=== PATIENT | male | born 1955 | race Caucasian/White ===

== ENCOUNTER 2017-04-20 17:29 | Inpatient (IN) | payer OTHER ==
[~2017-04-20] VITALS: Ht 170.2 cm; Wt 45.2 kg
[2017-04-20 20:36] VITALS: BP 130/73; PULSE 94; TEMP 37.7; O2SAT 96
[2017-04-20 20:57] VITALS: Ht 170.2 cm; Wt 45.2 kg
--- NOTE | 2017-04-20 21:11 | History and Physical ---
History & Physical Date & Time of Service: Apr 20, 2017 at 21:11 Chief Complaint: Severe Anemia, Hemoptisis, Lung Mass Primary Care Physician: No Doctor, Assigned History of Present Illness Source: patient, hospital records 62 yo M, 50 pack year of smoking, has not seen a Dr in many years. presented to an outside facility and was transferred here for hemoglobin of 3.7 and large mass in RUL and RML, presumably a malignancy. He apparently had a history of TB a few years ago and reports he took about 12 tablets a day for it, and that he had a mass in the RUL then as well. He reports he has been feeling unwell generally, and has been coughing up blood which he has been swallowing. He has a 30 lb weight loss in the last 1-2 months. He smokes about 1/2 pack per day. His partner of 15 years recently from lung cancer about 2 months ago so his mood has been low overall. He denies headache, visual changes, abdominal pain, urinary changes, or leg swelling. His stools have occasionally been dark. He went to the [facility] and was found to have a Hb of 3.7, and was transfused 2 units prior to arrival here. He had a CT of the chest which showed a 5.3 x 5.9 x 7.8cm mass in the right upper lobe and right middle lobe. He also had some enlarged lymph nodes in the chest and axilla. Past Medical/Surgical History PMHx Tuberculosis in past - unclear if it was latent or active PSHx Carpal tunnel release Family History No pertinent FHx Social History Smoking Status: Current Every Day Smoker (1/2 pack per day since age 9) Smokeless Tobacco Use: No Alcohol Use: socially Drug Use: none Marital Status: single Housing status: lives alone Immunizations History of Influenza Vaccine: Unknown History of Tetanus Vaccine?: Unknown History of Pneumococcal: Unknown History of Hepatitis B Vaccine: Unknown Multi-Drug Resistant Organisms History of MDRO: No Allergies Coded Allergies: No Known Allergies (Unverified , 04/20/17) Review of Systems See HPI for pertinent positives & negatives. A total of 10 systems reviewed and were otherwise negative. Physical Exam Vital Signs Date Time Temp Pulse Resp B/P (MAP) Pulse Ox O2 Delivery O2 Flow Rate FiO2 04/20/17 20:57 Room Air 04/20/17 20:36 37.7 94 21 130/73 (92) 96 Room Air General Appearance: WD/WN, no apparent distress, + thin, + pertinent finding ( pale) Head: normocephalic, atraumatic Eyes: normal inspection, PERRL ENT: hearing grossly normal Neck: supple, no JVD Respiratory/Chest: lungs clear, normal breath sounds, no respiratory distress, no accessory muscle use, + decreased breath sounds (RUL) Cardiovascular: regular rate, rhythm, no murmur, normal peripheral pulses Abdomen/GI: normal bowel sounds, non tender, soft Back: normal inspection, no CVA tenderness, no muscle spasm Extremities/Musculoskelatal: no calf tenderness, no pedal edema Neurologic/Psych: alert, normal mood/affect, oriented x 3 Skin: no rash Lymphatic: no adenopathy Diagnostics Laboratory Results Results Past 24 Hours Test 04/20/17 21:08 Range/Units Normal EKG, No prior EKG available (at outside facility) Impression Assessment and Plan 62 year old male w/weight loss, hemoptysis, hx of TB, significant smoking hx w/ new lung mass and anemia - ddx malignancy vs TB (with his hx of TB, we will presume potentially active TB until ruled out) Lung mass - Cardiothoracics consulted. Dr Beverly discussed the case with Dr Acevedo prior to accepting it. - CT chest images received on disc, to be uploaded to our system - Airborne precautions - ID consulted in case of TB, Heme-Onc for potential malignancy Acute red blood cell loss anemia requiring transfusion of PRBCs - Received 2 units - Will recheck a CBC, type/cross 3 further units - Repeat labs in AM Smoking hx - Will provide nicotine patch Dispo: Admit to Tele Code status: Full VTE: SCDs Attending addendum: I have physically seen this patient, have supervised the medical residents activities, and agree with the H&P unless as otherwise noted. Assessment and Plan: 1. Lung mass/hemoptysis/acute blood loss anemia/reported TB history that sounds like partial treatment-- Admits to the telemetry unit Nasal cannula oxygen, titrate to keep pulse ox greater than or equal to 92% Duonebs every [address] a reverse isolation room Consult thoracic surgery Dr. Acevedo, who is already aware the patient. Consult infectious disease Place on vancomycin IV and cefepime IV empirically 2. Acute blood loss anemia secondary to hemoptysis-- Hemoglobin reportedly 3.7 prior to transfer Received 2 units PRBCs while at referring hospital Stat H&H now and every 6 hours Target hemoglobin to at least 8 3. Tobacco use disorder-- Counseling Nicotine patch Level of Care Telemetry Advanced Directives Existing Advance Directive: No Existing Living Will: No Existing Power of Structural Welder: No Resuscitation Status FULL RESUSCITATION VTE Prophylaxis VTE Risk Assessment Done? Y/N: Yes Risk Level: Moderate Given or contraindicated: SCD's, Contraindicated Resident Tracking Resident Involvement: Resident Care Provided Care Provided: Adult Hospital Medicine
[2017-04-20] MEDS ORDERED: MoRPHine SULFATE 2 MG/ML CARP IV PRN (21:15)
[2017-04-20] MEDS ORDERED: ONDANSETRON INJ 2 MG/ML 2 ML VIAL IV PRN (21:15)
[2017-04-20] MEDS ORDERED: MAGNESIUM HYDROXIDE SUSP 30 ML UDC PO PRN (21:15)
[2017-04-20] MEDS ORDERED: ALUMINUM/MAGNESIUM/SIMETH (MAALOX MAX) 30 ML UDC PO PRN (21:15)
[2017-04-20] MEDS ORDERED: NITROGLYCERIN 0.4 MG SL PER TAB CHARGE SL PRN (21:15)
[2017-04-20] MEDS ORDERED: POLYETHYLENE (MIRALAX) 17 GM PACK PO PRN (21:15)
[2017-04-20] MEDS ORDERED: INFLUENZA VIRUS QUAD VACCINE 0.5 ML SYR IM. ONE (21:30)
[2017-04-20] MEDS ORDERED: INFLUENZA ADMINISTRATION CHARGE ONE (21:30)
[2017-04-20 22:04] LABS: INR 1.2 (0.9-1.1); PROTHROMBIN TIME (PATIENT) 12.5 SECONDS (9.0-12.0)
[2017-04-20 22:10] LABS: BUN/CREATININE RATIO 15.7 (10-20); CALCIUM 8.1 mg/dl (8.5-10.1); CREATININE 0.59 mg/dl (0.60-1.40); POTASSIUM 3.4 mmol/L (3.5-5.1)
[2017-04-20 22:13] LABS: ALB/GLOB RATIO 0.3 (0.9-2)
[2017-04-20 22:19] LABS: HEMATOCRIT 21.7 % (42-52); MEAN CELL VOLUME 90.8 fL (80-100); MEAN CORPUSCULAR HEMOGLOBIN 26.8 pg (25-34); MEAN CORPUSCULAR HGB CONC 29.5 g/dl (32-36); MEAN PLATELET VOLUME 12.5 fL (7.4-10.4); PLATELET COUNT 200 K/uL (130-400); RED BLOOD COUNT 2.39 M/uL (4.7-6.1); WHITE BLOOD COUNT 4.04 K/uL (4.8-10.8)
[2017-04-20 22:36] LABS: HYPOCHROMIA PRESENT; POLYCHROMASIA 1+
[2017-04-20 22:38] LABS: COMPLETE YES; EOSINOPHIL % 1.8 %; LYMPH ABS # 1.08 K/uL (1.2-3.4); LYMPHOCYTE % 26.8 %; NEUTROPHILS % 11.6 %
[2017-04-20 23:44] VITALS: BP 121/68; PULSE 102; TEMP 37.7; O2SAT 94
[2017-04-20] MEDS: NITROGLYCERIN OINT 2% 1GM PACKET EXT SCH (23:48)
[2017-04-21] VITALS (16 sets, daily range): BP systolic 95–132; BP diastolic 62–89; PULSE 85–104; TEMP 36.7–37.9; O2SAT 90–99
[2017-04-21] MEDS: ZOLPIDEM TARTRATE 5 MG TAB PO PRN ×2 (00:03→22:01)
[2017-04-21] MEDS ORDERED: VANCOMYCIN INJ 1,250 MG in SODIUM CHLORIDE 0.9% 250ML 250 ML IV ONE (02:00)
[2017-04-21] MEDS ORDERED: CEFEPIME IV 1,000 MG in DEXTROSE 5% 100ML 100 ML IV SCH (02:00)
--- NOTE | 2017-04-21 02:10 | Pharmacy Progress Note ---
Pharmacy Abx Initial Consult Date of Service Apr 21, 2017. Pharmacy Dosing Scope Date of Consult: 04/21/17 Consultation requested by: Dr. Alba Pharmacy is consulted to initiate vancomycin IV dosing therapy, order appropriate labs and adjust drug dose/frequency. Subjective The patient is a 62 year old male admitted on Apr 20, 2017 at 20:39. Objective Height (Feet): 5 Height (Inches): 7.00 Weight (Kilograms): 48.700 Vital Signs (Past 12Hrs) Vital Signs Past 12 Hours Date Time Temp Pulse Resp B/P (MAP) Pulse Ox O2 Delivery O2 Flow Rate FiO2 04/21/17 01:59 37.8 94 18 123/66 93 04/21/17 00:53 37.6 95 16 110/64 95 04/21/17 00:34 37.9 93 16 116/65 95 04/21/17 00:05 37.9 101 16 107/67 95 04/21/17 00:00 Room Air 04/20/17 23:44 37.7 102 20 121/68 94 04/20/17 20:57 Room Air 04/20/17 20:36 37.7 94 21 130/73 (92) 96 Room Air Lab Results (24Hrs) Laboratory Tests (24 Hours) Test 04/20/17 21:30 White Blood Count 4.04 K/uL (4.8-10.8) L Red Blood Count 2.39 M/uL (4.7-6.1) L Hemoglobin 6.4 g/dL (14.0-18.0) *L Hematocrit 21.7 % (42-52) L Mean Corpuscular Volume 90.8 fL (80-100) Mean Corpuscular Hemoglobin 26.8 pg (25-34) Mean Corpuscular Hemoglobin Concent 29.5 g/dl (32-36) L Platelet Count 200 K/uL (130-400) Mean Platelet Volume 12.5 fL (7.4-10.4) H Micro Results Date/Time Source Procedure Growth Status 04/20/17 22:06 Blood Blood Culture Pending Received 04/20/17 21:57 Blood Acid Fast Stain Pending Received 04/20/17 21:57 Blood Mycobacterial Culture Pending Received 04/20/17 21:57 Blood Blood Culture Pending Received Risk Factors for Resistance Assessment & Plan Assessment 62 year old male with a large mass in his right upper and middle lobe and a past history of TB presents with a low hemoglobin. Plan vancomycin for empiric treatment Vancomycin IV * Loading dose: 1250 mg (25 mg/kg) * Maintenance dose: 1000 mg IV (21 mg/kg) every 12 hours * Goal trough level for empiric : 15 to 20 mcg/mL * Trough ordered for 04/22/17 prior to 1400 dose Pharmacy will continue to follow and will adjust dose/frequency as necessary. Thank you.
[2017-04-21] MEDS ORDERED: VANCOMYCIN CONSULT ACTIVE PRN (02:15)
[2017-04-21] MEDS: ACETAMINOPHEN 325 MG TAB PO PRN ×2 (03:05→12:18)
[2017-04-21] MEDS: CEFEPIME IV 1,000 MG in SYRINGE 0 ML IV SCH ×3 (03:05→19:15)
[2017-04-21 03:49] LABS: URINE APPEARANCE CLEAR (CLEAR); URINE BILIRUBIN NEG (NEG); URINE COLOR YELLOW; URINE NITRITE NEG (NEG); URINE PH 5.5 (4.5-7.5); URINE SPECIFIC GRAVITY 1.024 (1.000-1.030); UROBILINOGEN NEG (NEG)
[2017-04-21 03:53] LABS: MANUAL MICROSCOPIC REQUIRED? NO; REVIEW REQ? NO
[2017-04-21] MEDS: NITROGLYCERIN OINT 2% 1GM PACKET EXT SCH ×4 (05:23→23:43)
[2017-04-21 07:54] LABS: BUN/CREATININE RATIO 16.3 (10-20); CALCIUM 7.8 mg/dl (8.5-10.1); CREATININE 0.5 mg/dl (0.60-1.40); POTASSIUM 3.1 mmol/L (3.5-5.1)
[2017-04-21 07:58] LABS: MEAN CELL VOLUME 88.9 fL (80-100); MEAN CORPUSCULAR HEMOGLOBIN 27.4 pg (25-34); MEAN CORPUSCULAR HGB CONC 30.8 g/dl (32-36); PLATELET COUNT 154 K/uL (130-400); WHITE BLOOD COUNT 4.03 K/uL (4.8-10.8)
[2017-04-21] MEDS ORDERED: NURSING VERBAL MED ORDER ONE (08:00)
[2017-04-21] MEDS ORDERED: POTASSIUM CHLORIDE 20 MEQ TABCR PO ONE ×2 (08:30→12:00)
[2017-04-21] MEDS: NICOTINE 14 MG/24 HR TDSY TD SCH (08:34)
--- NOTE | 2017-04-21 08:43 | DIAGNOSTIC IMAGING REPORT ---
CHEST 2 VIEWS ROUTINE HISTORY: 62 years-old Male ?mass RUL / RML possible mass of the right upper lobe. COMPARISON: None available TECHNIQUE: PA and lateral views of the chest FINDINGS: Cardiac silhouette is within normal limits. The lungs are hyperinflated with diaphragmatic flattening suggesting emphysema. Airspace opacities are noted within the right upper lobe. There is volume loss with possible complete atelectasis of the right middle lobe. Hazy right apical and right hilar opacities are also noted with biapical pleural-parenchymal scarring. The bones are grossly intact. Atherosclerotic plaquing of the aorta. IMPRESSION: 1. Volume loss of the right middle lobe with airspace opacities of the right upper lobe. 2. Right apical and right perihilar opacities are also noted suggesting areas of scarring or underlying mass. No comparison studies are available. Further evaluation with chest CT recommended. 3. Emphysema. The above report was generated using voice recognition software. It may contain grammatical, syntax or spelling errors. Electronically signed by: Hermilo Wiley M.D. 04/21/2017 8:41 AM Dictated Date/Time: 04/21/2017 8:26 AM
[2017-04-21] MEDS ORDERED: OPTIRAY 320 IV PRN (08:45)
[2017-04-21 09:56] LABS: FERRITIN 187.7 ng/ml (8.0-388.0)
--- NOTE | 2017-04-21 10:45 | ONCOLOGY CONSULTATION ---
DATE OF CONSULTATION: 04/21/2017 REASON FOR CONSULTATION: Lung mass and profound anemia. HISTORY OF PRESENT ILLNESS: Mr. Guajardo is a pleasant, somewhat unfortunate 62-year-old gentleman from [facility], who was admitted to [facility] on 04/20/2017 with a complaint of generalized weakness, hemoptysis, anemia and lung mass. [facility], [facility] underwent a preliminary workup, which included peripheral blood counts and a CT scan of the chest. Hemoglobin was 3.[address] scan of the chest apparently revealed a large mass in the right upper and right middle lobe, presumably representing malignancy. Clinical notes and the patient himself reported history of tuberculosis exposure. From what Randal explains to me, he was incarcerated for a DUI back in 2003. He is not sure of specifics. Rather, he had a skin test or a clinical/radiographic evidence of disease, but nonetheless, was treated with triple therapy, he believes for at least 1 month. Beyond that, he is really unsure on whether he actually suffered from clinical tuberculosis. Clinically, over the past several months, he has been steadily losing weight, he reports about 30 pounds over the past 2-3 months. He has a 84-eqlz-ryzs smoking history and continues to smoke; however, he admittedly has cut down. He states his appetite has been pretty vigorous, but obviously has not maintained a well-balanced diet. He denies any pain per se. He clearly has been constipated stating he moves his bowels every 2-3 days. Apparently, he received 2 units of packed RBCs at [facility] and 2 additional units since being transferred here. He clearly admits to long-term hemoptysis, he estimates several months past and I asked him why he did not seek medical attention and he attributes the hemoptysis to a lack of humidity in his home. I have been asked to evaluate Mr. Guajardo for what is presumably a lung cancer and a profound blood loss anemia. PAST MEDICAL HISTORY: Again, the issue of tuberculosis is really unclear. This gentleman has not seen a physician, he admits in over 15 years. PAST SURGICAL HISTORY: Carpal tunnel release. MEDICATIONS AND ALLERGIES: He is on no prescription medications and has no known allergies. SOCIAL HISTORY: The patient was a [employer]. He is no longer working. Recently lost his partner to metastatic lung cancer. He has 3 children. Again, he reports 15-djjv-efer smoking history. He also admits to social alcohol. FAMILY HISTORY: Noncontributory. REVIEW OF SYSTEMS: As per HPI most notably for weight loss of 30 pounds. GENERAL: He denies fevers, chills or sweats. SKIN: No rashes or lesions. No history of dermatosis. HEENT: He reports no headaches, lightheadedness or dizziness. No acute visual or hearing deficits. No sinus symptoms, sore throat or dysphagia. LYMPH: No history of lymphadenopathy or lymphoproliferative disease. CARDIAC: No history of coronary artery disease, no angina or palpitations. PULMONARY: Positive for shortness of breath. Positive for dyspnea. Positive for hemoptysis and productive cough. GASTROINTESTINAL: Negative for abdominal pain. No current nausea or vomiting. Positive for constipation. Question of ongoing melena. No kimberly rectal bleeding or hematochezia reported. GENITOURINARY: has no history of prostate disease. No hematuria or dysuria. MUSCULOSKELETAL: No muscle weakness or skeletal pain. No arthralgias or myalgias. ENDOCRINE: Negative for diabetes or thyroid disease. HEMATOLOGIC: Positive for profound anemia. PHYSICAL EXAMINATION: GENERAL: In general, he is a cachectic-appearing 62-year-old gentleman, looks much older than his stated age in no acute distress. VITAL SIGNS: Temperature 36.9, pulse 85, respiratory rate 24, blood pressure 121/68. SKIN: Warm, dry, noncyanotic without petechia, rash or ecchymosis. Turgor is poor. HEAD: Atraumatic, normocephalic. EYES: PERRLA, EOMI. Sclerae nonicteric. No conjunctival injection. Nares are patent without rhinorrhea or discharge. Throat is clear. Tongue is midline. Mucous membranes are moist. NECK: Supple without JVD or thyromegaly. LYMPH: No cervical, supraclavicular, or axillary palpable nodes. HEART: Regular rate and rhythm. No clicks, rubs, murmurs, or gallops. LUNGS: Distant breath sounds. I could not appreciate any overt rales or rhonchi. ABDOMEN: Firm, slightly distended. Bowel sounds are hypoactive. No rigidity or guarding noted. EXTREMITIES: Musculoskeletal strength and pulses are equal. No clubbing, cyanosis or edema. NEUROLOGIC: He is awake, alert and oriented x3. Cranial nerves II through XII are intact. LABORATORY DATA: Sodium 133, potassium 3.1, chloride 101, carbon dioxide 26, BUN 8, creatinine 0.5. WBC count 4030, hemoglobin 7.4, MCV 88.9, platelet count 154,000. His PT 12.5 with an INR of 1.2. IMPRESSION: 1. Suspected lung cancer. 2. Generalized weakness. 3. Anorexia/weight loss. 4. Hemoptysis. 5. Mild coagulopathy, most likely attributable to vitamin K deficiency. 6. Remote history of tuberculosis ? PLAN: I had the pleasure of visiting with Randal and family members in the room with him during consultation. Clearly, this gentleman has not been seen by medical records receptionist in several years. He was admitted for generalized weakness, weight loss and anorexia and incidentally was found to be anemic. He obviously has had hemoptysis for quite some time and did not seek medical attention. There is also a question of whether his stools are melena. He has been constipated. I agree with thoracic surgery consultation. In addition, I would probably request gastroenterology get involved at some point. I have taken the liberty of ordering preliminary elemental studies, particularly iron, B12 and folate. I have also taken the liberty of proceeding with CT scan of the chest, abdomen and pelvis with contrast to formally staged Mr. Guajardo. Treatment and recommendations have not been made and we will plan to do so once diagnosis is confirmed. I did inform Mr. Guajardo and his family that his presentation is certainly suspicious for a cancer diagnosis. I will continue to follow him periodically during his hospital stay. At present, his hemoglobin is adequate. I think to discontinue further transfusional support. I suspect his iron studies will reflect deficiency state and may want to consider intravenous replacement, again upon confirmation. Thank you very much for allowing me to participate in his care. If you have any questions or concerns, feel free to contact me at any time. SARANYA
--- NOTE | 2017-04-21 11:09 | INFECT. DISEASE CONSULTATION ---
DATE OF CONSULTATION: 04/21/2017 HISTORY OF PRESENT ILLNESS: This is a 62-year-old gentleman who was transferred from [facility] after he was found to be profoundly anemic with a hemoglobin of 3.7. He was transfused while in the hospital at [facility] and his hemoglobin was improved to 6.4 upon arrival. He also had a CAT scan of the chest done while at [facility] due to hemoptysis, which has been ongoing for a number of weeks. This did show a right upper lobe cavitary mass measuring 5.3 x 5.9 x 7.8 cm. He additionally has had significant weight loss of around 30 pounds over the past 2-3 months, which has been unintentional. He denies any fevers or chills at home. He denies any night sweats. He denies any cough other than hemoptysis. He did attribute this to having the heat on and try air in the house; however, it sounds as though his hemoptysis was significant. He did have a mild elevation in temperature overnight at 37.9. AFB sputum cultures have been collected and are pending. He was placed empirically on vancomycin and cefepime. He does have a history of what he describes as TB exposure in 2003. At that time, he was [facility] [place]. It is unclear how long he was incarcerated, but he states he did have a test for tuberculosis. He is unable to recall if he had a PPD placed and if so, what his measurement was. In any event, he states he was given a few months' worth of antibiotics to treat for exposure to TB, but states he was never told he had active tuberculosis. It does not appear as though he was ever placed in respiratory isolation while incarcerated. He has had no followup with a physician since that time. Additionally, he also has a 50+ year smoking history and continues to use tobacco. He was placed in airborne precautions and AFB and sputum were obtained. The results of these are pending. He currently denies any chest pain, cough or shortness of breath. He states he has not had any additional episodes of hemoptysis since admission to the hospital. His family is at the bedside. He denies ever living anywhere else in the country. He denies having any known exposure to tuberculosis. 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 He states he has not spent significant time outside of the country. PAST MEDICAL HISTORY: Significant for what he describes as latent tuberculosis and carpal tunnel release surgery. FAMILY HISTORY: Noncontributory. SOCIAL HISTORY: Significant for daily tobacco use. He does drink occasionally. He denies any drug use. He does live alone. His remaining social history is as above. ALLERGIES: He has no known drug allergies. MEDICATIONS: Include nicotine patch, vancomycin, potassium, cefepime, Ambien, Tylenol, Maalox, milk of magnesia, Zofran, morphine and MiraLax. PHYSICAL EXAMINATION: VITAL SIGNS: He is afebrile, pulse 85, respiratory rate 24, blood pressure 121/68, and oxygen saturation is 93%-97% on room air. GENERAL: He is awake, alert and oriented x3. He is in no acute distress. HEENT: Mucous membranes are dry. Extraocular muscles are intact. He is cachectic appearing. LUNGS: Decreased bilaterally. HEART: Regular. ABDOMEN: Soft, nontender, and nondistended. EXTREMITIES: There is no lower extremity edema bilaterally. SKIN: Without rash. LABORATORY STUDIES: CBC today reveals a white blood cell count of 4.2, hemoglobin 7.4, and platelets 154. Chemistry panel reveals a sodium of 133, potassium 3.1, chloride 101, bicarbonate 26, BUN 8, creatinine 0.5, and glucose is 91. LFTs are normal. Urinalysis is unremarkable. A hep C screen is negative. Blood cultures are pending from the Emergency Room. AFB cultures are pending. A routine sputum is pending as well. Chest x-ray done in the Emergency Room shows volume loss of the right middle lobe with opacities in the right upper lobe, suggesting scarring or underlying mass. Emphysematous changes were noted. CT findings from [facility] are as above. ASSESSMENT AND PLAN: A right upper lobe mass malignancy versus pneumonia versus tuberculosis. It is unclear if he did complete a course for latent tuberculosis while incarcerated in 2003 and has been lost to medical followup since that time. QuantiFERON will be ordered. He will remain in airborne isolation pending sputum cultures. If there is a concern for underlying malignancy, bronchoscopy would be recommended once stable for biopsy and pathology as well as AFB cultures. We will follow along with you. Thank you for this consultation.
--- NOTE | 2017-04-21 11:26 | Progress Note ---
Progress Note Date of Service Apr 21, 2017. Progress Note ID Consult Dictated #[id number] A/P: 1. RUL mass with hemoptysis and h/o reported LTBI -Difficult to discern if pt was ever fully worked up for active TB in past, reports + screen test (?ppd) in 2003 while incarcerated, received abx for a 'few months", unable to recall name. Was not placed in airborne isolation, does not remember having cxr at that time. Unclear if he completed course for LTBI at that time. -Also significant tob use and wt loss, malignancy concern as well -Will maintain airborne isolation, sputum for AFB x 1 sent, will need 2 more, however, with concern for malignancy bronch with biopsy may be required -Will check IGRA but with h/o + screen this will likely be + and impact further decision making very little -If smear + will start rx, hold for now pending additional data -Will follow. thank you
--- NOTE | 2017-04-21 11:53 | DIAGNOSTIC IMAGING REPORT ---
CT OF THE ABDOMEN AND PELVIS WITH CONTRAST CLINICAL HISTORY: Constipation. Anemia. Lung mass. COMPARISON STUDY: None. TECHNIQUE: Following IV administration of 92 mL of Optiray-320, axial images of the abdomen and pelvis were obtained from the lung bases to the proximal femurs. Images were reviewed in the axial, sagittal, and coronal planes. IV contrast was administered without complication. A dose lowering technique was utilized adhering to the principles of ALARA. Oral contrast was administered. FINDINGS: The chest CT will be reported separately. Evaluation of the abdomen and pelvis is difficult given a paucity of intra-abdominal fat. The liver, spleen, adrenal glands, kidneys and pancreas are unremarkable with the exception of a few suspected left renal cyst. There is no biliary or pancreatic ductal dilatation. There is no hydronephrosis. There is no evidence for a bowel obstruction. Sensitivity for detection of mucosal lesions is diminished given CT technique but none are identified. There is a moderate amount of stool within the colon. There is no evidence for a bowel obstruction. No abdominal or pelvic lymphadenopathy is present. Note is made of extensive atherosclerotic plaque within the major vessels of the abdomen and pelvis. There is occlusion of the proximal left superficial femoral artery. There is extensive plaque within the right common femoral artery with suspected severe stenosis. There is no aneurysmal dilatation of the abdominal aorta. No suspicious osseous lesions are present. There is no ascites. Note is made of a rim-enhancing hypodensity within the medial left buttock that measures 2.5 x 2.2 cm. There is grade I anterolisthesis of L5 on S1 due to bilateral L5 pars defects. IMPRESSION: 1. Moderate amount of stool within the colon. No evidence for bowel obstruction. Decreased sensitivity for detection of mucosal lesions given CT technique. 2. 2.5 x 2.2 cm rim-enhancing fluid collection of the medial left buttock. This favors an abscess. A necrotic mass could appear similar although is considered less likely. 3. Occlusion of the proximal left superficial femoral artery with suspected severe stenosis of the right common femoral artery. Extensive atherosclerotic plaque. 4. Difficult study to interpret given paucity of intra-abdominal fat. Electronically signed by: Karlos Herrera M.D. 04/21/2017 11:51 AM Dictated Date/Time: 04/21/2017 11:36 AM
--- NOTE | 2017-04-21 11:53 | DIAGNOSTIC IMAGING REPORT ---
CHEST CT WITH CONTRAST CT DOSE: 472.07 mGy.cm HISTORY: Questioned lung mass on comparison chest radiograph of same day Lung mass TECHNIQUE: Multiaxial CT images of the chest were performed following the intravenous administration of contrast. 92 mL Optiray 320 IV contrast was administered. A dose lowering technique was utilized adhering to the principles of ALARA. COMPARISON: CT abdomen and pelvis of same day, chest radiograph of same day. FINDINGS: No dominant thyroid nodule identified. There is moderate diffuse body wall edema. Mildly enlarged subcarinal lymph node measures 2.3 x 1.2 cm. Additionally, there are scattered nonenlarged AP window and paratracheal lymph nodes with a 1.4 x 1.0 cm right paratracheal lymph node seen on image 62 series 4. Mildly enlarged right subpectoral lymph node is seen, 1.6 x 1.1 cm. The heart is normal in size without pericardial effusion. Coronary arterial calcifications are seen. There is no aortic dissection or aneurysm identified. There is mild degree of atherosclerotic plaquing involving the aorta. The opacified pulmonary arterial tree is unremarkable. Severe upper lobe predominant bullous centrilobular emphysematous disease is noted. There is no pneumothorax. Trace amount of pleural fluid is noted within the right hemithorax at the level the right lung base. Pleural-based consolidative opacity of the posterior basal segment left lower lobe measures 1.6 x 0.6 cm. Pleural-based nodular opacity of the left lower lobe is seen measuring 8 x 6 mm on image 243 series 4. Additional pleural-based consolidative opacity is seen within the super segment left lower lobe, 11 x 8 mm on image 178 series 4. 4 mm nodular opacity of the basal left lower lobe seen on image 276 series 4. 6 mm pulmonary nodule of the left lower lobe noted on image 280 series 4. Multifocal irregular consolidative type opacities are noted within the right upper and middle lobes without endobronchial obstructing mass or definite discrete neoplasm identified. Consolidation with thick mays and central air-fluid levels noted within the apical right upper lobe measuring up to 6.8 cm transversely as seen on image 66 series 4 with air-fluid level seen on image 41 series 4. No displacement of the adjacent bony vasculature. No associated destruction of the adjacent ribs. Mild subpleural reticular opacities of the basal right lower lobe suggest pneumonitis. Mild bibasilar bronchial wall thickening suggests emphysema. There is a calcified granuloma of the basal left lower lobe. No acute amount of the imaged upper abdomen. No definite lytic or blastic bony lesions to suggest metastasis. Multilevel endplate degenerative changes of the spine. Mild to moderate. IMPRESSION: 1. Severe upper lobe predominant bullous centrilobular emphysematous disease is present with multifocal consolidation of the right upper and middle lobes without displacement of the adjacent vasculature or invasion into the adjacent structures. Additionally, there is a central air-fluid level within the right apical consolidation. Differential considerations would include multifocal pneumonia with bronchogenic neoplasm also in the differential. Correlation with bronchoscopy and tissue sampling recommended. 2. Pleural-based consolidative opacities of the left lower lobe as above suggests multifocal pneumonitis. Mild associated bronchial wall thickening compatible with bronchitis. 3. Mild subcarinal and right subpectoral adenopathy may be reactive or metastatic. Electronically signed by: Hermilo Wiley M.D. 04/21/2017 11:52 AM Dictated Date/Time: 04/21/2017 11:35 AM
[2017-04-21 12:04] LABS: ANISOCYTOSIS PRESENT; POLYCHROMASIA 1+
[2017-04-21 12:05] LABS: COMPLETE YES; LYMPH ABS # 1.23 K/uL (1.2-3.4); LYMPHOCYTE % 30.4 %; NEUTROPHILS % 15.7 %
[2017-04-21] MEDS: VANCOMYCIN INJ 1,000 MG in SODIUM CHLORIDE 0.9% 250ML 250 ML IV SCH (14:49)
--- NOTE | 2017-04-21 15:21 | Family Medicine Progress Note ---
Progress Note Date of Service Apr 21, 2017. Subjective Pt evaluation today including: conversation w/ patient, physical exam, chart review, lab review The patient was seen and examined at bedside. No acute overnight events. 3 Family Members in the room. Tele showed sinus rhyth, Patient is resting comfortably in bed. Denies having any pain. Eating and urinating well. Plan of care was described to the patient and all questions were answered. Constitutional: + weight loss (chronic over several months/years), No fever , No chills, No sweats ENT: No nasal symptoms Respiratory: + cough (with hemoptysis), + sputum, + shortness of breath, + dyspnea on exertion, No wheezing Abdomen: + constipation, No pain, No nausea, No vomiting, No diarrhea Male : No dysuria Skin: No rash Objective Physical Exam General Appearance: + cachetic, + thin, + pertinent finding (Pale, thin appearing male in no acute distress. ) Eyes: PERRL, EOMI ENT: TMs normal Neck: supple, no adenopathy, no JVD, no carotid bruits Notes: Respiratory/Chest: lungs clear, normal breath sounds, no respiratory distress, no accessory muscle use, + decreased breath sounds (RUL + RML) Cardiovascular: regular rate, rhythm, no murmur, normal peripheral pulses Abdomen/GI: normal bowel sounds, non tender, soft Back: normal inspection, no CVA tenderness, no muscle spasm Extremities/Musculoskelatal: no calf tenderness, no pedal edema Neurologic/Psych: alert, normal mood/affect, oriented x 3 Skin: no rash Lymphatic: no adenopathy Laboratory Results CT Scan of the Chest. 1. Severe upper lobe predominant bullous centrilobular emphysematous disease is present with multifocal consolidation of the right upper and middle lobes without displacement of the adjacent vasculature or invasion into the adjacent structures. Additionally, there is a central air-fluid level within the right apical consolidation. Differential considerations would include multifocal pneumonia with bronchogenic neoplasm also in the differential. Correlation with bronchoscopy and tissue sampling recommended. 2. Pleural-based consolidative opacities of the left lower lobe as above suggests multifocal pneumonitis. Mild associated bronchial wall thickening compatible with bronchitis. 3. Mild subcarinal and right subpectoral adenopathy may be reactive or metastatic. CT Abdo and Pelvis IMPRESSION: 1. Moderate amount of stool within the colon. No evidence for bowel obstruction. Decreased sensitivity for detection of mucosal lesions given CT technique. 2. 2.5 x 2.2 cm rim-enhancing fluid collection of the medial left buttock. This favors an abscess. A necrotic mass could appear similar although is considered less likely. 3. Occlusion of the proximal left superficial femoral artery with suspected severe stenosis of the right common femoral artery. Extensive atherosclerotic plaque. 4. Difficult study to interpret given paucity of intra-abdominal fat. Assessment and Plan 62M with a PMHx of fatigue and 50pack year smoking history was sent from [place] for a suspicious lung lesions. He presented to the [place] ER with fatigue, weight loss and hemoptysis and his hemoglobin was found to be 3.7. Patient has not seen a doctor in the past [address] of the Chest done at [place] was suspicious for malignancy. Patient was placed on droplet precautions for TB. We have THoracic surgery, ID and HemeOnc on board. RUL and RML Lesions and Lymphadenopathy, Malignancy vs TB vs Pneumonia - Patient will likely need bronchoscopy, Dr. Acevedo's team is on board, I will make the patient NPO after midnight. - Our CT Abdo confirms the read from [place], lesions in the RUL and RML, no bony mets, enlarged lymph nodes. - c/w Airborne precautions. - Per ID - pt will need three Acid Fast Sputum Cultures, will also get an IGRA - For possible pneumonia will Vanc and Cefepime, Day #1. Acute red blood cell loss anemia requiring transfusion of PRBCs - Received 2 units here and apparently 2 units in [place]. - TIBC is decreased , ferritin and iron are normal. This is suggestive of anemia of chronic disease. - FOBT in [place] was positive, patient also reports that his stools are dark nowadays, patient has been more constipated than recently, will order Miralax to help with BM. - We will start on Protonix IV BID and daily Miralax. - Per Heme/Onc they suggest a GI consult - in the least he will need a colonoscopy as outpatient. - Check Hemoglobin in the AM. Smoking hx - Nicotine patch Hypokalemia - 3.1 today - will give 40meq now and 20meq in the afternoon. - Continue to monitor. Dispo: Tele, NPO at midnight. DVT Proph: SCDs FULL CODE Resident Physician Supervision Note: I was present with Dr. Molckovsky during the history and exam. I discussed the case with the resident and agree with the findings and plan as documented in the note. I also discussed the case with pulmonology as well. 1) NPO after MN for potential bronchoscopy tomorrow. 2) SCDs only for DVT prophylaxis given his anemia. 3) Replace potassium and monitor. 4) Monitor HgB 5) Heme check stools. Documented By: Patrick Chiu Resident Involvement: Resident Care Provided Care Provided: Adult Hospital Medicine
[2017-04-21] MEDS ORDERED: PANTOprazole INJ 40 MG in SYRINGE 0 ML IV ONE (15:30)
[2017-04-21] MEDS ORDERED: FAMOTIDINE 20 MG TAB PO ONE (15:30)
[2017-04-21] MEDS ORDERED: POLYETHYLENE (MIRALAX) 17 GM PACK PO ONE (15:30)
--- NOTE | 2017-04-21 16:09 | Pulmonary Consultation ---
History General Date of Service: Apr 21, 2017. Stated Complaint: Acute Blood Loss Anemia, Hemoptysis, Lung Mass HPI The patient is a 62 year old male who presents to [facility] with complaints of Acute Blood Loss Anemia, Hemoptysis, Lung Mass. The patient' s primary care provider is No Doctor, Assigned. Mr. Guajardo is a 62-year-old male with no significant past medical history who was transferred from [facility] with complaints of right upper lobe cavitary mass associated with anemia, hemoptysis and weight loss. Hemoglobin and [facility] was 3.7. He was transfused 2 units of PRBCs. Patient states that for the last several months increased lethargy and fatigue, unintentional weight loss of about 30 pounds and cough associated with streaks of blood in sputum. He also notes that he's had drenching night sweats for which she's had to change his shirt at times. He also reports shortness of breath with minimal exertion which has become progressive. He denies any fever , chills, palpitations, chest pain, chest tightness or wheezing. He denies any change in appetite. Denies any nausea vomiting, diarrhea. He states over the last few days he has been constipated. Last bowel movement was 4 days ago which is not normal for him. He does admit to feeling lightheaded and dizzy at times. He did have a fall in the middle of the night several weeks ago but did not seek any medical care at that time. He denies any episodes of syncope. He denies any orthopnea, paroxysmal nocturnal dyspnea or lower extremity edema. He denies any sick contacts or recent travel. He does have a history of a known TB exposure [facility] [place], [place]. He states that he received several months of prophylactic treatment. He also has [id number] year history of smoking. He has cut back somewhat, is still an active smoker of half a pack per day. 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 He states that his symptoms have been progressive over the last few days which prompted him to seek further evaluation. Laboratory data upon arrival to our hospital was significant for a white blood cell count of 4, hemoglobin 6.4, hematocrit 21, platelet 200. Sodium 135, potassium 3.4, BUN 9, creatinine 0.59, calcium 8.1. Total bili 0.4, AST 11, ALT 8, total protein 8.7, albumin 2.0. UA significant for trace protein. Blood cultures, sputum and urine culture are pending. AFB 1 are pending. Chest x-ray shows emphysematous changes, volume loss of the right middle lobe with air space opacities of the right upper lobe. There is a right apical and right perihilar opacities. CT chest shows severe upper lobe predominant bullous centrilobular emphysema. There is also a 6.8 cm cavitary opacity in the right upper lobe with air fluid level. There are several pleural-based nodules seen in the left lower lobe. Mild subcarinal and right subpectoral adenopathy seen. He has subsequently been transfused another 2 units of PRBCs. Repeat hemoglobin at the time of my evaluation was 7.4. I was asked to see patient for right upper lobe cavitary lesion and evaluate for possible bronchoscopy with biopsy. Historian: patient Onset: other Review of Systems Constitutional: reports: as stated in HPI Eyes: reports: as stated in HPI ENT: reports: as stated in HPI Cardiovascular: reports: as stated in HPI Respiratory: reports: as stated in HPI Gastrointestinal: reports: as stated in HPI Genitourinary - Male: reports: as stated in HPI Musculoskeletal: reports: as stated in HPI Integumentary: reports: as stated in HPI Neurologic: reports: as stated in HPI Psychiatric: reports: as stated in HPI Endocrine: as stated in HPI Hematologic / Lymphatic: as stated in HPI Allergic / Immunologic: as stated in HPI All Other Symptoms All Other Systems: Reviewed and Negative Past Medical History Past Medical History: No significant past medical history. He was treated several years ago for possible TB exposure. Past Surgical History: Carpal tunnel release surgery. Family History Denies any family history. 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 Currently unemployed. Recently lost his partner to metastatic lung cancer. He has 3 children. He drinks alcohol socially. Hx Tobacco Use In Past Year?: Yes Smoking Status: Current Every Day Smoker (1/2 pack per day since age 9) Marital status: single Housing status: lives alone Immunizations History of Influenza Vaccine: Unknown History of Tetanus Vaccine?: Unknown History of Pneumococcal: Unknown History of Hepatitis B Vaccine: Unknown History of MDRO History of MDRO: No Allergies Coded Allergies: No Known Allergies (Unverified , 04/20/17) Physical Physical Exam Vital Signs: Date Time Temp Pulse Resp B/P (MAP) Pulse Ox O2 Delivery O2 Flow Rate FiO2 04/21/17 12:00 Room Air 04/21/17 11:41 37.2 94 22 132/76 (94) 97 Room Air 04/21/17 08:02 36.9 85 24 121/68 (85) 94 Room Air 04/21/17 08:00 Room Air 04/21/17 04:00 Room Air 04/21/17 03:11 37.5 104 16 110/65 93 04/21/17 02:25 100 16 116/75 97 04/21/17 02:09 95 16 110/69 94 04/21/17 01:59 37.8 94 18 123/66 93 04/21/17 00:53 37.6 95 16 110/64 95 04/21/17 00:34 37.9 93 16 116/65 95 04/21/17 00:05 37.9 101 16 107/67 95 04/21/17 00:00 Room Air 04/20/17 23:44 37.7 102 20 121/68 94 04/20/17 20:57 Room Air 04/20/17 20:36 37.7 94 21 130/73 (92) 96 Room Air General Appearance: NO APPARENT DISTRESS, thin, cachetic Head: NORMOCEPHALIC, ATRAUMATIC Eyes: PERRLA, NO DISCHARGE, EOMI, SCLERAE NORMAL ENT: NORMAL THROAT EXAM Neck: NO TENDERNESS, TRACHEA MIDLINE Respiratory: other Cardiovasular: REGULAR RATE/RHYTHM, NORMAL S1S2 Abdomen: NON TENDER, NORMAL BOWEL SOUNDS Genitourinary - Male: EXTERNAL GENITALIA NORMAL Back: NORMAL INSPECTION, NO MIDLINE TENDERNESS, NO CVA TENDERNESS Upper Extremities: NO EDEMA, NO DEFORMITY, NORMAL ROM Lower Extremities: NO EDEMA, NO DEFORMITY, NORMAL ROM Pulses: dorsalis pedis (R), dorsalis pedis (L) (2+) Neuro: ALERT, ORIENTED x 3, NORMAL MOTOR EXAM, NORMAL SENSATION, NORMAL CEREBELLAR EXAM, NORMAL SPEECH, NORMAL GAIT, NORMAL MEMORY Psychiatric: NORMAL AFFECT, NO SUICIDAL IDEATION, CONTRACTS FOR SAFETY Diagnostics Labs Results Past 24 Hours Test 04/20/17 21:30 04/21/17 03:15 04/21/17 06:13 04/21/17 09:04 Range/Units White Blood Count 4.04 4.03 4.8-10.8 K/uL Red Blood Count 2.39 2.70 4.7-6.1 M/uL Hemoglobin 6.4 7.4 14.0-18.0 g/dL Hematocrit 21.7 24.0 42-52 % Mean Corpuscular Volume 90.8 88.9 80-100 fL Mean Corpuscular Hemoglobin 26.8 27.4 25-34 pg Mean Corpuscular Hemoglobin Concent 29.5 30.8 32-36 g/dl Platelet Count 200 154 130-400 K/uL Mean Platelet Volume 12.5 13.0 7.4-10.4 fL RDW Standard Deviation 61.1 55.5 36.4-46.3 fL RDW Coefficient of Variation 19.4 18.2 11.5-14.5 % Nucleated RBC Absolute Count (auto) 0.02 0-0 K/uL Neutrophils % (Manual) 11.6 15.7 % Lymphocytes % (Manual) 26.8 30.4 % Monocytes % (Manual) 59.8 53.9 % Eosinophils % (Manual) 1.8 % Nucleated Red Blood Cells % 0.6 % Neutrophils # (Manual) 0.47 0.63 1.4-6.5 K/uL Total Absolute Neutrophils 0.47 0.63 1.4-6.5 K/uL Lymphocytes # (Manual) 1.08 1.23 1.2-3.4 K/uL Total Absolute Lymphocytes 1.08 1.23 1.2-3.4 K/uL Monocytes # (Manual) 2.42 2.17 0.11-0.59 K/uL Eosinophils # (Manual) 0.07 0-0.5 K/uL Polychromasia 1+ 1+ Hypochromasia PRESENT Prothrombin Time 12.5 9.0-12.0 SECONDS Prothromb Time International Ratio 1.2 0.9-1.1 Sodium Level 135 133 136-145 mmol/L Potassium Level 3.4 3.1 3.5-5.1 mmol/L Chloride Level 99 101 98-107 mmol/L Carbon Dioxide Level 28 26 21-32 mmol/L Anion Gap 7.0 6.0 3-11 mmol/L Blood Urea Nitrogen 9 8 7-18 mg/dl Creatinine 0.59 0.50 0.60-1.40 mg/dl Est Creatinine Clear Calc Drug Dose 88.3 109.1 ml/min Estimated GFR () 124.9 133.7 Estimated GFR (Non- 107.7 115.3 BUN/Creatinine Ratio 15.7 16.3 10-20 Random Glucose 95 91 70-99 mg/dl Calcium Level 8.1 7.8 8.5-10.1 mg/dl Total Bilirubin 0.4 0.2-1 mg/dl Aspartate Amino Transf (AST/SGOT) 11 15-37 U/L Alanine Aminotransferase (ALT/SGPT) 8 12-78 U/L Alkaline Phosphatase 61 45-117 U/L Total Protein 8.7 6.4-8.2 gm/dl Albumin 2.0 3.4-5.0 gm/dl Globulin 6.7 2.5-4.0 gm/dl Albumin/Globulin Ratio 0.3 0.9-2 Hepatitis C Antibody Screen NEG NEG Urine Color YELLOW Urine Appearance CLEAR CLEAR Urine pH 5.5 4.5-7.5 Urine Specific [place] 1.024 1.000-1.030 Urine Protein TRACE NEG Urine Glucose (UA) NEG NEG Urine Ketones NEG NEG Urine Occult Blood NEG NEG Urine Nitrite NEG NEG Urine Bilirubin NEG NEG Urine Urobilinogen NEG NEG Urine Leukocyte Esterase NEG NEG Urine WBC (Auto) 1-5 0-5 /hpf Urine RBC (Auto) 0-4 0-4 /hpf Urine Hyaline Casts (Auto) 0 0-5 /lpf Urine Epithelial Cells (Auto) 5-10 0-5 /lpf Urine Bacteria (Auto) NEG NEG Blood Smear Review Anisocytosis PRESENT Absolute Reticulocyte Count 0.09 0.02-0.10 10^6/uL Percent Reticulocyte Count 3.3 0.5-2.0 % Iron Level 66 35-175 mcg/dl Total Iron Binding Capacity 229 250-450 mcg/dl Ferritin 187.7 8.0-388.0 ng/ml Vitamin B12 Level 516 211-911 pg/mL Folate 7.68 >5.38 ng/mL Test 04/21/17 09:57 Range/Units Microbiology Results 04/21/17 Acid Fast Stain, Received Pending 04/21/17 Mycobacterial Culture, Received Pending 04/20/17 Blood Culture, Received Pending 04/20/17 Blood Culture, Received Pending 04/21/17 MRSA DNA Surveillance Screen - Final, Complete Specimen Negative for MRSA by DNA Probe 12/4/17 Gram Stain - Final, Resulted 04/21/17 Sputum Culture, Resulted Pending 04/21/17 Urine Culture, Received Pending Diagnostic Radiology CHEST CT WITH CONTRAST CT DOSE: 472.07 mGy.cm HISTORY: Questioned lung mass on comparison chest radiograph of same day Lung mass TECHNIQUE: Multiaxial CT images of the chest were performed following the intravenous administration of contrast. 92 mL Optiray 320 IV contrast was administered. A dose lowering technique was utilized adhering to the principles of ALARA. COMPARISON: CT abdomen and pelvis of same day, chest radiograph of same day. FINDINGS: No dominant thyroid nodule identified. There is moderate diffuse body wall edema. Mildly enlarged subcarinal lymph node measures 2.3 x 1.2 cm. Additionally, there are scattered nonenlarged AP window and paratracheal lymph nodes with a 1.4 x 1.0 cm right paratracheal lymph node seen on image 62 series 4. Mildly enlarged right subpectoral lymph node is seen, 1.6 x 1.1 cm. The heart is normal in size without pericardial effusion. Coronary arterial calcifications are seen. There is no aortic dissection or aneurysm identified. There is mild degree of atherosclerotic plaquing involving the aorta. The opacified pulmonary arterial tree is unremarkable. Severe upper lobe predominant bullous centrilobular emphysematous disease is noted. There is no pneumothorax. Trace amount of pleural fluid is noted within the right hemithorax at the level the right lung base. Pleural-based consolidative opacity of the posterior basal segment left lower lobe measures 1.6 x 0.6 cm. Pleural-based nodular opacity of the left lower lobe is seen measuring 8 x 6 mm on image 243 series 4. Additional pleural-based consolidative opacity is seen within the super segment left lower lobe, 11 x 8 mm on image 178 series 4. 4 mm nodular opacity of the basal left lower lobe seen on image 276 series 4. 6 mm pulmonary nodule of the left lower lobe noted on image 280 series 4.Multifocal irregular consolidative type opacities are noted within the right upper and middle lobes without endobronchial obstructing mass or definite discrete neoplasm identified. Consolidation with thick mays and central air-fluid levels noted within the apical right upper lobe measuring up to 6.8 cm transversely as seen on image 66 series 4 with air-fluid level seen on image 41 series 4. No displacement of the adjacent bony vasculature. No associated destruction of the adjacent ribs. Mild subpleural reticular opacities of the basal right lower lobe suggest pneumonitis. Mild bibasilar bronchial wall thickening suggests emphysema. There is a calcified granuloma of the basal left lower lobe. No acute amount of the imaged upper abdomen. No definite lytic or blastic bony lesions to suggest metastasis. Multilevel endplate degenerative changes of the spine. Mild to moderate. IMPRESSION: 1. Severe upper lobe predominant bullous centrilobular emphysematous disease is present with multifocal consolidation of the right upper and middle lobes without displacement of the adjacent vasculature or invasion into the adjacent structures. Additionally, there is a central air-fluid level within the right apical consolidation. Differential considerations would include multifocal pneumonia with bronchogenic neoplasm also in the differential. Correlation with bronchoscopy and tissue sampling recommended. 2. Pleural-based consolidative opacities of the left lower lobe as above suggests multifocal pneumonitis. Mild associated bronchial wall thickening compatible with bronchitis. 3. Mild subcarinal and right subpectoral adenopathy may be reactive or metastatic. CT OF THE ABDOMEN AND PELVIS WITH CONTRAST CLINICAL HISTORY: Constipation. Anemia. Lung mass. COMPARISON STUDY: None. TECHNIQUE: Following IV administration of 92 mL of Optiray-320, axial images of the abdomen and pelvis were obtained from the lung bases to the proximal femurs. Images were reviewed in the axial, sagittal, and coronal planes. IV contrast was administered without complication. A dose lowering technique was utilized adhering to the principles of ALARA. Oral contrast was administered. FINDINGS: The chest CT will be reported separately. Evaluation of the abdomen and pelvis is difficult given a paucity of intra-abdominal fat. The liver, spleen, adrenal glands, kidneys and pancreas are unremarkable with the exception of a few suspected left renal cyst. There is no biliary or pancreatic ductal dilatation. There is no hydronephrosis. There is no evidence for a bowel obstruction. Sensitivity for detection of mucosal lesions is diminished given CT technique but none are identified. There is a moderate amount of stool within the colon. There is no evidence for a bowel obstruction. No abdominal or pelvic lymphadenopathy is present. Note is made of extensive atherosclerotic plaque within the major vessels of the abdomen and pelvis. There is occlusion of the proximal left superficial femoral artery. There is extensive plaque within the right common femoral artery with suspected severe stenosis. There is no aneurysmal dilatation of the abdominal aorta. No suspicious osseous lesions are present. There is no ascites. Note is made of a rim-enhancing hypodensity within the medial left buttock that measures 2.5 x 2.2 cm. There is grade I anterolisthesis of L5 on S1 due to bilateral L5 pars defects. IMPRESSION: 1. Moderate amount of stool within the colon. No evidence for bowel obstruction. Decreased sensitivity for detection of mucosal lesions given CT technique. 2. 2.5 x 2.2 cm rim-enhancing fluid collection of the medial left buttock. This favors an abscess. A necrotic mass could appear similar although is considered less likely. 3. Occlusion of the proximal left superficial femoral artery with suspected severe stenosis of the right common femoral artery. Extensive atherosclerotic plaque. 4. Difficult study to interpret given paucity of intra-abdominal fat. CHEST 2 VIEWS ROUTINE HISTORY: 62 years-old Male ?mass RUL / RML possible mass of the right upper lobe. COMPARISON: None available TECHNIQUE: PA and lateral views of the chest FINDINGS: Cardiac silhouette is within normal limits. The lungs are hyperinflated with diaphragmatic flattening suggesting emphysema. Airspace opacities are noted within the right upper lobe. There is volume loss with possible complete atelectasis of the right middle lobe. Hazy right apical and right hilar opacities are also noted with biapical pleural-parenchymal scarring. The bones are grossly intact. Atherosclerotic plaquing of the aorta. IMPRESSION: 1. Volume loss of the right middle lobe with airspace opacities of the right upper lobe. 2. Right apical and right perihilar opacities are also noted suggesting areas of scarring or underlying mass. No comparison studies are available. Further evaluation with chest CT recommended. 3. Emphysema. EKG EKG from 04/21/2017 Normal sinus rhythm at 83 bpm. Impression Assessment and Plan Right upper lobe cavitary mass Hemoptysis Questionable history of tuberculosis vs LTBI Subpleural opacities in left lower lobe COPD (FEV1 unknown) Anemia Mr. Guajardo is a 62-year-old male with questionable history of pulmonary TB/ latent TB infection who presents as a direct transfer from [facility] for large right upper lobe cavitary lesion associated with hemoptysis for several months and weight loss. Patient has long-standing history of tobacco use disorder and is a current smoker which also puts him at increased risk for malignancy. I explained to him and his family that the differential includes bacterial, mycobacteria and fungal pneumonia versus bronchogenic carcinoma. He also has severe emphysema and bullous changes seen predominantly in the upper lobes not currently on any treatment. There are also subpleural opacities in left lower lobe which may represent an infectious versus inflammatory process. Recommendations I would obtain 3 AFB sputum to rule out active mycobacterial infection. Obtain sputum culture. Continue empiric treatment for pneumonia with vancomycin and cefepime. Patient ultimately will need a tissue biopsy for further diagnosis. We'll plan for bronchoscopy tomorrow or Friday if AFB sputums are negative for TB. Continue supplemental oxygen when necessary if needed. Continue with nebulizers ipratropium/albuterol when necessary for emphysema. Will give Tessalon Perles for cough. He should have full PFTs done upon hospital discharge. He Currently not on any chemical DVT prophylaxis secondary to anemia. Continue with SCDs. Keep nothing by mouth past midnight for possible bronch in AM. Smoking cessation counseling provided. Continue with nicotine patch. I appreciate the consult please contact me if you've any further questions.
[2017-04-21 16:23] LABS: HEMATOCRIT 22.6 % (42-52)
--- NOTE | 2017-04-21 17:02 | SURGICAL CONSULTATION ---
DATE OF CONSULTATION: 04/21/2017 REASON FOR CONSULTATION: Right upper lobe mass. HISTORY OF PRESENT ILLNESS: Mr. Guajardo is a 62-year-old male who has a [id number] history of cigarette smoking who presented to [facility] as a transfer from [facility] where he went with generalized weakness and hemoptysis which he has had for several months. The patient states his has normal weight is between 137 and 139 and he currently weighs 107 pounds. He states this has taken place over the last 6 months in which he has been noting hemoptysis. His hemoglobin was 3.7. He has an infiltrative process in his right upper and middle lobe. His right upper lobe and mediastinal lymph nodes actually do not appear to be involved. The patient does have a history of apparently positive TB test when he was incarcerated, back many years ago. He states he is unsure of how long he was treated with triple therapy. The patient was smoking 2 packs of cigarettes since the age of 12. He states he has been eating "okay." He states that a year ago, he could walk a mile without difficulty and climbed stairs. 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 He states that he has been coughing up blood for at least 6 months. PAST MEDICAL HISTORY: 1. Long history of cigarette smoking. 2. Median nerve compression. 3. Cervical disk disease. 4. Questionable positive PPD in the past. PAST SURGICAL HISTORY: 1. Cervical neck surgery. 2. Carpal tunnel release. MEDICATIONS: (at home): None. ALLERGIES: No known drug allergies. SOCIAL HISTORY: The patient lives alone with his dog. 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 His significant other recently from lung cancer. He has 3 children, 2 of whom are present and are supportive. He has been smoking 2 packs of cigarettes a day since age 12. He does drink alcohol on occasion. He describes himself as a "light drinker." FAMILY MEDICAL HISTORY: The patient's mother in her 70s and had "lung problems." She was on oxygen in the last several years of her life. He does not really know his father. He has 2 sisters who are living and is unsure of their health. He has 3 children are healthy and multiple grandchildren are healthy except for 1 who is a young granddaughter who is autistic. REVIEW OF SYSTEMS: The patient has had hemoptysis which he attributes to "dry air" in his house. His family is also extremely concerned because he "live in the basement" With mold. Currently, lives alone with his dog of many years. He has lost at least 30 pounds in the last 6 months. He has had no fevers or sweats. He states that he has not had a productive cough and has been coughing up blood for several months. He denies any skin breakdown. He has had no peripheral edema. He has been quite weak and unable to "walk across the floor" according to his family. He has no night sweats. He has no change in his visual or auditory symptoms. He denies any problems; however, he has no abdominal pain. He has been quite constipated and has melanoma which apparently is due to swallowing the blood that he has been hemoptysizing. He denies any muscle pains. He really has not had much in the way of pain. PHYSICAL EXAMINATION: GENERAL: This is an ill-appearing man who appears much older than his stated age of 62. He is awake and alert. HEENT: He has temporal wasting. His sclerae are quite pale. His pupils are equal, round and reactive. He is edentulous with upper and lower denture plates. His oral mucosa is dry. Tongue is midline. NECK: Supple. I detect no supraclavicular or cervical lymphadenopathy or axillary adenopathy. He has no neck vein distention or carotid bruits. LUNGS: He has marked wheezing upon auscultation of his lungs. He has decreased breath sounds throughout. He has a few rhonchis, more in the right upper airways than the left. ABDOMEN: Flat, soft, nontender. He has no evidence of abdominal aortic aneurysm or ascites. EXTREMITIES: Upon evaluation of his lower extremities, I cannot palpate pulses, and his feet are warm and well perfused, but he has some muscle wasting in his upper and lower extremities. He has no joint effusions. NEUROLOGIC: He is awake, alert and oriented. DATA: I reviewed his CT scan and it is interesting that he has this infiltrative process involving his right lung. He has minimal lymphadenopathy. I see no evidence of any bone involvement or adrenal or hepatic metastases. I reviewed his CT scan abdomen and pelvis and we are going to need a tissue diagnosis. PLAN AND RECOMMENDATIONS: I am going to consult Dr. Rosemary Boudreaux about a diagnostic bronchoscopy.
[2017-04-21] MEDS: PANTOprazole INJ 40 MG in SYRINGE 0 ML IV SCH (21:19)
[2017-04-21] MEDS: BENZONATATE 100MG CAP PO SCH (21:20)
[2017-04-21 23:58] LABS: HEMATOCRIT 27.9 % (42-52)
[2017-04-22 00:42] VITALS: BP 135/77; PULSE 54; TEMP 37.4; O2SAT 94
[2017-04-22] MEDS: CEFEPIME IV 1,000 MG in SYRINGE 0 ML IV SCH (03:08)
[2017-04-22] MEDS: VANCOMYCIN INJ 1,000 MG in SODIUM CHLORIDE 0.9% 250ML 250 ML IV SCH ×2 (03:08→15:42)
[2017-04-22 04:01] VITALS: BP 112/74; PULSE 94; TEMP 36.8; O2SAT 94
[2017-04-22] MEDS: NITROGLYCERIN OINT 2% 1GM PACKET EXT SCH (05:51)
--- NOTE | 2017-04-22 06:56 | Family Medicine Progress Note ---
Progress Note Date of Service Apr 22, 2017. Subjective Pt evaluation today including: conversation w/ patient, physical exam, chart review, lab review The patient was seen and examined at bedside. Tele showed sinus rhythm in the 80s. Sputum cultures grew Pseudomonas. Acid Fast sputum cultures are pending. Patient was informed that he will be bronched tomorrow. Patient is resting comfortably in bed. Denies having any pain. Still coughing. Told us that he doesn't know how long the bump on his bum has been there but that it is not bothering him. Plan of care was described to the patient and all questions were answered. Constitutional: No fever, No chills ENT: No hearing loss Respiratory: + cough, + sputum, + dyspnea on exertion, No wheezing, No shortness of breath Cardiovascular: No chest pain Musculoskeletal: No joint pain, No muscle pain, No swelling Male : No dysuria Objective Physical Exam General Appearance: no apparent distress, + cachetic, + thin Eyes: PERRL, EOMI Neck: supple Respiratory/Chest: chest non-tender, lungs clear, no respiratory distress, no accessory muscle use, + pertinent finding (decreased breath sounds on right upper lobe and right middle lobe) Cardiovascular: regular rate, rhythm, no edema, no gallop, no JVD, no murmur Abdomen: normal bowel sounds, non tender, soft, no organomegaly, no pulsatile mass Extremities: normal range of motion, no pedal edema, no calf tenderness Neurologic/Psychiatric: alert, normal mood/affect, oriented x 3 Skin: no rash, + pertinent finding (3cm diameter spherical round mobile soft non tender lesion on left medial buttock, does not feel like a lymph node, softer than a traditional lipoma, could be an abscess or necrotic mass) Assessment and Plan 62M with a PMHx of latent TB and 50pack year smoking history was sent from [place] for a suspicious lung lesions and anemia. He presented to the [place] ER with fatigue, weight loss and hemoptysis and his hemoglobin was found to be 3.7. Patient has not seen a doctor in the past 15 years and has recently lost significant amount of weight. CT Chest showed a mass in the RUL and RML suspicious for abscess of malignency. Sputum cultures have grown Pseudomonas. There is also an elevated IGG and IGA bands. Patient is on TB precautions. Thoracic surgery, ID and HemeOnc on board. Our plan is for a thoracocentesis for definitive diagnosis. Differentials include TB, Pneumonia and Carcinoma. RUL and RML Lesions and Lymphadenopathy, Malignancy vs TB vs Pneumonia - Our CT Abdo confirms the read from [place], lesions in the RUL and RML, no bony mets, enlarged lymph nodes. - Bronchoscopy tomorrow, Dr. Acevedo & Dr. Boudreaux on board, NPO after midnight. - c/w Airborne precautions. - Per ID - pt will need three Acid Fast Sputum Cultures, will also get an IGRA - For possible pneumonia will Vanc and Cefepime, Day #2. We are stopping Vanco per ID and Pulm. Acute red blood cell loss anemia requiring transfusion of PRBCs - Received 3 units here and apparently 2 units in [place]. - TIBC is decreased , ferritin and iron are normal. This is suggestive of anemia of chronic disease. - FOBT in [place] was positive, patient also reports that his stools are dark nowadays, patient has been more constipated than recently, will order Miralax to help with BM. Patient has never had a colonoscopy. GI has been brought on board. Per GI FOBT could be positive from swallowed hemoptysis. - Will continue Protonix IV BID and daily Miralax. - Check Hemoglobin in the AM. Elevated IGG and IGA bands. - Defer to Dr. Messer for management. Smoking hx - Nicotine patch Dispo: Tele, NPO at midnight. DVT Proph: SCDs FULL CODE Resident Physician Supervision Note: I was present with the resident physician during the history and exam. I discussed the case with the resident and agree with the findings and plan as documented in the note. Bronchoscopy anticipated tomorrow Gastroenterology note reviewed; they did not recommend any further GI workup at this point. The patient has a palpable soft tissue mass on the left buttock; upon palpation , does not have the tenderness nor warmth to suggest abscess; it is more soft, nontender, and slightly mobile. We'll have to review CT scan; may need to consider general surgery consultation to decide if this needs biopsy. Documented By: Patrick Chiu Resident Involvement: Resident Care Provided Care Provided: [facility]
[2017-04-22 06:59] VITALS: BP 103/55; PULSE 97; TEMP 37.4; O2SAT 92
[2017-04-22 07:18] LABS: BUN/CREATININE RATIO 14.7 (10-20); CREATININE 0.54 mg/dl (0.60-1.40); POTASSIUM 3.9 mmol/L (3.5-5.1)
[2017-04-22 07:30] LABS: MEAN CORPUSCULAR HGB CONC 30.9 g/dl (32-36)
[2017-04-22 07:37] LABS: HEMATOCRIT 26.9 % (42-52); MEAN CELL VOLUME 90.6 fL (80-100); MEAN CORPUSCULAR HEMOGLOBIN 27.9 pg (25-34); MEAN PLATELET VOLUME 13.4 fL (7.4-10.4); PLATELET COUNT 149 K/uL (130-400); RED BLOOD COUNT 2.97 M/uL (4.7-6.1); WHITE BLOOD COUNT 4.52 K/uL (4.8-10.8)
--- NOTE | 2017-04-22 07:47 | GASTROINTESTINAL CONSULTATION ---
DATE OF CONSULTATION: 04/22/2017 REASON FOR EVALUATION: Anemia. HISTORY OF PRESENT ILLNESS: The patient is a 62-year-old admitted on 04/20/2017 after presenting to [facility] with severe anemia and hemoptysis. The patient is a smoker, smoking a half pack a day for many years. For several months, the patient has been coughing up blood and swallowing it but failed to seek medical attention. He did get treated for tuberculosis in the past several years ago and was felt to be cured. Over the last 2 months, he has lost 30 pounds. He became extremely weak and when he presented to [facility], his hemoglobin was 3.7. There was also found to have a large 7.8 cm mass in the right upper and right middle lobe area and was transferred to [facility] where he received an additional 2 units of blood. He is scheduled for a bronchoscopy on 04/22/2017. He reports no GI symptoms. He reports no abdominal pain, nausea, vomiting, change in bowels or visible blood in his stool. PAST MEDICAL HISTORY: Remarkable for tuberculosis and carpal tunnel surgery. MEDICATIONS: None. ALLERGIES: None. FAMILY HISTORY: Negative for any GI diseases. SOCIAL HISTORY: The patient is single, smokes half a pack a day since he was 9 years old. Drinks alcohol socially. REVIEW OF SYSTEMS: Positive for weakness and weight loss, remainder is negative. PHYSICAL EXAMINATION: GENERAL: The patient appears somewhat disheveled and thin but in no acute distress. ABDOMEN: His abdomen is soft. There are no masses, tenderness, or hepatosplenomegaly. EXTREMITIES: Showed no clubbing, cyanosis or edema. NEUROLOGIC: Grossly normal. IMPRESSION: The patient has severe anemia most likely related to his longstanding hemoptysis. Because he has been swallowing blood it would be no surprise if his stool was Hemoccult positive. He has no GI symptoms at this time and the overwhelming health risk at this time is his lung mass. Would recommend that this be evaluated and treated first and if there is any residual problem with his anemia unrelated to his lung mass then we would pursue evaluating for GI source of blood loss depending on his diagnosis and prognosis at that point. At this time, we will follow the patient peripherally.
[2017-04-22 07:50] LABS: ANISOCYTOSIS PRESENT; COMPLETE YES; EOSINOPHIL % 1.8 %; LYMPH ABS # 1.07 K/uL (1.2-3.4); LYMPHOCYTE % 23.7 %; MYELOCYTE % 0.9 %; NEUTROPHILS % 27.2 %
--- NOTE | 2017-04-22 08:30 | HEME/ONC PROGRESS NOTE ---
DATE: 04/22/2017 DIAGNOSES: 1. Generalized weakness. 2. Anorexia/weight loss. 3. Unspecified anemia. 4. Hemoptysis. 5. Mild coagulopathy. SUBJECTIVE: Randal was seen and examined at bedside today. Nursing reports he had a massive BM last night. Clinically, he still feels washed out and weak. CT scan of the chest, abdomen and pelvis was performed with multiple interesting findings including severe bullous emphysematous disease within the right upper and middle lobes. Pleural base consolidative opacities, left lower lobe suggesting a multifocal pneumonitis. CT scan of the abdomen and pelvis again revealed a moderate amount of stool and also a 2.5 x 2.2 cm rim enhancing fluid collection within the medial left block favoring an abscess. I questioned Randal about this particular finding and he admits that his girlfriend actually attempted to drain what appears to be a cystic lesion. Nursing also reports stools were positive for occult blood and therefore suggest GI get involved. Pulmonary is on consultation and diagnostic bronchoscopy is planned. PHYSICAL EXAMINATION: VITAL SIGNS: Temperature 37.4, pulse 97, respirations 18, blood pressure 103/55. SKIN: Without rash or lesion. HEENT: Oral mucosa without erythema or ulceration. NECK: Supple. HEART: Regular rate and rhythm. LUNGS: Distant breath sounds. No rales or rhonchi appreciated. ABDOMEN: Less distended. Bowel sounds again hypoactive. No rigidity or guarding. EXTREMITIES: No clubbing, cyanosis or edema. NEUROLOGIC: Grossly intact. LABORATORY DATA: Sodium 133, potassium 3.9, chloride 100, carbon dioxide 30, BUN 8, creatinine 0.54. Serum iron 66, TIBC 229, ferritin 187.7. B12 and folate are within normal limits. His globulin fraction is elevated and will proceed with both serum and urine protein electrophoresis with immunofixation. IMPRESSION: 1. Elevated globulin. 2. Anemia of chronic disease versus blood loss. 3. Generalized weakness. 4. Anorexia and weight loss. 5. Bullous emphysema. 6. Mild coagulopathy. PLAN: Again, I saw Randal alone at bedside today. Discussed these findings with him. Again, I plan to proceed with both serum and urine protein electrophoresis with immunofixation to rule out monoclonality. Obviously with the discovery of a fecal occult blood, he should be evaluated by gastroenterology. I agree with diagnostic bronchoscopy as radiographically findings appear to be possibly infectious and less likely neoplastic. I will continue to follow Mr. Guajardo periodically during his hospital stay. Thank you for involving me in his care.
[2017-04-22] MEDS: PANTOprazole INJ 40 MG in SYRINGE 0 ML IV SCH (08:36)
[2017-04-22] MEDS: NICOTINE 14 MG/24 HR TDSY TD SCH (08:39)
[2017-04-22] MEDS: CEFEPIME IV 2,000 MG in SYRINGE 7.5 ML IV SCH ×2 (09:52→19:46)
[2017-04-22] MEDS: POLYETHYLENE (MIRALAX) 17 GM PACK PO SCH (09:53)
[2017-04-22] MEDS: BENZONATATE 100MG CAP PO SCH ×3 (09:53→19:47)
[2017-04-22 11:52] VITALS: BP 110/60; PULSE 92; TEMP 37; O2SAT 97
--- NOTE | 2017-04-22 12:35 | Pulmonology Progress Note ---
Pulmonary Progress Note Date of Service Apr 22, 2017. Attending Dr. Boudreaux Subjective Patient seen and examined this morning at bedside. He states that he is feeling tired. Still has intermittent cough is with productive sputum. He denies any more episodes of hemoptysis. Status post transfusion 1 unit PRBCs. Received total of 3 units since admission. Objective Vital signs reviewed. MAXIMUM TEMPERATURE 37.4, BP 103/55-135/77, pulse 54-97 , pulse oximetry 92-97% on room air. Gen.: Awake alert oriented 3, no acute respiratory distress speaking in full sentences without use of accessory muscles of respiration CVS: S1-S2, regular rate and rhythm Lungs: Clear entry bilaterally, crackles at bases Abdomen: Soft, nontender, bowel sounds positive Extremities: Thin, no cyanosis, no clubbing, no edema Labs reviewed Blood culture from 04/20/2017 shows no growth to date Sputum culture from 04/21/2017 shows probable pseudomonas species AFB smear from 04/21/2017 shows no acid-fast bacilli seen Other AFB pending Imaging reviewed Medications reviewed Assessment & Plan Right upper lobe cavitary mass Possible necrotizing pneumonia Hemoptysis Questionable history of tuberculosis vs LTBI Subpleural opacities in left lower lobe COPD (FEV1 unknown) Anemia Mr. Guajardo is a 62-year-old male with questionable history of pulmonary TB/ latent TB infection who presents as a direct transfer from [facility] for large right upper lobe cavitary lesion associated with hemoptysis for several months and weight loss. Patient has long-standing history of tobacco use disorder and is a current smoker which also puts him at increased risk for malignancy. I explained to him and his family that the differential includes bacterial, mycobacteria and fungal pneumonia versus bronchogenic carcinoma. Sputum cultures sent and currently probable pseudomonas species. I started him cefepime 2 g every 8 hours today. One AFB reported negative to date. We are still waiting 2 more AFBs. Recommendations I would obtain 3 AFB sputum to rule out active mycobacterial infection. I would discontinue vancomycin at this time as MRSA screen is negative. I will plan for bronchoscopy tomorrow morning. He is keep nothing by mouth past midnight. Continue with nebulizers ipratropium/albuterol when necessary for emphysema. Will give Tessalon Perles for cough. He should have full PFTs done upon hospital discharge. Currently not on any chemical DVT prophylaxis secondary to anemia. Continue with SCDs. Smoking cessation counseling provided. Continue with nicotine patch. I appreciate the consult please contact me if you've any further questions. Data Medications: Current Inpatient Medications Medications (Trade) Dose Ordered Sig/Breanne Route Start Time Stop Time Status Last Admin Dose Admin Acetaminophen (Tylenol Tab) 650 mg Q4H PRN PO 04/20/17 21:15 05/20/17 21:14 04/21/17 12:18 650 MG Al Hydrox/Mg Hydrox/Simethicone (Maalox Max Susp) 15 ml Q4H PRN PO 04/20/17 21:15 05/20/17 21:14 Magnesium Hydroxide (Milk Of Magnesia Susp) 30 ml Q12H PRN PO 04/20/17 21:15 05/20/17 21:14 04/21/17 15:55 30 ML Ondansetron HCl (Zofran Inj) 4 mg Q6H PRN IV 04/20/17 21:15 05/20/17 21:14 Nitroglycerin (Nitrostat Tab) 0.4 mg UD PRN SL 04/20/17 21:15 05/20/17 21:14 Nitroglycerin (Nitroglycerin 2% Oint) 1 inch Q6 EXT 04/21/17 00:00 05/21/17 00:00 04/21/17 19:15 1 INCH Morphine Sulfate (MoRPHine SULFATE INJ) 2 mg Q30M PRN IV 04/20/17 21:15 05/04/17 21:14 Polyethylene (Miralax Powder Packet) 17 gm DAILY PRN PO 04/20/17 21:15 05/20/17 21:14 Nicotine (Nicoderm Cq 14MG Patch) 1 patch QAM TD 04/21/17 09:00 05/21/17 08:59 04/22/17 08:39 1 PATCH Miscellaneous (Remove Nicoderm Patch) 1 ea HS N/A 04/21/17 21:00 05/21/17 20:59 04/21/17 21:21 1 EA Zolpidem Tartrate (Ambien Tab) 2.5 mg HS PRN PO 04/21/17 00:00 05/21/17 00:00 04/21/17 22:01 2.5 MG Vancomycin HCl 1000 mg/Sodium Chloride 270 ml @ 125 mls/hr Q12H IV 04/21/17 14:00 12/6/17 13:59 04/22/17 03:08 125 MLS/HR Vancomycin HCl (Consult) 1 ea UD PRN N/A 04/21/17 02:15 05/21/17 02:14 Ioversol (Optiray 320) 100 ml UD PRN IV 04/21/17 08:45 04/25/17 08:44 Pantoprazole Sodium 40 mg/ Syringe 10 ml @ 5 mls/min DAILY@09,21 IV 04/21/17 22:00 05/21/17 21:59 04/22/17 08:36 5 MLS/MIN Polyethylene (Miralax Powder Packet) 17 gm DAILY PO 04/22/17 09:00 05/22/17 08:59 04/22/17 09:53 17 GM Albuterol/ Ipratropium (Duoneb) 3 ml Q6R PRN INH 04/21/17 16:00 05/21/17 15:59 Benzonatate (Tessalon Perles Cap) 100 mg TID PO 04/21/17 21:00 05/21/17 20:59 04/22/17 09:53 100 MG Cefepime HCl 2000 mg/Syringe 20 ml @ 5 mls/min Q8H IV 04/22/17 11:00 04/28/17 02:59 04/22/17 09:52 5 MLS/MIN I & O: 24-Hour Column 04/23/17 07:59 Output Total 550 ml Balance -550 ml Vital Signs: Date Time Temp Pulse Resp B/P (MAP) Pulse Ox O2 Delivery O2 Flow Rate FiO2 04/22/17 11:52 37.0 92 18 110/60 (77) 97 04/22/17 08:00 Room Air 04/22/17 06:59 37.4 97 18 103/55 (71) 92 Room Air 04/22/17 04:01 36.8 94 17 112/74 (87) 94 Room Air 04/22/17 04:00 Room Air 04/22/17 00:42 37.4 54 21 135/77 (96) 94 Room Air 04/22/17 00:00 Room Air 04/21/17 20:45 89 24 104/63 90 04/21/17 20:00 Room Air 04/21/17 20:00 93 28 115/89 94 04/21/17 19:30 102 14 112/71 94 04/21/17 19:13 36.9 94 29 116/65 93 04/21/17 18:59 98 22 119/78 04/21/17 18:35 37.5 90 20 111/65 99 04/21/17 16:00 Room Air 04/21/17 15:34 36.7 91 16 95/62 (73) 96 Room Air Laboratory Results: Last 24 Hours Test 04/21/17 15:55 04/21/17 22:10 04/21/17 23:49 04/22/17 06:06 Hemoglobin 6.9 g/dL 8.8 g/dL 8.3 g/dL Hematocrit 22.6 % 27.9 % 26.9 % Stool Occult Blood POSITIVE White Blood Count 4.52 K/uL Red Blood Count 2.97 M/uL Mean Corpuscular Volume 90.6 fL Mean Corpuscular Hemoglobin 27.9 pg Mean Corpuscular Hemoglobin Concent 30.9 g/dl Platelet Count 149 K/uL Mean Platelet Volume 13.4 fL RDW Standard Deviation 56.5 fL RDW Coefficient of Variation 17.8 % Neutrophils % (Manual) 27.2 % Lymphocytes % (Manual) 23.7 % Monocytes % (Manual) 46.4 % Eosinophils % (Manual) 1.8 % Myelocytes % 0.9 % Neutrophils # (Manual) 1.23 K/uL Total Absolute Neutrophils 1.23 K/uL Lymphocytes # (Manual) 1.07 K/uL Total Absolute Lymphocytes 1.07 K/uL Monocytes # (Manual) 2.10 K/uL Eosinophils # (Manual) 0.08 K/uL Myelocytes # 0.04 K/uL Hypogranular Neutrophils 1+ Anisocytosis PRESENT Sodium Level 133 mmol/L Potassium Level 3.9 mmol/L Chloride Level 100 mmol/L Carbon Dioxide Level 30 mmol/L Anion Gap 3.0 mmol/L Blood Urea Nitrogen 8 mg/dl Creatinine 0.54 mg/dl Est Creatinine Clear Calc Drug Dose 100.2 ml/min Estimated GFR () 129.5 Estimated GFR (Non- 111.7 BUN/Creatinine Ratio 14.7 Random Glucose 88 mg/dl Calcium Level 8.0 mg/dl Test 04/22/17 08:23 Immunoglobulin G 2590.0 mg/dL Immunoglobulin A 1170.0 mg/dL Immunoglobulin M 114.0 mg/dL
--- NOTE | 2017-04-22 13:20 | Surgery Progress Note ---
Subjective Date of Service: Apr 22, 2017. Pt. resting in bed. No complaints at the present time. Objective Vitals Date Time Temp Pulse Resp B/P (MAP) Pulse Ox O2 Delivery O2 Flow Rate FiO2 04/22/17 11:52 37.0 92 18 110/60 (77) 97 04/22/17 08:00 Room Air 04/22/17 06:59 37.4 97 18 103/55 (71) 92 Room Air 04/22/17 04:01 36.8 94 17 112/74 (87) 94 Room Air 04/22/17 04:00 Room Air 04/22/17 00:42 37.4 54 21 135/77 (96) 94 Room Air 04/22/17 00:00 Room Air 04/21/17 20:45 89 24 104/63 90 04/21/17 20:00 Room Air 04/21/17 20:00 93 28 115/89 94 04/21/17 19:30 102 14 112/71 94 04/21/17 19:13 36.9 94 29 116/65 93 04/21/17 18:59 98 22 119/78 04/21/17 18:35 37.5 90 20 111/65 99 04/21/17 16:00 Room Air 04/21/17 15:34 36.7 91 16 95/62 (73) 96 Room Air Physical Exam General: No distress CV: + RRR Pulmonary: No accessory muscle use, No respiratory distress Assessment & Plan 62 year old male with hemoptysis/right lung mass -sputum cultures have grown pseudomonas thus far; studies for AFB are pending -pt. scheduled for diagnostic bronchoscopy tomorrow by pulmonary
[2017-04-22] MEDS ORDERED: VANCOMYCIN TROUGH ONE (13:30)
[2017-04-22] MEDS ORDERED: CEFEPIME IV 2,000 MG in DEXTROSE 5% 100ML 100 ML IV SCH (14:00)
--- NOTE | 2017-04-22 14:39 | Progress Note ---
Subjective Date of Service: Apr 22, 2017. Subjective pt sputum culture with probably pseudomonas, no sensitivity yet. AFB pending. for bronch in am. remains in precautions. afebrile overnight, tolerating abx. h/ h stable post transfusion. Objective Vital Signs Date Time Temp Pulse Resp B/P (MAP) Pulse Ox O2 Delivery O2 Flow Rate FiO2 04/22/17 12:00 Room Air 04/22/17 11:52 37.0 92 18 110/60 (77) 97 04/22/17 08:00 Room Air 04/22/17 06:59 37.4 97 18 103/55 (71) 92 Room Air 04/22/17 04:01 36.8 94 17 112/74 (87) 94 Room Air 04/22/17 04:00 Room Air 04/22/17 00:42 37.4 54 21 135/77 (96) 94 Room Air 04/22/17 00:00 Room Air 04/21/17 20:45 89 24 104/63 90 04/21/17 20:00 Room Air 04/21/17 20:00 93 28 115/89 94 04/21/17 19:30 102 14 112/71 94 04/21/17 19:13 36.9 94 29 116/65 93 04/21/17 18:59 98 22 119/78 04/21/17 18:35 37.5 90 20 111/65 99 04/21/17 16:00 Room Air 04/21/17 15:34 36.7 91 16 95/62 (73) 96 Room Air Laboratory Results Item Value Date Time Gram Stain - Final Resulted 04/21/17 1425 Sputum Expectorated Sputum Gram Stain - Final Resulted 04/21/17 0616 Sputum Expectorated Sputum Blood Culture - Preliminary Resulted 04/20/17 2206 Blood NO GROWTH TO DATE. Blood Culture - Preliminary Resulted 04/20/17 2157 Blood NO GROWTH TO DATE. Last 24 Hours Test 04/21/17 15:55 04/21/17 22:10 04/21/17 23:49 04/22/17 06:06 Hemoglobin 6.9 g/dL 8.8 g/dL 8.3 g/dL Hematocrit 22.6 % 27.9 % 26.9 % Stool Occult Blood POSITIVE White Blood Count 4.52 K/uL Red Blood Count 2.97 M/uL Mean Corpuscular Volume 90.6 fL Mean Corpuscular Hemoglobin 27.9 pg Mean Corpuscular Hemoglobin Concent 30.9 g/dl Platelet Count 149 K/uL Mean Platelet Volume 13.4 fL RDW Standard Deviation 56.5 fL RDW Coefficient of Variation 17.8 % Neutrophils % (Manual) 27.2 % Lymphocytes % (Manual) 23.7 % Monocytes % (Manual) 46.4 % Eosinophils % (Manual) 1.8 % Myelocytes % 0.9 % Neutrophils # (Manual) 1.23 K/uL Total Absolute Neutrophils 1.23 K/uL Lymphocytes # (Manual) 1.07 K/uL Total Absolute Lymphocytes 1.07 K/uL Monocytes # (Manual) 2.10 K/uL Eosinophils # (Manual) 0.08 K/uL Myelocytes # 0.04 K/uL Hypogranular Neutrophils 1+ Anisocytosis PRESENT Sodium Level 133 mmol/L Potassium Level 3.9 mmol/L Chloride Level 100 mmol/L Carbon Dioxide Level 30 mmol/L Anion Gap 3.0 mmol/L Blood Urea Nitrogen 8 mg/dl Creatinine 0.54 mg/dl Est Creatinine Clear Calc Drug Dose 100.2 ml/min Estimated GFR () 129.5 Estimated GFR (Non- 111.7 BUN/Creatinine Ratio 14.7 Random Glucose 88 mg/dl Calcium Level 8.0 mg/dl Test 04/22/17 08:23 04/22/17 13:43 Immunoglobulin G 2590.0 mg/dL Immunoglobulin A 1170.0 mg/dL Immunoglobulin M 114.0 mg/dL Assessment and Plan (1) Hemoptysis Assessment & Plan: await bronch results. afb cultures pending. continue cefepime for + sputum culture. (2) Lung mass
[2017-04-22 15:26] VITALS: BP 123/73; PULSE 95; TEMP 37.3; O2SAT 91
[2017-04-22] MEDS: ACETAMINOPHEN 325 MG TAB PO PRN (17:15)
[2017-04-22] MEDS ORDERED: ZOLPIDEM TARTRATE 5 MG TAB PO PRN (19:00)
[2017-04-22 19:28] VITALS: BP 111/68; PULSE 88; TEMP 37.4; O2SAT 92
[2017-04-22] MEDS: PANTOprazole SOD 40 MG TAB PO SCH (19:46)
[2017-04-23] VITALS (18 sets, daily range): BP systolic 98–139; BP diastolic 65–86; PULSE 74–120; TEMP 36.7–39.3; O2SAT 90–100
[2017-04-23] MEDS: CEFEPIME IV 2,000 MG in SYRINGE 7.5 ML IV SCH ×3 (03:42→19:49)
[2017-04-23 06:23] LABS: CREATININE 0.6 mg/dl (0.60-1.40)
[2017-04-23 06:24] LABS: BUN/CREATININE RATIO 16.5 (10-20); CALCIUM 8.4 mg/dl (8.5-10.1)
[2017-04-23] MEDS ORDERED: SODIUM CHLORIDE 0.9% 1000ML 1,000 ML IV SCH (06:45)
--- NOTE | 2017-04-23 07:41 | Procedure Note ---
Pre-Mod Sedation Assessment General Date of Moderate Sedation: Apr 23, 2017. Vital Signs: Vital Signs Past 12 Hours Date Time Temp Pulse Resp B/P (MAP) Pulse Ox O2 Delivery O2 Flow Rate FiO2 04/23/17 04:00 Room Air 04/23/17 03:25 37.1 99 17 112/69 (83) 90 Room Air 04/23/17 00:00 37.1 99 19 109/71 (84) 90 Room Air 04/23/17 00:00 Room Air 04/22/17 20:00 Room Air Review Cardiovascular: regular rate, rhythm, no edema Abdomen: normal bowel sounds, non tender, soft, no organomegaly, no pulsatile mass Lungs: chest non-tender, lungs clear, normal breath sounds, no respiratory distress, no accessory muscle use, + decreased breath sounds Airway Class: II Pre-Sedation Airway Assessment Oral Cavity: Dentures Able to Visualize Vocal Cords: Yes Short Thick Neck: No Hx of Sleep Apnea: No Smoking Status: Current Every Day Smoker (1/2 pack per day since age 9) Mallampati Classification: Class II ASA Classification: Class III Procedure Planning Contraindications-for Mod Sed: None Yes Notes The planned sedation has been discussed with the patient and consent obtained. I have identified the patient, determined the appropriateness of sedation and have assessed the patient immediately prior to the procedure. All medicine(s) and interventions are by my order.
[2017-04-23] MEDS: NICOTINE 14 MG/24 HR TDSY TD SCH (07:53)
[2017-04-23] MEDS: PANTOprazole SOD 40 MG TAB PO SCH ×2 (08:00→21:38)
[2017-04-23 08:07] LABS: HEMATOCRIT 30.4 % (42-52); MEAN CELL VOLUME 93.3 fL (80-100); MEAN CORPUSCULAR HEMOGLOBIN 27.9 pg (25-34); MEAN CORPUSCULAR HGB CONC 29.9 g/dl (32-36); MEAN PLATELET VOLUME 13.5 fL (7.4-10.4); PLATELET COUNT 159 K/uL (130-400); RED BLOOD COUNT 3.26 M/uL (4.7-6.1); WHITE BLOOD COUNT 3.06 K/uL (4.8-10.8)
[2017-04-23 08:11] LABS: BASO ABS # 0.08 K/uL (0-0.2); BASOPHIL % 2.6 % (0-2); COMPLETE YES; LYMPH ABS # 0.86 K/uL (1.2-3.4); LYMPHOCYTE % 28.1 %; NEUTROPHILS % 23.7 %
[2017-04-23] MEDS: BENZONATATE 100MG CAP PO SCH ×3 (09:00→21:38)
[2017-04-23] MEDS: POLYETHYLENE (MIRALAX) 17 GM PACK PO SCH (09:00)
--- NOTE | 2017-04-23 13:28 | Progress Note ---
Subjective Date of Service: Apr 23, 2017. Subjective on cefepime, sputum culture growing zhang sensitive pseudomonas. tolerating well. remains afebrile. sputum afb, bronch findings pending. Objective Vital Signs Date Time Temp Pulse Resp B/P (MAP) Pulse Ox O2 Delivery O2 Flow Rate FiO2 04/23/17 12:15 Room Air 04/23/17 11:39 36.8 91 18 105/69 (81) 94 04/23/17 08:09 36.8 74 18 118/65 (82) 98 04/23/17 08:00 Room Air 04/23/17 04:00 Room Air 04/23/17 03:25 37.1 99 17 112/69 (83) 90 Room Air 04/23/17 00:00 37.1 99 19 109/71 (84) 90 Room Air 04/23/17 00:00 Room Air 04/22/17 20:00 Room Air 04/22/17 19:28 37.4 88 18 111/68 (82) 92 Room Air 04/22/17 16:38 Room Air 04/22/17 15:26 37.3 95 20 123/73 (90) 91 Room Air Laboratory Results Item Value Date Time Gram Stain - Final Complete 04/21/17 1425 Sputum Expectorated Sputum Gram Stain - Final Complete 04/21/17 0616 Sputum Expectorated Sputum Blood Culture - Preliminary Resulted 04/20/17 2157 Blood NO GROWTH TO DATE. Blood Culture - Preliminary Resulted 04/20/17 2206 Blood NO GROWTH TO DATE. Last 24 Hours Test 04/22/17 13:43 04/23/17 05:40 04/23/17 08:40 Vancomycin Level Trough 9.6 mcg/ml White Blood Count 3.06 K/uL Red Blood Count 3.26 M/uL Hemoglobin 9.1 g/dL Hematocrit 30.4 % Mean Corpuscular Volume 93.3 fL Mean Corpuscular Hemoglobin 27.9 pg Mean Corpuscular Hemoglobin Concent 29.9 g/dl Platelet Count 159 K/uL Mean Platelet Volume 13.5 fL RDW Standard Deviation 58.5 fL RDW Coefficient of Variation 17.7 % Nucleated RBC Absolute Count (auto) 0.02 K/uL Neutrophils % (Manual) 23.7 % Lymphocytes % (Manual) 28.1 % Monocytes % (Manual) 45.6 % Basophils % (Manual) 2.6 % Nucleated Red Blood Cells % 0.6 % Neutrophils # (Manual) 0.73 K/uL Total Absolute Neutrophils 0.73 K/uL Lymphocytes # (Manual) 0.86 K/uL Total Absolute Lymphocytes 0.86 K/uL Monocytes # (Manual) 1.40 K/uL Basophils # (Manual) 0.08 K/uL Hypogranular Neutrophils 1+ Sodium Level 135 mmol/L Potassium Level 4.0 mmol/L Chloride Level 99 mmol/L Carbon Dioxide Level 31 mmol/L Anion Gap 5.0 mmol/L Blood Urea Nitrogen 10 mg/dl Creatinine 0.60 mg/dl Est Creatinine Clear Calc Drug Dose 90.2 ml/min Estimated GFR () 124.0 Estimated GFR (Non- 107.0 BUN/Creatinine Ratio 16.5 Random Glucose 96 mg/dl Calcium Level 8.4 mg/dl Assessment and Plan (1) Hemoptysis Assessment & Plan: await bronch results. afb cultures pending. continue cefepime for + sputum culture. (2) Lung mass
[2017-04-23] MEDS ORDERED: NURSING VERBAL MED ORDER ONE (15:30)
[2017-04-23] MEDS ORDERED: MIDAZOLAM HCL 5 MG/ML 1 ML VIAL IV ONE (15:30)
[2017-04-23] MEDS ORDERED: FENTANYL CITRATE INJ 50 MCG/1 ML 2 ML VIAL IV ONE (15:30)
--- NOTE | 2017-04-23 15:42 | Procedure Note ---
Procedure Note Date of Service Apr 23, 2017. Procedure Note Procedure: Bronchoscopy, conscious sedation, Consent: Obtained through the patient placed into the chart Pre-procedural diagnosis: RUL cavitary lesion Post-procedural diagnosis: RUL cavitary lesion, hemoptysis, epistaxis. Start time:1445 End time:1520 Total time: 35 minutes Analgesia: 2% liquid lidocaine: Via nebulizer 4% gel lidocaine: Via right naris 2% liquid lidocaine: Via bronchoscopy Sedation: Versed IV: 4 mg Fentanyl IV: 100 g Procedure: The [employer] video bronchoscope was used for this procedure and attempted passed down through the right naris. However, was aborted due to epistasis of right nostril. Entered via oral pharynx. Oropharynx appeared to be within normal limits Glottis: Anatomically within normal limits Vocal cords: Proper abduction and abduction, anatomically within normal limits Subglottis/trachea/Sandhya: Anatomically within normal limits Right bronchial tree: Right mainstem bronchus: Anatomically within normal limits Right upper lobe: Appeared friable. Bronchus intermedius: Anatomically within normal limits Right middle lobe: Anatomically within normal limits Right lower lobe: Anatomically within normal limits Findings: No endobronchial lesions seen. Left bronchial tree: Left mainstem bronchus: Anatomically within normal limits Left upper lobe: Anatomically within normal limits Lingula: Anatomically within normal limits Left lower lobe: Anatomically within normal limits Findings: No significant findings noted Endobronchial brushings were done of RUL. Transbronchial biopsy was performed in RUL. Bronchial alveolar lavage: RUL There was mild hemoptysis post brushing and biopsy which cleared with cold saline and 2 cc aliquout of epinephrine. EBL: 10 cc Complications: Right nares epistaxis, RUL hemoptysis Post procedure CXR ordered to evaluate for pneumothorax.
--- NOTE | 2017-04-23 15:50 | DIAGNOSTIC IMAGING REPORT ---
CHEST 1 VW FRONT-NOT PORTABLE CLINICAL HISTORY: post bronch postprocedural evaluation COMPARISON STUDY: 04/21/2017 FINDINGS: No evidence pneumothorax post bronchoscopy. Bleb formation right apex unchanged. All remaining pleural and parenchymal changes described previously are stable IMPRESSION: No evidence of pneumothorax post bronchoscopy The above report was generated using voice recognition software. It may contain grammatical, syntax or spelling errors. Electronically signed by: Naif Russell M.D. 04/23/2017 3:49 PM Dictated Date/Time: 04/23/2017 3:48 PM
--- NOTE | 2017-04-23 18:05 | Family Medicine Progress Note ---
Progress Note Date of Service Apr 23, 2017. Subjective Pt evaluation today including: conversation w/ patient, physical exam, chart review, lab review The patient was seen and examined at bedside. No acute overnight events. Tele showed sinus rhythm in the 90s. Patient is resting comfortably in bed. Denies having any pain. NPO for bronchoscopy today. Plan of care was described to the patient and all questions were answered. The patient was seen and examined at bedside. Tele showed sinus rhythm in the 80s. Sputum cultures grew Pseudomonas. Acid Fast sputum cultures are pending. Patient was informed that he will be bronched tomorrow. Patient is resting comfortably in bed. Denies having any pain. Still coughing. Told us that he doesn't know how long the bump on his bum has been there but that it is not bothering him. Plan of care was described to the patient and all questions were answered. Constitutional: No fever, No chills ENT: No hearing loss Respiratory: + cough, + sputum, + dyspnea on exertion, No wheezing, No shortness of breath Cardiovascular: No chest pain Musculoskeletal: No joint pain, No muscle pain, No swelling Male : No dysuria Objective Physical Exam General Appearance: WD/WN, no apparent distress, + thin Eyes: PERRL ENT: normal ENT inspection Neck: supple Respiratory/Chest: chest non-tender, normal breath sounds, no respiratory distress, no accessory muscle use, + pertinent finding (decreased breath sounds on right upper lobe and right middle lobe) Cardiovascular: regular rate, rhythm, no edema, no gallop, no JVD, no murmur Abdomen: normal bowel sounds, non tender, soft, no organomegaly Extremities: normal range of motion, non-tender, normal inspection, no pedal edema, no calf tenderness 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 He presented to the [place] ER with fatigue, weight loss and hemoptysis and his hemoglobin was found to be 3.7. Patient has not seen a doctor in the past 15 years and has recently lost significant amount of weight. CT Chest showed a mass in the RUL and RML suspicious for abscess of malignancy. Sputum cultures have grown Pseudomonas. There is also an elevated IGG and IGA bands. Patient is on TB precautions. Thoracic surgery, ID and HemeOnc on board. Our plan is for a thoracocentesis for definitive diagnosis. Differentials include TB, Pneumonia and Carcinoma. RUL and RML Lesions and Lymphadenopathy, Malignancy vs TB vs Pneumonia - Our CT Abdo confirms the read from [place], lesions in the RUL and RML, no bony mets, enlarged lymph nodes. - Bronchoscopy today and biopsies are pending. - c/w Airborne precautions. - So far Sputum Acid Fast Stains are negative, sputum cultures grew zhang sensitive Pseudomonas. - For Pseudomonas c/w Cefepime, Day #3. Acute red blood cell loss anemia requiring transfusion of PRBCs - Hemoglobin stable, FOBT positive. - Received 3 units here and 2 units packed RBC in [place]. - TIBC is decreased , ferritin and iron are normal. This is suggestive of anemia of chronic disease. - Patient also reports that his stools have been dark recently. - Patient has never had a colonoscopy. GI has been brought on board. Per GI FOBT likely from swallowed hemoptysis. - Check Hemoglobin in the AM. Constipation - c/w Miralax. daily. Elevated IGG and IGA bands. - Defer to Dr. Messer for management. Smoking hx - Nicotine patch Dispo: Tele, Regular Diet. DVT Proph: SCDs FULL CODE Resident Physician Supervision Note: I was present with the resident during the history and exam. I discussed the case with the resident and agree with the findings and plan as documented in the note. AI also discussed the case with thoracic surgery and pulmonology consultants. Documented By: Patrick Chiu Resident Involvement: Resident Care Provided Care Provided: Adult Hospital Medicine
[2017-04-24] VITALS (8 sets, daily range): BP systolic 90–111; BP diastolic 46–67; PULSE 96–108; TEMP 36.8–38.7; O2SAT 88–95
[2017-04-24] MEDS: ACETAMINOPHEN 325 MG TAB PO PRN ×2 (00:08→20:54)
[2017-04-24] MEDS: CEFEPIME IV 2,000 MG in SYRINGE 7.5 ML IV SCH ×3 (04:19→21:00)
--- NOTE | 2017-04-24 06:44 | Family Medicine Progress Note ---
Progress Note Date of Service Apr 24, 2017. Subjective Pt evaluation today including: conversation w/ patient, physical exam, chart review, lab review Hemoptysis overnight. I was able to examine the sputum in the bedside trash can - minimal amount of bright red blood on Kleenex. Tele showed sinus with PACs with a rate 100s-120s. Patient is overall feeling better than on his admission. He hasn't been walking much or using in incentive spirometer. I instructed the patient that we will get him moving and to use an incentive spirometer. All questions answered, most labs are still pending from the bronchial washings. Dr. Acevedo present for part of rounds - patient understood that management depends on findings. Update: Patient reported telling the nurse that he fell when going to the commode. He was in bed and comfortable when the nurse talked to him. He said he fell on his bum and not his head. He was given Red socks as a result. We will still try to get him to ambulate. Constitutional: No fever, No chills ENT: No hearing loss Respiratory: + cough, + sputum, + dyspnea on exertion, No wheezing, No shortness of breath Cardiovascular: No chest pain Musculoskeletal: No joint pain, No muscle pain, No swelling Male : No dysuria Objective Physical Exam Notes: General Appearance: no apparent distress, + cachetic, + thin Eyes: PERRL, EOMI Neck: supple Respiratory/Chest: chest non-tender, lungs clear, no respiratory distress, no accessory muscle use, + pertinent finding (Crackles in the right lung, poor air entry on the left posteriorly). Cardiovascular: regular rate, rhythm, no edema, no gallop, no JVD, no murmur Abdomen: normal bowel sounds, non tender, soft, no organomegaly, no pulsatile mass Extremities: normal range of motion, no pedal edema, no calf tenderness Neurologic/Psychiatric: alert, normal mood/affect, oriented x 3 Skin: no rash, + pertinent finding (3cm diameter spherical round mobile soft non tender lesion on left medial buttock, does not feel like a lymph node, softer than a traditional lipoma, could be an abscess or necrotic mass - no change in this lesion) Assessment and Plan 62M with a PMHx of latent TB and 50pack year smoking history was sent from [place] for a suspicious lung lesions and anemia. He presented to the [place] ER with fatigue, weight loss and hemoptysis and his hemoglobin was found to be 3.7. Patient has not seen a doctor in the past 15 years and has recently lost significant amount of weight. CT Chest showed a mass in the RUL and RML suspicious for abscess or malignancy. Sputum cultures have grown Pseudomonas. There is also an elevated IGG and IGA bands. Patient is on TB precautions. Thoracic surgery, ID and HemeOnc on board. Differentials include TB, Pneumonia and Carcinoma. Thoracocentesis pathology pending. Family requests that no bad news be given to the patient without them present. RUL and RML Lesions and Lymphadenopathy, Malignancy vs TB vs Pneumonia - Our CT Abdo confirms the read from [place], lesions in the RUL and RML, no bony mets, enlarged lymph nodes. - c/w Airborne precautions. - So far Sputum Acid Fast Stains are negative, sputum cultures grew zhang sensitive Pseudomonas. - For Pseudomonas c/w Cefepime, Day #4. - Bronchoscopy biopsies are pending. - Per Pulm, PFTs as outpatient. Acute red blood cell loss anemia requiring transfusion of PRBCs - Hemoglobin stable, FOBT positive. - Received 3 units here and 2 units packed RBC in [place]. - TIBC is decreased , ferritin and iron are normal. This is suggestive of anemia of chronic disease. - Patient also reports that his stools have been dark recently. - Patient has never had a colonoscopy. GI has been brought on board. Per GI FOBT likely from swallowed hemoptysis. - Check Hemoglobin in the AM. Constipation - c/w Miralax. daily. Elevated IGG and IGA bands. - Defer to Dr. Messer for management. Smoking hx - Nicotine patch Electrolytes - Potassium was 3.3, we are starting 20meqKCL orally. Dispo: Tele, Regular Diet. DVT Proph: SCDs, Anticoagulation contraindicated due to hemoptysis and anemia. FULL CODE Resident Physician Supervision Note: I was present with the resident during the history and exam. I discussed the case with the resident and agree with the findings and plan as documented in the note. Await pathology from bronchoscopy. The question is if the patient requires upper and lower endoscopy as part of the continue workup for his significant anemia. We'll discuss with gastroenterology. I do not think the patient would tolerate the preparation today for colonoscopy, but this may be possibility later in his hospitalization. Documented By: Patrick Chiu Resident Involvement: Resident Care Provided Care Provided: Adult Hospital Medicine
[2017-04-24 06:48] LABS: CREATININE 0.61 mg/dl (0.60-1.40)
[2017-04-24] MEDS: PANTOprazole SOD 40 MG TAB PO SCH ×2 (08:00→20:54)
[2017-04-24] MEDS: POLYETHYLENE (MIRALAX) 17 GM PACK PO SCH (09:00)
[2017-04-24] MEDS: NICOTINE 14 MG/24 HR TDSY TD SCH (09:00)
[2017-04-24] MEDS: BENZONATATE 100MG CAP PO SCH ×3 (09:00→20:54)
[2017-04-24 09:37] LABS: HEMATOCRIT 29.6 % (42-52); MEAN CELL VOLUME 94.3 fL (80-100); MEAN CORPUSCULAR HGB CONC 29.7 g/dl (32-36); MEAN PLATELET VOLUME 13.9 fL (7.4-10.4); PLATELET COUNT 148 K/uL (130-400); RED BLOOD COUNT 3.14 M/uL (4.7-6.1); WHITE BLOOD COUNT 9.52 K/uL (4.8-10.8)
[2017-04-24 09:38] LABS: BASO ABS # 0.09 K/uL (0-0.2); BASOPHIL % 0.9 % (0-2); COMPLETE YES; LYMPH ABS # 0.83 K/uL (1.2-3.4); LYMPHOCYTE % 8.7 %; NEUTROPHILS % 47.8 %; PLT ESTIMATE DECREASED; POLYCHROMASIA 1+
[2017-04-24 09:46] LABS: BUN/CREATININE RATIO 16.1 (10-20); CREATININE 0.57 mg/dl (0.60-1.40); POTASSIUM 3.4 mmol/L (3.5-5.1)
--- NOTE | 2017-04-24 10:00 | Pulmonology Progress Note ---
Pulmonary Progress Note Date of Service Apr 24, 2017. Attending Dr. Boudreaux Subjective Patient seen and examined at bedside. He states that he is feeling really weak today. He had hemoptysis post bronchoscopy which has resolved. Febrile overnight. Objective Vital signs reviewed. MAXIMUM TEMPERATURE 38.7, BP 131/46-96/56, pulse 96-108 , pulse oximetry 94-95% on 2L Gen.: Awake alert oriented 3, no acute respiratory distress speaking in full sentences without use of accessory muscles of respiration CVS: S1-S2, regular rate and rhythm Lungs: Clear entry bilaterally, crackles at bases Abdomen: Soft, nontender, bowel sounds positive Extremities: Thin, no cyanosis, no clubbing, no edema Labs reviewed Blood culture from 04/20/2017 shows no growth to date Sputum culture from 04/21/2017 shows probable pseudomonas species AFB smear shows no acid-fast bacilli seen x3 Bronchial wash cultures 04/23/2017--pending Pathology 04/23/17--pending Imaging reviewed CHEST 1 VW FRONT-NOT PORTABLE CLINICAL HISTORY: post bronch postprocedural evaluation COMPARISON STUDY: 04/21/2017 FINDINGS: No evidence pneumothorax post bronchoscopy. Bleb formation right apex unchanged. All remaining pleural and parenchymal changes described previously are stable IMPRESSION: No evidence of pneumothorax post bronchoscopy Medications reviewed Assessment & Plan Right upper lobe cavitary mass Possible necrotizing pneumonia Hemoptysis Questionable history of tuberculosis vs LTBI Subpleural opacities in left lower lobe COPD (FEV1 unknown) Anemia Mr. Guajardo is a 62-year-old male with questionable history of pulmonary TB/ latent TB infection who presents as a direct transfer from [facility] for large right upper lobe cavitary lesion associated with hemoptysis for several months and weight loss. s/p bronchoscopy yesterday. BAL, brushings, washings and transbronchial biopsy taken. He was febrile overnight likely secondary to bronchoscopy. Recommendations Continue to treat for pseudomonal pneumonia Await pathology and culture results from bronchoscopy Continue with nebulizers ipratropium/albuterol when necessary for emphysema. Continue with Tessalon Perles for cough. He should have full PFTs done upon hospital discharge. Currently not on any chemical DVT prophylaxis secondary to anemia. Continue with SCDs. Continue with nicotine patch. Data Medications: Current Inpatient Medications Medications (Trade) Dose Ordered Sig/Breanne Route Start Time Stop Time Status Last Admin Dose Admin Acetaminophen (Tylenol Tab) 650 mg Q4H PRN PO 04/20/17 21:15 05/20/17 21:14 04/24/17 00:08 650 MG Al Hydrox/Mg Hydrox/Simethicone (Maalox Max Susp) 15 ml Q4H PRN PO 04/20/17 21:15 05/20/17 21:14 Magnesium Hydroxide (Milk Of Magnesia Susp) 30 ml Q12H PRN PO 04/20/17 21:15 05/20/17 21:14 04/21/17 15:55 30 ML Ondansetron HCl (Zofran Inj) 4 mg Q6H PRN IV 04/20/17 21:15 05/20/17 21:14 Nitroglycerin (Nitrostat Tab) 0.4 mg UD PRN SL 04/20/17 21:15 05/20/17 21:14 Morphine Sulfate (MoRPHine SULFATE INJ) 2 mg Q30M PRN IV 04/20/17 21:15 05/04/17 21:14 Polyethylene (Miralax Powder Packet) 17 gm DAILY PRN PO 04/20/17 21:15 05/20/17 21:14 Nicotine (Nicoderm Cq 14MG Patch) 1 patch QAM TD 04/21/17 09:00 05/21/17 08:59 04/23/17 07:53 1 PATCH Miscellaneous (Remove Nicoderm Patch) 1 ea HS N/A 04/21/17 21:00 05/21/17 20:59 04/23/17 21:00 1 EA Ioversol (Optiray 320) 100 ml UD PRN IV 04/21/17 08:45 04/25/17 08:44 Polyethylene (Miralax Powder Packet) 17 gm DAILY PO 04/22/17 09:00 05/22/17 08:59 04/22/17 09:53 17 GM Albuterol/ Ipratropium (Duoneb) 3 ml Q6R PRN INH 04/21/17 16:00 05/21/17 15:59 Benzonatate (Tessalon Perles Cap) 100 mg TID PO 04/21/17 21:00 05/21/17 20:59 04/23/17 21:38 100 MG Cefepime HCl 2000 mg/Syringe 20 ml @ 5 mls/min Q8H IV 04/22/17 11:00 04/28/17 02:59 04/24/17 04:19 5 MLS/MIN Pantoprazole Sodium (Protonix Tab) 40 mg BID@0800,2100 PO 04/22/17 21:00 05/22/17 20:59 04/23/17 21:38 40 MG Diphenhydramine HCl (Benadryl Cap) 50 mg DAILY PRN PO 04/23/17 18:15 05/23/17 18:14 04/23/17 21:38 50 MG Vital Signs: Date Time Temp Pulse Resp B/P (MAP) Pulse Ox O2 Delivery O2 Flow Rate FiO2 04/24/17 07:43 38.7 108 20 96/56 (69) 95 Nasal Cannula 2.0 04/24/17 04:00 Nasal Cannula 2.0 04/24/17 03:30 37.5 96 22 91/46 (61) 94 Room Air 04/23/17 23:59 Nasal Cannula 2.0 04/23/17 23:55 39.3 120 22 98/66 (77) 91 Nasal Cannula 2.0 04/23/17 20:07 Nasal Cannula 2.0 04/23/17 19:50 37.2 106 20 112/72 (85) 90 Room Air 04/23/17 16:21 Nasal Cannula 3.0 04/23/17 16:05 Room Air 04/23/17 15:56 96 18 110/68 (82) 99 Nasal Cannula 3.0 04/23/17 15:52 Mask 04/23/17 15:30 106 15 124/79 100 Mask 8.0 04/23/17 15:25 104 16 106/81 100 Mask 8.0 04/23/17 15:20 109 14 128/69 99 Mask 8.0 04/23/17 15:15 110 16 108/80 99 Mask 8.0 04/23/17 15:10 113 20 113/82 100 Mask 8.0 04/23/17 15:05 102 20 121/82 99 Mask 8.0 04/23/17 15:00 99 18 124/72 100 Mask 8.0 04/23/17 14:55 116 18 130/81 100 Mask 8.0 04/23/17 14:50 96 20 126/76 100 Mask 8.0 04/23/17 14:24 93 21 139/86 100 Mask 8.0 04/23/17 14:16 36.7 79 18 105/69 96 04/23/17 12:15 Room Air 04/23/17 11:39 36.8 91 18 105/69 (81) 94 Laboratory Results: Last 24 Hours Test 04/24/17 06:02 04/24/17 08:37 White Blood Count 9.52 K/uL Red Blood Count 3.14 M/uL Hemoglobin 8.8 g/dL Hematocrit 29.6 % Mean Corpuscular Volume 94.3 fL Mean Corpuscular Hemoglobin 28.0 pg Mean Corpuscular Hemoglobin Concent 29.7 g/dl Platelet Count 148 K/uL Mean Platelet Volume 13.9 fL RDW Standard Deviation 58.8 fL RDW Coefficient of Variation 17.5 % Neutrophils % (Manual) 47.8 % Lymphocytes % (Manual) 8.7 % Monocytes % (Manual) 42.6 % Basophils % (Manual) 0.9 % Neutrophils # (Manual) 4.55 K/uL Total Absolute Neutrophils 4.55 K/uL Lymphocytes # (Manual) 0.83 K/uL Total Absolute Lymphocytes 0.83 K/uL Monocytes # (Manual) 4.06 K/uL Basophils # (Manual) 0.09 K/uL Platelet Estimate DECREASED Polychromasia 1+ Creatinine 0.61 mg/dl 0.57 mg/dl Est Creatinine Clear Calc Drug Dose 84.5 ml/min 90.4 ml/min Estimated GFR () 123.2 126.7 Estimated GFR (Non- 106.3 109.3 Sodium Level 131 mmol/L Potassium Level 3.4 mmol/L Chloride Level 97 mmol/L Carbon Dioxide Level 30 mmol/L Anion Gap 4.0 mmol/L Blood Urea Nitrogen 9 mg/dl BUN/Creatinine Ratio 16.1 Random Glucose 93 mg/dl Calcium Level 8.0 mg/dl
[2017-04-24 12:51] LABS: ALBUMIN 2.1 G/DL (3.8-4.8); GAMMA GLOBULIN 2.8 G/DL (0.8-1.7); TOTAL PROTEIN 7.5 G/DL (6.2-8.3)
--- NOTE | 2017-04-24 13:51 | Progress Note ---
Subjective Date of Service: Apr 24, 2017. Subjective s/p bronch, all cultures pending, 2 sputum for AFB have negative smear, awaiting third, bronch AFB pending as well. bronch culture growing probable pseudomonas, remains on cefepime, tolerating well. had post bronch fever yesteray. blood cultures remain negative. pathology pending as well. Objective Vital Signs Date Time Temp Pulse Resp B/P (MAP) Pulse Ox O2 Delivery O2 Flow Rate FiO2 04/24/17 12:00 Nasal Cannula 2.0 04/24/17 11:47 37.1 103 18 99/66 (77) 95 Nasal Cannula 2.0 04/24/17 08:00 Nasal Cannula 2.0 04/24/17 07:43 38.7 108 20 96/56 (69) 95 Nasal Cannula 2.0 04/24/17 04:00 Nasal Cannula 2.0 04/24/17 03:30 37.5 96 22 91/46 (61) 94 Room Air 04/23/17 23:59 Nasal Cannula 2.0 04/23/17 23:55 39.3 120 22 98/66 (77) 91 Nasal Cannula 2.0 04/23/17 20:07 Nasal Cannula 2.0 04/23/17 19:50 37.2 106 20 112/72 (85) 90 Room Air 04/23/17 16:21 Nasal Cannula 3.0 04/23/17 16:05 Room Air 04/23/17 15:56 96 18 110/68 (82) 99 Nasal Cannula 3.0 04/23/17 15:52 Mask 04/23/17 15:30 106 15 124/79 100 Mask 8.0 04/23/17 15:25 104 16 106/81 100 Mask 8.0 04/23/17 15:20 109 14 128/69 99 Mask 8.0 04/23/17 15:15 110 16 108/80 99 Mask 8.0 04/23/17 15:10 113 20 113/82 100 Mask 8.0 04/23/17 15:05 102 20 121/82 99 Mask 8.0 04/23/17 15:00 99 18 124/72 100 Mask 8.0 04/23/17 14:55 116 18 130/81 100 Mask 8.0 04/23/17 14:50 96 20 126/76 100 Mask 8.0 04/23/17 14:24 93 21 139/86 100 Mask 8.0 04/23/17 14:16 36.7 79 18 105/69 96 Laboratory Results Item Value Date Time Blood Culture - Preliminary Resulted 04/20/17 2157 Blood NO GROWTH TO DATE. Blood Culture - Preliminary Resulted 04/20/17 2206 Blood NO GROWTH TO DATE. Gram Stain - Final Complete 04/21/17 0616 Sputum Expectorated Sputum Acid Fast Stain - Final Resulted 04/21/17 0739 Blood Acid Fast Stain - Final Resulted 04/21/17 2000 Sputum Expectorated Sputum Acid Fast Stain - Final Resulted 04/22/17 2220 Sputum Expectorated Sputum Gram Stain - Final Resulted 04/23/17 0000 Bronchial Washings Right Upper Lobe Last 24 Hours Test 04/24/17 06:02 04/24/17 08:37 White Blood Count 9.52 K/uL Red Blood Count 3.14 M/uL Hemoglobin 8.8 g/dL Hematocrit 29.6 % Mean Corpuscular Volume 94.3 fL Mean Corpuscular Hemoglobin 28.0 pg Mean Corpuscular Hemoglobin Concent 29.7 g/dl Platelet Count 148 K/uL Mean Platelet Volume 13.9 fL RDW Standard Deviation 58.8 fL RDW Coefficient of Variation 17.5 % Neutrophils % (Manual) 47.8 % Lymphocytes % (Manual) 8.7 % Monocytes % (Manual) 42.6 % Basophils % (Manual) 0.9 % Neutrophils # (Manual) 4.55 K/uL Total Absolute Neutrophils 4.55 K/uL Lymphocytes # (Manual) 0.83 K/uL Total Absolute Lymphocytes 0.83 K/uL Monocytes # (Manual) 4.06 K/uL Basophils # (Manual) 0.09 K/uL Platelet Estimate DECREASED Polychromasia 1+ Creatinine 0.61 mg/dl 0.57 mg/dl Est Creatinine Clear Calc Drug Dose 84.5 ml/min 90.4 ml/min Estimated GFR () 123.2 126.7 Estimated GFR (Non- 106.3 109.3 Sodium Level 131 mmol/L Potassium Level 3.4 mmol/L Chloride Level 97 mmol/L Carbon Dioxide Level 30 mmol/L Anion Gap 4.0 mmol/L Blood Urea Nitrogen 9 mg/dl BUN/Creatinine Ratio 16.1 Random Glucose 93 mg/dl Calcium Level 8.0 mg/dl Assessment and Plan (1) Hemoptysis Assessment & Plan: await bronch results. afb cultures pending. continue cefepime for + sputum culture. (2) Lung mass
[2017-04-24] MEDS ORDERED: NURSING VERBAL MED ORDER ONE (15:15)
[2017-04-24] MEDS ORDERED: COUGH DROP (SUGAR FREE) LOZ 24 LOZ/1 BOX PO PRN (16:15)
[2017-04-24] MEDS ORDERED: POTASSIUM CHLORIDE 20 MEQ TABCR PO STA (16:51)
[2017-04-24] MEDS ORDERED: POTASSIUM CHLORIDE 20 MEQ/15 ML UDC PO STA (18:13)
--- NOTE | 2017-04-24 18:31 | SURGERY PROGRESS NOTE ---
DATE: 04/24/2017 Mr. Guajardo was seen today on 04/24/2017. He states that he feels better. He coughed up a fairly significant amount of blood last night; however, this was after his bronchoscopy with brushings. He states that this morning he is "better." He is growing pseudomonas out. I would probably opt to watch this man on antibiotics for an extended period of time in the hope that he would improve clinically. At this point, I would let him settle down. If he continues to bleed and we do not have a GI source for his anemia, this could be an indication for surgery. We will follow along with and continue to address this.
[2017-04-24] MEDS ORDERED: RIVAROXABAN TAB 15 MG TAB PO SCH (21:00)
[2017-04-25] VITALS (8 sets, daily range): BP systolic 92–106; BP diastolic 64–73; PULSE 91–109; TEMP 36.8–37.5; O2SAT 92–97
[2017-04-25] MEDS: CEFEPIME IV 2,000 MG in SYRINGE 7.5 ML IV SCH ×3 (04:08→18:47)
[2017-04-25 05:36] LABS: ALBUMIN % 27.79 %; ALPHA-2-GLOBULIN % 14.48 %; CREATININE UR 33 MG/DL (20-370); GAMMA GLOBULIN % 32.89 %
[2017-04-25 06:08] LABS: MEAN CORPUSCULAR HGB CONC 29.7 g/dl (32-36)
[2017-04-25 06:16] LABS: HEMATOCRIT 29.3 % (42-52); MEAN CELL VOLUME 95.1 fL (80-100); MEAN CORPUSCULAR HEMOGLOBIN 28.2 pg (25-34); RED BLOOD COUNT 3.08 M/uL (4.7-6.1); WHITE BLOOD COUNT 6.35 K/uL (4.8-10.8)
[2017-04-25 06:45] LABS: BUN/CREATININE RATIO 23.1 (10-20); CALCIUM 8.7 mg/dl (8.5-10.1); CREATININE 0.52 mg/dl (0.60-1.40); POTASSIUM 3.9 mmol/L (3.5-5.1)
--- NOTE | 2017-04-25 06:54 | GASTROENTEROLOGY PROGRESS NOTE ---
DATE: 04/24/2017 SUBJECTIVE: Mr. Guajardo was seen and examined today. His chart has been reviewed. The patient has a pulmonary lesion which underwent bronchoscopy. The patient experienced moderate hemoptysis following bronchoscopy yesterday. The cultures from sputum have shown pseudomonas and 2 of 3 AFBs have been negative. The third is pending. The patient remains on pulmonary isolation. The patient denied any history of melena or bright red blood per rectum despite his markedly low hemoglobin on admission. The patient has never had an upper endoscopy or colonoscopy, but does not report GI symptoms. There has been weight loss. MEDICATIONS: Currently include cefepime, potassium, Benadryl, pantoprazole 40 mg twice daily orally, Tessalon Perles, DuoNeb, nicotine, nitroglycerin p.r.n. LABORATORY STUDIES: Today, white count 9.5, hemoglobin 8.8 and stable over the past several days, platelets 148,000. BUN and creatinine are 9 and 0.57. Potassium is slightly low at 3.4, calcium 8.0. The patient's serology HCV negative, HSV and CMV are pending. The patient received a total of 3 units of packed red blood cells all on April 20 and with correction from 3.6 to the current value in the 9 range. PHYSICAL EXAMINATION: VITAL SIGNS: Today temperature 36.8, heart rate 101, blood pressure 99/63, 95% on 2 liters and respirations 22. GENERAL: The patient is awake, alert and oriented x3, resting in bed comfortably. He is not overly short of breath. HEENT: Sclerae anicteric. Conjunctiva moist. Oral mucosa moist. HEART: Normal S1, S2, slightly tachycardic. LUNGS: Show diminished breath sounds bibasally. I do not appreciate rhonchi. ABDOMEN: Soft, flat, nontender, nondistended with good bowel sounds. EXTREMITIES: Without clubbing, cyanosis or edema. RECTAL: Deferred. IMPRESSION AND PLAN: The patient with a profound anemia on admission, although the history appears to suggest that there was considerably hemostasis rather than gastrointestinal bleeding. Except for the weight loss which could be from multiple sources, the patient does not recall any gastrointestinal symptoms. He has not had melena or bright red blood per rectum historically. Nevertheless, given his age, the profound anemia, I believe upper endoscopy and colonoscopy are warranted. These will be arranged tentatively for Friday with the bowel prep on Friday once final AST is back and his respiratory status shows continued improvement. Dr. Michaels will be covering this weekend. All questions answered.
[2017-04-25 07:10] LABS: MEAN PLATELET VOLUME 12.9 fL (7.4-10.4); PLATELET COUNT 148 K/uL (130-400)
[2017-04-25 07:12] LABS: ANISOCYTOSIS PRESENT; COMPLETE YES; IG% 0.8 %; LYMPH ABS # 0.76 K/uL (1.2-3.4); MONO % 36.4 %; NEUT % 50.8 %
[2017-04-25] MEDS ORDERED: POTASSIUM CHLORIDE 20 MEQ TABCR PO SCH (09:00)
[2017-04-25] MEDS: ALBUT/IPRATROP 3MG/0.5MG NEB 3 ML VIAL INH PRN (09:42)
[2017-04-25] MEDS: POTASSIUM CHLORIDE 20 MEQ/15 ML UDC PO SCH (10:09)
[2017-04-25] MEDS: PANTOprazole SOD 40 MG TAB PO SCH ×2 (10:09→21:22)
[2017-04-25] MEDS: POLYETHYLENE (MIRALAX) 17 GM PACK PO SCH (10:10)
[2017-04-25] MEDS: NICOTINE 14 MG/24 HR TDSY TD SCH (10:10)
[2017-04-25] MEDS: BENZONATATE 100MG CAP PO SCH ×3 (10:10→21:21)
--- NOTE | 2017-04-25 10:23 | Progress Note ---
Subjective Date of Service: Apr 25, 2017. Subjective Pt evaluation today including: conversation w/ patient, physical exam, chart review, lab review pt resting comfortably, still with intermittent cough but denies any hemoptysis. slight fever overnight, pt asymptomatic. no cp, no sob. Undergoing gi workup as well as cause for potential blood loss, potential scope on Friday. tolerating cefepime, bronch culture with pseudomonas as well. 2 sputum afb smears are negative, bronch specimen is pending. path pending as well. no n/v/d/ abd pain. All remaining ros reviewed and are negative. h/h stable. Objective Vital Signs Date Time Temp Pulse Resp B/P (MAP) Pulse Ox O2 Delivery O2 Flow Rate FiO2 04/25/17 09:42 109 18 92 Nasal Cannula 2.0 04/25/17 08:00 Nasal Cannula 2.0 04/25/17 04:07 36.9 98 18 99/69 (79) 92 Nasal Cannula 2.0 04/25/17 04:07 Nasal Cannula 2.0 04/24/17 23:38 Nasal Cannula 2.0 04/24/17 22:43 99 18 109/63 (78) 95 Nasal Cannula 2.0 04/24/17 22:37 37.3 04/24/17 21:00 Nasal Cannula 2.0 04/24/17 19:48 93 Nasal Cannula 2.0 04/24/17 19:47 37.8 106 20 111/67 (82) 88 Room Air 04/24/17 16:00 Nasal Cannula 2.0 04/24/17 15:22 36.8 101 22 99/63 (75) 95 Nasal Cannula 2.0 04/24/17 12:00 Nasal Cannula 2.0 04/24/17 11:47 37.1 103 18 99/66 (77) 95 Nasal Cannula 2.0 Physical Exam General Appearance: WD/WN, no apparent distress, + cachetic, + pertinent finding Eyes: normal inspection, EOMI Neck: supple Respiratory/Chest: normal breath sounds, no respiratory distress, + decreased breath sounds Cardiovascular: regular rate, rhythm, no edema Abdomen: soft Extremities: non-tender, no pedal edema Neurologic/Psychiatric: alert, oriented x 3 Skin: normal color, no rash Laboratory Results Item Value Date Time Acid Fast Stain - Final Resulted 04/22/17 2220 Sputum Expectorated Sputum Acid Fast Stain - Final Resulted 04/21/171999 Sputum Expectorated Sputum Gram Stain - Final Complete 04/21/17 1425 Sputum Expectorated Sputum Acid Fast Stain - Final Resulted 04/21/17 0739 Blood Gram Stain - Final Resulted 04/23/17 0000 Bronchial Washings Right Upper Lobe Last 24 Hours Test 04/25/17 05:50 White Blood Count 6.35 K/uL Red Blood Count 3.08 M/uL Hemoglobin 8.7 g/dL Hematocrit 29.3 % Mean Corpuscular Volume 95.1 fL Mean Corpuscular Hemoglobin 28.2 pg Mean Corpuscular Hemoglobin Concent 29.7 g/dl Platelet Count 148 K/uL Mean Platelet Volume 12.9 fL Neutrophils (%) (Auto) 50.8 % Lymphocytes (%) (Auto) 12.0 % Monocytes (%) (Auto) 36.4 % Eosinophils (%) (Auto) 0.0 % Basophils (%) (Auto) 0.0 % Neutrophils # (Auto) 3.23 K/uL Lymphocytes # (Auto) 0.76 K/uL Monocytes # (Auto) 2.31 K/uL Eosinophils # (Auto) 0.00 K/uL Basophils # (Auto) 0.00 K/uL RDW Standard Deviation 59.0 fL RDW Coefficient of Variation 17.3 % Immature Granulocyte % (Auto) 0.8 % Immature Granulocyte # (Auto) 0.05 K/uL Anisocytosis PRESENT Sodium Level 132 mmol/L Potassium Level 3.9 mmol/L Chloride Level 98 mmol/L Carbon Dioxide Level 30 mmol/L Anion Gap 4.0 mmol/L Blood Urea Nitrogen 12 mg/dl Creatinine 0.52 mg/dl Est Creatinine Clear Calc Drug Dose 104.1 ml/min Estimated GFR () 131.5 Estimated GFR (Non- 113.5 BUN/Creatinine Ratio 23.1 Random Glucose 85 mg/dl Calcium Level 8.7 mg/dl Assessment and Plan (1) Hemoptysis Assessment & Plan: spoke with primary, doubt pseudomonas is solely responsible for current clinical state but will require treatment, continue cefepime - would give 14 days total. would avoid changing to quinolone as he is currently undergoing workup for pulm TB (has h/o + screen and reports treatment for ltbi in past). If AFB cultures grow TB, there is always chance for resistant strain, therefore would avoid quinolone use for pseudomonas as this class is used for TB as well and could encourage resistance if used as monotherapy. If bronch AFB smear is negative, could remove airborne isolation, I explained to patient that cultures will incubate for up to 6 weeks. Pathology pending as well. (2) Lung mass
--- NOTE | 2017-04-25 12:15 | SURGERY PROGRESS NOTE ---
DATE: 04/25/2017 SUBJECTIVE: Mr. Guajardo was seen today on 04/25/2017. I discussed this case with the house staff as well as Dr. Blackwell. We are going to order a serum electrophoresis if it has not been ordered yet. Gastroenterology is going to offer him an upper and lower endoscopy early next week. I think that would be necessary. In the meantime, he appears clinically better to me, although he is markedly deconditioned. We will continue to keep a close eye on him over the weekend.
--- NOTE | 2017-04-25 12:55 | Family Medicine Progress Note ---
Progress Note Date of Service Apr 25, 2017. Subjective Pt evaluation today including: conversation w/ patient, physical exam, chart review, lab review The patient was seen and examined at bedside. No acute overnight events. Patient states he is tired of being in the hospital. Understand the severity of the situation. Confirmed that his dyspnea is better since being in the hospital. Patient is resting comfortably in bed. Denies having any pain. Eating and urinating well. Plan of care was described to the patient and all questions were answered. Constitutional: No fever, No chills, No sweats, No weight loss ENT: No hearing loss Respiratory: + cough, + sputum, + shortness of breath, + dyspnea on exertion , No wheezing Cardiovascular: No chest pain Abdomen: No pain, No nausea, No vomiting, No diarrhea, No constipation Musculoskeletal: No joint pain Male : No dysuria Neurologic: No memory loss Skin: No rash Objective Physical Exam Notes: General Appearance: no apparent distress, + cachetic, + thin Eyes: PERRL, EOMI Neck: supple Respiratory/Chest: chest non-tender, lungs clear, no respiratory distress, no accessory muscle use, + pertinent finding (continued Crackles in the right lung , poor air entry on the left posteriorly). Cardiovascular: regular rate, rhythm, no edema, no gallop, no JVD, no murmur Abdomen: normal bowel sounds, non tender, soft, no organomegaly, no pulsatile mass Extremities: normal range of motion, no pedal edema, no calf tenderness Neurologic/Psychiatric: alert, normal mood/affect, oriented x 3 Skin: no rash, + pertinent finding (3cm diameter spherical round mobile soft non tender lesion on left medial buttock, does not feel like a lymph node, softer than a traditional lipoma, could be an abscess or necrotic mass - no change in this lesion) Assessment and Plan 62M with a PMHx of latent TB and 50pack year smoking history was sent from [facility] for a suspicious lung lesions and anemia. He presented to the [facility] with fatigue, weight loss and hemoptysis and his hemoglobin was found to be 3.7. Patient has not seen a doctor in the past 15 years and has recently lost significant amount of weight. CT Chest showed a mass in the RUL and RML suspicious for abscess or malignancy. Sputum cultures have grown Pseudomonas. There is also an elevated IGG and IGA bands. Patient is on TB precautions. Thoracic surgery, ID and HemeOnc on board. Differentials include TB, Pneumonia and Carcinoma. Thoracocentesis pathology pending. Family requests that no bad news be given to the patient without them present. RUL and RML Lesions and Lymphadenopathy, Malignancy vs TB vs Pneumonia - Our CT Abdo confirms the read from [facility], lesions in the RUL and RML, no bony mets, enlarged lymph nodes. - c/w Airborne precautions for TB, can discontinue once gram stains are pending but cultures will incubate for 6 weeks. - So far Sputum Acid Fast Stains are negative, sputum cultures grew zhang sensitive Pseudomonas. - For Pseudomonas c/w Cefepime, Day # 4 / - course confirmed by ID. - Bronchoscopy biopsies are pending. - Per Pulm, PFTs as outpatient. Acute red blood cell loss anemia requiring transfusion of PRBCs - Hemoglobin stable, FOBT positive. - Received 3 units here and 2 units packed RBC in [facility]. - TIBC is decreased , ferritin and iron are normal. This is suggestive of anemia of chronic disease. - Patient also reports that his stools have been dark prior to Admission. - Patient has never had a colonoscopy. GI has been brought on board. Endoscopy scheduled for Friday. - Daily Hemoglobins. Constipation - c/w Miralax. daily. Elevated IGG and IGA bands. - Defer to Dr. Messer for management. - Will obtain serum protein electrophoresis. Smoking hx - Nicotine patch Electrolytes - Potassium WNL, we are starting 20meqKCL Daily orally. Dispo: Tele, Regular Diet. DVT Proph: SCDs, Anticoagulation contraindicated due to hemoptysis and anemia. Ordered we put in for walking the patient at least three times per day. FULL CODE Resident Physician Supervision Note: I was present with the resident physician during the history and exam. I discussed the case with the resident and agree with the findings and plan as documented in the note. Awaiting results of bronchoscopy pathology. Input from oncology, pulmonology, infectious disease, and gastroenterology appreciated. I discussed with the patient the idea of an upper and lower endoscopy; tentatively, this is been discussed for prep on Friday and procedure on Friday, although the pathology is back before then, it could change the indication. Documented By: Patrick Chiu Resident Involvement: Resident Care Provided Care Provided: [facility]
[2017-04-25] MEDS ORDERED: MIDAZOLAM HCL 5 MG/ML 1 ML VIAL IV ONE (13:47)
[2017-04-25] MEDS ORDERED: LIDOCAINE 4% W/AFRIN NASAL SOLN 4ML ONE (13:47)
[2017-04-25] MEDS ORDERED: LIDOCAINE HCL 2% LOCAL 50ML VIAL INFIL ONE (13:47)
[2017-04-25] MEDS ORDERED: FENTANYL CITRATE INJ 50 MCG/1 ML 2 ML VIAL IV ONE (13:47)
[2017-04-25] MEDS ORDERED: EpINEphrine INJ 1MG/ML AMP 1 MG/ML AMP IV ONE (13:47)
[2017-04-25] MEDS ORDERED: LEVALBUTEROL 1.25MG/3ML NEB INH ONE (13:47)
--- NOTE | 2017-04-25 15:48 | Pulmonology Progress Note ---
Pulmonary Progress Note Date of Service Apr 25, 2017. Attending Subjective Patient seen and examined at bedside. He complains of lethargy and fatigue. He still has intermittent cough with some blood. Denies any chest pain or shortness of breath. Objective Vital signs reviewed. MAXIMUM TEMPERATURE 37.5, BP 94/65/106/68, pulse 91-109 , RR 14-20, pulse oximetry 92-96% on 2L Gen.: Appears tired, cachetic. Sleeping. When name called he is awake alert oriented 3, no acute respiratory distress speaking in full sentences without use of accessory muscles of respiration CVS: S1-S2, regular rate and rhythm Lungs: Clear entry bilaterally, crackles at bases Abdomen: Soft, nontender, bowel sounds positive Extremities: Thin, no cyanosis, no clubbing, no edema Labs reviewed Hgb stable. Na 132, Cr 0.52 IgG 2590, [id number] IgM 114 Blood culture from 04/20/2017 shows no growth to date Sputum culture from 04/21/2017 shows probable pseudomonas species AFB smear shows no acid-fast bacilli seen x3 Bronchial wash cultures 04/23/2017--shows probable pseudomonas species, no acid- fast bacilli seen, NO YEAST OR HYPHAE SEEN Pathology 04/23/17--pending LUNG, RIGHT UPPER LOBE, BIOPSY: 1. ATYPICAL LYMPHOPLASMACYTIC INFILTRATE. ACUTE INFLAMMATION PRESENT. 2. PCR AND FISH TESTING PENDING. 3. SEE COMMENT. The overall findings are that of an acute and chronic inflammatory process with a relatively high proportion of plasma cells. The differential diagnosis includes a reactive inflammatory process and a lymphoplasmacytic disorder such as a MALT-type lymphoma Imaging reviewed CHEST 1 VW FRONT-NOT PORTABLE CLINICAL HISTORY: post bronch postprocedural evaluation COMPARISON STUDY: 04/21/2017 FINDINGS: No evidence pneumothorax post bronchoscopy. Bleb formation right apex unchanged. All remaining pleural and parenchymal changes described previously are stable IMPRESSION: No evidence of pneumothorax post bronchoscopy Medications reviewed Assessment & Plan Right upper lobe cavitary mass Possible necrotizing pneumonia Hemoptysis Questionable history of tuberculosis vs LTBI Subpleural opacities in left lower lobe COPD (FEV1 unknown) Anemia Mr. Guajardo is a 62-year-old male with questionable history of pulmonary TB/ latent TB infection who presents as a direct transfer from [facility] for large right upper lobe cavitary lesion associated with hemoptysis for several months and weight loss. s/p bronchoscopy 04/23/2017. BAL, brushings, washings and transbronchial biopsy taken. Transbronchial biopsy consistent with lymphoplastic disorder, like MALT- lymphoma. Washing and brushings still pending. Recommendations Continue to treat for pseudomonal pneumonia. Will obtain serum protein electrophoresis, Await FISH and B cell gene rearrangement. Heme/Onc is on board and following. Thoracic surgery is on board and following. Plan for EGD on Friday. Continue with nebulizers ipratropium/albuterol when necessary for emphysema. Continue with Tessalon Perles for cough. He should have full PFTs done upon hospital discharge. Currently not on any chemical DVT prophylaxis secondary to anemia. Continue with SCDs. Continue with nicotine patch. Patient is not aware of biopsy results. I will attempt reach family as they have informed hospital staff not to inform him of any diagnosis without their presence. Data Medications: Current Inpatient Medications Medications (Trade) Dose Ordered Sig/Breanne Route Start Time Stop Time Status Last Admin Dose Admin Acetaminophen (Tylenol Tab) 650 mg Q4H PRN PO 04/20/17 21:15 05/20/17 21:14 04/24/17 20:54 650 MG Al Hydrox/Mg Hydrox/Simethicone (Maalox Max Susp) 15 ml Q4H PRN PO 04/20/17 21:15 05/20/17 21:14 Magnesium Hydroxide (Milk Of Magnesia Susp) 30 ml Q12H PRN PO 04/20/17 21:15 05/20/17 21:14 04/21/17 15:55 30 ML Ondansetron HCl (Zofran Inj) 4 mg Q6H PRN IV 04/20/17 21:15 05/20/17 21:14 Nitroglycerin (Nitrostat Tab) 0.4 mg UD PRN SL 04/20/17 21:15 05/20/17 21:14 Morphine Sulfate (MoRPHine SULFATE INJ) 2 mg Q30M PRN IV 04/20/17 21:15 05/04/17 21:14 Polyethylene (Miralax Powder Packet) 17 gm DAILY PRN PO 04/20/17 21:15 05/20/17 21:14 Nicotine (Nicoderm Cq 14MG Patch) 1 patch QAM TD 04/21/17 09:00 05/21/17 08:59 04/25/17 10:10 1 PATCH Miscellaneous (Remove Nicoderm Patch) 1 ea HS N/A 04/21/17 21:00 05/21/17 20:59 04/24/17 20:53 1 EA Polyethylene (Miralax Powder Packet) 17 gm DAILY PO 04/22/17 09:00 05/22/17 08:59 04/25/17 10:10 17 GM Albuterol/ Ipratropium (Duoneb) 3 ml Q6R PRN INH 04/21/17 16:00 05/21/17 15:59 04/25/17 09:42 3 ML Benzonatate (Tessalon Perles Cap) 100 mg TID PO 04/21/17 21:00 05/21/17 20:59 04/25/17 10:10 100 MG Cefepime HCl 2000 mg/Syringe 20 ml @ 5 mls/min Q8H IV 04/22/17 11:00 04/28/17 02:59 04/25/17 10:10 5 MLS/MIN Pantoprazole Sodium (Protonix Tab) 40 mg BID@0800,2100 PO 04/22/17 21:00 05/22/17 20:59 04/25/17 10:09 40 MG Diphenhydramine HCl (Benadryl Cap) 50 mg DAILY PRN PO 04/23/17 18:15 05/23/17 18:14 04/24/17 22:41 50 MG Menthol (Nice Claudia) 1 claudia PRN PRN PO 04/24/17 16:15 05/24/17 16:14 Potassium Chloride (Griselda Ciel Elix) 20 meq QAM PO 04/25/17 09:00 05/25/17 08:59 04/25/17 10:09 20 MEQ Vital Signs: Date Time Temp Pulse Resp B/P (MAP) Pulse Ox O2 Delivery O2 Flow Rate FiO2 04/25/17 12:00 Nasal Cannula 2.0 04/25/17 11:39 36.8 98 20 106/68 (81) 96 Nasal Cannula 2.0 04/25/17 11:07 109 94 04/25/17 09:42 109 18 92 Nasal Cannula 2.0 04/25/17 08:00 37.5 91 14 94/65 (75) 93 Nasal Cannula 2.0 04/25/17 08:00 Nasal Cannula 2.0 04/25/17 04:07 36.9 98 18 99/69 (79) 92 Nasal Cannula 2.0 04/25/17 04:07 Nasal Cannula 2.0 04/24/17 23:38 Nasal Cannula 2.0 04/24/17 22:43 99 18 109/63 (78) 95 Nasal Cannula 2.0 04/24/17 22:37 37.3 04/24/17 21:00 Nasal Cannula 2.0 04/24/17 19:48 93 Nasal Cannula 2.0 04/24/17 19:47 37.8 106 20 111/67 (82) 88 Room Air 04/24/17 16:00 Nasal Cannula 2.0 Laboratory Results: Last 24 Hours Test 04/25/17 05:50 04/25/17 13:00 White Blood Count 6.35 K/uL Red Blood Count 3.08 M/uL Hemoglobin 8.7 g/dL Hematocrit 29.3 % Mean Corpuscular Volume 95.1 fL Mean Corpuscular Hemoglobin 28.2 pg Mean Corpuscular Hemoglobin Concent 29.7 g/dl Platelet Count 148 K/uL Mean Platelet Volume 12.9 fL Neutrophils (%) (Auto) 50.8 % Lymphocytes (%) (Auto) 12.0 % Monocytes (%) (Auto) 36.4 % Eosinophils (%) (Auto) 0.0 % Basophils (%) (Auto) 0.0 % Neutrophils # (Auto) 3.23 K/uL Lymphocytes # (Auto) 0.76 K/uL Monocytes # (Auto) 2.31 K/uL Eosinophils # (Auto) 0.00 K/uL Basophils # (Auto) 0.00 K/uL RDW Standard Deviation 59.0 fL RDW Coefficient of Variation 17.3 % Immature Granulocyte % (Auto) 0.8 % Immature Granulocyte # (Auto) 0.05 K/uL Anisocytosis PRESENT Sodium Level 132 mmol/L Potassium Level 3.9 mmol/L Chloride Level 98 mmol/L Carbon Dioxide Level 30 mmol/L Anion Gap 4.0 mmol/L Blood Urea Nitrogen 12 mg/dl Creatinine 0.52 mg/dl Est Creatinine Clear Calc Drug Dose 104.1 ml/min Estimated GFR () 131.5 Estimated GFR (Non- 113.5 BUN/Creatinine Ratio 23.1 Random Glucose 85 mg/dl Calcium Level 8.7 mg/dl
[2017-04-25] MEDS: ACETAMINOPHEN 325 MG TAB PO PRN (17:54)
[2017-04-26] VITALS (9 sets, daily range): BP systolic 100–112; BP diastolic 59–77; PULSE 84–95; TEMP 36.7–37.3; O2SAT 90–98
[2017-04-26] MEDS: CEFEPIME IV 2,000 MG in SYRINGE 7.5 ML IV SCH ×3 (04:20→18:43)
[2017-04-26 06:52] LABS: BUN/CREATININE RATIO 24.4 (10-20); CALCIUM 8.9 mg/dl (8.5-10.1); CREATININE 0.47 mg/dl (0.60-1.40)
[2017-04-26 07:07] LABS: HEMATOCRIT 28.7 % (42-52); MEAN CELL VOLUME 95.7 fL (80-100); MEAN CORPUSCULAR HGB CONC 29.3 g/dl (32-36); MEAN PLATELET VOLUME 13.4 fL (7.4-10.4); PLATELET COUNT 136 K/uL (130-400); WHITE BLOOD COUNT 2.43 K/uL (4.8-10.8)
[2017-04-26 07:15] LABS: COMPLETE YES; DOHLE BODIES 1+; GIANT PLATELETS 2+; IG% 0.8 %; LYMPH ABS # 0.51 K/uL (1.2-3.4); MONO % 40.7 %; NEUT % 37.5 %; PLT ESTIMATE DECREASED
[2017-04-26] MEDS: PANTOprazole SOD 40 MG TAB PO SCH ×2 (08:00→20:27)
[2017-04-26] MEDS: BENZONATATE 100MG CAP PO SCH ×3 (08:01→20:26)
[2017-04-26] MEDS: NICOTINE 14 MG/24 HR TDSY TD SCH (08:01)
[2017-04-26] MEDS: POLYETHYLENE (MIRALAX) 17 GM PACK PO SCH (08:02)
[2017-04-26] MEDS: POTASSIUM CHLORIDE 20 MEQ/15 ML UDC PO SCH (08:02)
--- NOTE | 2017-04-26 11:24 | Family Medicine Progress Note ---
Progress Note Date of Service Apr 26, 2017. Subjective Pt evaluation today including: conversation w/ patient, physical exam, chart review, lab review, conversation w/ crm consultant, review of inpatient medication list Pain: none PO Intake: good Voiding: no voiding problems Patient is feeling well this morning and is without any new complaints He is still coughing but denies any coughing up of blood He continues to have sweats at night He has mild chest pain which is associated with coughing He denies any chest pain He is wondering when the results of the biopsy will be available Constitutional: + sweats, + weight loss, + weakness, No fever, No chills Respiratory: + cough, + sputum, No shortness of breath, No dyspnea at rest, No hemoptysis Cardiovascular: + chest pain (when coughing), No edema, No palpitations Abdomen: No pain, No nausea, No vomiting, No diarrhea, No constipation Male : No dysuria Heme: No abnormal bleeding/bruising, No clotting problems Medications Current Inpatient Medications Medications (Trade) Dose Ordered Sig/Breanne Route Start Time Stop Time Status Last Admin Dose Admin Acetaminophen (Tylenol Tab) 650 mg Q4H PRN PO 04/20/17 21:15 05/20/17 21:14 04/25/17 17:54 650 MG Al Hydrox/Mg Hydrox/Simethicone (Maalox Max Susp) 15 ml Q4H PRN PO 04/20/17 21:15 05/20/17 21:14 Magnesium Hydroxide (Milk Of Magnesia Susp) 30 ml Q12H PRN PO 04/20/17 21:15 05/20/17 21:14 04/21/17 15:55 30 ML Ondansetron HCl (Zofran Inj) 4 mg Q6H PRN IV 04/20/17 21:15 05/20/17 21:14 Nitroglycerin (Nitrostat Tab) 0.4 mg UD PRN SL 04/20/17 21:15 05/20/17 21:14 Morphine Sulfate (MoRPHine SULFATE INJ) 2 mg Q30M PRN IV 04/20/17 21:15 05/04/17 21:14 Polyethylene (Miralax Powder Packet) 17 gm DAILY PRN PO 04/20/17 21:15 05/20/17 21:14 Nicotine (Nicoderm Cq 14MG Patch) 1 patch QAM TD 04/21/17 09:00 05/21/17 08:59 04/26/17 08:01 1 PATCH Miscellaneous (Remove Nicoderm Patch) 1 ea HS N/A 04/21/17 21:00 05/21/17 20:59 04/25/17 21:21 1 EA Polyethylene (Miralax Powder Packet) 17 gm DAILY PO 04/22/17 09:00 05/22/17 08:59 04/25/17 10:10 17 GM Albuterol/ Ipratropium (Duoneb) 3 ml Q6R PRN INH 04/21/17 16:00 05/21/17 15:59 04/25/17 09:42 3 ML Benzonatate (Tessalon Perles Cap) 100 mg TID PO 04/21/17 21:00 05/21/17 20:59 04/26/17 08:01 100 MG Cefepime HCl 2000 mg/Syringe 20 ml @ 5 mls/min Q8H IV 04/22/17 11:00 04/28/17 02:59 04/26/17 04:20 5 MLS/MIN Pantoprazole Sodium (Protonix Tab) 40 mg BID@0800,2100 PO 04/22/17 21:00 05/22/17 20:59 04/26/17 08:00 40 MG Diphenhydramine HCl (Benadryl Cap) 50 mg DAILY PRN PO 04/23/17 18:15 05/23/17 18:14 04/25/17 21:32 50 MG Menthol (Nice Claudia) 1 claudia PRN PRN PO 04/24/17 16:15 05/24/17 16:14 Potassium Chloride (Griselda Ciel Elix) 20 meq QAM PO 04/25/17 09:00 05/25/17 08:59 04/26/17 08:02 20 MEQ Objective Vital Signs Date Time Temp Pulse Resp B/P (MAP) Pulse Ox O2 Delivery O2 Flow Rate FiO2 04/26/17 11:04 36.7 93 24 112/77 (89) 93 Room Air 04/26/17 10:53 36.7 93 24 112/77 (89) 93 Room Air 04/26/17 09:59 36.9 86 16 92 2.0 04/26/17 08:00 92 Room Air 2.0 04/26/17 07:54 36.9 86 16 107/59 (75) 90 Room Air 04/26/17 04:00 Nasal Cannula 2.0 04/26/17 03:06 37.3 87 19 109/66 (80) 98 Nasal Cannula 2.0 04/26/17 00:05 Nasal Cannula 2.0 04/25/17 22:45 37.0 92 19 92/64 (73) 97 Nasal Cannula 2.0 04/25/17 21:19 36.8 95 18 100/65 (77) 96 Nasal Cannula 2.0 04/25/17 19:26 Nasal Cannula 2.0 04/25/17 16:00 Nasal Cannula 2.0 04/25/17 15:22 37.4 96 16 105/67 (80) 95 Nasal Cannula 2.0 04/25/17 12:00 Nasal Cannula 2.0 04/25/17 11:39 36.8 98 20 106/68 (81) 96 Nasal Cannula 2.0 Physical Exam General Appearance: no apparent distress, + cachetic, + thin Eyes: normal inspection, PERRL, sclerae normal ENT: hearing grossly normal, pharynx normal Neck: supple, no JVD, no carotid bruits, + adenopathy present (3 cm lymph node underneath left mandible) Respiratory/Chest: lungs clear, no respiratory distress, no accessory muscle use Cardiovascular: regular rate, rhythm, no edema, no murmur Abdomen: normal bowel sounds, non tender, soft Extremities: no pedal edema, no calf tenderness, + pertinent finding (very thin legs) Neurologic/Psychiatric: alert, normal mood/affect, oriented x 3 Laboratory Results Results Past 24 Hours Test 04/25/17 13:00 04/26/17 05:56 Range/Units White Blood Count 2.43 4.8-10.8 K/uL Red Blood Count 3.00 4.7-6.1 M/uL Hemoglobin 8.4 14.0-18.0 g/dL Hematocrit 28.7 42-52 % Mean Corpuscular Volume 95.7 80-100 fL Mean Corpuscular Hemoglobin 28.0 25-34 pg Mean Corpuscular Hemoglobin Concent 29.3 32-36 g/dl Platelet Count 136 130-400 K/uL Mean Platelet Volume 13.4 7.4-10.4 fL Neutrophils (%) (Auto) 37.5 % Lymphocytes (%) (Auto) 21.0 % Monocytes (%) (Auto) 40.7 % Eosinophils (%) (Auto) 0.0 % Basophils (%) (Auto) 0.0 % Neutrophils # (Auto) 0.91 1.4-6.5 K/uL Lymphocytes # (Auto) 0.51 1.2-3.4 K/uL Monocytes # (Auto) 0.99 0.11-0.59 K/uL Eosinophils # (Auto) 0.00 0-0.5 K/uL Basophils # (Auto) 0.00 0-0.2 K/uL RDW Standard Deviation 58.4 36.4-46.3 fL RDW Coefficient of Variation 16.9 11.5-14.5 % Immature Granulocyte % (Auto) 0.8 % Immature Granulocyte # (Auto) 0.02 0.00-0.02 K/uL Hypogranular Neutrophils 1+ Dohle Bodies 1+ Platelet Estimate DECREASED Giant Platelets 2+ Sodium Level 132 136-145 mmol/L Potassium Level 4.0 3.5-5.1 mmol/L Chloride Level 97 98-107 mmol/L Carbon Dioxide Level 31 21-32 mmol/L Anion Gap 4.0 3-11 mmol/L Blood Urea Nitrogen 12 7-18 mg/dl Creatinine 0.47 0.60-1.40 mg/dl Est Creatinine Clear Calc Drug Dose 112.2 ml/min Estimated GFR () 137.1 Estimated GFR (Non- 118.3 BUN/Creatinine Ratio 24.4 10-20 Random Glucose 95 70-99 mg/dl Calcium Level 8.9 8.5-10.1 mg/dl Assessment and Plan 62M with a PMHx of latent TB and 50 pack year smoking history was sent from [place] for a suspicious lung lesions and anemia. He presented to the [place] ER with fatigue, weight loss and hemoptysis and his hemoglobin was found to be 3.7. Patient has not seen a doctor in the past 15 years and has recently lost significant amount of weight. CT Chest showed a mass in the RUL and RML suspicious for abscess or malignancy. Sputum cultures have grown Pseudomonas. There is also an elevated IGG and IGA bands. Patient has been cleared from TB precautions after 3 negative sputums for acid fast bacilli. 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 PCR and FISH testing are still pending for final diagnosis Family requests that no bad news be given to the patient without them present. Lymphoplasmacytic lymphoma (MALT lymphoma) - biopsy results recorded on 04/25/17 - Haem Onc on board - PCR and FISH diagnostic results pending - CT scan showed subcarinal and subpectoral lymphadenopathy Community Acquired Pneumonia - Pseudomonas grown in bronchial washings - Likely secondary to malignant process - Continue cefepime day 09/29 - acid fast stains negative but cultures still pending for TB Anemia secondary to anemia of chronic disease vs GI bleed - Hemoglobin stable, FOBT positive. - Received 3 units here and 2 units packed RBC in [place]. - TIBC is decreased , ferritin and iron are normal. This is suggestive of anemia of chronic disease. - Patient also reports that his stools have been dark prior to Admission. - Patient has never had a colonoscopy. GI has been brought on board. Endoscopy scheduled for Friday. - Question whether or not there is primary source in GI versus anemia secondary to lymphoma Constipation - c/w Miralax. daily. Elevated IGG and IGA bands. - Defer to Dr. Messer for management. - SPEP with normal findings Smoking hx - Nicotine patch Hypokalemia - stable - 20meq potassium daily Dispo: Transferred to regular med floors DVT Proph: SCDs, Anticoagulation contraindicated due to hemoptysis and anemia. FULL CODE Resident Physician Supervision Note: I interviewed and examined the patient. Discussed with Dr. Guadalupe and agree with findings and plan as documented in the note. Any exceptions or clarifications are listed here: Preliminary discussion regarding pathology report and the remaining uncertainties. Will move to medical floor today. Consult PT/OT. Will discuss with GI possibility of EGD/colonoscopy on Friday. Documented By: Patrick Chiu Continued [facility] stay due to: multiple IV medications needed Discharge planning: uncertain
--- NOTE | 2017-04-26 11:33 | SURGERY PROGRESS NOTE ---
DATE: 04/26/2017 DATE: 04/26/2017 Mr. Guajardo was seen today on 04/26/2017. His daughter was at the bedside. He feels better. He has had no hemoptysis in a couple of days. He is eating better. He is actually ambulating a bit better. He feels "much better". I reviewed the pathology and discussed this with Dr. Blackwell yesterday. It still is not quite clear what we are dealing with however it is quite possible this is simply a chronic infection. We will see what his upper and lower endoscopy shows on 04/28/2017.
--- NOTE | 2017-04-26 11:42 | Pulmonology Progress Note ---
Pulmonary Progress Note Date of Service Apr 26, 2017. Attending Dr. Boudreaux Subjective Patient seen and examined this morning. He is feeling better today. He is still coughing but denies any further hemoptysis. Patient feeling a little more energized today. I explained to patient and daughter that this may be possible MALT lymphoma, however further studies need to be done. Dr. Nguyen at bedside as well. All questions were answered. Objective Vital signs reviewed. Gen.: Appears tired, cachetic. Sleeping. When name called he is awake alert oriented 3, no acute respiratory distress speaking in full sentences without use of accessory muscles of respiration CVS: S1-S2, regular rate and rhythm Lungs: Clear entry bilaterally, crackles at bases Abdomen: Soft, nontender, bowel sounds positive Extremities: Thin, no cyanosis, no clubbing, no edema Labs reviewed Hgb stable. Na 132, Cr 0.47 IgG 2590, [id number] IgM 114 Blood culture from 04/20/2017 shows no growth to date Sputum culture from 04/21/2017 shows probable pseudomonas species AFB smear shows no acid-fast bacilli seen x3 Bronchial wash cultures 04/23/2017--shows probable pseudomonas species, no acid- fast bacilli seen, NO YEAST OR HYPHAE SEEN Pathology 04/23/17-- brushing and washing pending LUNG, RIGHT UPPER LOBE, BIOPSY: 1. ATYPICAL LYMPHOPLASMACYTIC INFILTRATE. ACUTE INFLAMMATION PRESENT. 2. PCR AND FISH TESTING PENDING. 3. SEE COMMENT. The overall findings are that of an acute and chronic inflammatory process with a relatively high proportion of plasma cells. The differential diagnosis includes a reactive inflammatory process and a lymphoplasmacytic disorder such as a MALT-type lymphoma Imaging reviewed CHEST 1 VW FRONT-NOT PORTABLE CLINICAL HISTORY: post bronch postprocedural evaluation COMPARISON STUDY: 04/21/2017 FINDINGS: No evidence pneumothorax post bronchoscopy. Bleb formation right apex unchanged. All remaining pleural and parenchymal changes described previously are stable IMPRESSION: No evidence of pneumothorax post bronchoscopy Medications reviewed Assessment & Plan Right upper lobe cavitary mass Possible necrotizing pneumonia Hemoptysis Questionable history of tuberculosis vs LTBI Subpleural opacities in left lower lobe COPD (FEV1 unknown) Anemia Mr. Guajardo is a 62-year-old male with questionable history of pulmonary TB/ latent TB infection who presents as a direct transfer from [facility] for large right upper lobe cavitary lesion associated with hemoptysis for several months and weight loss. s/p bronchoscopy 04/23/2017. BAL, brushings, washings and transbronchial biopsy taken. Transbronchial biopsy consistent with lymphoplastic disorder, like MALT- lymphoma. Washing and brushings still pending. Recommendations Continue to treat for pseudomonal pneumonia. ID on board and following. Now off of isolation as AFB show no growth. Serum protein electrophoresis, Await FISH and B cell gene rearrangement. Heme/Onc is on board and following. Thoracic surgery is on board and following. Plan for EGD on Friday. Continue with nebulizers ipratropium/albuterol when necessary for emphysema. Continue with Tessalon Perles for cough. He should have full PFTs done upon hospital discharge. Currently not on any chemical DVT prophylaxis secondary to anemia. Continue with SCDs. Continue with nicotine patch. Discussed results with patient and daughter. I will sign off case as he appears stable from a respiratory standpoint. Please contact pulmonary if you have any further questions or concerns. Data Medications: Current Inpatient Medications Medications (Trade) Dose Ordered Sig/Breanne Route Start Time Stop Time Status Last Admin Dose Admin Acetaminophen (Tylenol Tab) 650 mg Q4H PRN PO 04/20/17 21:15 05/20/17 21:14 04/25/17 17:54 650 MG Al Hydrox/Mg Hydrox/Simethicone (Maalox Max Susp) 15 ml Q4H PRN PO 04/20/17 21:15 05/20/17 21:14 Magnesium Hydroxide (Milk Of Magnesia Susp) 30 ml Q12H PRN PO 04/20/17 21:15 05/20/17 21:14 04/21/17 15:55 30 ML Ondansetron HCl (Zofran Inj) 4 mg Q6H PRN IV 04/20/17 21:15 05/20/17 21:14 Nitroglycerin (Nitrostat Tab) 0.4 mg UD PRN SL 04/20/17 21:15 05/20/17 21:14 Morphine Sulfate (MoRPHine SULFATE INJ) 2 mg Q30M PRN IV 04/20/17 21:15 05/04/17 21:14 Polyethylene (Miralax Powder Packet) 17 gm DAILY PRN PO 04/20/17 21:15 05/20/17 21:14 Nicotine (Nicoderm Cq 14MG Patch) 1 patch QAM TD 04/21/17 09:00 1/3/18 08:59 04/26/17 08:01 1 PATCH Miscellaneous (Remove Nicoderm Patch) 1 ea HS N/A 04/21/17 21:00 05/21/17 20:59 04/25/17 21:21 1 EA Polyethylene (Miralax Powder Packet) 17 gm DAILY PO 04/22/17 09:00 05/22/17 08:59 04/25/17 10:10 17 GM Albuterol/ Ipratropium (Duoneb) 3 ml Q6R PRN INH 04/21/17 16:00 05/21/17 15:59 04/25/17 09:42 3 ML Benzonatate (Tessalon Perles Cap) 100 mg TID PO 04/21/17 21:00 05/21/17 20:59 04/26/17 08:01 100 MG Cefepime HCl 2000 mg/Syringe 20 ml @ 5 mls/min Q8H IV 04/22/17 11:00 04/28/17 02:59 04/26/17 04:20 5 MLS/MIN Pantoprazole Sodium (Protonix Tab) 40 mg BID@0800,2100 PO 04/22/17 21:00 05/22/17 20:59 04/26/17 08:00 40 MG Diphenhydramine HCl (Benadryl Cap) 50 mg DAILY PRN PO 04/23/17 18:15 05/23/17 18:14 04/25/17 21:32 50 MG Menthol (Nice Claudia) 1 claudia PRN PRN PO 04/24/17 16:15 05/24/17 16:14 Potassium Chloride (Griselda Ciel Elix) 20 meq QAM PO 04/25/17 09:00 05/25/17 08:59 04/26/17 08:02 20 MEQ Vital Signs: Date Time Temp Pulse Resp B/P (MAP) Pulse Ox O2 Delivery O2 Flow Rate FiO2 04/26/17 11:04 36.7 93 24 112/77 (89) 93 Room Air 04/26/17 10:53 36.7 93 24 112/77 (89) 93 Room Air 04/26/17 09:59 36.9 86 16 92 2.0 04/26/17 08:00 92 Room Air 2.0 04/26/17 07:54 36.9 86 16 107/59 (75) 90 Room Air 04/26/17 04:00 Nasal Cannula 2.0 04/26/17 03:06 37.3 87 19 109/66 (80) 98 Nasal Cannula 2.0 04/26/17 00:05 Nasal Cannula 2.0 04/25/17 22:45 37.0 92 19 92/64 (73) 97 Nasal Cannula 2.0 04/25/17 21:19 36.8 95 18 100/65 (77) 96 Nasal Cannula 2.0 04/25/17 19:26 Nasal Cannula 2.0 04/25/17 16:00 Nasal Cannula 2.0 04/25/17 15:22 37.4 96 16 105/67 (80) 95 Nasal Cannula 2.0 04/25/17 12:00 Nasal Cannula 2.0 04/25/17 11:39 36.8 98 20 106/68 (81) 96 Nasal Cannula 2.0 Laboratory Results: Last 24 Hours Test 04/25/17 13:00 04/26/17 05:56 White Blood Count 2.43 K/uL Red Blood Count 3.00 M/uL Hemoglobin 8.4 g/dL Hematocrit 28.7 % Mean Corpuscular Volume 95.7 fL Mean Corpuscular Hemoglobin 28.0 pg Mean Corpuscular Hemoglobin Concent 29.3 g/dl Platelet Count 136 K/uL Mean Platelet Volume 13.4 fL Neutrophils (%) (Auto) 37.5 % Lymphocytes (%) (Auto) 21.0 % Monocytes (%) (Auto) 40.7 % Eosinophils (%) (Auto) 0.0 % Basophils (%) (Auto) 0.0 % Neutrophils # (Auto) 0.91 K/uL Lymphocytes # (Auto) 0.51 K/uL Monocytes # (Auto) 0.99 K/uL Eosinophils # (Auto) 0.00 K/uL Basophils # (Auto) 0.00 K/uL RDW Standard Deviation 58.4 fL RDW Coefficient of Variation 16.9 % Immature Granulocyte % (Auto) 0.8 % Immature Granulocyte # (Auto) 0.02 K/uL Hypogranular Neutrophils 1+ Dohle Bodies 1+ Platelet Estimate DECREASED Giant Platelets 2+ Sodium Level 132 mmol/L Potassium Level 4.0 mmol/L Chloride Level 97 mmol/L Carbon Dioxide Level 31 mmol/L Anion Gap 4.0 mmol/L Blood Urea Nitrogen 12 mg/dl Creatinine 0.47 mg/dl Est Creatinine Clear Calc Drug Dose 112.2 ml/min Estimated GFR () 137.1 Estimated GFR (Non- 118.3 BUN/Creatinine Ratio 24.4 Random Glucose 95 mg/dl Calcium Level 8.9 mg/dl
--- NOTE | 2017-04-26 15:55 | Gastroenterology Progress Note ---
Progress Note Date of Service: Apr 26, 2017 Subjective Pt evaluation today including: conversation w/ patient, physical exam, chart review, lab review, review of studies, review of inpatient medication list cc f/u anemia HPI Pt denies bowel complaints. States he had 2 normal colored stools here. No abd pain. Review of Systems Respiratory: + shortness of breath Cardiac: No chest pain Medications Current Inpatient Medications Medications (Trade) Dose Ordered Sig/Breanne Route Start Time Stop Time Status Last Admin Dose Admin Acetaminophen (Tylenol Tab) 650 mg Q4H PRN PO 04/20/17 21:15 05/20/17 21:14 04/25/17 17:54 650 MG Al Hydrox/Mg Hydrox/Simethicone (Maalox Max Susp) 15 ml Q4H PRN PO 04/20/17 21:15 05/20/17 21:14 Magnesium Hydroxide (Milk Of Magnesia Susp) 30 ml Q12H PRN PO 04/20/17 21:15 05/20/17 21:14 04/21/17 15:55 30 ML Ondansetron HCl (Zofran Inj) 4 mg Q6H PRN IV 04/20/17 21:15 05/20/17 21:14 Nitroglycerin (Nitrostat Tab) 0.4 mg UD PRN SL 04/20/17 21:15 05/20/17 21:14 Morphine Sulfate (MoRPHine SULFATE INJ) 2 mg Q30M PRN IV 04/20/17 21:15 05/04/17 21:14 Polyethylene (Miralax Powder Packet) 17 gm DAILY PRN PO 04/20/17 21:15 05/20/17 21:14 Nicotine (Nicoderm Cq 14MG Patch) 1 patch QAM TD 04/21/17 09:00 05/21/17 08:59 04/26/17 08:01 1 PATCH Miscellaneous (Remove Nicoderm Patch) 1 ea HS N/A 04/21/17 21:00 05/21/17 20:59 04/25/17 21:21 1 EA Polyethylene (Miralax Powder Packet) 17 gm DAILY PO 04/22/17 09:00 05/22/17 08:59 04/25/17 10:10 17 GM Albuterol/ Ipratropium (Duoneb) 3 ml Q6R PRN INH 04/21/17 16:00 05/21/17 15:59 04/25/17 09:42 3 ML Benzonatate (Tessalon Perles Cap) 100 mg TID PO 04/21/17 21:00 05/21/17 20:59 04/26/17 14:06 100 MG Cefepime HCl 2000 mg/Syringe 20 ml @ 5 mls/min Q8H IV 04/22/17 11:00 04/28/17 02:59 04/26/17 11:39 5 MLS/MIN Pantoprazole Sodium (Protonix Tab) 40 mg BID@0800,2100 PO 04/22/17 21:00 05/22/17 20:59 04/26/17 08:00 40 MG Diphenhydramine HCl (Benadryl Cap) 50 mg DAILY PRN PO 04/23/17 18:15 05/23/17 18:14 04/25/17 21:32 50 MG Menthol (Nice Claudia) 1 claudia PRN PRN PO 04/24/17 16:15 05/24/17 16:14 Potassium Chloride (Griselda Ciel Elix) 20 meq QAM PO 04/25/17 09:00 05/25/17 08:59 04/26/17 08:02 20 MEQ Objective Vital Signs Date Time Temp Pulse Resp B/P (MAP) Pulse Ox O2 Delivery O2 Flow Rate FiO2 04/26/17 14:38 37.1 84 18 100/66 (77) 92 04/26/17 11:58 Room Air 04/26/17 11:04 36.7 93 24 112/77 (89) 93 Room Air 04/26/17 10:53 36.7 93 24 112/77 (89) 93 Room Air 04/26/17 09:59 36.9 86 16 92 2.0 04/26/17 08:00 92 Room Air 2.0 04/26/17 07:54 36.9 86 16 107/59 (75) 90 Room Air 04/26/17 04:00 Nasal Cannula 2.0 04/26/17 03:06 37.3 87 19 109/66 (80) 98 Nasal Cannula 2.0 04/26/17 00:05 Nasal Cannula 2.0 04/25/17 22:45 37.0 92 19 92/64 (73) 97 Nasal Cannula 2.0 04/25/17 21:19 36.8 95 18 100/65 (77) 96 Nasal Cannula 2.0 04/25/17 19:26 Nasal Cannula 2.0 04/25/17 16:00 Nasal Cannula 2.0 Physical Exam General Appearance: WD/WN, no apparent distress Respiratory/Chest: lungs clear, normal breath sounds Abdomen: normal bowel sounds, non tender, soft, no organomegaly Laboratory Results Last 24 Hours Test 04/26/17 05:56 White Blood Count 2.43 K/uL Red Blood Count 3.00 M/uL Hemoglobin 8.4 g/dL Hematocrit 28.7 % Mean Corpuscular Volume 95.7 fL Mean Corpuscular Hemoglobin 28.0 pg Mean Corpuscular Hemoglobin Concent 29.3 g/dl Platelet Count 136 K/uL Mean Platelet Volume 13.4 fL Neutrophils (%) (Auto) 37.5 % Lymphocytes (%) (Auto) 21.0 % Monocytes (%) (Auto) 40.7 % Eosinophils (%) (Auto) 0.0 % Basophils (%) (Auto) 0.0 % Neutrophils # (Auto) 0.91 K/uL Lymphocytes # (Auto) 0.51 K/uL Monocytes # (Auto) 0.99 K/uL Eosinophils # (Auto) 0.00 K/uL Basophils # (Auto) 0.00 K/uL RDW Standard Deviation 58.4 fL RDW Coefficient of Variation 16.9 % Immature Granulocyte % (Auto) 0.8 % Immature Granulocyte # (Auto) 0.02 K/uL Hypogranular Neutrophils 1+ Dohle Bodies 1+ Platelet Estimate DECREASED Giant Platelets 2+ Sodium Level 132 mmol/L Potassium Level 4.0 mmol/L Chloride Level 97 mmol/L Carbon Dioxide Level 31 mmol/L Anion Gap 4.0 mmol/L Blood Urea Nitrogen 12 mg/dl Creatinine 0.47 mg/dl Est Creatinine Clear Calc Drug Dose 112.2 ml/min Estimated GFR () 137.1 Estimated GFR (Non- 118.3 BUN/Creatinine Ratio 24.4 Random Glucose 95 mg/dl Calcium Level 8.9 mg/dl Assessment and Plan anemia--seems explained by long history of hemoptysis. heme pos stool lung process--workup per others Discussed with DR Chiu that colonoscopy seems elective to me and hemoptysis probably explains the anemia. Heme pos stool can be from swallowing blood. If the lung process is a cancer and the GI tract needs screened to aid in decding on treatment then that would make endoscopy more important. If the process is an infection then that should be treated first. Await final workup results of lung process first. No endoscopy planned at present.
[2017-04-27] MEDS: CEFEPIME IV 2,000 MG in SYRINGE 7.5 ML IV SCH ×3 (02:58→18:35)
[2017-04-27 07:23] LABS: HEMATOCRIT 29.2 % (42-52); MEAN CELL VOLUME 94.2 fL (80-100); MEAN CORPUSCULAR HEMOGLOBIN 27.7 pg (25-34); MEAN CORPUSCULAR HGB CONC 29.5 g/dl (32-36); MEAN PLATELET VOLUME 13.8 fL (7.4-10.4); PLATELET COUNT 157 K/uL (130-400); WHITE BLOOD COUNT 2.07 K/uL (4.8-10.8)
[2017-04-27 07:24] LABS: BUN/CREATININE RATIO 19.3 (10-20); CALCIUM 8.9 mg/dl (8.5-10.1); CREATININE 0.6 mg/dl (0.60-1.40); POTASSIUM 3.9 mmol/L (3.5-5.1)
[2017-04-27 07:31] LABS: BASO % 0.5 %; BASO ABS # 0.01 K/uL (0-0.2); COMPLETE YES; EOS % 0.5 %; GIANT PLATELETS 2+; HYPOCHROMIA PRESENT; IG% 0.5 %; LYMPH % 39.1 %; LYMPH ABS # 0.81 K/uL (1.2-3.4); MONO % 37.2 %; NEUT % 22.2 %; STOMATOCYTE 2+
[2017-04-27 07:51] VITALS: BP 112/73; PULSE 59; TEMP 37.1; O2SAT 94
[2017-04-27] MEDS: POLYETHYLENE (MIRALAX) 17 GM PACK PO SCH (08:00)
[2017-04-27] MEDS: POTASSIUM CHLORIDE 20 MEQ/15 ML UDC PO SCH ×2 (08:22→14:04)
[2017-04-27] MEDS: NICOTINE 14 MG/24 HR TDSY TD SCH (08:22)
[2017-04-27] MEDS: PANTOprazole SOD 40 MG TAB PO SCH ×2 (08:22→21:10)
[2017-04-27] MEDS: BENZONATATE 100MG CAP PO SCH ×3 (08:22→21:10)
--- NOTE | 2017-04-27 10:12 | Family Medicine Progress Note ---
Progress Note Date of Service Apr 27, 2017. Subjective Pt evaluation today including: conversation w/ patient, physical exam, chart review, lab review, conversation w/ telecom sales consultant, review of inpatient medication list Pain: none PO Intake: good Voiding: no voiding problems Patient is feeling well Still has a wet cough but denies any blood in sputum Denies any chest pain Has not been ambulating very much Is tired and wants to know that the diagnosis is Constitutional: + fatigue, No fever, No chills, No sweats Respiratory: + cough, + sputum, + dyspnea on exertion, No wheezing, No shortness of breath, No hemoptysis Cardiovascular: No chest pain, No edema, No palpitations Abdomen: No pain, No nausea, No vomiting, No diarrhea Male : No dysuria, No incontinence Heme: No abnormal bleeding/bruising, No clotting problems Medications Current Inpatient Medications Medications (Trade) Dose Ordered Sig/Breanne Route Start Time Stop Time Status Last Admin Dose Admin Acetaminophen (Tylenol Tab) 650 mg Q4H PRN PO 04/20/17 21:15 05/20/17 21:14 04/25/17 17:54 650 MG Al Hydrox/Mg Hydrox/Simethicone (Maalox Max Susp) 15 ml Q4H PRN PO 04/20/17 21:15 05/20/17 21:14 Magnesium Hydroxide (Milk Of Magnesia Susp) 30 ml Q12H PRN PO 04/20/17 21:15 05/20/17 21:14 04/21/17 15:55 30 ML Ondansetron HCl (Zofran Inj) 4 mg Q6H PRN IV 04/20/17 21:15 05/20/17 21:14 Nitroglycerin (Nitrostat Tab) 0.4 mg UD PRN SL 04/20/17 21:15 05/20/17 21:14 Morphine Sulfate (MoRPHine SULFATE INJ) 2 mg Q30M PRN IV 04/20/17 21:15 05/04/17 21:14 Polyethylene (Miralax Powder Packet) 17 gm DAILY PRN PO 04/20/17 21:15 05/20/17 21:14 Nicotine (Nicoderm Cq 14MG Patch) 1 patch QAM TD 04/21/17 09:00 05/21/17 08:59 04/27/17 08:22 1 PATCH Miscellaneous (Remove Nicoderm Patch) 1 ea HS N/A 04/21/17 21:00 05/21/17 20:59 04/26/17 20:27 1 EA Polyethylene (Miralax Powder Packet) 17 gm DAILY PO 04/22/17 09:00 05/22/17 08:59 04/25/17 10:10 17 GM Albuterol/ Ipratropium (Duoneb) 3 ml Q6R PRN INH 04/21/17 16:00 05/21/17 15:59 04/25/17 09:42 3 ML Benzonatate (Tessalon Perles Cap) 100 mg TID PO 04/21/17 21:00 05/21/17 20:59 04/27/17 08:22 100 MG Cefepime HCl 2000 mg/Syringe 20 ml @ 5 mls/min Q8H IV 04/22/17 11:00 04/28/17 02:59 04/27/17 02:58 5 MLS/MIN Pantoprazole Sodium (Protonix Tab) 40 mg BID@0800,2100 PO 04/22/17 21:00 05/22/17 20:59 04/27/17 08:22 40 MG Diphenhydramine HCl (Benadryl Cap) 50 mg DAILY PRN PO 04/23/17 18:15 05/23/17 18:14 04/26/17 20:30 50 MG Menthol (Nice Claudia) 1 claudia PRN PRN PO 04/24/17 16:15 05/24/17 16:14 Potassium Chloride (Griselda Ciel Elix) 20 meq QAM PO 04/25/17 09:00 05/25/17 08:59 04/27/17 08:22 20 MEQ Objective Vital Signs Date Time Temp Pulse Resp B/P (MAP) Pulse Ox O2 Delivery O2 Flow Rate FiO2 04/27/17 07:51 37.1 59 18 112/73 (86) 94 04/27/17 03:00 Room Air 04/26/17 23:29 37.0 95 18 104/68 (80) 92 Room Air 04/26/17 16:00 92 Room Air 04/26/17 14:38 37.1 84 18 100/66 (77) 92 04/26/17 11:58 Room Air 04/26/17 11:04 36.7 93 24 112/77 (89) 93 Room Air 04/26/17 10:53 36.7 93 24 112/77 (89) 93 Room Air Physical Exam General Appearance: WD/WN, no apparent distress, + cachetic, + thin Eyes: normal inspection, PERRL, sclerae normal ENT: hearing grossly normal, pharynx normal Neck: supple, no carotid bruits, + adenopathy present (submandibular lymphadenopathy) Respiratory/Chest: lungs clear, no respiratory distress, no accessory muscle use, + decreased breath sounds (bilaterally) Cardiovascular: regular rate, rhythm, no edema, no murmur Abdomen: normal bowel sounds, non tender, soft Extremities: non-tender, no pedal edema, no calf tenderness, normal capillary refill Neurologic/Psychiatric: alert, oriented x 3, + depressed affect Skin: normal color, warm/dry, no rash Laboratory Results Results Past 24 Hours Test 04/27/17 05:56 Range/Units White Blood Count 2.07 4.8-10.8 K/uL Red Blood Count 3.10 4.7-6.1 M/uL Hemoglobin 8.6 14.0-18.0 g/dL Hematocrit 29.2 42-52 % Mean Corpuscular Volume 94.2 80-100 fL Mean Corpuscular Hemoglobin 27.7 25-34 pg Mean Corpuscular Hemoglobin Concent 29.5 32-36 g/dl Platelet Count 157 130-400 K/uL Mean Platelet Volume 13.8 7.4-10.4 fL Neutrophils (%) (Auto) 22.2 % Lymphocytes (%) (Auto) 39.1 % Monocytes (%) (Auto) 37.2 % Eosinophils (%) (Auto) 0.5 % Basophils (%) (Auto) 0.5 % Neutrophils # (Auto) 0.46 1.4-6.5 K/uL Lymphocytes # (Auto) 0.81 1.2-3.4 K/uL Monocytes # (Auto) 0.77 0.11-0.59 K/uL Eosinophils # (Auto) 0.01 0-0.5 K/uL Basophils # (Auto) 0.01 0-0.2 K/uL RDW Standard Deviation 56.5 36.4-46.3 fL RDW Coefficient of Variation 16.5 11.5-14.5 % Immature Granulocyte % (Auto) 0.5 % Immature Granulocyte # (Auto) 0.01 0.00-0.02 K/uL Hypogranular Neutrophils 1+ Giant Platelets 2+ Hypochromasia PRESENT Stomatocytes 2+ Sodium Level 133 136-145 mmol/L Potassium Level 3.9 3.5-5.1 mmol/L Chloride Level 96 98-107 mmol/L Carbon Dioxide Level 31 21-32 mmol/L Anion Gap 6.0 3-11 mmol/L Blood Urea Nitrogen 12 7-18 mg/dl Creatinine 0.60 0.60-1.40 mg/dl Est Creatinine Clear Calc Drug Dose 80.7 ml/min Estimated GFR () 124.0 Estimated GFR (Non- 107.0 BUN/Creatinine Ratio 19.3 10-20 Random Glucose 88 70-99 mg/dl Calcium Level 8.9 8.5-10.1 mg/dl Assessment and Plan 62M with a PMHx of latent TB and 50 pack year smoking history was sent from [place] for a suspicious lung lesions and anemia. He presented to the [place] ER with fatigue, weight loss and hemoptysis and his hemoglobin was found to be 3.7. Patient has not seen a doctor in the past 15 years and has recently lost significant amount of weight. CT Chest showed a mass in the RUL and RML suspicious for abscess or malignancy. Sputum cultures have grown Pseudomonas. There is also an elevated IGG and IGA bands. Patient has been cleared from TB precautions after 3 negative sputums for acid fast bacilli. 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 PCR and FISH testing are still pending for final diagnosis. Patient will need IV antibiotics for 10 days total and will need physical therapy as outpatient. Family requests that no bad news be given to the patient without them present. Lymphoplasmacytic lymphoma (MALT lymphoma) - biopsy results recorded on 04/25/17 - Haem Onc on board - PCR and FISH diagnostic results pending - CT scan showed subcarinal and subpectoral lymphadenopathy Community Acquired Pneumonia - Pseudomonas grown in bronchial washings - Likely secondary to malignant process - Continue cefepime day 6/10 - if discharged before 10 days then will need PICC line placement Latent TB - acid fast stains negative but cultures still pending for TB - patient moved from isolation room Anemia secondary to anemia of chronic disease vs GI bleed - Hemoglobin stable, FOBT positive. - Received 3 units here and 2 units packed RBC in [place]. - TIBC is decreased , ferritin and iron are normal. This is suggestive of anemia of chronic disease. - Patient also reports that his stools have been dark prior to Admission. - Patient has never had a colonoscopy. GI has been brought on board. - They suggest waiting until final diagnosis has returned before going for colonoscopy vs endoscopy. They suggest bleeding may becoming from swallowing blood from haemoptysis vs gastric source of bleeding therefore upper endoscopy would be more beneficial then colonoscopy Constipation - c/w Miralax. daily. Elevated IGG and IGA bands. - Defer to Dr. Messer for management. - SPEP with normal findings Smoking hx - Nicotine patch Hypokalemia - stable - 20meq potassium daily Dispo: Transferred to regular med floors, PT/OT ordered and recommend outpatient rehab DVT Proph: SCDs, Anticoagulation contraindicated due to hemoptysis and anemia. FULL CODE Resident Physician Supervision Note: I interviewed and examined the patient. Discussed with Dr. Guadalupe and agree with findings and plan as documented in the note. Any exceptions or clarifications are listed here: 62-year-old male admitted with generalized weakness, hemoptysis, anemia, and new lung mass. Initial question was for tuberculosis, although three sputums were negative for acid fast bacilli. He underwent a bronchoscopy and pathology of the lung mass tissue confirms atypical lymphoplasmacytic infiltrate consistent with either a lymphoplasmacytic disorder or a reactive inflammatory process. Further stains - FISH testing -is currently pending. The patient describes nearly 30 pound weight loss over what sounds to be the last 6-12 months. He lives by himself and he admits that he would be too weak to return home at this time. Gastroenterology does not feel EGD or colonoscopy is needed this point. The patient may need placement for inpatient rehabilitation, with oncology follow-up as an outpatient. Documented By: Patrick Chiu Continued [facility] stay due to: multiple IV medications needed Discharge planning: rehab hospital
--- NOTE | 2017-04-27 12:22 | HEME/ONC PROGRESS NOTE ---
DATE: 04/27/2017 DIAGNOSES: 1. 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 2. Community-acquired pneumonia. 3. Anemia secondary to chronic disease versus gastrointestinal bleed. 4. Elevated IgG and IgA bands. 5. General decline. SUBJECTIVE: Mr. Guajardo is a pleasant, somewhat unfortunate 62-year-old gentleman from [facility] who was admitted to [facility] back on April 20 with generalized weakness, hemoptysis, anemia and lung mass. Since admission, Randal has undergone bronchoscopy with biopsy revealing interesting findings. Pathology confirms an atypical lymphoplasmacytic infiltrate with a differential diagnosis that includes reactive inflammatory process and/or a lymphoplasmacytic disorder such as MALT lymphoma. FISH testing pending at this time. Serum and urine protein electrophoresis was negative for monoclonality. On admission, fecal occult stool was positive, then gastroenterology on consult. They believe the presence of blood secondary to hemoptysis and prefer to hold off on screening colonoscopy. Overall, he's making slow clinical improvement. Primary team is considering placement in a rehab hospital to allow Mr. Guajardo to strengthen. At this juncture, there is no definitive diagnosis of lymphoproliferative disorder and we will await further diagnostics. PHYSICAL EXAMINATION: GENERAL: He is in no acute distress, cachectic in appearance. VITAL SIGNS: Temperature 37.1, pulse 59, respiratory rate 18, blood pressure 112/73. SKIN: Without rash or lesion. Turgor is poor. HEENT: Oral mucosa is without buccal lesion or ulceration. NECK: Supple. HEART: Regular rate and rhythm. No clicks, rubs or murmurs. LUNGS: Clear to auscultation. ABDOMEN: Soft, nontender, nondistended, without palpable hepatosplenomegaly. EXTREMITIES: No clubbing, cyanosis or edema. NEUROLOGIC: Grossly intact. LABORATORY DATA: WBC count 2070, hemoglobin 8.6, platelet count 157,000. Sodium 133, potassium 3.9, chloride 96, carbon dioxide 31, BUN 12, creatinine 0.6. IMPRESSION: 1. 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 2. Community-acquired pneumonia. 3. Anemia secondary to chronic disease versus bleeding. 4. Hypergammaglobulinemia. 5. Hypokalemia. PLAN: I had the pleasure of seeing Mr. Guajardo at bedside again today. He is making slow and steady progress with a diagnosis yet to be confirmed. Path was sent, FISH for possible MALT lymphoma. We will continue to observe and would be happy to see him back as outpatient once medically stable. Early on, there was question of latent tuberculosis; however, three sputums were gathered, all negative for acid-fast bacilli. Again, biopsy of the right lower lobe lesion revealed a lymphoplasmacytic infiltrate and further evaluation, particularly PCR and FISH are underway. The patient continues to receive IV antibiotics and physical therapy. From a hematology/oncology standpoint, nothing further to add at this juncture. We will continue to follow him periodically during hospitalization. SARANYA
[2017-04-27 15:05] VITALS: BP 106/69; PULSE 94; TEMP 37.2; O2SAT 93
[2017-04-27] MEDS ORDERED: PNEUMOCOCCAL ADMINISTRATION CHARGE ONE (15:30)
[2017-04-27] MEDS ORDERED: PNEUMOCOCCAL POLYSACCHARIDES 25 MCG/0.5 ML VIAL/SYR IM. ONE (15:30)
[2017-04-27 16:00] VITALS: O2SAT 93
[2017-04-27] MEDS: ALBUT/IPRATROP 3MG/0.5MG NEB 3 ML VIAL INH PRN (16:06)
[2017-04-27 16:07] VITALS: PULSE 96; O2SAT 93
[2017-04-27] MEDS: ACETAMINOPHEN 325 MG TAB PO PRN (18:35)
[2017-04-27 23:55] VITALS: BP 107/69; PULSE 85; TEMP 36.9; O2SAT 92
[2017-04-28 07:15] LABS: BUN/CREATININE RATIO 25.5 (10-20); CALCIUM 8.8 mg/dl (8.5-10.1); CREATININE 0.64 mg/dl (0.60-1.40); POTASSIUM 4.2 mmol/L (3.5-5.1)
[2017-04-28 07:38] VITALS: BP 105/68; PULSE 88; TEMP 37; O2SAT 93
[2017-04-28 07:42] LABS: HEMATOCRIT 28.9 % (42-52); MEAN CELL VOLUME 93.5 fL (80-100); MEAN CORPUSCULAR HEMOGLOBIN 28.2 pg (25-34); MEAN CORPUSCULAR HGB CONC 30.1 g/dl (32-36); MEAN PLATELET VOLUME 13.6 fL (7.4-10.4); PLATELET COUNT 171 K/uL (130-400); RED BLOOD COUNT 3.09 M/uL (4.7-6.1); WHITE BLOOD COUNT 2.19 K/uL (4.8-10.8)
[2017-04-28 07:46] LABS: COMPLETE YES; GIANT PLATELETS 2+; HYPOSEGMENTED POLYS 1+; IG% 0.5 %; LYMPH % 26.9 %; LYMPH ABS # 0.59 K/uL (1.2-3.4); MONO % 38.4 %; NEUT % 34.2 %; ROULEAUX 1+
[2017-04-28] MEDS: POTASSIUM CHLORIDE 20 MEQ/15 ML UDC PO SCH (08:00)
[2017-04-28] MEDS: POLYETHYLENE (MIRALAX) 17 GM PACK PO SCH (08:00)
[2017-04-28] MEDS: BENZONATATE 100MG CAP PO SCH ×2 (08:10→13:38)
[2017-04-28] MEDS: PANTOprazole SOD 40 MG TAB PO SCH (08:10)
[2017-04-28] MEDS: NICOTINE 14 MG/24 HR TDSY TD SCH (08:10)
[2017-04-28] MEDS: ACETAMINOPHEN 325 MG TAB PO PRN (08:11)
--- NOTE | 2017-04-28 09:25 | Hematology/Oncology Prog Note ---
Hematology/Onc Progress Note Date of Service Apr 28, 2017. Diagnoses Right upper lobe infiltrate Hemoptysis Cachexia Medications Medications Administered Medications (Trade) Dose Ordered Sig/Breanne Route Start Time Stop Time Status Last Admin Dose Admin Acetaminophen (Tylenol Tab) 650 mg Q4H PRN PO 04/20/17 21:15 05/20/17 21:14 04/28/17 08:11 650 MG Magnesium Hydroxide (Milk Of Magnesia Susp) 30 ml Q12H PRN PO 04/20/17 21:15 05/20/17 21:14 04/21/17 15:55 30 ML Nitroglycerin (Nitroglycerin 2% Oint) 1 inch Q6 EXT 04/21/17 00:00 04/22/17 13:11 DC 04/21/17 19:15 1 INCH Nicotine (Nicoderm Cq 14MG Patch) 1 patch QAM TD 04/21/17 09:00 05/21/17 08:59 04/28/17 08:10 1 PATCH Miscellaneous (Remove Nicoderm Patch) 1 ea HS N/A 04/21/17 21:00 05/21/17 20:59 04/27/17 21:10 1 EA Zolpidem Tartrate (Ambien Tab) 2.5 mg HS PRN PO 04/21/17 00:00 04/22/17 18:50 DC 04/21/17 22:01 2.5 MG Vancomycin HCl 1000 mg/Sodium Chloride 270 ml @ 125 mls/hr Q12H IV 04/21/17 14:00 04/22/17 16:20 DC 04/22/17 15:42 125 MLS/HR Vancomycin HCl 1250 mg/Sodium Chloride 275 ml @ 125 mls/hr NOW ONCE IV 04/21/17 02:00 04/21/17 04:11 DC 04/21/17 03:05 125 MLS/HR Cefepime HCl 1000 mg/Syringe 11 ml @ 5.5 mls/min Q8H IV 04/21/17 03:00 04/22/17 09:01 DC 04/22/17 03:08 5.5 MLS/MIN Potassium Chloride (Klor-Con Tab) 40 meq TODAY@0830 ONCE PO 04/21/17 08:30 04/21/17 08:31 DC 04/21/17 08:34 40 MEQ Potassium Chloride (Klor-Con Tab) 20 meq TODAY@1200 ONCE PO 04/21/17 12:00 04/21/17 12:01 DC 04/21/17 12:19 20 MEQ Pantoprazole Sodium 40 mg/ Syringe 10 ml @ 5 mls/min DAILY@09,21 IV 04/21/17 22:00 04/22/17 15:22 DC 04/22/17 08:36 5 MLS/MIN Pantoprazole Sodium 40 mg/ Syringe 10 ml @ 5 mls/min NOW ONCE IV 04/21/17 15:30 04/21/17 15:31 DC 04/21/17 15:55 5 MLS/MIN Famotidine (Pepcid Tab) 20 mg NOW ONCE PO 04/21/17 15:30 04/21/17 15:31 DC 04/21/17 15:55 20 MG Polyethylene (Miralax Powder Packet) 17 gm DAILY PO 04/22/17 09:00 05/22/17 08:59 04/25/17 10:10 17 GM Polyethylene (Miralax Powder Packet) 17 gm 1530 ONCE PO 04/21/17 15:30 04/21/17 15:31 DC 04/21/17 15:54 17 GM Albuterol/ Ipratropium (Duoneb) 3 ml Q6R PRN INH 04/21/17 16:00 05/21/17 15:59 04/27/17 16:06 3 ML Benzonatate (Tessalon Perles Cap) 100 mg TID PO 04/21/17 21:00 05/21/17 20:59 04/28/17 08:10 100 MG Cefepime HCl 2000 mg/Syringe 20 ml @ 5 mls/min Q8H IV 04/22/17 11:00 04/28/17 02:59 DC 04/27/17 18:35 5 MLS/MIN Pantoprazole Sodium (Protonix Tab) 40 mg BID@0800,2100 PO 04/22/17 21:00 05/22/17 20:59 04/28/17 08:10 40 MG Zolpidem Tartrate (Ambien Tab) 5 mg HS PRN PO 04/22/17 19:00 04/23/17 14:06 DC 04/22/17 22:20 5 MG Sodium Chloride 1,000 ml @ 100 mls/hr Q10H IV 04/23/17 06:45 04/23/17 16:44 DC 04/23/17 07:40 100 MLS/HR Diphenhydramine HCl (Benadryl Cap) 50 mg DAILY PRN PO 04/23/17 18:15 05/23/17 18:14 04/27/17 23:27 50 MG Potassium Chloride (Griselda Ciel Elix) 20 meq QAM PO 04/25/17 09:00 05/25/17 08:59 04/26/17 08:02 20 MEQ Potassium Chloride (Griselda Ciel Elix) 20 meq NOW STAT PO 04/24/17 18:13 04/24/17 18:15 DC 04/24/17 20:53 20 MEQ Pneumococcal Polysaccharide Vaccine (Pneumovax-23 Inj) 25 mcg ONCE ONCE IM. 04/27/17 15:30 04/27/17 15:31 DC 04/27/17 21:12 25 MCG Subjective Continues to have a hemoptysis. He reviews with me that he is lost about 40 pounds in the past 6 months. He denies any pain. There have been no fevers while in this hospital. Review of Systems: Constitutional: Negative for night sweats, or fever. Markedly cachectic gentleman Eyes: Negative for event change of vision ENT: Negative for epistaxis, nasal discharge, sore throat, or deafness Cardiovascular: Negative for chest pain, palpitations, dizziness, diaphoresis Respiratory: Negative for worsening shortness of breath. Gastrointestinal: Negative for diarrhea, hematemesis, melena, nausea, vomiting , or dyspepsia Integumentary (skin): Negative for rash or jaundice discoloration Genitourinary: Negative for urinary frequency, hematuria, or dysuria Neurological: Negative for weakness, seizure activity, headache, or dizziness Lymphatic/Hematologic: Negative for petechiae, bleeding or new adenopathy Musculoskeletal: Negative for new joint or back pain Allergic/Immunologic: Negative for unusual rash or pruritis. Vital Signs Vital Signs Past 12 Hours Date Time Temp Pulse Resp B/P (MAP) Pulse Ox O2 Delivery O2 Flow Rate FiO2 04/28/17 07:38 37.0 88 20 105/68 (80) 93 Room Air 04/28/17 00:00 Room Air 04/27/17 23:55 36.9 85 20 107/69 (82) 92 Room Air Physical Exam Constitutional: vitals are stable. Markedly cachectic gentleman Eyes: Eyes are DEVIN EOMI without conjuctival erythema or icterus. ENT: External examination was negative for masses. Neck: Negative for masses or palpable thyromegaly Respiratory: Lung sounds were generally clear but decreased sounds bilaterally Cardiovascular: Heart was RRR without significant murmur, gallops aoe rubs Gastrointestinal: No palpable hepatic or splenomegaly. The abdomen was soft with normal bowel sounds. Lymphatic system: there was no palpable peripheral lymphadenopathy Musculoskeletal System: The musculoskeletal system seemed concordant with age. Skin: The skin was negative for jaundice. Neurologic exam: The exam was negative for any focal findings. Deep tendon reflexes were equal and symmetrical. Psychiatric exam: Was essentially negative with normal mood and effect. Extremities: Negative for edema erythema Laboratory Last 24 Hours Test 04/28/17 06:20 White Blood Count 2.19 K/uL Red Blood Count 3.09 M/uL Hemoglobin 8.7 g/dL Hematocrit 28.9 % Mean Corpuscular Volume 93.5 fL Mean Corpuscular Hemoglobin 28.2 pg Mean Corpuscular Hemoglobin Concent 30.1 g/dl Platelet Count 171 K/uL Mean Platelet Volume 13.6 fL Neutrophils (%) (Auto) 34.2 % Lymphocytes (%) (Auto) 26.9 % Monocytes (%) (Auto) 38.4 % Eosinophils (%) (Auto) 0.0 % Basophils (%) (Auto) 0.0 % Neutrophils # (Auto) 0.75 K/uL Lymphocytes # (Auto) 0.59 K/uL Monocytes # (Auto) 0.84 K/uL Eosinophils # (Auto) 0.00 K/uL Basophils # (Auto) 0.00 K/uL RDW Standard Deviation 54.8 fL RDW Coefficient of Variation 16.2 % Immature Granulocyte % (Auto) 0.5 % Immature Granulocyte # (Auto) 0.01 K/uL Hyposegmented Neutrophils 1+ Hypogranular Neutrophils 1+ Blood Smear Review Giant Platelets 2+ Rouleau 1+ Sodium Level 132 mmol/L Potassium Level 4.2 mmol/L Chloride Level 95 mmol/L Carbon Dioxide Level 30 mmol/L Anion Gap 7.0 mmol/L Blood Urea Nitrogen 16 mg/dl Creatinine 0.64 mg/dl Est Creatinine Clear Calc Drug Dose 75.5 ml/min Estimated GFR () 120.8 Estimated GFR (Non- 104.2 BUN/Creatinine Ratio 25.5 Random Glucose 83 mg/dl Calcium Level 8.8 mg/dl Assessment & Plan CTs are reviewed. Pathology in regards to FISH and flow studies are still pending. In reviewing the chest CT there are some areas of calcification. He is never had any sort of surgery on his chest subsequently there could be underlying calcified granulomas. I do suspect that this represents more of a chronic inflammatory condition rather than underlying neoplasm. We will visit while in the hospital but also arrange for follow-up in our clinic. Again FISH and flow studies are still pending. Serum protein electrophoresis is more indicative of inflammatory state.
--- NOTE | 2017-04-28 10:14 | Progress Note ---
Subjective Date of Service: Apr 28, 2017. Subjective Pt evaluation today including: conversation w/ patient, physical exam, chart review, lab review pt seen in followup, cefepime stopped. bronch culture growing pseudomonas as well. AFB smears all negative, removed from airborne isolation. path with ? lymphoma. Was to have colon/egd, on hold. Still with cough but improved, admits to blood tinged sputum but h/h stable post transfusion. afebrile. no cp. All remaining ros reviewed and are negative. spoke with ct surgery and pulm. Objective Vital Signs Date Time Temp Pulse Resp B/P (MAP) Pulse Ox O2 Delivery O2 Flow Rate FiO2 04/28/17 07:38 37.0 88 20 105/68 (80) 93 Room Air 04/28/17 00:00 Room Air 04/27/17 23:55 36.9 85 20 107/69 (82) 92 Room Air 04/27/17 16:07 96 18 93 Room Air 04/27/17 16:00 93 Room Air 04/27/17 15:05 37.2 94 18 106/69 (81) 93 04/27/17 10:59 Room Air Physical Exam General Appearance: WD/WN, no apparent distress, + cachetic Eyes: normal inspection, EOMI Neck: supple Respiratory/Chest: lungs clear, normal breath sounds, no respiratory distress, + decreased breath sounds Cardiovascular: regular rate, rhythm, no edema Abdomen: non tender, soft Extremities: non-tender, normal inspection, no pedal edema Neurologic/Psychiatric: alert, oriented x 3 Skin: normal color, no rash Laboratory Results Item Value Date Time Acid Fast Stain - Final Resulted 04/23/17 0000 Bronchial Washings Right Upper Lobe Gram Stain - Final Complete 04/23/17 0000 Bronchial Washings Right Upper Lobe Acid Fast Stain - Final Resulted 04/22/17 2220 Sputum Expectorated Sputum Acid Fast Stain - Final Resulted 04/21/171999 Sputum Expectorated Sputum Acid Fast Stain - Final Resulted 04/21/17 0739 Blood Gram Stain - Final Complete 04/21/17 0616 Sputum Expectorated Sputum Last 24 Hours Test 04/28/17 06:20 04/28/17 09:45 White Blood Count 2.19 K/uL Red Blood Count 3.09 M/uL Hemoglobin 8.7 g/dL Hematocrit 28.9 % Mean Corpuscular Volume 93.5 fL Mean Corpuscular Hemoglobin 28.2 pg Mean Corpuscular Hemoglobin Concent 30.1 g/dl Platelet Count 171 K/uL Mean Platelet Volume 13.6 fL Neutrophils (%) (Auto) 34.2 % Lymphocytes (%) (Auto) 26.9 % Monocytes (%) (Auto) 38.4 % Eosinophils (%) (Auto) 0.0 % Basophils (%) (Auto) 0.0 % Neutrophils # (Auto) 0.75 K/uL Lymphocytes # (Auto) 0.59 K/uL Monocytes # (Auto) 0.84 K/uL Eosinophils # (Auto) 0.00 K/uL Basophils # (Auto) 0.00 K/uL RDW Standard Deviation 54.8 fL RDW Coefficient of Variation 16.2 % Immature Granulocyte % (Auto) 0.5 % Immature Granulocyte # (Auto) 0.01 K/uL Hyposegmented Neutrophils 1+ Hypogranular Neutrophils 1+ Blood Smear Review Giant Platelets 2+ Rouleau 1+ Sodium Level 132 mmol/L Potassium Level 4.2 mmol/L Chloride Level 95 mmol/L Carbon Dioxide Level 30 mmol/L Anion Gap 7.0 mmol/L Blood Urea Nitrogen 16 mg/dl Creatinine 0.64 mg/dl Est Creatinine Clear Calc Drug Dose 75.5 ml/min Estimated GFR () 120.8 Estimated GFR (Non- 104.2 BUN/Creatinine Ratio 25.5 Random Glucose 83 mg/dl Calcium Level 8.8 mg/dl Assessment and Plan (1) Lung mass Assessment & Plan: will restart cefepime, needs 7 more days. Plan to follow up for repeat scan, no surgery planned at this time, additional testing for lymphoma underway. Bronch and sputum smears negative for AFB, cultures pending. (2) Hemoptysis Continued [facility] stay due to: multiple IV medications needed Discharge planning: rehab hospital
[2017-04-28] MEDS ORDERED: CEFEPIME IV 1,000 MG in SYRINGE 0 ML IV SCH (11:00)
--- NOTE | 2017-04-28 13:44 | GASTROENTEROLOGY PROGRESS NOTE ---
DATE: 04/28/2017 INPATIENT GASTROENTEROLOGY PROGRESS NOTE SUBJECTIVE: Mr. Guajardo is feeling well overall, although continues to have hemoptysis. There was no report of hematemesis, coffee-ground emesis, melena or bright red blood per rectum. His hemoglobin is 8.7 today and is overall stable over the last 4 days. The samples from the lung right upper lobe biopsy suggests a typical lymphoplasmacytic infiltrate with FISH testing pending. Bronchial washings are depending. MEDICATIONS: Include cefepime, menthol, diphenhydramine, pantoprazole, Tessalon Perles, DuoNeb. OTHER LABORATORY STUDIES: BUN and creatinine are 16 and 0.6. PHYSICAL EXAMINATION: VITAL SIGNS: Today, the patient currently afebrile at 36.7, blood pressure 105/68, respirations 20, heart rate 88, 92% on room air. GENERAL: The patient is awake, alert and oriented x3. HEENT: Sclerae anicteric, conjunctivae moist. Oral mucosa moist. HEART: Normal S1, S2. LUNGS: Decreased breath sounds on the right side. There are no wheezes. HEART: Normal S1, S2. ABDOMEN: Soft, flat, nontender, nondistended. Good bowel sounds. EXTREMITIES: Without clubbing, cyanosis or edema. RECTAL: Deferred. IMPRESSION AND PLAN: The patient with hemoptysis occurring, although hemoglobin has been stable. From transfusion standpoint, he has received a total of 3 units of packed red blood cells April 20 and in total. Hemoglobin has remained stable overall. I agree that at some point upper endoscopy and colonoscopy may be helpful, particularly that he has not had an upper endoscopy or even a screening colonoscopy in the past. However, based on our GI consultation service and discussions with the primary team, it is recommended that we optimize and complete the diagnostics on his lung process and at some point, particularly if this would help with his management, upper endoscopy could be considered. Ultimately, the patient should have a colonoscopy and upper endoscopy at a timing once the diagnostics for his lung process are completed. This can be performed as an outpatient as well. At this point, will sign off. Please contact us if you have any concerns, questions or if there is a change in his status to suggest an acute GI bleeding process.
[2017-04-28] MEDS ORDERED: CEFE1INJ3 IV (14:43)
[2017-04-28] MEDS ORDERED: NICO14DI5 TD (14:45)
--- NOTE | 2017-04-28 14:59 | Discharge Instructions ---
Discharge Instructions Date of Service Apr 28, 2017. Admission Reason for Admission: Acute Blood Loss Anemia, Hemoptysis, Lung Mass Discharge Discharge Diagnosis / Problem: Hemoptysis secondary to Lung Mass Discharge Goals Goal(s): Decrease discomfort, Improve function, Increase independence, Improve disease control, Improve nutritional status, Learn about illness Activity Recommendations Activity Limitations: per Instructions/Follow-up section . Instructions / Follow-Up Instructions / Follow-Up You arrived to [facility] with a Low Red Blood Cell Count and extreme shortness of breath. You received 3 units of blood (in addition to the 2 units that were given to you in [place].) There are a number of reasons that your red blood cell count is low, they are all likely related to the mass in your lung. At this time we do not have a definitive diagnosis regarding the mass in your lung. A follow up appointment with Dr. Messer, our oncologist will be made to discuss final test results regarding the mass in your lung. The treatment options and further workup options will be discussed at this appointment. Our fiber optics supervisor Dr. Sifuentes would also like you to follow up with him within one week. This appointment will be arranged for you. Please keep this appointment. You are being discharged to [facility] to increase your strength. Your phlegm that you were coughing grew Pseudomonas that was sensitive to all antibiotics. Our infectious disease doctor recommends 7 more days of antibiotics. [facility] will be able to continue your antibiotic regimen. We also have given you a nicotine patch. Please stop smoking. Information to help you stop smoking will be printed with this discharge packet. At some point in the future we recommend an upper and lower endoscopy from a core inspector. An upper and lower endoscopy will be able to further look for signs of bleeding in your gastrointestinal tract and screen for other types of colon cancers. The endoscopies are non urgent. Current Hospital Diet Patient's current hospital diet: Regular Diet Discharge Diet Recommended Diet: AHA Diet (Heart Healthy) Procedures Procedures Performed: Bronchoscopy Pending Studies Studies pending at discharge: yes List of pending studies: PCR and FISH immunochemical staining. Medical Emergencies . Who to Call and When: Medical Emergencies: If at any time you feel your situation is an emergency, please call 911 immediately. . Non-Emergent Contact Non-Emergency issues call your: Primary Care Provider, Oncologist (Dr. Messer) . . "Provider Documentation" section prepared by Naif Mann. . VTE Core Measure Inpt VTE Proph given/why not?: SCD's, Contraindicated (hemoptysis and anemia) Resident Involvement: Resident Care Provided Care Provided: Adult Hospital Medicine
--- NOTE | 2017-04-28 15:07 | Discharge Summary ---
Discharge Summary Date of Service Apr 28, 2017. Discharge Summary Admission Date: Apr 20, 2017 at 21:08 Discharge Disposition: Rehab Principal Diagnosis: Hemoptysis 2/2 Lung Mass Immunizations: Have You Had Influenza Vaccine: Unknown History of Tetanus Vaccine?: Unknown History of Pneumococcal: Unknown History of Hepatitis B Vaccine: Unknown Procedures: CHEST CT WITH CONTRAST CT DOSE: 472.07 mGy.cm HISTORY: Questioned lung mass on comparison chest radiograph of same day Lung mass TECHNIQUE: Multiaxial CT images of the chest were performed following the intravenous administration of contrast. 92 mL Optiray 320 IV contrast was administered. A dose lowering technique was utilized adhering to the principles of ALARA. COMPARISON: CT abdomen and pelvis of same day, chest radiograph of same day. FINDINGS: No dominant thyroid nodule identified. There is moderate diffuse body wall edema. Mildly enlarged subcarinal lymph node measures 2.3 x 1.2 cm. Additionally, there are scattered nonenlarged AP window and paratracheal lymph nodes with a 1.4 x 1.0 cm right paratracheal lymph node seen on image 62 series 4. Mildly enlarged right subpectoral lymph node is seen, 1.6 x 1.1 cm. The heart is normal in size without pericardial effusion. Coronary arterial calcifications are seen. There is no aortic dissection or aneurysm identified. There is mild degree of atherosclerotic plaquing involving the aorta. The opacified pulmonary arterial tree is unremarkable. Severe upper lobe predominant bullous centrilobular emphysematous disease is noted. There is no pneumothorax. Trace amount of pleural fluid is noted within the right hemithorax at the level the right lung base. Pleural-based consolidative opacity of the posterior basal segment left lower lobe measures 1.6 x 0.6 cm. Pleural-based nodular opacity of the left lower lobe is seen measuring 8 x 6 mm on image 243 series 4. Additional pleural-based consolidative opacity is seen within the super segment left lower lobe, 11 x 8 mm on image 178 series 4. 4 mm nodular opacity of the basal left lower lobe seen on image 276 series 4. 6 mm pulmonary nodule of the left lower lobe noted on image 280 series 4. Multifocal irregular consolidative type opacities are noted within the right upper and middle lobes without endobronchial obstructing mass or definite discrete neoplasm identified. Consolidation with thick mays and central air-fluid levels noted within the apical right upper lobe measuring up to 6.8 cm transversely as seen on image 66 series 4 with air-fluid level seen on image 41 series 4. No displacement of the adjacent bony vasculature. No associated destruction of the adjacent ribs. Mild subpleural reticular opacities of the basal right lower lobe suggest pneumonitis. Mild bibasilar bronchial wall thickening suggests emphysema. There is a calcified granuloma of the basal left lower lobe. No acute amount of the imaged upper abdomen. No definite lytic or blastic bony lesions to suggest metastasis. Multilevel endplate degenerative changes of the spine. Mild to moderate. IMPRESSION: 1. Severe upper lobe predominant bullous centrilobular emphysematous disease is present with multifocal consolidation of the right upper and middle lobes without displacement of the adjacent vasculature or invasion into the adjacent structures. Additionally, there is a central air-fluid level within the right apical consolidation. Differential considerations would include multifocal pneumonia with bronchogenic neoplasm also in the differential. Correlation with bronchoscopy and tissue sampling recommended. 2. Pleural-based consolidative opacities of the left lower lobe as above suggests multifocal pneumonitis. Mild associated bronchial wall thickening compatible with bronchitis. 3. Mild subcarinal and right subpectoral adenopathy may be reactive or metastatic. CT OF THE ABDOMEN AND PELVIS WITH CONTRAST CLINICAL HISTORY: Constipation. Anemia. Lung mass. COMPARISON STUDY: None. TECHNIQUE: Following IV administration of 92 mL of Optiray-320, axial images of the abdomen and pelvis were obtained from the lung bases to the proximal femurs. Images were reviewed in the axial, sagittal, and coronal planes. IV contrast was administered without complication. A dose lowering technique was utilized adhering to the principles of ALARA. Oral contrast was administered. FINDINGS: The chest CT will be reported separately. Evaluation of the abdomen and pelvis is difficult given a paucity of intra-abdominal fat. The liver, spleen, adrenal glands, kidneys and pancreas are unremarkable with the exception of a few suspected left renal cyst. There is no biliary or pancreatic ductal dilatation. There is no hydronephrosis. There is no evidence for a bowel obstruction. Sensitivity for detection of mucosal lesions is diminished given CT technique but none are identified. There is a moderate amount of stool within the colon. There is no evidence for a bowel obstruction. No abdominal or pelvic lymphadenopathy is present. Note is made of extensive atherosclerotic plaque within the major vessels of the abdomen and pelvis. There is occlusion of the proximal left superficial femoral artery. There is extensive plaque within the right common femoral artery with suspected severe stenosis. There is no aneurysmal dilatation of the abdominal aorta. No suspicious osseous lesions are present. There is no ascites. Note is made of a rim-enhancing hypodensity within the medial left buttock that measures 2.5 x 2.2 cm. There is grade I anterolisthesis of L5 on S1 due to bilateral L5 pars defects. IMPRESSION: 1. Moderate amount of stool within the colon. No evidence for bowel obstruction. Decreased sensitivity for detection of mucosal lesions given CT technique. 2. 2.5 x 2.2 cm rim-enhancing fluid collection of the medial left buttock. This favors an abscess. A necrotic mass could appear similar although is considered less likely. 3. Occlusion of the proximal left superficial femoral artery with suspected severe stenosis of the right common femoral artery. Extensive atherosclerotic plaque. 4. Difficult study to interpret given paucity of intra-abdominal fat. Bronchoscopy on 04/23/2017 Medication Reconciliation New Medications: Cefepime Hcl (Cefepime) 1 Gm Inj 1 GM IV BID for 6 Days, VIAL Nystatin (Nystatin Suspension) 1 Ml Susp 5 ML PO QID for 7 Days, #1 BTL Swish in mouth and swallow Diphenhydramine Hcl (Benadryl) 25 Mg Cap 50 MG PO DAILY PRN for Insomnia for 30 Days, #30 CAP Ipratropium-Albuterol (Duoneb) 3 Ml Nebu 3 ML INH Q6R PRN for SOB/WHEEZING for 30 Days, #30 INHALER Nicotine (Nicoderm Cq 14MG Patch) 14 Mg/24 Hr Dis 1 PATCH TD QAM for 30 Days, #30 PATCH Discharge Exam Patient was seen and examined at bedside. No acute distress. No overnight events. Eating and urinating well. Still feeling weak. Understand the plan of care and discharge to [facility]. Review of Systems: Constitutional: No fever, No chills ENT: No sore throat Respiratory: + cough, + sputum, + shortness of breath, + dyspnea on exertion , No wheezing Abdomen: No pain, No nausea, No vomiting, No diarrhea Musculoskeletal: No joint pain Genitourinary - Female: No dysuria Neurologic: No memory loss Physical Exam General Appearance: WD/WN, no apparent distress, + cachetic, + thin Eyes: normal inspection, PERRL, sclerae normal ENT: hearing grossly normal, pharynx normal Neck: supple, no carotid bruits, + adenopathy present (submandibular lymphadenopathy) Respiratory/Chest: lungs clear, no respiratory distress, no accessory muscle use, + decreased breath sounds (bilaterally) Cardiovascular: regular rate, rhythm, no edema, no murmur Abdomen: normal bowel sounds, non tender, soft Extremities: non-tender, no pedal edema, no calf tenderness, normal capillary refill Neurologic/Psychiatric: alert, oriented x 3, + depressed affect Skin: normal color, warm/dry, no rash, there is a freely mobile cyst over the left buttocks and what appears to be a known abscess on the right buttocks approx 1cm in diameter. Hospital Course 62M with a PMHx of latent TB and 50 pack year smoking history was sent from [place] for a suspicious lung lesions and anemia. He presented to the [place] [facility] with fatigue, weight loss and hemoptysis and his hemoglobin was found to be 3.7. Patient has not seen a doctor in the past 15 years and has recently and unintentionally lost 30lbs. CT Chest showed a mass in the RUL and RML suspicious for abscess or malignancy. Patient underwent bronchoscopy with biopsy of RUL lesion and pathology is pending at the time of discharge. PCR and FISH testing are also still pending for final diagnosis. Patient was put on TB precaution due to h/o being treated for latent TB in the past. He was cleared from TB precautions after 3 negative sputums for acid fast bacilli. Sputum and BAL cultures have grown Pseudomonas. He was put on cefepime and was continued on discharge to complete 14 day course. Sputum culture also stained positive for a fungus (culture pending), patient was discharged on a Nystatin Swish and Swallow QID x 7 days. Had Immunoglobulin levels done showing elevated IGG and IGA bands. To further be addressed by heme/onco, pulmonary Received total of 5 units of PRBC (2 at [facility] and 3 at [facility]) and h/h stable on discharge . While in the hospital the patient had an unwitnessed fall while ambulating to the toilet. He was found resting comfortably in his bed after the event. Pt denied hitting his head. He was given instructions to no longer ambulate on his own. Follow up with Dr. Messer will be arranged for suspected lymphoplasmacytic lymphoma (MALT lymphoma). Follow up with Dr. Sifuentes will also be arranged to track the growth of the pulmonary lesion. Per Dr. Sifuentes there may be an extrapulmonary lymph node accessible for biopsy. Cultures for TB will incubate for up to 6 weeks. At present TB precautions have been removed due to 3 negative Acid Fast Stains. Our diesel technician mechanic does not believe that an urgent upper or lower endoscopy is warranted. One can be scheduled as outpatient. We encouraged the patient to follow up with GI. Patient had a decreasing WBC count on discharge and was placed on Neutropenic precautions. Should have daily WBC and keeping neutropenic precautions until the ANC is >1000. Total Time Spent: Greater than 30 minutes (45 minutes) This includes examination of the patient, discharge planning, medication reconciliation, and communication with other providers. Discharge Instructions Please refer to the electronic Patient Visit Report (Discharge Instructions) for additional information. Additional Copies To [facility]; Randal Messer D.O.; Bryson Sifuentes MD Resident Involvement: Resident Care Provided Care Provided: Adult [facility] Medicine Reviewed: Pt Seen/Exam by Me History denied any concern Constitutional: denies: fever Respiratory: negative: short of breath Cardiovascular: denies chest pain General Appearance: cachetic Respiratory: no respiratory distress, decreased breath sounds Cardiovascular: regular rate, rhythm Neurologic/Psychiatric: alert, oriented x 3 Skin Characteristics: warm/dry Assessment/Plan Resident Physician Supervision Note: I independently interviewed and examined the patient and verified the pringle history and physical, reviewed labs and image studies, discussed the case with the resident Dr. Mann and agree with the findings and care plan.
[2017-04-28] MEDS ORDERED: IPRASOL4 INH (15:08)
[2017-04-28] MEDS ORDERED: DIPH25CA5 PO (15:08)
--- NOTE | 2017-04-28 15:08 | SURGERY PROGRESS NOTE ---
DATE: 04/28/2017 SUBJECTIVE: Mr. Guajardo was seen today on 04/28/2017. He looks a bit better to me. The hemoglobin was stable but he continued to have hemoptysis. He is ambulating more. He is on room air. I reviewed this case with oncology as well as pulmonology. Gastroenterology has elected not to proceed with a workup as his hemoglobin has remained stable. At this point, he remains stable. I would continue the cefepime as he has clinical improvement. I would try to get him better before we discuss anything about surgery. The patient currently is on cefepime for persistent pseudomonas in his sputum. In addition, flow studies and FISH are pending. Still a question about exactly what the etiology of this mass is. It is possible that it is chronic inflammation and infection. I still think it would be highly unusual for this patient to have an anemia that was his profound as his was at under 4, to be from hemoptysis. It is going to be a few days before we get the results of the flow and FISH back. I would continue the cefepime until that time. The patient states that his cough has improved, although he still has some hemoptysis. I would not consider surgery at this point until he has improved. He has essentially no reserve. [facility]
[2017-04-28] MEDS ORDERED: NYSS/ PO (15:17)
[2017-04-28 15:36] VITALS: BP 99/66; PULSE 100; TEMP 37.5; O2SAT 95
[2017-04-28 15:43] VITALS: BP 126/66; PULSE 86; TEMP 36.8; O2SAT 97
--- NOTE | 2017-04-28 16:03 | Pulmonology Progress Note ---
Pulmonary Progress Note Date of Service Apr 28, 2017. Attending Dr. Sifuentes Subjective Patient is comfortable today showing no signs of respiratory insufficiency. He did note a mild episode of hemoptysis this morning but overall this has been trending down. Objective Vital signs reviewed and stable on room air Gen.: Cachectic male but no signs of respiratory insufficiency CVS: S1-S2, regular rate and rhythm Lungs: Notable rhonchi at the right apices anteriorly Abdomen: Soft, nontender, bowel sounds positive Extremities: Thin, no cyanosis, no clubbing, no edema CT chest from 04/21/2017 reviewed and notable right anterior chest wall lymph node approximately 1.2 cm in greatest dimension noted Bronchoscopy: Atypical lymphocytic tissue along with Pseudomonas Assessment & Plan 61-year-old gentleman with a right upper lobe cavitary lesion status post bronchoscopy with notable growth of Pseudomonas and pathology showing atypical lymphoid tissue #1 Cavitation: At this time the etiology of the cavitation could be infection secondary to pseudomonas or even possible underlying atypical lymphoid carcinoma. There is an anterior chest wall lymph node noted that I did review with radiology they do believe they could perform ultrasound evaluation with FNA. On physical exam did not palpate this nodule could be reactive secondary to infection and currently dissipated. I do suggest we follow up with ultrasound evaluation and FNA. If not the patient will require follow-up in the pulmonary division and possibly even repeat bronchoscopy in the future for more definitive evaluation. #2 Hemoptysis: Hemoptysis is better controlled at this time most likely secondary to proper antibiotics. #3 TB: The patient is undergone bronchoscopy with negative AFB at this time and transbronchial biopsies with no signs of AFB positivity/TV. Per recent [place] report including bronchial washing as well as transbronchial biopsies active tuberculosis was ruled out 81% of this patient's at this time this is the highest sensitivity noted in the literature. Follow-up will be required on the AFB analysis which can be done in the pulmonary division at the [facility]. Sign-off: At this time the pulmonary team will sign off as the patient is to be transferred to [facility]. Data Medications: Current Inpatient Medications Medications (Trade) Dose Ordered Sig/Breanne Route Start Time Stop Time Status Last Admin Dose Admin Acetaminophen (Tylenol Tab) 650 mg Q4H PRN PO 04/20/17 21:15 05/20/17 21:14 04/28/17 08:11 650 MG Al Hydrox/Mg Hydrox/Simethicone (Maalox Max Susp) 15 ml Q4H PRN PO 04/20/17 21:15 05/20/17 21:14 Magnesium Hydroxide (Milk Of Magnesia Susp) 30 ml Q12H PRN PO 04/20/17 21:15 05/20/17 21:14 04/21/17 15:55 30 ML Ondansetron HCl (Zofran Inj) 4 mg Q6H PRN IV 04/20/17 21:15 05/20/17 21:14 Nitroglycerin (Nitrostat Tab) 0.4 mg UD PRN SL 04/20/17 21:15 05/20/17 21:14 Morphine Sulfate (MoRPHine SULFATE INJ) 2 mg Q30M PRN IV 04/20/17 21:15 05/04/17 21:14 Polyethylene (Miralax Powder Packet) 17 gm DAILY PRN PO 04/20/17 21:15 05/20/17 21:14 Nicotine (Nicoderm Cq 14MG Patch) 1 patch QAM TD 04/21/17 09:00 05/21/17 08:59 04/28/17 08:10 1 PATCH Miscellaneous (Remove Nicoderm Patch) 1 ea HS N/A 04/21/17 21:00 05/21/17 20:59 04/27/17 21:10 1 EA Polyethylene (Miralax Powder Packet) 17 gm DAILY PO 04/22/17 09:00 05/22/17 08:59 04/25/17 10:10 17 GM Albuterol/ Ipratropium (Duoneb) 3 ml Q6R PRN INH 04/21/17 16:00 05/21/17 15:59 04/27/17 16:06 3 ML Benzonatate (Tessalon Perles Cap) 100 mg TID PO 04/21/17 21:00 05/21/17 20:59 04/28/17 13:38 100 MG Pantoprazole Sodium (Protonix Tab) 40 mg BID@0800,2100 PO 04/22/17 21:00 05/22/17 20:59 04/28/17 08:10 40 MG Diphenhydramine HCl (Benadryl Cap) 50 mg DAILY PRN PO 04/23/17 18:15 05/23/17 18:14 04/27/17 23:27 50 MG Menthol (Nice Claudia) 1 claudia PRN PRN PO 04/24/17 16:15 05/24/17 16:14 Potassium Chloride (Griselda Ciel Elix) 20 meq QAM PO 04/25/17 09:00 05/25/17 08:59 04/26/17 08:02 20 MEQ Cefepime HCl 1000 mg/Syringe 11 ml @ 5.5 mls/min Q12H IV 04/28/17 11:00 05/05/17 10:59 04/28/17 10:54 5.5 MLS/MIN I & O: 24-Hour Column 04/29/17 08:00 Intake Total 420 ml Balance 420 ml Vital Signs: Date Time Temp Pulse Resp B/P (MAP) Pulse Ox O2 Delivery O2 Flow Rate FiO2 04/28/17 15:43 36.8 86 20 126/66 (86) 97 Room Air 04/28/17 15:36 37.5 100 20 99/66 (77) 95 Room Air 04/28/17 10:10 Room Air 04/28/17 07:38 37.0 88 20 105/68 (80) 93 Room Air 04/28/17 00:00 Room Air 04/27/17 23:55 36.9 85 20 107/69 (82) 92 Room Air 04/27/17 16:07 96 18 93 Room Air 04/27/17 16:00 93 Room Air Laboratory Results: Last 24 Hours Test 04/28/17 06:20 04/28/17 09:45 White Blood Count 2.19 K/uL Red Blood Count 3.09 M/uL Hemoglobin 8.7 g/dL Hematocrit 28.9 % Mean Corpuscular Volume 93.5 fL Mean Corpuscular Hemoglobin 28.2 pg Mean Corpuscular Hemoglobin Concent 30.1 g/dl Platelet Count 171 K/uL Mean Platelet Volume 13.6 fL Neutrophils (%) (Auto) 34.2 % Lymphocytes (%) (Auto) 26.9 % Monocytes (%) (Auto) 38.4 % Eosinophils (%) (Auto) 0.0 % Basophils (%) (Auto) 0.0 % Neutrophils # (Auto) 0.75 K/uL Lymphocytes # (Auto) 0.59 K/uL Monocytes # (Auto) 0.84 K/uL Eosinophils # (Auto) 0.00 K/uL Basophils # (Auto) 0.00 K/uL RDW Standard Deviation 54.8 fL RDW Coefficient of Variation 16.2 % Immature Granulocyte % (Auto) 0.5 % Immature Granulocyte # (Auto) 0.01 K/uL Hyposegmented Neutrophils 1+ Hypogranular Neutrophils 1+ Blood Smear Review Giant Platelets 2+ Rouleau 1+ Sodium Level 132 mmol/L Potassium Level 4.2 mmol/L Chloride Level 95 mmol/L Carbon Dioxide Level 30 mmol/L Anion Gap 7.0 mmol/L Blood Urea Nitrogen 16 mg/dl Creatinine 0.64 mg/dl Est Creatinine Clear Calc Drug Dose 75.5 ml/min Estimated GFR () 120.8 Estimated GFR (Non- 104.2 BUN/Creatinine Ratio 25.5 Random Glucose 83 mg/dl Calcium Level 8.8 mg/dl Lactate Dehydrogenase 194 U/L
[2017-04-28 16:38] LABS: ALBUMIN 2.1 G/DL (3.8-4.8); GAMMA GLOBULIN 2.8 G/DL (0.8-1.7); TOTAL PROTEIN 7.8 G/DL (6.2-8.3)
[2017-04-28 17:32] VITALS: BP 126/66; PULSE 86; TEMP 36.8; O2SAT 97
== END 2017-04-28 19:43 | DRG 823 ==
LOC: C.2T 20:39 → UNDOADMIN 20:39 → C.2T 21:08 → C.2E 22:11 → C.2T 22:11 → ENRESERV 04-26 09:37 → C.4E 04-26 10:47
PROVIDERS: ADMIT Hospitalist; ATTEND Family Medicine
PROC: 0BBC8ZX Excision of Right Upper Lung Lobe, Via Natural or Artificial Opening Endoscopic, Diagnostic (ICD-10-PCS; principal; 2017-04-23)
PROC: 0BB Respiratory System, Excision (ICD-10-PCS; principal; 2017-04-23)
PROC: 0B9C8ZZ Drainage of Right Upper Lung Lobe, Via Natural or Artificial Opening Endoscopic (ICD-10-PCS; principal; 2017-04-23)
DX: C88.4 Extranodal marginal zone B-cell lymphoma of mucosa-associated lymphoid tissue [MALT-lymphoma] (principal); J15.1 Pneumonia due to Pseudomonas; R04.2 Hemoptysis; D62 Acute posthemorrhagic anemia; R64 Cachexia; Z68.1 Body mass index [BMI] 19.9 or less, adult; D68.4 Acquired coagulation factor deficiency; R04.0 Epistaxis; R63.4 Abnormal weight loss; R76.11 Nonspecific reaction to tuberculin skin test without active tuberculosis; K59.00 Constipation, unspecified; E87.6 Hypokalemia; F17.210 Nicotine dependence, cigarettes, uncomplicated

== ENCOUNTER → 2017-05-06 | Outpatient (CLI) | payer OTHER ==
[~2017-05-06] MED LIST: CEFE1INJ3 IV; DIPH25CA5 PO; IPRASOL4 INH; NICO14DI5 TD; NYSS/ PO
[2017-05-06 20:15] LABS: HEMATOCRIT 18.1 % (42-52); MEAN CORPUSCULAR HEMOGLOBIN 27.1 pg (25-34); MEAN CORPUSCULAR HGB CONC 29.8 g/dl (32-36); MEAN PLATELET VOLUME 12.5 fL (7.4-10.4); PLATELET COUNT 211 K/uL (130-400); RED BLOOD COUNT 1.99 M/uL (4.7-6.1); WHITE BLOOD COUNT 4.04 K/uL (4.8-10.8)
[2017-05-06 20:21] LABS: ANISOCYTOSIS PRESENT; BASO ABS # 0.07 K/uL (0-0.2); BASOPHIL % 1.8 % (0-2); COMPLETE YES; EOSINOPHIL % 0.9 %; LYMPH ABS # 1.14 K/uL (1.2-3.4); LYMPHOCYTE % 28.1 %; MYELOCYTE % 0.9 %; NEUTROPHILS % 38.5 %
== END | disposition home or self-care (01) ==
LOC: C.LAB1850 16:29
PROVIDERS: ATTEND Physician Assistant
DX: R19.7 Diarrhea, unspecified (principal)

== ENCOUNTER 2017-05-07 10:45 | Inpatient (IN) | payer OTHER ==
[2017-05-07] VITALS (18 sets, daily range): BP systolic 92–115; BP diastolic 53–68; PULSE 82–115; TEMP 36.4–38.3; O2SAT 94–98; Ht 167.6 cm; Wt 50.0 kg
[~2017-05-07] VITALS: Ht 167.6 cm; Wt 50.0 kg
[2017-05-07] MEDS ORDERED: SODIUM CHLORIDE 0.9% 1000ML 1,000 ML IV STA (11:08)
[2017-05-07 11:57] LABS: INR 1.2 (0.9-1.1)
[2017-05-07 12:12] LABS: ALBUMIN 2.1 gm/dl (3.4-5.0); ALT/SGPT 9 U/L (12-78); BLOOD UREA NITROGEN 19 mg/dl (7-18); CALCIUM 8.4 mg/dl (8.5-10.1); CARBON DIOXIDE 27 mmol/L (21-32); CREATININE 0.66 mg/dl (0.60-1.40); GLUCOSE 99 mg/dl (70-99); LIPASE 66 U/L (73-393); SODIUM 129 mmol/L (136-145)
[2017-05-07 12:17] LABS: ALKALINE PHOSPHATASE 78 U/L (45-117); AST/SGOT 13 U/L (15-37); TOTAL PROTEIN 9.6 gm/dl (6.4-8.2)
[2017-05-07 12:32] LABS: HEMATOCRIT 16.3 % (42-52); HEMOGLOBIN 4.9 g/dL (14.0-18.0); MEAN CELL VOLUME 90.1 fL (80-100); MEAN CORPUSCULAR HEMOGLOBIN 27.1 pg (25-34); MEAN CORPUSCULAR HGB CONC 30.1 g/dl (32-36); PLATELET COUNT 224 K/uL (130-400); WHITE BLOOD COUNT 5.98 K/uL (4.8-10.8)
[2017-05-07] MEDS ORDERED: PANTOprazole INJ 80 MG in DEXTROSE 5% 100ML IV SCH (13:00)
[2017-05-07] MEDS ORDERED: PANTOprazole INJ 40 MG in DEXTROSE 5% 100ML IV SCH (13:00)
[2017-05-07] MEDS ORDERED: PIPERACILLIN/TAZOBACTAM 4.5 GM/100ML D5W IV STA (13:09)
[2017-05-07] MEDS ORDERED: OPTIRAY 320 IV PRN (13:45)
[2017-05-07] MEDS ORDERED: LEVAQUIN 750MG / 150ML D5W IV STA (14:01)
[2017-05-07] MEDS ORDERED: ALBUT/IPRATROP 3MG/0.5MG NEB 3 ML VIAL INH PRN (14:15)
[2017-05-07] MEDS ORDERED: ONDANSETRON INJ 2 MG/ML 2 ML VIAL IV PRN (14:15)
--- NOTE | 2017-05-07 14:28 | DIAGNOSTIC IMAGING REPORT ---
CHEST ONE VIEW PORTABLE CLINICAL HISTORY: fever COMPARISON STUDY: 04/23/2017 FINDINGS: There is radiographic evidence of emphysema. There is a right upper lobe bulla. There is right apical pleural thickening. There is superior right hilar retraction. There are right perihilar airspace opacities. Overall there is been slight improvement in the diffuse right lung interstitial opacities[ IMPRESSION: 1. Slight improvement in the right lung interstitial opacities 2. Emphysema. Persistent right upper lobe bulla. Right apical pleural thickening. Superior right hilar retraction. Electronically signed by: Jermain Hammond M.D. 05/07/2017 2:27 PM Dictated Date/Time: 05/07/2017 2:25 PM
--- NOTE | 2017-05-07 14:43 | History and Physical ---
History & Physical Date & Time of Service: May 07, 2017 at 13:31 Chief Complaint: Sent By Pulmonary Office, Because Of Blood Work Primary Care Physician: No Doctor, Assigned History of Present Illness Source: patient, family Mr. Guajardo was discharged 04/28 after hemoptysis and discovery of a lung mass. He completed 14 days of cefepime which he completed on Friday. He had a follow up with pulmonology yesterday who sent him for blood work which revealed a hgb of 4.9 and so he was referred to the ED. The diagnosis of the right upper lobe mass is still in question malignancy vs severe infection according to his outpatient note from yesterday. He has been having two days of diarrhea with large amount of black stools, and abdominal pain and very weak. He could eat and drink, no nausea or vomiting. No sob, cp or palpitations. No fever, no aches and chills. Some cough, but improved over last admission, no sputum. ROS Constitutional: no chills, aches, sweats or fever Respiratory: no sob, sputum, or wheezing Cardiac: no chest pain, palpitations, edema, orthopnea or lightheadedness GI: no abdominal pain, nausea, vomiting, diarrhea or constipation : no dysuria or hesitancy Extremities: no joint pain or weakness Skin: no rash All other systems reviewed and negative Pmhx: history of cavitary lung lesion, current smoker, TB exposure in 2003 with abx tx. Social History Smoking Status: Current Every Day Smoker Smokeless Tobacco Use: No Alcohol Use: none Drug Use: none Marital Status: single Housing status: lives alone Immunizations History of Influenza Vaccine: No History of Tetanus Vaccine?: Unknown History of Pneumococcal: Yes History of Hepatitis B Vaccine: Unknown Multi-Drug Resistant Organisms History of MDRO: No Allergies Coded Allergies: No Known Allergies (Unverified , 04/20/17) Home Medications No Active Prescriptions or Reported Meds Physical Exam Vital Signs Date Time Temp Pulse Resp B/P (MAP) Pulse Ox O2 Delivery O2 Flow Rate FiO2 05/07/17 13:15 37.7 106 22 106/60 95 05/07/17 13:00 38.3 104 30 96/64 95 0.0 05/07/17 13:00 38.3 106 25 99/61 95 Room Air 05/07/17 12:30 106 25 103/60 94 Room Air 05/07/17 11:40 98 Room Air 05/07/17 11:40 101 23 99/59 96 Room Air 05/07/17 11:38 101 05/07/17 10:52 36.8 110 22 96/59 98 Room Air General: no distress Eyes: normal inspection, PERLL Respiratory: chest non tender, clear to auscultation, normal breath sounds, no respiratory distress, no accessory muscle use Cardiac: regular rate and rhythm, no rub or gallop, no murmur, no edema, no jvd GI/: active bowel sounds, no abd pain or tenderness, soft, non distended Extremities: normal range of motion, normal strength, non tender Neuro/Psych: alert and oriented x 3, normal mood and affect Skin: normal color, dry Diagnostics Laboratory Results Results Past 24 Hours Test 05/07/17 11:25 05/07/17 13:19 Range/Units White Blood Count 5.98 4.8-10.8 K/uL Red Blood Count 1.81 4.7-6.1 M/uL Hemoglobin 4.9 14.0-18.0 g/dL Hematocrit 16.3 42-52 % Mean Corpuscular Volume 90.1 80-100 fL Mean Corpuscular Hemoglobin 27.1 25-34 pg Mean Corpuscular Hemoglobin Concent 30.1 32-36 g/dl Platelet Count 224 130-400 K/uL Neutrophils % (Manual) 42.8 % Lymphocytes % (Manual) 17.9 % Monocytes % (Manual) 35.7 % Eosinophils % (Manual) 1.8 % Basophils % (Manual) 1.8 0-2 % Neutrophils # (Manual) 2.56 1.4-6.5 K/uL Total Absolute Neutrophils 2.56 1.4-6.5 K/uL Lymphocytes # (Manual) 1.07 1.2-3.4 K/uL Total Absolute Lymphocytes 1.07 1.2-3.4 K/uL Monocytes # (Manual) 2.13 0.11-0.59 K/uL Eosinophils # (Manual) 0.11 0-0.5 K/uL Basophils # (Manual) 0.11 0-0.2 K/uL Hyposegmented Neutrophils 1+ Hypogranular Neutrophils 1+ Toxic Granulation 1+ Prothrombin Time 12.9 9.0-12.0 SECONDS Prothromb Time International Ratio 1.2 0.9-1.1 Activated Partial Thromboplast Time 24.0 21.0-31.0 SECONDS Partial Thromboplastin Ratio 0.9 Sodium Level 129 136-145 mmol/L Potassium Level 4.0 3.5-5.1 mmol/L Chloride Level 95 98-107 mmol/L Carbon Dioxide Level 27 21-32 mmol/L Anion Gap 7.0 3-11 mmol/L Blood Urea Nitrogen 19 7-18 mg/dl Creatinine 0.66 0.60-1.40 mg/dl Est Creatinine Clear Calc Drug Dose 75.3 ml/min Estimated GFR () 119.3 Estimated GFR (Non- 102.9 BUN/Creatinine Ratio 28.8 10-20 Random Glucose 99 70-99 mg/dl Calcium Level 8.4 8.5-10.1 mg/dl Total Bilirubin 0.3 0.2-1 mg/dl Direct Bilirubin < 0.1 0-0.2 mg/dl Aspartate Amino Transf (AST/SGOT) 13 15-37 U/L Alanine Aminotransferase (ALT/SGPT) 9 12-78 U/L Alkaline Phosphatase 78 45-117 U/L Troponin I < 0.015 0-0.045 ng/ml Total Protein 9.6 6.4-8.2 gm/dl Albumin 2.1 3.4-5.0 gm/dl Lipase 66 73-393 U/L EKG Sinus tachycardia Otherwise normal ECG When compared with ECG of 22-APR-2017 08:45, No significant change was found Confirmed by JEANIE TYOSN ([id number]) on 05/07/2017 12:24:39 PM Impression Assessment and Plan Mr. Blanchard is a 62 year old man here for low hgb on outpatient labs Severe anemia/?GI bleed/diarrhea - admit tele - 3 units prbcs and check hgb after - Heme pos stool last admission - felt to be from swallowing hemoptysis however he has not had as much coughing and no sputum production this time - GI consulted and discussed with Dr. Sanchez - likely scope tomorrow after blood count increased with transfusion - ppi gtt - check C. diff Hx cavitary lesion RUL, RML - continues to be worked up with pulm, unclear yet if neoplastic vs inflammatory - Zosyn and vanco due to brief fever spike - will await pulm recs as to whether to continue - BC, sputum culture, urine culture - prn duonebs - CXR Current smoker - smoking cessation education Hyponatremia - may improve with transfusion, recheck prp am Advanced Directives Existing Advance Directive: No Existing Living Will: No Existing Power of Senior Environmental Practice Leader: No Existing Health Care Proxy: No Resuscitation Status DO NOT RESUSCITATE VTE Prophylaxis VTE Risk Assessment Done? 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 Discussed with MORIS Sellers and agree with findings and plan as documented in the note. Any exceptions or clarifications are listed here: Patient is a 62-year-old male with a history of recent admission for large cavitary necrotizing pneumonia versus malignancy in the right upper and middle lobes with hemoptysis and severe anemia, latent TB, PAD, [id number] smoking history and likely COPD, recent weight loss and cachexia, who presents to the ER after he had outpatient labs yesterday which showed a hemoglobin of 5.4. He does admit to having crampy abdominal pain with diarrhea and black tarry stools the last 2 days. He denies heartburn or upper abdominal pain. He currently has no pain and is feeling hungry. He denies chest pain or shortness of breath , he is not hypoxic, and he has not had any hemoptysis in 2-3 days. Hemoglobin upon discharge 9 days ago was 8.7. His hemoglobin in the ER was 4.9, he was mildly tachycardic, and he did have a fever to a max of 38.3 which has since come down to a temp of 37.7. He had Hemoccult positive stool the last admission he was here, however it was thought that he was swallowing his hemoptysis at that time, and no urgent scope was indicated. Vital signs reviewed Appears cachectic temporal wasting and severe muscle diffusely Mild tachycardia with regular rhythm, no murmurs gallops or rubs Lungs with decreased breath sounds at the bases, some crackles in the right middle to upper lung field, clear on the left Abdomen positive bowel sounds, soft, nontender, nondistended, no organomegaly, no hernias Extremities no edema, 2+ dorsalis pedis pulses ECG reviewed and shows sinus tachycardia, no ischemic changes Chest x-ray reviewed and shows stable to slight improvement in the right upper lobe opacity, stable left lower lobe opacity, right apical bleb CT abdomen/pelvis shows: 1. Moderate stool burden redemonstrated suggesting constipation. No bowel obstruction. 2. Decreased size of the rim-enhancing fluid collection of the medial left gluteal fold, now measuring up to 2.2 cm suggesting resolving abscess. 3. Emphysema with 7 mm nodular opacity of the posterior basal segment left lower lobe suggesting focal area of pleural-parenchymal scarring. 4. Extensive atherosclerotic vascular disease redemonstrated with occlusion of the proximal left superficial femoral artery and extensive atherosclerosis of the right common femoral artery likely resulting in high-grade narrowing. Laboratories reviewed and hemoglobin as above, mild hyponatremia at 129, BUN only mildly elevated at 19, otherwise labs okay. Pathology final addendum his back and shows no evidence of malignancy from the lung Patient is a 62-year-old male with a history of recent admission for large cavitary necrotizing pneumonia versus malignancy in the right upper and middle lobes with hemoptysis and severe anemia, latent TB, PAD, [id number] smoking history and likely COPD, recent weight loss and cachexia, here with severe anemia and melena. -Transfusing 3 total units PRBCs and will follow CBC daily or more often if has active bleeding while here -Appreciate GI consultation, will make nothing by mouth after midnight for EGD tomorrow -PPI drip -May need colonoscopy if EGD is unremarkable -Nothing by mouth except for Have clear liquids and juices and sips and chips of ice only today -Consult pulmonology given that he has recurrence of fever and ongoing significant previous infection in the right and left lungs-review of the pathology shows absence of malignancy. Plan as an outpatient was for a PET/CT. He completed 14 days of cefepime for his pseudomonas reviewed no sign of infection. AFB smears are negative 3 on previous admission--> will continue empiric antibiotics for now with Zosyn and vancomycin and consult pulmonology appreciated to determine if needs continued antibiotics and any further evaluation of the lung at this time as an inpatient -Prophylaxis-SCDs only given ongoing bleeding, PPI drip for GI prophylaxis -Disposition-May need rehabilitation again -DO NOT RESUSCITATE/DO NOT INTUBATE Documented By: Ambika Beverly
--- NOTE | 2017-05-07 16:21 | DIAGNOSTIC IMAGING REPORT ---
ABDOMEN AND PELVIS CT WITH IV CONTRAST CT DOSE: 227.33 mGycm HISTORY: Acute fever with left-sided abdominal pain fever w/ l sided abd pain TECHNIQUE: Multiaxial CT images of the abdomen and pelvis were performed following the use of intravenous contrast. A dose lowering technique was utilized adhering to the principles of ALARA. COMPARISON STUDY: CT 04/21/2017. FINDINGS: Study is again limited secondary to relative lack of significant intra-abdominal and intrapelvic fat. Indeterminate 4 mm nodule of the left lower lobe on image 26 series 3. Severe emphysematous Changes noted at the level the lung bases. 7 mm nodular opacity of the posterior basal segment left lower lobe as seen on image 43 series 3 which has decreased in size from prior study suggesting focal atelectasis and/or scarring. There is no pneumatosis or pneumoperitoneum identified. Imaged inferior cardiac chambers are unremarkable. The liver, gallbladder, spleen, pancreas and adrenal glands are within normal limits. Low attenuating lesions of the left kidney measuring up to 8 mm suggests cysts. No renal calculi or hydronephrosis identified. Mild urinary bladder distention. Coarse central calcifications of the central prostate. Extensive atherosclerosis of the aorta and branch vessels. Occlusion involving the proximal left superficial femoral artery in noted, image 353 series 3. Abnormal severe stenosis involving the right common femoral artery secondary to extensive atherosclerotic plaquing is seen on image 330 series 3. No bulky adenopathy identified. There is no bowel obstruction or definite bowel wall thickening identified. Nondilated fluid-filled loops of small bowel are seen within the lower abdomen and pelvis. Moderate stool volume throughout the colon. Air-filled tubular structure of the right lower quadrant on image 271 series 3 suggests normal appendix. Mild diffuse body wall edema. The previously described enhancing lesion of the medial left gluteal fold has decreased in size and is less conspicuous on today's study, 2.2 x 1.2 cm, previously 2.2 x 2.5 cm. Doppler calcifications are noted bridging the right transverse processes of the L3 and L4 vertebral bodies suggesting sequela of remote trauma. Chronic appearing bilateral pars defects at L5 without significant spondylolisthesis. IMPRESSION: 1. Moderate stool burden redemonstrated suggesting constipation. No bowel obstruction. 2. Decreased size of the rim-enhancing fluid collection of the medial left gluteal fold, now measuring up to 2.2 cm suggesting resolving abscess. 3. Emphysema with 7 mm nodular opacity of the posterior basal segment left lower lobe suggesting focal area of pleural-parenchymal scarring. 4. Extensive atherosclerotic vascular disease redemonstrated with occlusion of the proximal left superficial femoral artery and extensive atherosclerosis of the right common femoral artery likely resulting in high-grade narrowing. 5. Additional findings as above. Electronically signed by: Hermilo Wiley M.D. 05/07/2017 4:19 PM Dictated Date/Time: 05/07/2017 4:10 PM
--- NOTE | 2017-05-07 16:51 | EMERGENCY ROOM VISIT NOTE ---
History Report prepared by Rosaura: Bryson Johnson Under the Supervision of: Dr. Mehrdad Manning D.O. First contact with patient: 10:56 Chief Complaint: REFERRED BY DOCTOR Stated Complaint: SENT BY PULMONARY OFFICE, BECAUSE OF BLOOD WORK History of Present Illness The patient is a 62 year old male who presents to the Emergency Room with complaints of constant low blood hemoglobin. 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 His painter apprentice previously thought his anemia was secondary to hemoptysis. Patient states that his hemoglobin level was found to be 5.4 yesterday. Patient has had 5 transfusions in the month of April. He states that he has associated symptoms of melena, abdominal pain, shortness of breath, and nausea. He estimates 4-5 episodes of diarrhea two, and three days ago. Patient adds that he was transferred here from [facility]. Patient adds that he does not take blood thinners. He denies dizziness, chest pain, or vomiting. Source of History: patient Onset: Yesterday Position: other (Low blood hemoglobin) Timing: constant Associated Symptoms: + SOB, + nausea, + abdominal pain, + hematochezia (dark ), No chest pain, No vomiting Note: The patient denies dizziness. Review of Systems See HPI for pertinent positives & negatives. A total of 10 systems reviewed and were otherwise negative. Past Medical & Surgical Medical Problems: (1) Acute blood loss anemia (2) Hemoptysis (3) Lung mass (4) Severe anemia Family History No pertinent family history stated. Social History Smoking Status: Current Every Day Smoker Drug Use: none Marital Status: single Current/Historical Medications No Active Prescriptions or Reported Meds Allergies Coded Allergies: No Known Allergies (Unverified , 04/20/17) Physical Exam Vital Signs Date Time Temp Pulse Resp B/P (MAP) Pulse Ox O2 Delivery O2 Flow Rate FiO2 05/07/17 14:01 102 33 103/68 96 05/07/17 14:00 37.7 103 26 103/68 96 05/07/17 13:46 106/65 05/07/17 13:36 105 28 92/60 95 05/07/17 13:30 37.4 115 20 92/60 95 05/07/17 13:16 104 35 106/60 95 05/07/17 13:15 37.7 106 22 106/60 95 05/07/17 13:01 96/64 1220/17 13:00 38.3 104 30 96/64 95 0.0 05/07/17 13:00 38.3 106 25 99/61 95 Room Air 05/07/17 12:30 106 25 103/60 94 Room Air 05/07/17 11:40 98 Room Air 05/07/17 11:40 101 23 99/59 96 Room Air 05/07/17 11:38 101 05/07/17 10:52 36.8 110 22 96/59 98 Room Air Physical Exam GENERAL: Sitting up in bed, alert, chronically-appearing, malnourished, no distress, non-toxic EYE EXAM: normal conjunctiva. OROPHARYNX: no exudate, no erythema, lips, buccal mucosa, and tongue normal and mucous membranes are moist NECK: supple, no nuchal rigidity, no adenopathy, non-tender LUNGS: Clear to auscultation. Normal chest wall mechanics HEART: no murmurs, S1 normal and S2 normal ABDOMEN: abdomen soft, non-tender, normo-active bowel sounds, no masses, no rebound or guarding. BACK: Back is symmetrical on inspection and there is no deformity, no midline tenderness, no CVA tenderness. SKIN: no rashes and no bruising RECTAL: Dark, heme positive stools. UPPER EXTREMITIES: upper extremities are grossly normal. LOWER EXTREMITIES: No pitting edema. NEURO EXAM: Normal sensorium, cranial nerves II-XII grossly intact, normal speech, no gross weakness of arms, no gross weakness of legs. Medical Decision & Procedures ER Provider Diagnostic Interpretation: Radiology results as stated below per my review and the radiologist's interpretation: CHEST ONE VIEW PORTABLE CLINICAL HISTORY: fever COMPARISON STUDY: 04/23/2017 FINDINGS: There is radiographic evidence of emphysema. There is a right upper lobe bulla. There is right apical pleural thickening. There is superior right hilar retraction. There are right perihilar airspace opacities. Overall there is been slight improvement in the diffuse right lung interstitial opacities[ IMPRESSION: 1. Slight improvement in the right lung interstitial opacities 2. Emphysema. Persistent right upper lobe bulla. Right apical pleural thickening. Superior right hilar retraction. Electronically signed by: Jermain Hammond M.D. 05/07/2017 2:27 PM Laboratory Results 05/07/17 11:25 Red Blood Count 1.81, Mean Corpuscular Volume 90.1, Mean Corpuscular Hemoglobin 27.1, Mean Corpuscular Hemoglobin Concent 30.1 05/07/17 11:25 Test 05/07/17 11:25 05/07/17 13:50 05/07/17 14:10 White Blood Count 5.98 K/uL (4.8-10.8) Red Blood Count 1.81 M/uL (4.7-6.1) Hemoglobin 4.9 g/dL (14.0-18.0) Hematocrit 16.3 % (42-52) Mean Corpuscular Volume 90.1 fL (80-100) Mean Corpuscular Hemoglobin 27.1 pg (25-34) Mean Corpuscular Hemoglobin Concent 30.1 g/dl (32-36) Platelet Count 224 K/uL (130-400) Neutrophils % (Manual) 42.8 % Lymphocytes % (Manual) 17.9 % Monocytes % (Manual) 35.7 % Eosinophils % (Manual) 1.8 % Basophils % (Manual) 1.8 % (0-2) Neutrophils # (Manual) 2.56 K/uL (1.4-6.5) Total Absolute Neutrophils 2.56 K/uL (1.4-6.5) Lymphocytes # (Manual) 1.07 K/uL (1.2-3.4) Total Absolute Lymphocytes 1.07 K/uL (1.2-3.4) Monocytes # (Manual) 2.13 K/uL (0.11-0.59) Eosinophils # (Manual) 0.11 K/uL (0-0.5) Basophils # (Manual) 0.11 K/uL (0-0.2) Hyposegmented Neutrophils 1+ Hypogranular Neutrophils 1+ Toxic Granulation 1+ Prothrombin Time 12.9 SECONDS (9.0-12.0) Prothromb Time International Ratio 1.2 (0.9-1.1) Activated Partial Thromboplast Time 24.0 SECONDS (21.0-31.0) Partial Thromboplastin Ratio 0.9 Anion Gap 7.0 mmol/L (3-11) Est Creatinine Clear Calc Drug Dose 75.3 ml/min Estimated GFR () 119.3 Estimated GFR (Non- 102.9 BUN/Creatinine Ratio 28.8 (10-20) Calcium Level 8.4 mg/dl (8.5-10.1) Total Bilirubin 0.3 mg/dl (0.2-1) Direct Bilirubin < 0.1 mg/dl (0-0.2) Aspartate Amino Transf (AST/SGOT) 13 U/L (15-37) Alanine Aminotransferase (ALT/SGPT) 9 U/L (12-78) Alkaline Phosphatase 78 U/L (45-117) Troponin I < 0.015 ng/ml (0-0.045) Total Protein 9.6 gm/dl (6.4-8.2) Albumin 2.1 gm/dl (3.4-5.0) Lipase 66 U/L (73-393) Lactic Acid Level 1.3 mmol/L (0.4-2.0) Urine Color YELLOW Urine Appearance CLEAR (CLEAR) Urine pH 5.0 (4.5-7.5) Urine Specific Royston 1.019 (1.000-1.030) Urine Protein NEG (NEG) Urine Glucose (UA) NEG (NEG) Urine Ketones NEG (NEG) Urine Occult Blood NEG (NEG) Urine Nitrite NEG (NEG) Urine Bilirubin NEG (NEG) Urine Urobilinogen NEG (NEG) Urine Leukocyte Esterase NEG (NEG) Laboratory results per my review. Medications Administered Medications (Trade) Dose Ordered Sig/Breanne Route Start Time Stop Time Status Last Admin Dose Admin Sodium Chloride 1,000 ml @ 999 mls/hr Q1H1M STAT IV 05/07/17 11:08 05/07/17 12:08 DC 05/07/17 11:40 999 MLS/HR Pantoprazole Sodium 80 mg/ Dextrose 120 ml @ 480 mls/hr UD IV 05/07/17 13:00 05/07/17 13:14 DC 05/07/17 13:50 480 MLS/HR Pantoprazole Sodium 40 mg/ Dextrose 100 ml @ 20 mls/hr Q5H IV 05/07/17 13:00 05/07/17 17:59 05/07/17 13:50 20 MLS/HR Piperacillin Sod/ Tazobactam Sod (Zosyn Iv) 4.5 gm NOW STAT IV 05/07/17 13:09 05/07/17 13:10 DC 05/07/17 13:27 4.5 GM ECG Indication: other (anemia) Rate (beats per minute): 103 Rhythm: sinus tachycardia Findings: no ectopy, other (Normal axis) ED Course ED COURSE: Vital signs were reviewed and showed tachycardia and hypertension The patients medical record was reviewed The above diagnostic studies were performed and reviewed. ED treatments and interventions as stated above. 1100: The patient was evaluated in room C7. A complete history and physical examination was performed. 1108: Sodium Chloride 1000 ml @ 999 mls/hr IV 1230: I reassessed the patient. He consented to receiving blood transfusions. 1238: Pantoprazole Sodium 1ea IV 1300: Pantoprazole Sodium 80mg 120ml @ 480mls/hr IV, Pantroprazole Sodium 40mg 100ml @ 20mls/hr IV 1309: Zosyn 4.5gm IV 1345: Ioversol 100ml IV 1401: Levofloxacin 750mg IV 1430: Upon reevaluation, the patient will be evaluated further.I discussed my findings with the patient and he understands and agrees with the treatment plan. Based on the patients age, coexisting illnesses, exam and lab findings the decision to treat as an inpatient was made. The patient remained stable while under my care. The patient will be evaluated for further management. Medical Decision Differential diagnosis: Etiologies such as diverticulosis, AVM, coagulopathy, colitis, inflammatory bowel disease, malignancy, Brigid-Chamberlain tear, esophagitis, peptic ulcer disease , variceal bleed, gastritis, epistaxis, fissure, hemorrhoids, as well as others were entertained. Patient is a 62-year-old male who presents to ER for 2 days worth of dark stools. He admits to persistent diarrhea. He was recently admitted for anemia and hemoptysis. He has been having no more hemoptysis. He was never scoped. He does not take any blood thinners. Labs show a hemoglobin of 4.9. Sodium was low at 129. BUN elevated at 19. Lactic acid was 1.3. Troponin was negative. INR was 1.2. Rectal was grossly heme positive. He is placed on a Protonix drip and bolus. He was transfused 2 units of PRBCs while in the ER. He was eventually found to be febrile prior to the transfusion of PRBCs. At this time he was given broad-spectrum antibiotics as he is neutropenic admitted to internal medicine with a neutropenic fever and symptomatically anemia. Medication Reconcilliation Current Medication List: was personally reviewed by ar Blood Pressure Screening Patient's blood pressure: Normal blood pressure Blood pressure disposition: Did not require urgent referral Consults Time Called: 1256 Consulting Physician: Dr. Portillo Sanchez - Supply Officer Returned Call: 1300 I reviewed the patient's case with Dr. Portillo KIRK. He will consult on the patient. Additional Consults: Time Called: 1302 Consulted Physician: Dr. Rush COTO Returned Call: 1305 Additional Comments: I reviewed the patient's case with Dr. Beverly. YELENA will evaluate the patient for further management. Impression Primary Impression: GI bleed Additional Impressions: Neutropenic fever Acute blood loss anemia Severe anemia Symptomatic anemia Critical Care I have personally spent 75 minutes of critical care time in the direct management of this patient. This includes bedside care, interpretation of diagnostic studies, and testing, discussion with consultants, patient, and family members, and other required patient management activities. This 75 minutes is in excess of all separately billable procedures. Scribe Attestation The scribe's documentation has been prepared under my direction and personally reviewed by me in its entirety. I confirm that the note above accurately reflects all work, treatment, procedures, and medical decision making performed by me. Departure Information Dispostion Being Evaluated By Hospitalist Prescriptions No Active Prescriptions or Reported Meds Referrals No Doctor, Assigned (PCP) Forms HOME CARE DOCUMENTATION FORM, IMPORTANT VISIT INFORMATION, WORK / SCHOOL INSTRUCTIONS Patient Instructions My [facility] Problem Qualifiers Primary Impression: GI bleed GI bleed type/associated pathology: unspecified gastrointestinal hemorrhage type Qualified Codes: K92.2 - Gastrointestinal hemorrhage, unspecified
[2017-05-07] MEDS ORDERED: PIPERACILL/TAZOBAC CONSULT ACTIVE PRN (17:00)
[2017-05-07] MEDS ORDERED: VANCOMYCIN INJ 1,000 MG in SODIUM CHLORIDE 0.9% 250ML 250 ML IV ONE (17:00)
[2017-05-07] MEDS ORDERED: VANCOMYCIN CONSULT ACTIVE PRN (17:15)
--- NOTE | 2017-05-07 17:19 | Pharmacy Progress Note ---
Pharmacy Abx Initial Consult Date of Service May 07, 2017. Pharmacy Dosing Scope Date of Consult: 05/07/17 Pharmacy is consulted to initiate Vancomycin/Zosyn IV dosing therapy, order appropriate labs and adjust drug dose/frequency. Subjective The patient is a 62 year old male admitted on May 07, 2017 at 14:13. Objective Height (Feet): 5 Height (Inches): 6.00 Weight (Kilograms): 46.500 Vital Signs (Past 12Hrs) Vital Signs Past 12 Hours Date Time Temp Pulse Resp B/P (MAP) Pulse Ox O2 Delivery O2 Flow Rate FiO2 05/07/17 15:50 94 99/63 96 05/07/17 15:04 99 103/66 96 Room Air 05/07/17 15:00 36.7 99 20 103/66 96 05/07/17 14:30 101 34 109/65 97 05/07/17 14:01 102 33 103/68 96 05/07/17 14:00 37.7 103 26 103/68 96 05/07/17 13:46 106/65 05/07/17 13:36 105 28 92/60 95 05/07/17 13:30 37.4 115 20 92/60 95 05/07/17 13:16 104 35 106/60 95 05/07/17 13:15 37.7 106 22 106/60 95 05/07/17 13:01 96/64 05/07/17 13:00 38.3 104 30 96/64 95 0.0 05/07/17 13:00 38.3 106 25 99/61 95 Room Air 05/07/17 12:30 106 25 103/60 94 Room Air 05/07/17 11:40 98 Room Air 05/07/17 11:40 101 23 99/59 96 Room Air 05/07/17 11:38 101 05/07/17 10:52 36.8 110 22 96/59 98 Room Air Lab Results (24Hrs) Laboratory Tests (24 Hours) Test 05/07/17 11:25 05/07/17 13:50 White Blood Count 5.98 K/uL (4.8-10.8) Red Blood Count 1.81 M/uL (4.7-6.1) L Hemoglobin 4.9 g/dL (14.0-18.0) *L Hematocrit 16.3 % (42-52) *L Mean Corpuscular Volume 90.1 fL (80-100) Mean Corpuscular Hemoglobin 27.1 pg (25-34) Mean Corpuscular Hemoglobin Concent 30.1 g/dl (32-36) L Platelet Count 224 K/uL (130-400) Lactic Acid Level 1.3 mmol/L (0.4-2.0) Micro Results Date/Time Source Procedure Growth Status 05/07/17 16:56 Blood Blood Culture Pending Received 05/07/17 16:50 Blood Blood Culture Pending Received 05/07/17 14:03 Stool C.difficile Toxin B Gene (PCR) Pending Saranya Batch Risk Factors for Resistance * Hospitalization for 48 hours or more within the past 90 days * History of TB * Antimicrobial use within the last 90 days Assessment & Plan Assessment 62 year old male initiated on vancomycin/zosyn IV for cavitary lesion ( malignancy vs severe infection) in the setting of a fever. Blood cultures pending. Cdiff pending. Recent admission - high dose vancomycin q 12 gave subtherapeutic levels Recently finished 14 day course of cefepime IV Plan Vancomycin IV * Loading dose: 1000 mg (21 mg/kg) * Maintenance dose: 750 mg IV (16 mg/kg) every 8 hours * Goal trough level for lung source: 15 to 20 mcg/mL * Trough level ordered for 05/09/17 @0130 prior to 0200 dose. Piperacillin/tazobactam * 4.5 g bolus administered over 30 minutes, then 3.375 g IV extended infusion every 8 hours for CrCl greater than 20 mL/min Pharmacy will continue to follow and will adjust dose/frequency as necessary. Thank you.
[2017-05-07] MEDS: PIPERACILL/TAZOBAC IV 3.375 GM in DEXTROSE 5% 100ML 100 ML IV SCH (19:25)
[2017-05-07] MEDS: PANTOprazole INJ 40 MG in DEXTROSE 5% 100ML IV SCH ×2 (19:26→22:17)
--- NOTE | 2017-05-07 19:36 | GASTROINTESTINAL CONSULTATION ---
DATE OF CONSULTATION: 05/07/2017 REQUESTING PROVIDER: Ambika Beverly MD. CHIEF COMPLAINT: Melena, dark stools, profound anemia and abdominal discomfort. HISTORY OF PRESENT ILLNESS: Mr. Guajardo is known to our [facility] GI service from a recent hospitalization for which he was experiencing hemoptysis with anemia. Workup has not shown any evidence of apparent malignancy for this. The patient was in [facility] up until 2 days ago. At that time he was feeling well overall, although the last couple days, he began to experience some mild abdominal discomfort. At that point he noticed that his stools were beginning to get dark by his history. He was treated for a pseudomonas pneumonia with cefepime. He was found to have a hemoglobin of 4.9 yesterday and was referred to the ER today. Although the patient believes that the findings of the lung to date are negative, at the present time it is not confirmed that a malignancy is not present. The abdominal discomfort limited his appetite. He denies any fever, chills and does not report bright red blood per rectum, hematemesis or coffee ground emesis. ALLERGIES: He has no known drug allergies. MEDICATIONS: He has no medications that he takes at home. SOCIAL HISTORY: The patient smokes tobacco, does not use alcoholic beverages, is single and lives alone. In the past, he had been treated for tuberculosis in 2003. FAMILY HISTORY: Noncontributory. The patient reports no chronic medical illnesses other than the TB. He has never had a colonoscopy or an upper endoscopy by his recollection. REVIEW OF SYSTEMS: Otherwise noncontributory except for those described above based on 13-point exam. He has no fever or shaking chills. PHYSICAL EXAMINATION: VITAL SIGNS: On admission, afebrile at 36.8, heart rate 110, respirations 22, blood pressure 96/59. GENERAL: Today shows a thin, cachectic male in no acute distress. He is awake, alert and oriented x3. HEENT: The sclerae are anicteric. Oral mucosa moist. HEART: Normal S1, S2. LUNGS: Clear to auscultation. NECK: There is no cervical or supraclavicular adenopathy. I do not appreciate thyromegaly. There is evidence of significant muscle wasting with the patient and he has reported a chronic weight loss over the past several months. LUNGS: The lungs show diminished breath sounds and there are no wheezes noted. The heart is normal S1, S2. ABDOMEN: Soft, flat, minimally tender in the epigastrium without rebound or guarding. I do not appreciate ascites or shifting dullness and I do not appreciate hepatosplenomegaly. There is no evidence of abdominal bruits. EXTREMITIES: Without clubbing, cyanosis or edema. RECTAL: Deferred. LABORATORY STUDIES: On admission today, white count 5.9, hemoglobin 4.9, MCV 90.1. Platelets are 224,000. INR is 1.2, potassium 4.0, bicarbonate 27, BUN and creatinine 19 and 0.66. Liver tests; bilirubin 0.3, AST 13, ALT 9, alkaline phosphatase 78, lipase 66, total protein 9.6. EKG was sinus tachycardia, but otherwise normal. The patient underwent a CT of the abdomen and pelvis today which was an IV only contrast. There was emphysematous changes with a decrease in the size of the left lung lower lobe finding suggesting atelectasis or scarring. A acute pneumonia is not appreciated. The liver, gallbladder, spleen, pancreas, and adrenals are normal. No evidence for bowel obstruction with moderate retained stool in the colon. The patient did have a rim enhancing fluid collection in the medial left gluteal fold suggesting resolving abscess. No other abdominal pathology suggested. IMAGING DATA: Chest x-ray shows slight improvement in the right lung interstitial opacities and persistent right upper lobe bullae. Blood cultures were obtained and are pending. IMPRESSION AND PLAN: Mr. Guajardo had recurrent anemia with dark appearing stools over the past several days. He has also had some epigastric discomfort that has limited some of his food intake. He has not reported any meaningful amount of hemoptysis but has no hematemesis or coffee-ground emesis as well. I believe the best initial step for diagnostic would be upper endoscopy and we will arrange for this tomorrow. Would continue to transfuse the patient to a hemoglobin of at least 7-8 and observe blood count and stool output for evidence of ongoing bleeding. If upper endoscopy is unrevealing tomorrow, then colonoscopy after a formal bowel prep would be recommended and will plan for this on Friday. In the meantime, would keep patient n.p.o. except for some sips of clears through the night and with medications. Further recommendations to follow. In addition, continue PPI therapy. The patient's current medications include vancomycin IV, Zosyn, pantoprazole drip, DuoNeb, Zofran. Would obtain a stool for H. pylori antigen given that the patient is on antibiotics to see if this is a culprit for potential peptic ulcer disease should this be identified. All questions answered. MTDD
[2017-05-07] MEDS ORDERED: INFLUENZA ADMINISTRATION CHARGE ONE (20:15)
[2017-05-07] MEDS ORDERED: INFLUENZA VIRUS QUAD VACCINE 0.5 ML SYR IM. ONE (20:15)
[2017-05-07] MEDS ORDERED: NURSING VERBAL MED ORDER ONE (21:45)
[2017-05-07] MEDS ORDERED: SENNA 8.6 MG TAB PO PRN (22:00)
[2017-05-07] MEDS: ACETAMINOPHEN 325 MG TAB PO PRN (22:16)
[2017-05-07] MEDS: SENNA 8.6 MG TAB PO PRN (22:49)
[2017-05-08] VITALS (14 sets, daily range): BP systolic 87–108; BP diastolic 51–69; PULSE 73–91; TEMP 36.4–36.8; O2SAT 94–99
[2017-05-08] MEDS: VANCOMYCIN INJ 750 MG in SODIUM CHLORIDE 0.9% 250ML 250 ML IV SCH ×3 (01:13→17:59)
[2017-05-08 02:13] LABS: HEMATOCRIT 22.4 % (42-52); HEMOGLOBIN 7.3 g/dL (14.0-18.0); MEAN CELL VOLUME 85.8 fL (80-100); MEAN CORPUSCULAR HGB CONC 32.6 g/dl (32-36); MEAN PLATELET VOLUME 12.2 fL (7.4-10.4); NUCLEATED RED BLOOD CELL ABS 0.02 K/uL (0-0); PLATELET COUNT 157 K/uL (130-400); RED CELL DISTRIBUTION WIDTH CV 16.9 % (11.5-14.5); RED CELL DISTRIBUTION WIDTH SD 52.8 fL (36.4-46.3); WHITE BLOOD COUNT 4.08 K/uL (4.8-10.8)
[2017-05-08 02:53] LABS: CALCIUM 8.2 mg/dl (8.5-10.1); CREATININE 0.54 mg/dl (0.60-1.40); POTASSIUM 3.5 mmol/L (3.5-5.1)
[2017-05-08] MEDS: PIPERACILL/TAZOBAC IV 3.375 GM in DEXTROSE 5% 100ML 100 ML IV SCH ×3 (05:10→19:28)
[2017-05-08] MEDS: PANTOprazole INJ 40 MG in DEXTROSE 5% 100ML IV SCH ×2 (05:10→08:11)
--- NOTE | 2017-05-08 09:34 | Pulmonary Consultation ---
History General Date of Service: May 08, 2017. Stated Complaint: Severe Anemia HPI Patient is a 62-year-old male who presented to the ED at my recommendation regarding severe anemia. The patient had repeat CBC w/diff completed as an outpatient and was noted to have a Hgb of 5.4. I spoke to Dr. Messer in Hematology regarding this patient after receiving the lab result, and he recommended admission for further workup and blood transfusion. The patient previously was admitted with concerns of a hemoglobin of 3.7 and a large mass in the right upper lobe and right middle lobe. The patient has approximately a 50 pack year smoking history. The patient also has history of TB exposure in 2003 at which time [facility] [place]. After that time, the patient was treated with a few months of antibiotics for TB exposure, but feels he was never told he had active tuberculosis. Prior to last admission, he was feeling poorly and coughing up blood. He had approximately a 30 pound weight loss in the past 1-2 months. Patient had multiple sputum samples collected during his previous admission. AFB smears were notably negative. Cultures are currently still preliminary. Multiple sputum cultures did however grow Pseudomonas. He did also undergo bronchoscopy which also grew pansensitive Pseudomonas. The patient was placed on IV cefepime. CT scan of the chest on 04/21/2017 showed severe upper lobe predominant bullous centrilobular emphysematous disease with multifocal consolidation of the right upper and right middle lobes. A central air fluid level within the right apical consolidation was also noted. Pleural base consolidative opacities of the left lower lobe were also noted and suggestive of multifocal pneumonitis. A mild subcarinal and right subpectoral adenopathy or also noted to be possibly reactive or metastatic. Patient was notably pancytopenic during previous admission. He did also have neutropenia. Upon discharge to [facility], the patient's absolute neutrophil count was 0.75. His hemoglobin was 8.7. Patient did also have pathology completed from bronchial brushings during last admission. Bronchial brushing noted mildly atypical epithelial cells- cannot exclude low-grade adenocarcinoma. Biopsy of the right upper lobe showed acute and chronic inflammatory process. Differential diagnosis included reactive inflammatory process, or lymphoplasmacytic disorder such as MALT-type lymphoma. Prior to current admission, the patient continued to feel very weak, but felt that his breathing was slightly improved. He has had no further hemoptysis. He had severe diarrhea for approximately 2 days [employer] which was very malodorous. Upon current admission, the patient's Hgb was 4.9. He was noted to have a fever of 38.3 C as well. He has received 4 units of blood. This morning's Hgb was 7.3. The patient is feeling improved. GI consultation was completed, and GI plans for upper endoscopy this morning. If upper endoscopy is unrevealing, plan for colonoscopy tomorrow. Patient is currently NPO. Blood cultures are pending. Sputum culture pending. Patient is currently on Zosyn and Vancomycin. He has been afebrile this morning. Abdomen/Pelvis CT scan 05/07: Moderate stool burden suggesting constipation. No bowel obstruction. Decreased size of rim-enhancing fluid collection of left gluteal fold, emphysema, extensive atherosclerotic vascular disease. CXR 05/07: Slight improvement of right lung interstitial opacities. Emphysema. Persistent right upper lobe bulla. Right apical pleural thickening. Superior right hilar retraction. Images viewed by me today. Historian: patient Review of Systems Constitutional: reports: fever, weakness, weight loss Eyes: denies: eye pain ENT: denies: loss of hearing Cardiovascular: denies: chest pain, chest pressure, chest tightness Respiratory: reports: cough, sputum production (white in the AM) Gastrointestinal: reports: abdominal pain, diarrhea ([employer]), stool changes (dark stools [employer], malodorous), denies: vomiting Genitourinary - Male: denies: dysuria Integumentary: denies: rash All Other Symptoms All Other Systems: Reviewed and Negative Past Medical History Past Medical History: Medical Problems: (1) Acute blood loss anemia (2) Hemoptysis (3) Lung mass (4) Severe anemia Social History Hx Tobacco Use In Past Year?: Yes Smoking Status: Current Every Day Smoker Marital status: single Housing status: lives alone Immunizations History of Influenza Vaccine: No History of Tetanus Vaccine?: Unknown History of Pneumococcal: Yes History of Hepatitis B Vaccine: Unknown History of MDRO History of MDRO: No Allergies Coded Allergies: No Known Allergies (Unverified , 04/20/17) Current Medications Reported Home Medications Medications Dose Route/Sig Max Daily Dose Days Date Category No Active Prescriptions or Reported Medications Rx Physical Physical Exam Vital Signs: Date Time Temp Pulse Resp B/P (MAP) Pulse Ox O2 Delivery O2 Flow Rate FiO2 05/08/17 08:00 Room Air 05/08/17 07:16 36.4 76 16 88/53 95 05/08/17 06:16 36.6 83 14 93/58 98 05/08/17 05:45 36.5 73 16 90/51 98 05/08/17 05:25 36.4 76 16 88/57 95 05/08/17 05:20 36.4 83 16 100/59 94 05/08/17 05:15 36.4 78 18 92/55 95 05/08/17 05:10 Room Air 05/08/17 05:09 36.5 75 18 92/59 95 05/08/17 01:11 104/64 (77) 05/08/17 00:15 87/54 (65) 05/07/17 23:30 Room Air 05/07/17 23:14 36.7 93 24 94/53 (67) 95 Room Air 05/07/17 22:45 36.4 88 20 103/60 96 05/07/17 22:30 37.0 88 16 93/61 94 05/07/17 22:25 37.1 92 18 95/59 95 05/07/17 22:20 36.9 91 18 93/58 94 05/07/17 22:13 37.0 90 18 95/60 94 05/07/17 21:00 37.4 94 18 100/62 95 05/07/17 20:00 36.8 94 18 115/66 97 05/07/17 19:30 37.0 93 18 96/63 97 05/07/17 19:26 Room Air 05/07/17 19:15 91 18 93/59 96 05/07/17 19:00 90 18 94/61 98 05/07/17 18:40 37.1 82 18 107/66 98 05/07/17 16:15 36.8 88 18 98/61 97 Room Air 05/07/17 15:50 94 99/63 96 05/07/17 15:04 99 103/66 96 Room Air 05/07/17 15:00 36.7 99 20 103/66 96 05/07/17 14:30 101 34 109/65 97 05/07/17 14:01 102 33 103/68 96 05/07/17 14:00 37.7 103 26 103/68 96 05/07/17 13:46 106/65 05/07/17 13:36 105 28 92/60 95 05/07/17 13:30 37.4 115 20 92/60 95 05/07/17 13:16 104 35 106/60 95 05/07/17 13:15 37.7 106 22 106/60 95 05/07/17 13:01 96/64 05/07/17 13:00 38.3 104 30 96/64 95 0.0 05/07/17 13:00 38.3 106 25 99/61 95 Room Air 05/07/17 12:30 106 25 103/60 94 Room Air 05/07/17 11:40 98 Room Air 05/07/17 11:40 101 23 99/59 96 Room Air 05/07/17 11:38 101 05/07/17 10:52 36.8 110 22 96/59 98 Room Air General Appearance: NO APPARENT DISTRESS, cachetic Head: NORMOCEPHALIC, ATRAUMATIC Eyes: EOMI Neck: NORMAL RANGE OF MOTION, NO TENDERNESS Respiratory: CLEAR TO AUSCULTATION, NO RESPIRATORY DISTRESS, other (breath sounds decreased in upper lobes) Cardiovasular: REGULAR RATE/RHYTHM, NO MURMUR Abdomen: NORMAL BOWEL SOUNDS Upper Extremities: NO EDEMA Lower Extremities: NO EDEMA Neuro: ALERT Psychiatric: flat affect Diagnostics Labs Results Past 24 Hours Test 05/07/17 11:25 05/07/17 13:50 05/07/17 14:10 05/07/17 18:45 Range/Units White Blood Count 5.98 4.8-10.8 K/uL Red Blood Count 1.81 4.7-6.1 M/uL Hemoglobin 4.9 14.0-18.0 g/dL Hematocrit 16.3 42-52 % Mean Corpuscular Volume 90.1 80-100 fL Mean Corpuscular Hemoglobin 27.1 25-34 pg Mean Corpuscular Hemoglobin Concent 30.1 32-36 g/dl Platelet Count 224 130-400 K/uL Neutrophils % (Manual) 42.8 % Lymphocytes % (Manual) 17.9 % Monocytes % (Manual) 35.7 % Eosinophils % (Manual) 1.8 % Basophils % (Manual) 1.8 0-2 % Neutrophils # (Manual) 2.56 1.4-6.5 K/uL Total Absolute Neutrophils 2.56 1.4-6.5 K/uL Lymphocytes # (Manual) 1.07 1.2-3.4 K/uL Total Absolute Lymphocytes 1.07 1.2-3.4 K/uL Monocytes # (Manual) 2.13 0.11-0.59 K/uL Eosinophils # (Manual) 0.11 0-0.5 K/uL Basophils # (Manual) 0.11 0-0.2 K/uL Hyposegmented Neutrophils 1+ Hypogranular Neutrophils 1+ Toxic Granulation 1+ Prothrombin Time 12.9 9.0-12.0 SECONDS Prothromb Time International Ratio 1.2 0.9-1.1 Activated Partial Thromboplast Time 24.0 21.0-31.0 SECONDS Partial Thromboplastin Ratio 0.9 Sodium Level 129 136-145 mmol/L Potassium Level 4.0 3.5-5.1 mmol/L Chloride Level 95 98-107 mmol/L Carbon Dioxide Level 27 21-32 mmol/L Anion Gap 7.0 3-11 mmol/L Blood Urea Nitrogen 19 7-18 mg/dl Creatinine 0.66 0.60-1.40 mg/dl Est Creatinine Clear Calc Drug Dose 75.3 ml/min Estimated GFR () 119.3 Estimated GFR (Non- 102.9 BUN/Creatinine Ratio 28.8 10-20 Random Glucose 99 70-99 mg/dl Calcium Level 8.4 8.5-10.1 mg/dl Total Bilirubin 0.3 0.2-1 mg/dl Direct Bilirubin < 0.1 0-0.2 mg/dl Aspartate Amino Transf (AST/SGOT) 13 15-37 U/L Alanine Aminotransferase (ALT/SGPT) 9 12-78 U/L Alkaline Phosphatase 78 45-117 U/L Troponin I < 0.015 0-0.045 ng/ml Total Protein 9.6 6.4-8.2 gm/dl Albumin 2.1 3.4-5.0 gm/dl Lipase 66 73-393 U/L Lactic Acid Level 1.3 0.4-2.0 mmol/L Urine Color YELLOW YELLOW Urine Appearance CLEAR CLEAR CLEAR Urine pH 5.0 5.0 4.5-7.5 Urine Specific [place] 1.019 > 1.045 1.000-1.030 Urine Protein NEG NEG NEG Urine Glucose (UA) NEG NEG NEG Urine Ketones NEG NEG NEG Urine Occult Blood NEG NEG NEG Urine Nitrite NEG NEG NEG Urine Bilirubin NEG NEG NEG Urine Urobilinogen NEG NEG NEG Urine Leukocyte Esterase NEG NEG NEG Test 05/08/17 02:03 05/08/17 07:54 Range/Units White Blood Count 4.08 4.8-10.8 K/uL Red Blood Count 2.61 4.7-6.1 M/uL Hemoglobin 7.3 14.0-18.0 g/dL Hematocrit 22.4 42-52 % Mean Corpuscular Volume 85.8 80-100 fL Mean Corpuscular Hemoglobin 28.0 25-34 pg Mean Corpuscular Hemoglobin Concent 32.6 32-36 g/dl RDW Standard Deviation 52.8 36.4-46.3 fL RDW Coefficient of Variation 16.9 11.5-14.5 % Platelet Count 157 130-400 K/uL Mean Platelet Volume 12.2 7.4-10.4 fL Nucleated RBC Absolute Count (auto) 0.02 0-0 K/uL Nucleated Red Blood Cells % 0.5 % Sodium Level 131 136-145 mmol/L Potassium Level 3.5 3.5-5.1 mmol/L Chloride Level 99 98-107 mmol/L Carbon Dioxide Level 26 21-32 mmol/L Anion Gap 6.0 3-11 mmol/L Blood Urea Nitrogen 11 7-18 mg/dl Creatinine 0.54 0.60-1.40 mg/dl Est Creatinine Clear Calc Drug Dose 92.1 ml/min Estimated GFR () 129.5 Estimated GFR (Non- 111.7 BUN/Creatinine Ratio 19.7 10-20 Random Glucose 90 70-99 mg/dl Calcium Level 8.2 8.5-10.1 mg/dl Microbiology Results 05/07/17 Blood Culture, Received Pending 05/07/17 Blood Culture, Received Pending 05/07/17 Gram Stain - Final, Resulted 05/07/17 Sputum Culture, Resulted Pending 05/07/17 Urine Culture, Received Pending Diagnostic Radiology ABDOMEN AND PELVIS CT WITH IV CONTRAST CT DOSE: 227.33 mGycm HISTORY: Acute fever with left-sided abdominal pain fever w/ l sided abd pain TECHNIQUE: Multiaxial CT images of the abdomen and pelvis were performed following the use of intravenous contrast. A dose lowering technique was utilized adhering to the principles of ALA. COMPARISON STUDY: CT 04/21/2017. FINDINGS: Study is again limited secondary to relative lack of significant intra-abdominal and intrapelvic fat. Indeterminate 4 mm nodule of the left lower lobe on image 26 series 3. Severe emphysematous Changes noted at the level the lung bases. 7 mm nodular opacity of the posterior basal segment left lower lobe as seen on image 43 series 3 which has decreased in size from prior study suggesting focal atelectasis and/or scarring. There is no pneumatosis or pneumoperitoneum identified. Imaged inferior cardiac chambers are unremarkable. The liver, gallbladder, spleen, pancreas and adrenal glands are within normal limits. Low attenuating lesions of the left kidney measuring up to 8 mm suggests cysts. No renal calculi or hydronephrosis identified. Mild urinary bladder distention. Coarse central calcifications of the central prostate. Extensive atherosclerosis of the aorta and branch vessels. Occlusion involving the proximal left superficial femoral artery in noted, image 353 series 3. Abnormal severe stenosis involving the right common femoral artery secondary to extensive atherosclerotic plaquing is seen on image 330 series 3. No bulky adenopathy identified. There is no bowel obstruction or definite bowel wall thickening identified. Nondilated fluid-filled loops of small bowel are seen within the lower abdomen and pelvis. Moderate stool volume throughout the colon. Air-filled tubular structure of the right lower quadrant on image 271 series 3 suggests normal appendix. Mild diffuse body wall edema. The previously described enhancing lesion of the medial left gluteal fold has decreased in size and is less conspicuous on today's study, 2.2 x 1.2 cm, previously 2.2 x 2.5 cm. Doppler calcifications are noted bridging the right transverse processes of the L3 and L4 vertebral bodies suggesting sequela of remote trauma. Chronic appearing bilateral pars defects at L5 without significant spondylolisthesis. IMPRESSION: 1. Moderate stool burden redemonstrated suggesting constipation. No bowel obstruction. 2. Decreased size of the rim-enhancing fluid collection of the medial left gluteal fold, now measuring up to 2.2 cm suggesting resolving abscess. 3. Emphysema with 7 mm nodular opacity of the posterior basal segment left lower lobe suggesting focal area of pleural-parenchymal scarring. 4. Extensive atherosclerotic vascular disease redemonstrated with occlusion of the proximal left superficial femoral artery and extensive atherosclerosis of the right common femoral artery likely resulting in high-grade narrowing. 5. Additional findings as above. Impression Assessment and Plan Right upper lobe and middle lobe cavitary mass Emphysema Chronic tobacco use Severe anemia Patient with recent Pseudomonal lung infection with mass of the RUL and RML of questionable etiology. Malignancy is still the diagnosis of exclusion though this could be infectious cavity as well. He is saturating well on room air, and has had no further hemoptysis. Recommend repeat Chest CT during admission. Patient likely will need a repeat bronchoscopic evaluation in the near future to further assess lung mass. Add supplemental O2 PRN to maintain O2 saturations >88%. Agree with GI regarding need for upper endoscopy and possible colonoscopy if upper is unrevealing. Patient is not having hemoptysis, and it does not appear that his anemia is pulmonary in origin. May ultimately need hematology consultation again if GI workup is unrevealing. Continue IV abx therapy pending blood cultures and further workup. Likely will be able to narrow spectrum or discontinue soon if infectious workup is negative. Pulmonary will follow peripherally, but do not feel that the patient's current severe anemia is pulmonary in origin. Will follow workup.
[2017-05-08 10:05] LABS: HEMATOCRIT 27.4 % (42-52); HEMOGLOBIN 8.8 g/dL (14.0-18.0); MEAN CORPUSCULAR HEMOGLOBIN 27.9 pg (25-34); MEAN CORPUSCULAR HGB CONC 32.1 g/dl (32-36); MEAN PLATELET VOLUME 12.7 fL (7.4-10.4); PLATELET COUNT 151 K/uL (130-400); RED CELL DISTRIBUTION WIDTH CV 17.1 % (11.5-14.5); RED CELL DISTRIBUTION WIDTH SD 54.1 fL (36.4-46.3); WHITE BLOOD COUNT 3.62 K/uL (4.8-10.8)
[2017-05-08] MEDS ORDERED: OPTIRAY 320 IV PRN (10:15)
--- NOTE | 2017-05-08 10:26 | Hospitalist Progress Note ---
Hospitalist Progress Note Date of Service May 08, 2017. Subjective Pt evaluation today including: conversation w/ patient, conversation w/ mental health consultant (Pulmonary) Pt feels much better this AM after receiving PRBCs overnight. Feels hungry but no abd pain, no CP or SOB, no back pain. No hemoptysis. No further melena since admission Constitutional: + fever (Tmax 38.3 at 1300) Eyes: No problem reported Respiratory: No shortness of breath, No hemoptysis Cardiovascular: No chest pain Abdomen: No pain, No nausea, No diarrhea, No GI bleeding Musculoskeletal: No problem reported Male : No problem reported All Other Systems: Reviewed and Negative Objective Vital Signs Date Time Temp Pulse Resp B/P (MAP) Pulse Ox O2 Delivery O2 Flow Rate FiO2 05/08/17 08:00 Room Air 05/08/17 07:16 36.4 76 16 88/53 95 05/08/17 06:16 36.6 83 14 93/58 98 05/08/17 05:45 36.5 73 16 90/51 98 05/08/17 05:25 36.4 76 16 88/57 95 05/08/17 05:20 36.4 83 16 100/59 94 05/08/17 05:15 36.4 78 18 92/55 95 05/08/17 05:10 Room Air 05/08/17 05:09 36.5 75 18 92/59 95 05/08/17 01:11 104/64 (77) 05/08/17 00:15 87/54 (65) 05/07/17 23:30 Room Air 05/07/17 23:14 36.7 93 24 94/53 (67) 95 Room Air 05/07/17 22:45 36.4 88 20 103/60 96 05/07/17 22:30 37.0 88 16 93/61 94 05/07/17 22:25 37.1 92 18 95/59 95 05/07/17 22:20 36.9 91 18 93/58 94 05/07/17 22:13 37.0 90 18 95/60 94 05/07/17 21:00 37.4 94 18 100/62 95 05/07/17 20:00 36.8 94 18 115/66 97 05/07/17 19:30 37.0 93 18 96/63 97 05/07/17 19:26 Room Air 05/07/17 19:15 91 18 93/59 96 05/07/17 19:00 90 18 94/61 98 05/07/17 18:40 37.1 82 18 107/66 98 05/07/17 16:15 36.8 88 18 98/61 97 Room Air 05/07/17 15:50 94 99/63 96 05/07/17 15:04 99 103/66 96 Room Air 05/07/17 15:00 36.7 99 20 103/66 96 05/07/17 14:30 101 34 109/65 97 05/07/17 14:01 102 33 103/68 96 05/07/17 14:00 37.7 103 26 103/68 96 05/07/17 13:46 106/65 05/07/17 13:36 105 28 92/60 95 05/07/17 13:30 37.4 115 20 92/60 95 05/07/17 13:16 104 35 106/60 95 05/07/17 13:15 37.7 106 22 106/60 95 05/07/17 13:01 96/64 05/07/17 13:00 38.3 104 30 96/64 95 0.0 05/07/17 13:00 38.3 106 25 99/61 95 Room Air 05/07/17 12:30 106 25 103/60 94 Room Air 05/07/17 11:40 98 Room Air 05/07/17 11:40 101 23 99/59 96 Room Air 05/07/17 11:38 101 05/07/17 10:52 36.8 110 22 96/59 98 Room Air Physical Exam General Appearance: no apparent distress, + cachetic Eyes: normal inspection, sclerae normal ENT: hearing grossly normal Neck: trachea midline Respiratory/Chest: no respiratory distress, no accessory muscle use, + decreased breath sounds (diminished throughout) Cardiovascular: regular rate, rhythm, no edema, no gallop, no murmur Abdomen: normal bowel sounds, non tender, soft, no organomegaly, no pulsatile mass Extremities: non-tender, normal inspection, no pedal edema, no calf tenderness Neurologic/Psychiatric: alert, normal mood/affect Skin: normal color, warm/dry, no rash Laboratory Results Last 24 Hours Test 05/07/17 11:25 05/07/17 13:50 05/07/17 14:10 12/20/17 18:45 White Blood Count 5.98 K/uL Red Blood Count 1.81 M/uL Hemoglobin 4.9 g/dL Hematocrit 16.3 % Mean Corpuscular Volume 90.1 fL Mean Corpuscular Hemoglobin 27.1 pg Mean Corpuscular Hemoglobin Concent 30.1 g/dl Platelet Count 224 K/uL Neutrophils % (Manual) 42.8 % Lymphocytes % (Manual) 17.9 % Monocytes % (Manual) 35.7 % Eosinophils % (Manual) 1.8 % Basophils % (Manual) 1.8 % Neutrophils # (Manual) 2.56 K/uL Total Absolute Neutrophils 2.56 K/uL Lymphocytes # (Manual) 1.07 K/uL Total Absolute Lymphocytes 1.07 K/uL Monocytes # (Manual) 2.13 K/uL Eosinophils # (Manual) 0.11 K/uL Basophils # (Manual) 0.11 K/uL Hyposegmented Neutrophils 1+ Hypogranular Neutrophils 1+ Toxic Granulation 1+ Prothrombin Time 12.9 SECONDS Prothromb Time International Ratio 1.2 Activated Partial Thromboplast Time 24.0 SECONDS Partial Thromboplastin Ratio 0.9 Sodium Level 129 mmol/L Potassium Level 4.0 mmol/L Chloride Level 95 mmol/L Carbon Dioxide Level 27 mmol/L Anion Gap 7.0 mmol/L Blood Urea Nitrogen 19 mg/dl Creatinine 0.66 mg/dl Est Creatinine Clear Calc Drug Dose 75.3 ml/min Estimated GFR () 119.3 Estimated GFR (Non- 102.9 BUN/Creatinine Ratio 28.8 Random Glucose 99 mg/dl Calcium Level 8.4 mg/dl Total Bilirubin 0.3 mg/dl Direct Bilirubin < 0.1 mg/dl Aspartate Amino Transf (AST/SGOT) 13 U/L Alanine Aminotransferase (ALT/SGPT) 9 U/L Alkaline Phosphatase 78 U/L Troponin I < 0.015 ng/ml Total Protein 9.6 gm/dl Albumin 2.1 gm/dl Lipase 66 U/L Lactic Acid Level 1.3 mmol/L Urine Color YELLOW YELLOW Urine Appearance CLEAR CLEAR Urine pH 5.0 5.0 Urine Specific [place] 1.019 > 1.045 Urine Protein NEG NEG Urine Glucose (UA) NEG NEG Urine Ketones NEG NEG Urine Occult Blood NEG NEG Urine Nitrite NEG NEG Urine Bilirubin NEG NEG Urine Urobilinogen NEG NEG Urine Leukocyte Esterase NEG NEG Test 05/08/17 02:03 05/08/17 09:39 White Blood Count 4.08 K/uL Red Blood Count 2.61 M/uL Hemoglobin 7.3 g/dL Hematocrit 22.4 % Mean Corpuscular Volume 85.8 fL Mean Corpuscular Hemoglobin 28.0 pg Mean Corpuscular Hemoglobin Concent 32.6 g/dl RDW Standard Deviation 52.8 fL RDW Coefficient of Variation 16.9 % Platelet Count 157 K/uL Mean Platelet Volume 12.2 fL Nucleated RBC Absolute Count (auto) 0.02 K/uL Nucleated Red Blood Cells % 0.5 % Sodium Level 131 mmol/L Potassium Level 3.5 mmol/L Chloride Level 99 mmol/L Carbon Dioxide Level 26 mmol/L Anion Gap 6.0 mmol/L Blood Urea Nitrogen 11 mg/dl Creatinine 0.54 mg/dl Est Creatinine Clear Calc Drug Dose 92.1 ml/min Estimated GFR () 129.5 Estimated GFR (Non- 111.7 BUN/Creatinine Ratio 19.7 Random Glucose 90 mg/dl Calcium Level 8.2 mg/dl Assessment and Plan Patient is a 62-year-old male with a history of recent admission for large cavitary necrotizing pneumonia versus malignancy in the right upper and middle lobes with hemoptysis and severe anemia, latent TB, PAD, [id number] smoking history and likely COPD, recent weight loss and cachexia, who presents to the ER after he had outpatient labs showing a hemoglobin of 5.4. He does admit to having crampy abdominal pain with diarrhea and black tarry stools the last 2 days prior to admission. He denies heartburn or upper abdominal pain. He denies chest pain or shortness of breath, he is not hypoxic, and he has not had any hemoptysis in 2-3 days. Hemoglobin upon discharge 9 days [employer] was 8.7. His hemoglobin in the ER was 4.9, he was mildly tachycardic, and he did have a fever to a max of 38.3. He had Hemoccult positive stool the last admission he was here, however it was thought that he was swallowing his hemoptysis at that time, and no urgent scope was indicated. Severe anemia,Melena, Abd pain-likely UGI bleed. Hgb up to 7.3 from 4.9 today after 3 units, remains relatively hypotensive but is asymptomatic -Transfused 3 total units PRBCs and will follow CBC again this AM, transfuse 1 more unit to get above 7.5 given hypotension -continue PPI drip -Nothing by mouth except for Have clear liquids and juices and sips and chips of ice only today -check C. diff, H. pylori stool ag -Appreciate GI consultation -for EGD today Large cavitary necrotizing Pseudomonas pneumonia vs malignancy in the right upper and middle lobes with hemoptysis/h/o latent TB/Fever-bronchoscopy completed last admission and all studies neg for malignancy thus far, + Pseudomonas and Madhuri albicans in sputum and BAL-treated with 2 weeks Cefepime already. No leukocytosis. AFB smears neg x 3 last admission. Has lost 37 lbs in last 2 months. Still suspect malignancy vs residual infection. -continue empiric abx with Zosyn and Vanco -follow all cultures -Appreciate Pulm consult -possible PET/CT as outpt -consult Oncology for further recommendations on if needs any further Oncologic workup given previous suspicions of MALT lymphoma despite negative FISH studies -repeat Chest CT today as per Pulm recommendation to reassess the lung lesions/ infiltrates Cachexia, Severe protein calorie malnutrition-as above for etiology -consult Dietary already in progress PAD, [id number] smoking history/Current smoker/Suspected COPD- Severe PAD seen on CT abd/pel, asymptomatic at this time, not walking much due to weakness , weight loss, illness -no antiplatelets for now due to bleeding ongoing -would start high intensity statin when can tolerate po - smoking cessation education Hyponatremia-Na+ 129 on admit, now improved to 131, likely secondary to dehydration vs pulmonary process causing SIADH -follow PRP Prophylaxis-SCDs only given ongoing bleeding, PPI drip for GI prophylaxis Disposition-will need rehab, consult PT/OT when more stable DO NOT RESUSCITATE/DO NOT INTUBATE
--- NOTE | 2017-05-08 11:00 | DIAGNOSTIC IMAGING REPORT ---
CT OF THE CHEST WITH IV CONTRAST CLINICAL HISTORY: RUL and RML cavitary lesion. Follow up after antibiotics COMPARISON STUDY: 04/21/2017 TECHNIQUE: Following the IV administration of 93 mL of Optiray-320, CT of the thorax was performed from the thoracic inlet to the lung bases. Images are reviewed in the axial, sagittal, and coronal planes. IV contrast was administered without complication. A dose lowering technique was utilized adhering to the principles of ALARA. CT DOSE: 203.71 mGy.cm FINDINGS: Thyroid: Imaged portions of the thyroid gland are normal in appearance. Thoracic aorta: The thoracic aorta is normal in course and caliber, noting standard 3-vessel arch anatomy. No aneurysm or dissection is seen. Pulmonary vasculature: The pulmonary trunk is normal in caliber. There are no central filling defects identified to suggest pulmonary embolus. Note that this examination was not protocoled for the evaluation of pulmonary emboli. HEART: The heart is normal in size and configuration, without pericardial effusion. Lungs and pleural spaces: There is extensive bullous emphysema. There is a stable pleural-based 14 mm nodule within the left lower lobe. There is also a stable 11 mm pleural-based opacity within the left lower lobe. There is right middle lobe and right upper lobe volume loss. There are areas of dense masslike consolidation with irregular margins involving the right upper lobe and right middle lobe, similar to the preceding study. There is encasement of the right upper lobe and right middle lobe bronchi. There is encasement of the right upper lobe pulmonary artery. There are areas of cavitation within the right upper lobe mass/consolidation. There is been no significant interval improvement when compared the preceding study. There is no evidence for rib destruction. Mediastinum: There is a persistent mildly enlarged subcarinal lymph node measuring 12 mm in short axis. There is a pretracheal lymph node at the upper limits of normal in size. [place]: The area of masslike consolidation within the right middle and upper lobes extends to the right hilum. Axilla: There are borderline enlarged axillary lymph nodes. Upper abdomen: Partially visualized upper abdominal viscera is within normal limits. Skeletal structures: There are no lytic or blastic osseous lesions. IMPRESSION: 1. Stable right upper lobe and right middle lobe volume loss. There are areas of irregular masslike consolidation with cavitation involving the right middle lobe and right upper lobe. There is associated mild mediastinal lymphadenopathy. Diagnostic considerations remain a cavitary pneumonia, versus bronchogenic neoplasm 2. Persistent small pleural-based opacities within the left lower lobe not significantly changed from the preceding study 3. Stable mild subcarinal lymphadenopathy 4. Slight enlargement in borderline enlarged axillary lymph nodes 5. Severe emphysema Electronically signed by: Jermain Hammond M.D. 05/08/2017 10:58 AM Dictated Date/Time: 05/08/2017 10:44 AM
[2017-05-08] MEDS: D5NSS + 20MEQ KCL 1,000 ML IV SCH (12:14)
--- NOTE | 2017-05-08 12:53 | History & Physical Bridge Note ---
H&P Re-Evaluation Bridge Note: I have examined the patient, reviewed the History & Physical and in the interval since the performance of the History & Physical I have noted the following changes of clinical significance: No changes noted
[2017-05-08] MEDS ORDERED: MIDAZOLAM HCL 1 MG/ML 2ML VIAL ONE (13:36)
[2017-05-08] MEDS ORDERED: LIDOCAINE HCL 2% 2 ML VIAL (20MG/ML) ONE (13:37)
[2017-05-08] MEDS ORDERED: ONDANSETRON INJ 2 MG/ML 2 ML VIAL ONE (13:37)
[2017-05-08] MEDS ORDERED: PROPOFOL IV EMULSION 10 MG/ML 20 ML VIAL IV ONE (13:37)
[2017-05-08] MEDS ORDERED: PHENYLEPHRINE 100MCG/ML 5ML SYR ONE (13:57)
--- NOTE | 2017-05-08 13:59 | GI REPORT ---
Procedure Date: 05/08/2017 1:29 PM Procedure: Upper GI endoscopy Indications: Epigastric abdominal pain, Iron deficiency anemia secondary to chronic blood loss, Melena Medicines: Propofol per Anesthesia Complications: No immediate complications. Estimated blood loss: Minimal. Estimated Blood Loss: Estimated blood loss was minimal. Procedure: Pre-Anesthesia Assessment: - Prior to the procedure, a History and Physical was performed, and patient medications and allergies were reviewed. The patient's tolerance of previous anesthesia was also reviewed. The risks and benefits of the procedure and the sedation options and risks were discussed with the patient. All questions were answered, and informed consent was obtained. Prior Anticoagulants: The patient has taken no previous anticoagulant or antiplatelet agents. ASA Grade Assessment: IV - A patient with severe systemic disease that is a constant threat to life. After reviewing the risks and benefits, the patient was deemed in satisfactory condition to undergo the procedure. After obtaining informed consent, the endoscope was passed under direct vision. Throughout the procedure, the patient's blood pressure, pulse, and oxygen saturations were monitored continuously. The Scope was introduced through the mouth, and advanced to the third part of duodenum. The upper GI endoscopy was accomplished without difficulty. The patient tolerated the procedure well. Findings: The upper third of the esophagus and middle third of the esophagus were normal. The esophagus and gastroesophageal junction were examined with white light. There were esophageal mucosal changes suggestive of short-segment Brown's esophagus. These changes involved the mucosa at the upper extent of the gastric folds (43 cm from the incisors) extending to the Z-line (42 cm from the incisors). One tongue of salmon-colored mucosa was present from 42 to 43 cm. The maximum longitudinal extent of these esophageal mucosal changes was 0.7 cm in length. Mucosa was biopsied with a cold forceps for histology. Estimated blood loss was minimal. Verification of patient identification for the specimen was done by the physician and copy technician using the patient's name and medical record number. The entire examined stomach was normal. The examined duodenum was normal. Biopsies for histology were taken with a cold forceps for evaluation of celiac disease. Estimated blood loss was minimal. Verification of patient identification for the specimen was done by the physician and copy technician using the patient's name and medical record number. Retained gastric contents are not identified on this exam. The cardia and gastric fundus were normal on retroflexion. Impression: - Normal upper third of esophagus and middle third of esophagus. 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 Biopsied. - Normal stomach. - Normal examined duodenum. Biopsied. Recommendation: - Discharge patient to home (ambulatory). - Resume regular diet. - Perform a colonoscopy tomorrow. - Await pathology results. MD Portillo Nicholson MD 05/08/2017 1:58:56 PM This report has been signed electronically. Note Initiated On: 05/08/2017 1:29 PM I attest to the content of the Intraoperative Record and orders documented therein, exceptions below
[2017-05-08] MEDS ORDERED: LAVAGE SOLUTION 4000ML PO PRN (14:30)
--- NOTE | 2017-05-08 14:43 | Anesthesiology Progress Note ---
Anesthesia Post Op Note Date & Time May 08, 2017 at 14:43 Vital Signs Pain Intensity: 0 Vital Signs Past 12 Hours Date Time Temp Pulse Resp B/P (MAP) Pulse Ox O2 Delivery O2 Flow Rate FiO2 05/08/17 14:22 95/61 (72) 05/08/17 14:16 76 20 89/55 (66) 98 Room Air 05/08/17 14:01 85 20 98/61 (73) 99 Room Air 05/08/17 12:47 36.4 79 18 110/67 (81) 99 Room Air 05/08/17 12:00 Room Air 05/08/17 11:54 36.8 81 24 97/53 (68) 99 Room Air 05/08/17 08:00 Room Air 05/08/17 07:16 36.4 76 16 88/53 95 05/08/17 06:16 36.6 83 14 93/58 98 05/08/17 05:45 36.5 73 16 90/51 98 05/08/17 05:25 36.4 76 16 88/57 95 05/08/17 05:20 36.4 83 16 100/59 94 05/08/17 05:15 36.4 78 18 92/55 95 05/08/17 05:10 Room Air 05/08/17 05:09 36.5 75 18 92/59 95 Notes Mental Status: alert / awake / arousable, participated in evaluation Pt Amnestic to Procedure: Yes Nausea / Vomiting: adequately controlled Pain: adequately controlled Airway Patency, RR, SpO2: stable & adequate BP & HR: stable & adequate Hydration State: stable & adequate Anesthetic Complications: no major complications apparent
--- NOTE | 2017-05-08 14:49 | Medical Student: [facility] ---
Med Student Progress Note Date of Service May 08, 2017. 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 The pt was in the hospital in early April when a cavitary lung lesion was found and had received 5 transfusions. He recently finished a 14 day course of cefepime. Pt is feeling better today compared to when he first came in. He is very fatigued and hungry. He has not had any food for a while due to a planned EGD. He is not reporting any hemoptysis. Review of Systems Constitutional: + fever (Tmax of 38.8 at 1300 on 05/07), No chills Eyes: No worsening of vision ENT: No hearing loss Respiratory: + cough Cardiac: No chest pain, No orthopnea Abdomen: No pain, No nausea Musculoskeletal: No joint pain Male : No dysuria Neurologic: No memory loss Heme: No abnormal bleeding/bruising Endo: + fatigue Skin: No rash, No itch Objective Vital Signs Date Time Temp Pulse Resp B/P (MAP) Pulse Ox O2 Delivery O2 Flow Rate FiO2 05/08/17 08:00 Room Air 05/08/17 07:16 36.4 76 16 88/53 95 05/08/17 06:16 36.6 83 14 93/58 98 05/08/17 05:45 36.5 73 16 90/51 98 05/08/17 05:25 36.4 76 16 88/57 95 05/08/17 05:20 36.4 83 16 100/59 94 05/08/17 05:15 36.4 78 18 92/55 95 05/08/17 05:10 Room Air 05/08/17 05:09 36.5 75 18 92/59 95 05/08/17 01:11 104/64 (77) 05/08/17 00:15 87/54 (65) 05/07/17 23:30 Room Air 05/07/17 23:14 36.7 93 24 94/53 (67) 95 Room Air 05/07/17 22:45 36.4 88 20 103/60 96 05/07/17 22:30 37.0 88 16 93/61 94 05/07/17 22:25 37.1 92 18 95/59 95 05/07/17 22:20 36.9 91 18 93/58 94 05/07/17 22:13 37.0 90 18 95/60 94 05/07/17 21:00 37.4 94 18 100/62 95 05/07/17 20:00 36.8 94 18 115/66 97 05/07/17 19:30 37.0 93 18 96/63 97 05/07/17 19:26 Room Air 05/07/17 19:15 91 18 93/59 96 05/07/17 19:00 90 18 94/61 98 05/07/17 18:40 37.1 82 18 107/66 98 05/07/17 16:15 36.8 88 18 98/61 97 Room Air 05/07/17 15:50 94 99/63 96 05/07/17 15:04 99 103/66 96 Room Air 05/07/17 15:00 36.7 99 20 103/66 96 05/07/17 14:30 101 34 109/65 97 05/07/17 14:01 102 33 103/68 96 05/07/17 14:00 37.7 103 26 103/68 96 05/07/17 13:46 106/65 05/07/17 13:36 105 28 92/60 95 05/07/17 13:30 37.4 115 20 92/60 95 05/07/17 13:16 104 35 106/60 95 05/07/17 13:15 37.7 106 22 106/60 95 05/07/17 13:01 96/64 05/07/17 13:00 38.3 104 30 96/64 95 0.0 05/07/17 13:00 38.3 106 25 99/61 95 Room Air 05/07/17 12:30 106 25 103/60 94 Room Air 05/07/17 11:40 98 Room Air 05/07/17 11:40 101 23 99/59 96 Room Air 05/07/17 11:38 101 Physical Exam General Appearance: no apparent distress, + thin Eyes: bilateral eyes normal inspection, bilateral eyes PERRL, bilateral eyes EOMI ENT: normal ENT inspection, hearing grossly normal Neck: supple, no adenopathy, thyroid normal, no JVD Respiratory/Chest: chest non-tender, lungs clear, no respiratory distress, + decreased breath sounds Cardiovascular: regular rate, rhythm, no edema, no gallop, no JVD, no murmur Abdomen: normal bowel sounds, non tender, soft Extremities: normal range of motion, non-tender, normal inspection, no pedal edema, no calf tenderness Neurologic/Psychiatric: toilet attendant II-XII nml as tested, no motor/sensory deficits, alert, normal mood/affect, oriented x 3 Skin: normal color, warm/dry Laboratory Results Last 24 Hours Test 05/07/17 11:25 05/07/17 13:50 05/07/17 14:10 05/07/17 18:45 White Blood Count 5.98 K/uL Red Blood Count 1.81 M/uL Hemoglobin 4.9 g/dL Hematocrit 16.3 % Mean Corpuscular Volume 90.1 fL Mean Corpuscular Hemoglobin 27.1 pg Mean Corpuscular Hemoglobin Concent 30.1 g/dl Platelet Count 224 K/uL Neutrophils % (Manual) 42.8 % Lymphocytes % (Manual) 17.9 % Monocytes % (Manual) 35.7 % Eosinophils % (Manual) 1.8 % Basophils % (Manual) 1.8 % Neutrophils # (Manual) 2.56 K/uL Total Absolute Neutrophils 2.56 K/uL Lymphocytes # (Manual) 1.07 K/uL Total Absolute Lymphocytes 1.07 K/uL Monocytes # (Manual) 2.13 K/uL Eosinophils # (Manual) 0.11 K/uL Basophils # (Manual) 0.11 K/uL Hyposegmented Neutrophils 1+ Hypogranular Neutrophils 1+ Toxic Granulation 1+ Prothrombin Time 12.9 SECONDS Prothromb Time International Ratio 1.2 Activated Partial Thromboplast Time 24.0 SECONDS Partial Thromboplastin Ratio 0.9 Sodium Level 129 mmol/L Potassium Level 4.0 mmol/L Chloride Level 95 mmol/L Carbon Dioxide Level 27 mmol/L Anion Gap 7.0 mmol/L Blood Urea Nitrogen 19 mg/dl Creatinine 0.66 mg/dl Est Creatinine Clear Calc Drug Dose 75.3 ml/min Estimated GFR () 119.3 Estimated GFR (Non- 102.9 BUN/Creatinine Ratio 28.8 Random Glucose 99 mg/dl Calcium Level 8.4 mg/dl Total Bilirubin 0.3 mg/dl Direct Bilirubin < 0.1 mg/dl Aspartate Amino Transf (AST/SGOT) 13 U/L Alanine Aminotransferase (ALT/SGPT) 9 U/L Alkaline Phosphatase 78 U/L Troponin I < 0.015 ng/ml Total Protein 9.6 gm/dl Albumin 2.1 gm/dl Lipase 66 U/L Lactic Acid Level 1.3 mmol/L Urine Color YELLOW YELLOW Urine Appearance CLEAR CLEAR Urine pH 5.0 5.0 Urine Specific [place] 1.019 > 1.045 Urine Protein NEG NEG Urine Glucose (UA) NEG NEG Urine Ketones NEG NEG Urine Occult Blood NEG NEG Urine Nitrite NEG NEG Urine Bilirubin NEG NEG Urine Urobilinogen NEG NEG Urine Leukocyte Esterase NEG NEG Test 05/08/17 02:03 05/08/17 09:39 White Blood Count 4.08 K/uL 3.62 K/uL Red Blood Count 2.61 M/uL 3.15 M/uL Hemoglobin 7.3 g/dL 8.8 g/dL Hematocrit 22.4 % 27.4 % Mean Corpuscular Volume 85.8 fL 87.0 fL Mean Corpuscular Hemoglobin 28.0 pg 27.9 pg Mean Corpuscular Hemoglobin Concent 32.6 g/dl 32.1 g/dl RDW Standard Deviation 52.8 fL 54.1 fL RDW Coefficient of Variation 16.9 % 17.1 % Platelet Count 157 K/uL 151 K/uL Mean Platelet Volume 12.2 fL 12.7 fL Nucleated RBC Absolute Count (auto) 0.02 K/uL Nucleated Red Blood Cells % 0.5 % Sodium Level 131 mmol/L Potassium Level 3.5 mmol/L Chloride Level 99 mmol/L Carbon Dioxide Level 26 mmol/L Anion Gap 6.0 mmol/L Blood Urea Nitrogen 11 mg/dl Creatinine 0.54 mg/dl Est Creatinine Clear Calc Drug Dose 92.1 ml/min Estimated GFR () 129.5 Estimated GFR (Non- 111.7 BUN/Creatinine Ratio 19.7 Random Glucose 90 mg/dl Calcium Level 8.2 mg/dl Neutrophils % (Manual) 29.8 % Lymphocytes % (Manual) 26.3 % Monocytes % (Manual) 42.1 % Eosinophils % (Manual) 0.9 % Myelocytes % 0.9 % Neutrophils # (Manual) 1.08 K/uL Total Absolute Neutrophils 1.08 K/uL Lymphocytes # (Manual) 0.95 K/uL Total Absolute Lymphocytes 0.95 K/uL Monocytes # (Manual) 1.52 K/uL Eosinophils # (Manual) 0.03 K/uL Myelocytes # 0.03 K/uL Hypogranular Neutrophils 2+ Red Blood Cell Morphology Unremarkable Medications Current Inpatient Medications Medications (Trade) Dose Ordered Sig/Breanne Route Start Time Stop Time Status Last Admin Dose Admin Ioversol (Optiray 320) 100 ml UD PRN IV 05/07/17 13:45 05/11/17 13:44 Acetaminophen (Tylenol Tab) 650 mg Q4H PRN PO 05/07/17 14:15 06/06/17 14:14 05/07/17 22:16 650 MG Ondansetron HCl (Zofran Inj) 4 mg Q6H PRN IV 05/07/17 14:15 06/06/17 14:14 Albuterol/ Ipratropium (Duoneb) 3 ml Q4R PRN INH 05/07/17 14:15 06/06/17 14:14 Piperacillin Sod/ Tazobactam Sod 3.375 gm/Dextrose 115 ml @ 28.75 mls/ hr Q8H IV 05/07/17 20:00 05/14/17 19:59 05/08/17 05:10 28.75 MLS/HR Vancomycin HCl 750 mg/Sodium Chloride 265 ml @ 125 mls/hr Q8H IV 05/08/17 02:00 05/15/17 01:59 05/08/17 10:21 125 MLS/HR Pantoprazole Sodium 40 mg/ Dextrose 100 ml @ 20 mls/hr Q5H IV 05/07/17 18:00 06/06/17 17:59 05/08/17 08:11 20 MLS/HR Piperacillin Sod/ Tazobactam Sod (Consult) 1 ea UD PRN N/A 05/07/17 17:00 06/06/17 16:59 Vancomycin HCl (Consult) 1 ea UD PRN N/A 05/07/17 17:15 06/06/17 17:14 Senna (Senokot Tab) 8.6 mg DAILY PRN PO 05/07/17 22:00 06/06/17 21:59 05/07/17 22:49 8.6 MG Potassium Chloride/Dextrose/ Sod Cl 1,000 ml @ 75 mls/hr [id number] IV 05/08/17 10:00 06/07/17 09:59 UNV Ioversol (Optiray 320) 125 ml UD PRN IV 05/08/17 10:15 05/12/17 10:14 Assessment and Plan Assessment and Plan: Pt is a 62 yo M who presents with severe anemia likely secondary to GI bleed and cavitary lung lesion which continues to be worked up. Anemia/GI bleed - Melena suggests possible upper GI bleed. - GI consulted and EGD performed which showed short-segment Marito's esophagus with normal stomach and duodenum (biopsied). Consider colonoscopy. - 4 units PRBC so far during this hospitalization. - Continue PPI drip - Hgb 8.8 Lung cavitary lesion - Continue with pulmonary w/u - Consult thoracic surgery for possible biopsy/lobectomy. - PRN Duoneb - AFB smears negative x 3 from previous hospitalization - Continue vancomycin and Zosyn Hyponatremia - Likely from dehydration - Improving with transfusion and close to baseline from last visit. This morning 131. Peripheral Arterial disease - Found on abdominal/pelvic CT - Proximal left superficial femoral artery occlusion and extensive atherosclerosis of the right common femoral artery - Consider aspirin and statin - Discuss smoking cessation DVT prophylaxis - SCDs Code Status - DNR / Do Not Intubate Disposition - Likely rehabilitation
[2017-05-08] MEDS ORDERED: LAVAGE SOLUTION 4000ML PO SCH (15:00)
--- NOTE | 2017-05-08 17:08 | Oncology Consultation ---
Oncology/Heme Consultation Date of Consultation: May 08, 2017. Attending Physician: Ambika Beverly MD Reason for Consultation: Lung mass Anemia History of Present Illness Mr. Guajardo is a 62 year old gentleman who has a limited past medical history due to a confessed aversion to seeing physicians. He has admitted to [facility] earlier this month after initially presenting to [facility] with weakness, persistent cough with hemoptysis, and a 30 lb weight loss over several months. He was found to have a hemoglobin of 3.[address] revealed a consolidation in his RUL that could represent a mass or infection. He was transfused multiple units of blood and his hemoglobin stabilized. He had a history of prior TB exposure during an incarceration in the remote past, so 3 sputum samples were sent for AFB culture, which were eventually negative. CT here revealed severe upper lobe emphysematous disease with multifocal consolidation of the right upper and middle lobes without displacement of the adjacent vasculature or invasion into the adjacent structures. There was a central air-fluid level within the right apical consolidation. This was thought to represent either a multifocal pneumonia versus a cancer. CT AP revealed a 2.5 x 2.2 cm rim-enhancing fluid collection of the medial left buttock, favoring an abscess, but otherwise no primary tumor. On 04/23, he underwent bronchoscopy with BAL and transbronchial biopsies of the RUL. One of the two BAL specimens revealed a population of cells that appeared to be epithelial and were distinct from the benign bronchial cells that are present and show mild atypia, possibly representing a low-grade adenocarcinoma. The other BAL specimen was benign. The trans-bronchial biopsy revealed an acute and chronic inflammatory process with a relatively high proportion of plasma cells. The differential diagnosis includes a reactive inflammatory process and a lymphoplasmacytic disorder such as a MALT-type lymphoma. A carcinoma is not identified. Subsequent studies on this specimen, including BCR gene rearrangement and FISH for t(11;18), were negative, arguing against a lymphoproliferative disorder. He was treated empirically for a pneumonia with a 14 day course of cefepime. He returned to the ER on 05/06 with 2 days of frankly melanotic diarrheal bowel movements and severe fatigue. His hemoglobin was 4.9 (it was 8.7 on discharge ). He has received 4 units of PRBCs since admission and his hemoglobin is up to 8.8 today. He denies any hemoptysis since his discharge. CT of his abdomen and pelvis revealed improvement in the previously noted abscess and severe atherosclerotic disease, but no other explanation for his bleeding. He underwent EGD earlier today which revealed short-segment Brown's esophagus but no other evidence of acute bleeding. He is scheduled for a colonoscopy tomorrow. He denies any B-symptoms, such as fevers or night sweats. Past Medical/Surgical History Medical Problems: (1) GI bleed Status: Acute (2) Neutropenic fever Status: Acute (3) Symptomatic anemia Status: Acute Social History Smoking Status: Current Every Day Smoker Smokeless Tobacco Use: No Alcohol Use: none Drug Use: none Marital Status: single Allergies Coded Allergies: No Known Allergies (Unverified , 04/20/17) Home Medications No Active Prescriptions or Reported Meds Current Inpatient Medications Current Inpatient Medications Medications (Trade) Dose Ordered Sig/Breanne Route Start Time Stop Time Status Last Admin Dose Admin Ioversol (Optiray 320) 100 ml UD PRN IV 05/07/17 13:45 05/11/17 13:44 Acetaminophen (Tylenol Tab) 650 mg Q4H PRN PO 05/07/17 14:15 06/06/17 14:14 05/07/17 22:16 650 MG Ondansetron HCl (Zofran Inj) 4 mg Q6H PRN IV 05/07/17 14:15 06/06/17 14:14 Albuterol/ Ipratropium (Duoneb) 3 ml Q4R PRN INH 05/07/17 14:15 06/06/17 14:14 Piperacillin Sod/ Tazobactam Sod 3.375 gm/Dextrose 115 ml @ 28.75 mls/ hr Q8H IV 05/07/17 20:00 05/14/17 19:59 05/08/17 12:14 28.75 MLS/HR Vancomycin HCl 750 mg/Sodium Chloride 265 ml @ 125 mls/hr Q8H IV 05/08/17 02:00 05/15/17 01:59 05/08/17 10:21 125 MLS/HR Piperacillin Sod/ Tazobactam Sod (Consult) 1 ea UD PRN N/A 05/07/17 17:00 06/06/17 16:59 Vancomycin HCl (Consult) 1 ea UD PRN N/A 05/07/17 17:15 06/06/17 17:14 Senna (Senokot Tab) 8.6 mg DAILY PRN PO 05/07/17 22:00 06/06/17 21:59 05/07/17 22:49 8.6 MG Potassium Chloride/Dextrose/ Sod Cl 1,000 ml @ 75 mls/hr [id number] IV 05/08/17 12:00 06/07/17 11:59 05/08/17 12:14 75 MLS/HR Ioversol (Optiray 320) 125 ml UD PRN IV 05/08/17 10:15 05/12/17 10:14 Polyethylene Glycol/ Electrolytes (Golytely Soln) 16 dose UD PO 05/08/17 15:00 05/08/17 22:00 Polyethylene Glycol/ Electrolytes (Golytely Soln) 8 dose UD PRN PO 05/08/17 14:30 05/08/17 23:00 Pantoprazole Sodium (Protonix Tab) 40 mg QAM PO 05/09/17 09:00 05/12/17 08:59 Review of Systems Constitutional: + weight loss, + weakness, + fatigue, No fever, No chills Respiratory: + cough, No hemoptysis Cardiovascular: No chest pain Abdomen: + pain, + GI bleeding Musculoskeletal: No joint pain, No muscle pain Hematologic / Lymphatic: + abnormal bleeding/bruising, No swollen lymph nodes, No night sweats Physical Exam Date Time Temp Pulse Resp B/P (MAP) Pulse Ox O2 Delivery O2 Flow Rate FiO2 05/08/17 15:56 36.5 73 25 94/57 (69) 96 Room Air 05/08/17 14:44 36.4 74 18 97/59 (72) 96 Room Air 05/08/17 14:22 95/61 (72) 05/08/17 14:16 76 20 89/55 (66) 98 Room Air 05/08/17 14:01 85 20 98/61 (73) 99 Room Air 05/08/17 12:47 36.4 79 18 110/67 (81) 99 Room Air 05/08/17 12:00 Room Air 05/08/17 11:54 36.8 81 24 97/53 (68) 99 Room Air 05/08/17 08:00 Room Air 05/08/17 07:16 36.4 76 16 88/53 95 12/21/17 06:16 36.6 83 14 93/58 98 05/08/17 05:45 36.5 73 16 90/51 98 05/08/17 05:25 36.4 76 16 88/57 95 05/08/17 05:20 36.4 83 16 100/59 94 05/08/17 05:15 36.4 78 18 92/55 95 05/08/17 05:10 Room Air 05/08/17 05:09 36.5 75 18 92/59 95 05/08/17 01:11 104/64 (77) 05/08/17 00:15 87/54 (65) 05/07/17 23:30 Room Air 05/07/17 23:14 36.7 93 24 94/53 (67) 95 Room Air 05/07/17 22:45 36.4 88 20 103/60 96 05/07/17 22:30 37.0 88 16 93/61 94 05/07/17 22:25 37.1 92 18 95/59 95 05/07/17 22:20 36.9 91 18 93/58 94 05/07/17 22:13 37.0 90 18 95/60 94 05/07/17 21:00 37.4 94 18 100/62 95 05/07/17 20:00 36.8 94 18 115/66 97 05/07/17 19:30 37.0 93 18 96/63 97 05/07/17 19:26 Room Air 05/07/17 19:15 91 18 93/59 96 05/07/17 19:00 90 18 94/61 98 05/07/17 18:40 37.1 82 18 107/66 98 General Appearance: no apparent distress, + cachetic, + pertinent finding ( chronically ill-appearing) Eyes: sclerae normal (anicteric) Respiratory/Chest: lungs clear Cardiovascular: regular rate, rhythm Abdomen/GI: non tender, soft Extremities/Musculoskelatal: no pedal edema Neurologic/Psych: alert, oriented x 3 Skin: no rash Lymphatic: no adenopathy Laboratory Results Last 24 Hours Test 05/07/17 18:45 05/08/17 02:03 05/08/17 09:39 Urine Color YELLOW Urine Appearance CLEAR Urine pH 5.0 Urine Specific [place] > 1.045 Urine Protein NEG Urine Glucose (UA) NEG Urine Ketones NEG Urine Occult Blood NEG Urine Nitrite NEG Urine Bilirubin NEG Urine Urobilinogen NEG Urine Leukocyte Esterase NEG White Blood Count 4.08 K/uL 3.62 K/uL Red Blood Count 2.61 M/uL 3.15 M/uL Hemoglobin 7.3 g/dL 8.8 g/dL Hematocrit 22.4 % 27.4 % Mean Corpuscular Volume 85.8 fL 87.0 fL Mean Corpuscular Hemoglobin 28.0 pg 27.9 pg Mean Corpuscular Hemoglobin Concent 32.6 g/dl 32.1 g/dl RDW Standard Deviation 52.8 fL 54.1 fL RDW Coefficient of Variation 16.9 % 17.1 % Platelet Count 157 K/uL 151 K/uL Mean Platelet Volume 12.2 fL 12.7 fL Nucleated RBC Absolute Count (auto) 0.02 K/uL Nucleated Red Blood Cells % 0.5 % Sodium Level 131 mmol/L Potassium Level 3.5 mmol/L Chloride Level 99 mmol/L Carbon Dioxide Level 26 mmol/L Anion Gap 6.0 mmol/L Blood Urea Nitrogen 11 mg/dl Creatinine 0.54 mg/dl Est Creatinine Clear Calc Drug Dose 92.1 ml/min Estimated GFR () 129.5 Estimated GFR (Non- 111.7 BUN/Creatinine Ratio 19.7 Random Glucose 90 mg/dl Calcium Level 8.2 mg/dl Neutrophils % (Manual) 29.8 % Lymphocytes % (Manual) 26.3 % Monocytes % (Manual) 42.1 % Eosinophils % (Manual) 0.9 % Myelocytes % 0.9 % Neutrophils # (Manual) 1.08 K/uL Total Absolute Neutrophils 1.08 K/uL Lymphocytes # (Manual) 0.95 K/uL Total Absolute Lymphocytes 0.95 K/uL Monocytes # (Manual) 1.52 K/uL Eosinophils # (Manual) 0.03 K/uL Myelocytes # 0.03 K/uL Hypogranular Neutrophils 2+ Blood Smear Review Red Blood Cell Morphology Unremarkable Assessment & Plan Mr. Guajardo is a 62 year old chronic heavy smoker who avoids physicians and so has a limited past medical history. He was admitted here earlier this month after several months of weight loss, fatigue, and hemoptysis. He was found to have severe anemia without a clear explanation, aside from the hemoptysis. Imaging revealed what appears to be either a large, necrotic lung mass or a cavitary pneumonia in is right upper lobe. A bronchoscopy with BAL and transbronchial biopsies during his last stay did not clarify this much, as the BAL had some mildly atypical cells possibly consistent with a low-grade adenocarcinoma and the biopsy revealed acute and chronic inflammation with increased, but not clearly neoplastic, plasma cells. Subsequent correlative studies, like BCR gene rearrangement and FISH for t(11;18), which is seen in MALT lymphomas, were negative. He also does not have a paraprotein by SPEP. If he has a neoplasm, I would favor it being a primary lung cancer. However, this lesion may also represent a chronic, necrotizing pneumonia. The consolidation did not significantly improve with antibiotics, though notably the hemoptysis did. Still, more definitive tissue diagnosis is likely warranted. I discussed his case with pulmonology and cardiothoracic surgery. We all felt that the best approach is likely a RUL lobectomy, once he is stabilized, as this will be both diagnostic and curative and would likely be of benefit even if the etiology is non-neoplastic. However, this workup will need to wait until his GI bleed is addressed. With regard to his anemia, his presentation is strongly suggestive of a GI bleed. His EGD was unrevealing and he is scheduled for a colonoscopy tomorrow, though the presence of melena strongly argues for an upper source. He may have had some sort of small bowel bleed. If a source cannot be identified and he continues to bleed this way, he may require transfer to a tertiary care center for enteroscopy or other more invasive management. His hematinics were evaluated on his last admission and were largely normal, though his TIBC was a bit low, arguing for a component of anemia of chronic illness. He has normal LFTs, arguing against brisk hemolysis as a cause.
--- NOTE | 2017-05-08 18:45 | SURGICAL CONSULTATION ---
DATE OF CONSULTATION: 05/08/2017 REASON FOR CONSULTATION: Right upper lobe and right middle lobe mass. HISTORY OF PRESENT ILLNESS: This is a 62-year-old male who has a long history of cigarette smoking and actually has a history of tuberculosis, partially treated in the past who has lost over 25% of his body weight in the last few months. He was found to have a hemoglobin of 3.[address] scan was performed on his last admission about a month ago and it was felt that he has had hemoptysis. He was also found to have pseudomonas growing and a large cavitary lesion in his right upper lobe and also has retraction with a mass there. He grew out Pseudomonas and was treated for this. There is a question of a lymphoproliferative disorder last admission; however, this is probably not the case on subsequent testing. At any rate, he came back in with melanotic stools with hemoglobin of 4.9, which had dropped from 8.7 in the last 10 days. He is back up to 8.8 after 4 units of packed red blood cells. He now has undergone an upper endoscopy which revealed some probable Brown esophagus, but there was no evidence of an acute bleed. He is going to do a colonoscopy tomorrow. He states he has been eating, but he is very weak. PAST MEDICAL HISTORY: 1. Gastrointestinal bleeding. 2. Right upper lobe, right middle lobe mass/cavitary lesion. 3. Marked bullous emphysema in his upper lobes. 4. Long history of cigarette smoking. 5. Neutropenic fever. 6. History of tuberculosis, at least partially treated. PAST SURGICAL HISTORY: 1. Bronchoscopy. 2. Upper endoscopy. MEDICATIONS: Cefepime at home. ALLERGIES: No known drug allergies. SOCIAL HISTORY: The patient has been incarcerated in the past. His daughter is fairly supportive. He did have a long-term partner who recently . He smokes every day. Not currently employed. He was staying at [facility]. FAMILY MEDICAL HISTORY: The patient's mother in her 70s from an apparent COPD/emphysema. She was on oxygen for many years. Does not know his father. He has 3 children and multiple grandchildren who are healthy except for granddaughter is autistic. He has 2 sisters that are alive. REVIEW OF SYSTEMS: The patient's weight has not improved in the last 2 weeks. He states he has been eating well. His cough has gotten much better and he states he is no longer having hemoptysis. He denies any fevers or sweats. He has had no skin breakdown. His buttock area on his last admission has improved. He denies any chest pain or palpitations. He does have some abdominal pain with melanotic stools. He denies any joint pain. He has had no peripheral edema. He denies any adenopathy or skin breakdown. He has had no visual or auditory symptoms. PHYSICAL EXAMINATION: GENERAL: This is an emaciated, 99-pound male who stands 5 feet 6 inches tall. His BMI is 16. HEENT: He has temporal wasting. Extraocular movements are intact. Sclerae are pale but anicteric. He has no nasolabial flattening. He is edentulous. Oral mucosa is moist. NECK: Supple. I do not feel supraclavicular, cervical or axillary adenopathy. LUNGS: Actually are clear. HEART: He has a regular rate and rhythm of his heart, but no significant murmur. ABDOMEN: Soft. He has some mild tenderness on deep palpation in the lower quadrants. He has good bowel sounds. EXTREMITIES: He has no joint effusions. He has no peripheral edema. NEUROLOGIC: He is awake, alert and oriented with no skin breakdown and follows commands and moves all extremities. He has no cranial nerve deficits. ASSESSMENT AND PLAN: Upper gastrointestinal bleed. The patient with cavitary lesion, which with probable neoplastic lesion in his right upper lobe and right middle lobe. I clinically reviewed his skin. His right main pulmonary artery could be intimately involved in this process. I believe he may be resectable if he has no other metastatic disease, but I do believe we are dealing with a malignancy, based on its CT appearance. I believe we could offer this patient a navigational bronchoscopy and would be able to get a diagnosis. I would like to let him settle down a bit before we do this. Should he have a malignancy, will have to determine whether he is an operative candidate and that is very much up in the air at this point.
[2017-05-08] MEDS ORDERED: NURSING VERBAL MED ORDER ONE (23:45)
[2017-05-09] VITALS (8 sets, daily range): BP systolic 83–123; BP diastolic 57–72; PULSE 63–93; TEMP 36.5–36.8; O2SAT 94–99
[2017-05-09] MEDS ORDERED: VANCOMYCIN TROUGH SCH (01:30)
[2017-05-09] MEDS: VANCOMYCIN INJ 750 MG in SODIUM CHLORIDE 0.9% 250ML 250 ML IV SCH (02:21)
[2017-05-09] MEDS: D5NSS + 20MEQ KCL 1,000 ML IV SCH ×2 (02:21→17:11)
[2017-05-09] MEDS: PIPERACILL/TAZOBAC IV 3.375 GM in DEXTROSE 5% 100ML 100 ML IV SCH ×2 (04:18→12:37)
[2017-05-09] MEDS: VANCOMYCIN HCL 125 MG/2.5ML SOLN PO SCH ×5 (04:18→20:31)
[2017-05-09] MEDS: RASPBERRY SYRUP 5 ML UDP PO SCH ×5 (04:18→20:31)
[2017-05-09 06:28] LABS: HEMOGLOBIN 7.8 g/dL (14.0-18.0); MEAN CELL VOLUME 87.9 fL (80-100); MEAN CORPUSCULAR HEMOGLOBIN 28.6 pg (25-34); MEAN CORPUSCULAR HGB CONC 32.5 g/dl (32-36); MEAN PLATELET VOLUME 12.7 fL (7.4-10.4); PLATELET COUNT 147 K/uL (130-400); RED CELL DISTRIBUTION WIDTH CV 17.1 % (11.5-14.5); RED CELL DISTRIBUTION WIDTH SD 54.7 fL (36.4-46.3); WHITE BLOOD COUNT 2.85 K/uL (4.8-10.8)
[2017-05-09 07:00] LABS: CALCIUM 7.8 mg/dl (8.5-10.1); CREATININE 0.51 mg/dl (0.60-1.40); POTASSIUM 3.5 mmol/L (3.5-5.1)
[2017-05-09] MEDS: PANTOprazole SOD 40 MG TAB PO SCH (07:59)
--- NOTE | 2017-05-09 08:42 | SURGERY PROGRESS NOTE ---
DATE: 05/09/2017 Mr. Guajardo is scheduled to undergo a colonoscopy today. I think this is appropriate as I think he is suffering blood loss from a GI source. Mr. Guajardo may well have a carcinoma. I think that a navigational bronchoscopy will give us a diagnosis. Prior to doing that, however, I would like to let him settle down from this latest episode of anemia and for us to determine the etiology of this anemia. In addition, he has a lesion in his left lower lobe that may well represent metastatic disease. I think he is going to require a PET scan. After he does this, we will set him up for a navigational bronchoscopy and an endobronchial ultrasound. I prefer for this to be done as an outpatient. The PET scan will have to be done as an outpatient.
--- NOTE | 2017-05-09 10:11 | Hospitalist Progress Note ---
Hospitalist Progress Note Date of Service May 09, 2017. Subjective Pt evaluation today including: conversation w/ patient Pt had bowel prep overnight and stool was dark black and is now brown and liquid. He had a positive C. diff stool ag overnight as well and was started on po Vanco. Denies abd pain, no SOB, no CP, no trouble with urination. No hemoptysis All Other Systems: Reviewed and Negative Objective Vital Signs Date Time Temp Pulse Resp B/P (MAP) Pulse Ox O2 Delivery O2 Flow Rate FiO2 05/09/17 08:23 36.7 79 18 99/58 (72) 95 Room Air 05/09/17 08:00 Room Air 05/09/17 04:00 Room Air 05/09/17 03:22 36.7 93 18 123/72 (89) 94 Room Air 05/08/17 23:59 Room Air 05/08/17 22:57 36.5 84 16 107/69 (82) 99 Room Air 05/08/17 20:00 Room Air 05/08/17 19:25 36.7 91 18 108/56 (73) 95 Room Air 05/08/17 16:00 Room Air 05/08/17 15:56 36.5 73 25 94/57 (69) 96 Room Air 05/08/17 14:44 36.4 74 18 97/59 (72) 96 Room Air 05/08/17 14:22 95/61 (72) 05/08/17 14:16 76 20 89/55 (66) 98 Room Air 05/08/17 14:01 85 20 98/61 (73) 99 Room Air 05/08/17 12:47 36.4 79 18 110/67 (81) 99 Room Air 05/08/17 12:00 Room Air 05/08/17 11:54 36.8 81 24 97/53 (68) 99 Room Air Physical Exam General Appearance: no apparent distress, + cachetic Eyes: normal inspection, sclerae normal ENT: hearing grossly normal Neck: trachea midline Respiratory/Chest: no respiratory distress, no accessory muscle use, + decreased breath sounds (throughout) Cardiovascular: regular rate, rhythm, no edema, no gallop, no murmur Abdomen: normal bowel sounds, non tender, soft, no organomegaly, no pulsatile mass Extremities: non-tender, normal inspection, no pedal edema, no calf tenderness Neurologic/Psychiatric: alert, normal mood/affect Skin: normal color, warm/dry, no rash Laboratory Results Last 24 Hours Test 05/08/17 23:15 05/09/17 01:33 05/09/17 05:49 Vancomycin Level Trough 13.3 mcg/ml White Blood Count 2.85 K/uL Red Blood Count 2.73 M/uL Hemoglobin 7.8 g/dL Hematocrit 24.0 % Mean Corpuscular Volume 87.9 fL Mean Corpuscular Hemoglobin 28.6 pg Mean Corpuscular Hemoglobin Concent 32.5 g/dl RDW Standard Deviation 54.7 fL RDW Coefficient of Variation 17.1 % Platelet Count 147 K/uL Mean Platelet Volume 12.7 fL Sodium Level 134 mmol/L Potassium Level 3.5 mmol/L Chloride Level 103 mmol/L Carbon Dioxide Level 26 mmol/L Anion Gap 5.0 mmol/L Blood Urea Nitrogen 6 mg/dl Creatinine 0.51 mg/dl Est Creatinine Clear Calc Drug Dose 94.4 ml/min Estimated GFR () 132.6 Estimated GFR (Non- 114.4 BUN/Creatinine Ratio 12.2 Random Glucose 90 mg/dl Calcium Level 7.8 mg/dl Prealbumin 6.4 mg/dl Assessment and Plan Patient is a 62-year-old male with a history of recent admission for large cavitary necrotizing pneumonia versus malignancy in the right upper and middle lobes with hemoptysis and severe anemia, latent TB, PAD, [id number] smoking history and likely COPD, recent weight loss and cachexia, who presents to the ER after he had outpatient labs showing a hemoglobin of 5.4. He does admit to having crampy abdominal pain with diarrhea and black tarry stools the last 2 days prior to admission. He denies heartburn or upper abdominal pain. He denies chest pain or shortness of breath, he is not hypoxic, and he has not had any hemoptysis in 2-3 days. Hemoglobin upon discharge 9 days [employer] was 8.7. His hemoglobin in the ER was 4.9, he was mildly tachycardic, and he did have a fever to a max of 38.3. He had Hemoccult positive stool the last admission he was here, however it was thought that he was swallowing his hemoptysis at that time, and no urgent scope was indicated. Severe anemia,Melena, Abd pain/C. diff diarrhea-EGD with Brown's short segment only, biopsies pending, no active bleeding source. Hgb slightly down to 7.8 from 8.8 yesterday. Was 4.9 on admission. Transfused 4 units PRBCs on admission, remains mildly hypotensive but is asymptomatic. C. diff stool ag positive 05/08 -continue to follow CBC daily, no need for transfusion today -dc'd PPI gtt after EGD ok, convert to Protonix 40mg po daily for Brown's -Will need periodic EGD surveillance of Brown's esophagus -Plan for colonoscopy today -if no source of bleeding on Colonoscopy, plan for MR Enterography this evening -may end up needing transfer to tertiary care center for push enteroscopy if no source bleeding found -f/u H. pylori stool ag -Appreciate GI consultation -continue po Vanco 125mg qid x 10 days and perhaps longer if on prolonged abx course Large cavitary necrotizing Pseudomonas pneumonia vs Malignancy in the RUL with hemoptysis/h/o latent TB/Fever-bronchoscopy completed last admission and all studies neg for malignancy thus far except there were some atypical appearing cells on BAL that may indicate adenocarcinoma. He previously had +Pseudomonas and Madhuri albicans in sputum and BAL-treated with 2 weeks Cefepime. No leukocytosis. AFB smears neg x 3 last admission. Now with +Pseudomonas aeruginosa again (pansensitive) in sputum. Has lost 37 lbs in last 2 months. Still suspect malignancy vs residual infection. Repeat Chest CT here shows no change in large cavitary lung mass and enlarged mediastinal LN -continue empiric abx with Zosyn, can now dc Vanco as MRSA swab neg and growing Pseudomonas -follow Blood cultures -Appreciate Pulm consult -consult Oncology for further recommendations on if needs any further Oncologic workup given previous suspicions of MALT lymphoma despite negative FISH studies- --> appreciate recommendations for more tissue sampling needed once stabilized from GI bleeding Cachexia, Severe protein calorie malnutrition-as above for etiology -consult Dietary already in progress PAD, [id number] smoking history/Current smoker/Suspected COPD- Severe PAD seen on CT abd/pel, asymptomatic at this time, not walking much due to weakness , weight loss, illness -no antiplatelets for now due to bleeding ongoing -would start high intensity statin when can tolerate po - smoking cessation education Hyponatremia-Na+ 129 on admit, now improved to 134, likely secondary to dehydration vs pulmonary process causing SIADH -follow PRP Prophylaxis-SCDs only given ongoing bleeding, Protonix Disposition-will need rehab, consult PT/OT when more stable DO NOT RESUSCITATE/DO NOT INTUBATE
--- NOTE | 2017-05-09 11:42 | Pulmonology Progress Note ---
Pulmonary Progress Note Date of Service May 09, 2017. Attending Dr. Boudreaux Subjective Patient continues to feel improved today. He currently denies abdominal pain but is hungry. He underwent EGD yesterday which showed short-segment Brown's esophagus but no evidence of bleeding otherwise. He is anticipated to have colonoscopy today. He did have C. Diff toxin completed which is positive. He is now on contact precautios and PO Vancomycin. Patient was also evaluated by Dr. Torres in Hematology/Oncology who recommended further tissue diagnosis of RUL/RML lung mass along with continued evaluation for GI Bleeding source. Consideration of transfer to a tertiary center was also recommended if the patient continues to have severe anemia and bleeding. Sputum culture is growing pansensitive Pseudomonas again. The patient continues on IV Zosyn. IV Vancomycin was D/C'd. MRSA swab was negative. Blood cultures show NGTD. Labs reviewed 05/09: WBC 2.85 Hgb 7.8 4 units transfused since admission Creatinine 0.[address] Acevedo also evaluated this patient. He feels that navigational bronchosocpy is warranted for further tissue diagosis. He also feels that the patient should have a PET scan to evaluate for metastatic disease. This patient was discussed with Dr. Acevedo. Objective VS reviewed: SaO2 94-95% on room air BP 99/58 this AM HR 79 RR 18 Afebrile General: Patient is awake, alert, cooperative, and in no acute distress. Cachectic Head: Normocephalic, Atraumatic. ENT: PERRLA, No discharge, EOMI, Sclera normal Neck: Normal ROM. Trachea midline. No stridor Respiratory: Decreased breath sounds upper lobes. No adventitious sounds appreciated. No respiratory distress. No accessory muscle use. Cardiovascular: Regular rate and rhythm. No murmur appreciate. Normal S1/S2. Abdomen: Very thin. Active bowel sounds heard throughout. Extremities: No edema, cyanosis. Normal ROM Neuro: Alert, Oriented x 3. CN II-XII grossly intact. Sensation and motor function grossly intact. 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 Malignancy is still the diagnosis of exclusion though this could be infectious cavity as well. He is saturating well on room air, and has had no further hemoptysis. Patient is being followed by GI to further evaluate for source of anemia. Plan for colonoscopy today. Cardiothoracic surgery and hematology/oncology also following. Plan for navigational bronchoscopy and PET scan as an outpatient once patient is stable and discharged. Patient currently saturating well on room air. Add supplemental O2 PRN to maintain O2 saturations >88%. Continue IV abx per primary team. Pseudomonas in sputum culture may be chronic colonization since he was previously treated with 14 days of IV Cefepime. Patient currently on IV Zosyn. Pulmonary will sign off but follow peripherally. Please call with questions. Data Medications: Current Inpatient Medications Medications (Trade) Dose Ordered Sig/Breanne Route Start Time Stop Time Status Last Admin Dose Admin Ioversol (Optiray 320) 100 ml UD PRN IV 05/07/17 13:45 05/11/17 13:44 Acetaminophen (Tylenol Tab) 650 mg Q4H PRN PO 05/07/17 14:15 06/06/17 14:14 05/07/17 22:16 650 MG Ondansetron HCl (Zofran Inj) 4 mg Q6H PRN IV 05/07/17 14:15 06/06/17 14:14 Albuterol/ Ipratropium (Duoneb) 3 ml Q4R PRN INH 05/07/17 14:15 06/06/17 14:14 Piperacillin Sod/ Tazobactam Sod 3.375 gm/Dextrose 115 ml @ 28.75 mls/ hr Q8H IV 05/07/17 20:00 05/14/17 19:59 05/09/17 04:18 28.75 MLS/HR Piperacillin Sod/ Tazobactam Sod (Consult) 1 ea UD PRN N/A 05/07/17 17:00 06/06/17 16:59 Senna (Senokot Tab) 8.6 mg DAILY PRN PO 05/07/17 22:00 06/06/17 21:59 05/07/17 22:49 8.6 MG Potassium Chloride/Dextrose/ Sod Cl 1,000 ml @ 75 mls/hr [id number] IV 05/08/17 12:00 06/07/17 11:59 05/09/17 02:21 75 MLS/HR Ioversol (Optiray 320) 125 ml UD PRN IV 05/08/17 10:15 05/12/17 10:14 Pantoprazole Sodium (Protonix Tab) 40 mg QAM PO 05/09/17 09:00 05/12/17 08:59 05/09/17 07:59 40 MG Vancomycin HCl (Vancomycin Oral Soln) 125 mg QID PO 05/09/17 03:00 05/23/17 02:59 05/09/17 07:59 125 MG Raspberry (Raspberry Syrup 5ml Cup) 5 ml QID PO 05/09/17 03:00 05/23/17 02:59 05/09/17 07:59 5 ML Vital Signs: Date Time Temp Pulse Resp B/P (MAP) Pulse Ox O2 Delivery O2 Flow Rate FiO2 05/09/17 08:23 36.7 79 18 99/58 (72) 95 Room Air 05/09/17 08:00 Room Air 05/09/17 04:00 Room Air 05/09/17 03:22 36.7 93 18 123/72 (89) 94 Room Air 05/08/17 23:59 Room Air 05/08/17 22:57 36.5 84 16 107/69 (82) 99 Room Air 05/08/17 20:00 Room Air 05/08/17 19:25 36.7 91 18 108/56 (73) 95 Room Air 05/08/17 16:00 Room Air 05/08/17 15:56 36.5 73 25 94/57 (69) 96 Room Air 05/08/17 14:44 36.4 74 18 97/59 (72) 96 Room Air 05/08/17 14:22 95/61 (72) 05/08/17 14:16 76 20 89/55 (66) 98 Room Air 05/08/17 14:01 85 20 98/61 (73) 99 Room Air 05/08/17 12:47 36.4 79 18 110/67 (81) 99 Room Air 05/08/17 12:00 Room Air 05/08/17 11:54 36.8 81 24 97/53 (68) 99 Room Air Laboratory Results: Last 24 Hours Test 05/08/17 23:15 05/09/17 01:33 05/09/17 05:49 Vancomycin Level Trough 13.3 mcg/ml White Blood Count 2.85 K/uL Red Blood Count 2.73 M/uL Hemoglobin 7.8 g/dL Hematocrit 24.0 % Mean Corpuscular Volume 87.9 fL Mean Corpuscular Hemoglobin 28.6 pg Mean Corpuscular Hemoglobin Concent 32.5 g/dl RDW Standard Deviation 54.7 fL RDW Coefficient of Variation 17.1 % Platelet Count 147 K/uL Mean Platelet Volume 12.7 fL Sodium Level 134 mmol/L Potassium Level 3.5 mmol/L Chloride Level 103 mmol/L Carbon Dioxide Level 26 mmol/L Anion Gap 5.0 mmol/L Blood Urea Nitrogen 6 mg/dl Creatinine 0.51 mg/dl Est Creatinine Clear Calc Drug Dose 94.4 ml/min Estimated GFR () 132.6 Estimated GFR (Non- 114.4 BUN/Creatinine Ratio 12.2 Random Glucose 90 mg/dl Calcium Level 7.8 mg/dl Prealbumin 6.4 mg/dl
[2017-05-09] MEDS ORDERED: PROPOFOL IV EMULSION 10 MG/ML 20 ML VIAL IV ONE (14:26)
--- NOTE | 2017-05-09 14:30 | Endo History and Physical ---
History & Physical Date of Service: May 09, 2017. Chief Complaint: Anemia Referring Physician: Dr Beverly History of Present Illness For colonoscopy Past Surgical History Hx Cardiac Surgery: No Hx Abdominal Surgery: No Hx Post-Op Nausea and Vomiting: No Hx Cancer Surgery: No Hx Thoracic Surgery: No Hx Orthopedic: Yes (neck, carpal tunnel) Hx Urinary Tract Surgery: No Social History Smoking Status: Current Every Day Smoker Smokeless Tobacco Use: No Hx Substance Use: No Hx Alcohol Use: No Allergies Coded Allergies: No Known Allergies (Unverified , 04/20/17) Current Medications Reported Home Medications Medications Dose Route/Sig Max Daily Dose Days Date Category No Active Prescriptions or Reported Medications Rx Vital Signs Weight (Kilograms): 47.500 Height (Feet): 5 Height (Inches): 6.00 Date Time Temp Pulse Resp B/P (MAP) Pulse Ox O2 Delivery O2 Flow Rate FiO2 05/09/17 14:02 36.8 76 18 103/75 (84) 99 Room Air 05/09/17 12:45 36.8 81 16 93/57 (69) 94 Room Air 05/09/17 12:00 Room Air 05/09/17 08:23 36.7 79 18 99/58 (72) 95 Room Air 05/09/17 08:00 Room Air 05/09/17 04:00 Room Air 05/09/17 03:22 36.7 93 18 123/72 (89) 94 Room Air 05/08/17 23:59 Room Air 05/08/17 22:57 36.5 84 16 107/69 (82) 99 Room Air 05/08/17 20:00 Room Air 05/08/17 19:25 36.7 91 18 108/56 (73) 95 Room Air 05/08/17 16:00 Room Air 05/08/17 15:56 36.5 73 25 94/57 (69) 96 Room Air 05/08/17 14:44 36.4 74 18 97/59 (72) 96 Room Air Physical Exam General Appearance: + thin Respiratory/Chest: Auscultation: deminished air movement Cardiovascular: Heart Auscultation: RRR Abdomen: Inspection & Palpation: soft Assessment and Plan Anemia for colonoscopy
--- NOTE | 2017-05-09 14:51 | Discharge Instructions ---
Endoscopy Patient Instructions Date / Procedure(s) Performed May 09, 2017. Colonoscopy Allergy Information Coded Allergies: No Known Allergies (Unverified , 04/20/17) Discharge Date / Findings May 09, 2017. Diverticulosis Medication Instructions Restart Stopped Medication(s): resume meds Current Inpatient Medications Medications (Trade) Dose Ordered Sig/Breanne Route Start Time Stop Time Status Last Admin Dose Admin Ioversol (Optiray 320) 100 ml UD PRN IV 05/07/17 13:45 05/11/17 13:44 Acetaminophen (Tylenol Tab) 650 mg Q4H PRN PO 05/07/17 14:15 06/06/17 14:14 05/07/17 22:16 650 MG Ondansetron HCl (Zofran Inj) 4 mg Q6H PRN IV 05/07/17 14:15 06/06/17 14:14 Albuterol/ Ipratropium (Duoneb) 3 ml Q4R PRN INH 05/07/17 14:15 06/06/17 14:14 Piperacillin Sod/ Tazobactam Sod 3.375 gm/Dextrose 115 ml @ 28.75 mls/ hr Q8H IV 05/07/17 20:00 05/14/17 19:59 05/09/17 12:37 28.75 MLS/HR Piperacillin Sod/ Tazobactam Sod (Consult) 1 ea UD PRN N/A 05/07/17 17:00 06/06/17 16:59 Senna (Senokot Tab) 8.6 mg DAILY PRN PO 05/07/17 22:00 06/06/17 21:59 05/07/17 22:49 8.6 MG Potassium Chloride/Dextrose/ Sod Cl 1,000 ml @ 75 mls/hr [id number] IV 05/08/17 12:00 06/07/17 11:59 05/09/17 02:21 75 MLS/HR Ioversol (Optiray 320) 125 ml UD PRN IV 05/08/17 10:15 05/12/17 10:14 Pantoprazole Sodium (Protonix Tab) 40 mg QAM PO 05/09/17 09:00 05/12/17 08:59 05/09/17 07:59 40 MG Vancomycin HCl (Vancomycin Oral Soln) 125 mg QID PO 05/09/17 03:00 05/23/17 02:59 05/09/17 12:37 125 MG Raspberry (Raspberry Syrup 5ml Cup) 5 ml QID PO 05/09/17 03:00 05/23/17 02:59 05/09/17 12:37 5 ML Saccharomyces Boulardii (Florastor Cap) 250 mg DAILY PO 05/10/17 09:00 06/09/17 08:59 Provider Instructions Activity Restrictions - No exercising or heavy lifting for 24 hours. - Do not drink alcohol the day of the procedure. - Do not drive a car or operate machinery until the day after the procedure. - Do not make any important decisions or sign important papers in 24 hours after the procedure. Following Day: - Return to full activity which may include returning to work/school. Diet Start your diet with liquids and light foods (jello, soup, juice, toast). Then eat your usual diet if not nauseated. Treatment For Common After Affects For mild abdominal pain, bloating, or excessive gas: - Rest - Eat lightly - Lie on right side Follow-Up Information Follow-up with as scheduled Anesthesia Information What You Should Know You have had a procedure that required some medicine to reduce anxiety and discomfort. This treatment is called moderate sedation. After receiving the treatment, you may be sleepy, but you will be able to breathe on your own. The effects of the treatment may last for several hours. Follow these instructions along with Activity/Diet recommendations noted above: * Do NOT do anything where dizziness or clumsiness would be dangerous. * Rest quietly at home today, then you can be up and about tomorrow. * Have a responsible person stay with you the rest of today. * You may have had an I.V. today. If so, you may take the dressing off later today. Recommendations Call your doctor if: * Trouble breathing * Continuous vomiting for more than 24 hours * Temperature above 101 degrees * Severe abdominal pain or bloating * Pain not relieved by pain medicine ordered * There is increased drainage or redness from any incision * A large amount of rectal bleeding greater than 2-3 tablespoons. (If you had a polyp/s removed or have hemorrhoids, a small amount of blood - from the rectum is to be expected.) * You have any unanswered questions or concerns. IN THE EVENT OF A SERIOUS EMERGENCY, GO TO THE NEAREST EMERGENCY ROOM Your discharge instructions were prepared by provider Manoj Guevara. Patient Instructions Signature Page Randal Guajardo Patient (or Guardian) Signature/Date: I have read and understand the instructions given to me by my caregivers. Caregiver/RN/Doctor Signature/Date: The above-named patient and/or guardian has received patient instructions on this date. + Original Patient Signature Page (only) stays with chart. Please make copy for patient.
--- NOTE | 2017-05-09 14:53 | GI REPORT ---
Procedure Date: 05/09/2017 2:23 PM Procedure: Colonoscopy Indications: Iron deficiency anemia secondary to chronic blood loss Medicines: Propofol total dose 100 mg IV Complications: No immediate complications. Estimated Blood Loss: Estimated blood loss: none. Procedure: Pre-Anesthesia Assessment: - Prior to the procedure, a History and Physical was performed, and patient medications, allergies and sensitivities were reviewed. The patient's tolerance of previous anesthesia was reviewed. - The risks and benefits of the procedure and the sedation options and risks were discussed with the patient. All questions were answered and informed consent was obtained. After I obtained informed consent, the scope was passed under direct vision. Throughout the procedure, the patient's blood pressure, pulse, and oxygen saturations were monitored continuously. The scope was introduced through the anus and advanced to the terminal ileum. The colonoscopy was performed without difficulty. The patient tolerated the procedure well. The quality of the bowel preparation was fair. Findings: Multiple diverticula were found in the sigmoid colon. A localized area of mild melanosis was found in the cecum. Impression: - Diverticulosis in the sigmoid colon. - Melanosis in the colon. - No specimens collected. Recommendation: - [facility] patient to [facility] care. - Continue present medications. Manoj Guevara M.D. Manoj Guevara MD 05/09/2017 2:53:32 PM This report has been signed electronically. Note Initiated On: 05/09/2017 2:23 PM I attest to the content of the Intraoperative Record and orders documented therein, exceptions below
--- NOTE | 2017-05-09 15:10 | GASTROENTEROLOGY PROGRESS NOTE ---
DATE: 05/09/2017 DATE: 05/09/2017 The patient presented to the endoscopy center today for colonoscopy for severe anemia. The patient's prep was fair. I was able to navigate the entire colon into the terminal ileum. Had a little bit of melanosis in the cecum which was very mild and there are some scattered diverticula, but no masses, no pseudomembranes, no inflammation or bleeding source identified. IMPRESSION: The patient's colonoscopy did not reveal a source for blood loss. We would consider doing an outpatient video capsule at some point as an outpatient.
--- NOTE | 2017-05-09 15:12 | Anesthesiology Progress Note ---
Anesthesia Post Op Note Date & Time May 09, 2017 at 15:12 Vital Signs Pain Intensity: 0 Vital Signs Past 12 Hours Date Time Temp Pulse Resp B/P (MAP) Pulse Ox O2 Delivery O2 Flow Rate FiO2 05/09/17 15:04 80 18 97/58 (71) 97 Room Air 05/09/17 14:54 91/61 (71) 05/09/17 14:49 74 16 87/60 (69) 95 Nasal Cannula 3 05/09/17 14:02 36.8 76 18 103/75 (84) 99 Room Air 05/09/17 12:45 36.8 81 16 93/57 (69) 94 Room Air 05/09/17 12:00 Room Air 05/09/17 08:23 36.7 79 18 99/58 (72) 95 Room Air 05/09/17 08:00 Room Air 05/09/17 04:00 Room Air 05/09/17 03:22 36.7 93 18 123/72 (89) 94 Room Air Notes Mental Status: alert / awake / arousable, participated in evaluation Pt Amnestic to Procedure: Yes Nausea / Vomiting: adequately controlled Pain: adequately controlled Airway Patency, RR, SpO2: stable & adequate BP & HR: stable & adequate Hydration State: stable & adequate Anesthetic Complications: no major complications apparent
--- NOTE | 2017-05-09 15:40 | Medical Student: [facility] ---
Med Student Progress Note Date of Service May 09, 2017. Subjective Pt evaluation today including: conversation w/ patient, physical exam, chart review, lab review Pt is a 62 yo M who presents with severe anemia with suspected GI bleed. He had an EGD done yesterday which showed possible Marito's esophagus. Pt had some soup to eat last night and has been receiving bowel prep for colonoscopy. He is having frequent loose bowel movements. He denies any recent hemoptysis, hematemesis, or melena. I asked the pt about symptoms of claudication due to findings on abdominal/ pelvic CT and he denies any symptoms. Tele: sinus and 70s this morning, sinus and 70s with some PACs overnight Review of Systems Constitutional: No fever (no fever in last 24 hrs, Tmax 36.8) Eyes: No worsening of vision, No eye pain ENT: No hearing loss Respiratory: + cough, No sputum, No wheezing Cardiac: No chest pain, No orthopnea Abdomen: No pain, No nausea, No vomiting Musculoskeletal: No joint pain, No muscle pain Male : No dysuria, No urinary frequency, No incontinence Neurologic: No memory loss Psychiatric: No depression symptoms Heme: No abnormal bleeding/bruising Endo: No fatigue Skin: No rash, No itch Objective Vital Signs Date Time Temp Pulse Resp B/P (MAP) Pulse Ox O2 Delivery O2 Flow Rate FiO2 05/09/17 04:00 Room Air 05/09/17 03:22 36.7 93 18 123/72 (89) 94 Room Air 05/08/17 23:59 Room Air 05/08/17 22:57 36.5 84 16 107/69 (82) 99 Room Air 05/08/17 20:00 Room Air 05/08/17 19:25 36.7 91 18 108/56 (73) 95 Room Air 05/08/17 16:00 Room Air 05/08/17 15:56 36.5 73 25 94/57 (69) 96 Room Air 05/08/17 14:44 36.4 74 18 97/59 (72) 96 Room Air 05/08/17 14:22 95/61 (72) 05/08/17 14:16 76 20 89/55 (66) 98 Room Air 05/08/17 14:01 85 20 98/61 (73) 99 Room Air 05/08/17 12:47 36.4 79 18 110/67 (81) 99 Room Air 05/08/17 12:00 Room Air 05/08/17 11:54 36.8 81 24 97/53 (68) 99 Room Air 05/08/17 08:00 Room Air Physical Exam General Appearance: + thin, + pertinent finding (cachectic) Eyes: bilateral eyes normal inspection, bilateral eyes PERRL, bilateral eyes EOMI ENT: normal ENT inspection, hearing grossly normal Neck: supple, no adenopathy, thyroid normal Respiratory/Chest: chest non-tender, lungs clear, + decreased breath sounds Cardiovascular: regular rate, rhythm, no edema, no gallop Abdomen: normal bowel sounds, non tender, soft Extremities: normal range of motion, non-tender, normal inspection, no pedal edema, no calf tenderness 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, no motor/sensory deficits, alert, normal mood/affect, oriented x 3 Skin: normal color, warm/dry, no rash Laboratory Results Last 24 Hours Test 05/08/17 09:39 05/08/17 23:15 05/09/17 01:33 05/09/17 05:49 White Blood Count 3.62 K/uL 2.85 K/uL Red Blood Count 3.15 M/uL 2.73 M/uL Hemoglobin 8.8 g/dL 7.8 g/dL Hematocrit 27.4 % 24.0 % Mean Corpuscular Volume 87.0 fL 87.9 fL Mean Corpuscular Hemoglobin 27.9 pg 28.6 pg Mean Corpuscular Hemoglobin Concent 32.1 g/dl 32.5 g/dl Platelet Count 151 K/uL 147 K/uL Mean Platelet Volume 12.7 fL 12.7 fL RDW Standard Deviation 54.1 fL 54.7 fL RDW Coefficient of Variation 17.1 % 17.1 % Neutrophils % (Manual) 29.8 % Lymphocytes % (Manual) 26.3 % Monocytes % (Manual) 42.1 % Eosinophils % (Manual) 0.9 % Myelocytes % 0.9 % Neutrophils # (Manual) 1.08 K/uL Total Absolute Neutrophils 1.08 K/uL Lymphocytes # (Manual) 0.95 K/uL Total Absolute Lymphocytes 0.95 K/uL Monocytes # (Manual) 1.52 K/uL Eosinophils # (Manual) 0.03 K/uL Myelocytes # 0.03 K/uL Hypogranular Neutrophils 2+ Blood Smear Review Red Blood Cell Morphology Unremarkable Vancomycin Level Trough 13.3 mcg/ml Sodium Level 134 mmol/L Potassium Level 3.5 mmol/L Chloride Level 103 mmol/L Carbon Dioxide Level 26 mmol/L Anion Gap 5.0 mmol/L Blood Urea Nitrogen 6 mg/dl Creatinine 0.51 mg/dl Est Creatinine Clear Calc Drug Dose 94.4 ml/min Estimated GFR () 132.6 Estimated GFR (Non- 114.4 BUN/Creatinine Ratio 12.2 Random Glucose 90 mg/dl Calcium Level 7.8 mg/dl Prealbumin 6.4 mg/dl Medications Current Inpatient Medications Medications (Trade) Dose Ordered Sig/Breanne Route Start Time Stop Time Status Last Admin Dose Admin Ioversol (Optiray 320) 100 ml UD PRN IV 05/07/17 13:45 05/11/17 13:44 Acetaminophen (Tylenol Tab) 650 mg Q4H PRN PO 05/07/17 14:15 06/06/17 14:14 05/07/17 22:16 650 MG Ondansetron HCl (Zofran Inj) 4 mg Q6H PRN IV 05/07/17 14:15 06/06/17 14:14 Albuterol/ Ipratropium (Duoneb) 3 ml Q4R PRN INH 05/07/17 14:15 06/06/17 14:14 Piperacillin Sod/ Tazobactam Sod 3.375 gm/Dextrose 115 ml @ 28.75 mls/ hr Q8H IV 05/07/17 20:00 05/14/17 19:59 05/09/17 04:18 28.75 MLS/HR Vancomycin HCl 750 mg/Sodium Chloride 265 ml @ 125 mls/hr Q8H IV 05/08/17 02:00 05/15/17 01:59 05/09/17 02:21 125 MLS/HR Piperacillin Sod/ Tazobactam Sod (Consult) 1 ea UD PRN N/A 05/07/17 17:00 06/06/17 16:59 Vancomycin HCl (Consult) 1 ea UD PRN N/A 05/07/17 17:15 06/06/17 17:14 Senna (Senokot Tab) 8.6 mg DAILY PRN PO 05/07/17 22:00 06/06/17 21:59 05/07/17 22:49 8.6 MG Potassium Chloride/Dextrose/ Sod Cl 1,000 ml @ 75 mls/hr [id number] IV 05/08/17 12:00 06/07/17 11:59 05/09/17 02:21 75 MLS/HR Ioversol (Optiray 320) 125 ml UD PRN IV 05/08/17 10:15 05/12/17 10:14 Pantoprazole Sodium (Protonix Tab) 40 mg QAM PO 05/09/17 09:00 05/12/17 08:59 Vancomycin HCl (Vancomycin Oral Soln) 125 mg QID PO 05/09/17 03:00 05/23/17 02:59 05/09/17 04:18 125 MG Raspberry (Raspberry Syrup 5ml Cup) 5 ml QID PO 05/09/17 03:00 05/23/17 02:59 05/09/17 04:18 5 ML Assessment and Plan Assessment and Plan: Pt is a 62 yo M who presents with severe anemia with a Hgb of 5.4 and possible GI bleed. He has been having melena prior to coming to hospital. He appears cachectic on PE. Severe anemia/GI bleed/diarrhea - Received 4 PRBC, most recent one was yesterday morning - Hgb 7.8. Continue to monitor - GI consulted: EGD performed which found possible Marito's esophagus. Biopsy pending. On Protonix 40mg. - Colonoscopy later today. Pt has been bowel prepped. - C diff toxin B found in stool on 05/08. Started on vancomycin 125mg PO QID - If colonoscopy cannot locate source of bleed, consider MR enterography. If still no source located, possibly transfer for push enterography. Cavitary lung lesion - Sputum and BAL previously showed pseudomonas and janet albicans. Tenorio- sensitive pseudomonas growing now. - Continue Zosyn as this should provide adequate coverage for pseudomonas. D/c' ed vancomycin. - AFB smears negative x 3 during last hospitalization to r/o TB - Suspect that cavitary lung lesion is malignant rather than an infectious etiology. - Thoracic surgery recommends navigational bronchoscopy once pt more stable - Pulm consulted - Heme/onc consulted. Once pt stabilizes, obtain more tissue sample for testing. Malnutrition - Dietary consult in place Peripheral Arterial Disease / Smoking history - Pt denies claudication symptoms even while active. Current activity level low due to illness. - No antiplatelets for now because of bleeding. Consider aspirin and statin once more stable and can tolerate PO intake. - Discuss smoking cessation Hyponatremia - Likely due to dehydration from vomiting and diarrhea due to hx and PE showing hypovolemic status - Improving since admission. Today 134. - Continue to monitor. DVT Prophylaxis - SCDs Disposition - Will consult PT/OT, rehab likely. Code Status - DNR / Do Not Intubate.
[2017-05-09] MEDS: AZTREONAM 2000 MG in DEXTROSE 5% 100 ML IV SCH (15:44)
[2017-05-09] MEDS ORDERED: NURSING VERBAL MED ORDER ONE (16:15)
[2017-05-09] MEDS ORDERED: GLUCAGON FOR INJ 1 MG VIAL ONE (16:17)
[2017-05-09] MEDS ORDERED: GLUCAGON FOR INJ 1 MG VIAL IM ONE (16:30)
--- NOTE | 2017-05-09 16:38 | Hematology/Oncology Prog Note ---
Hematology/Onc Progress Note Date of Service May 09, 2017. 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 Medications Medications Administered Medications (Trade) Dose Ordered Sig/Breanne Route Start Time Stop Time Status Last Admin Dose Admin Sodium Chloride 1,000 ml @ 999 mls/hr Q1H1M STAT IV 05/07/17 11:08 05/07/17 12:08 DC 05/07/17 11:40 999 MLS/HR Pantoprazole Sodium 80 mg/ Dextrose 120 ml @ 480 mls/hr UD IV 05/07/17 13:00 05/07/17 13:14 DC 05/07/17 13:50 480 MLS/HR Pantoprazole Sodium 40 mg/ Dextrose 100 ml @ 20 mls/hr Q5H IV 05/07/17 13:00 05/07/17 17:59 DC 05/07/17 13:50 20 MLS/HR Piperacillin Sod/ Tazobactam Sod (Zosyn Iv) 4.5 gm NOW STAT IV 05/07/17 13:09 05/07/17 13:10 DC 05/07/17 13:27 4.5 GM Acetaminophen (Tylenol Tab) 650 mg Q4H PRN PO 05/07/17 14:15 06/06/17 14:14 05/07/17 22:16 650 MG Piperacillin Sod/ Tazobactam Sod 3.375 gm/Dextrose 115 ml @ 28.75 mls/ hr Q8H IV 05/07/17 20:00 05/09/17 14:47 DC 05/09/17 12:37 28.75 MLS/HR Vancomycin HCl 750 mg/Sodium Chloride 265 ml @ 125 mls/hr Q8H IV 05/08/17 02:00 05/09/17 10:02 DC 05/09/17 02:21 125 MLS/HR Pantoprazole Sodium 40 mg/ Dextrose 100 ml @ 20 mls/hr Q5H IV 05/07/17 18:00 05/08/17 16:19 DC 05/08/17 08:11 20 MLS/HR Vancomycin HCl 1000 mg/Sodium Chloride 270 ml @ 125 mls/hr NOW ONCE IV 05/07/17 17:00 05/07/17 19:09 DC 05/07/17 17:53 125 MLS/HR Diphenhydramine HCl (Benadryl Cap) 25 mg NOW ONCE PO 05/07/17 22:00 05/07/17 22:01 DC 05/07/17 22:15 25 MG Senna (Senokot Tab) 8.6 mg DAILY PRN PO 05/07/17 22:00 06/06/17 21:59 05/07/17 22:49 8.6 MG Potassium Chloride/Dextrose/ Sod Cl 1,000 ml @ 75 mls/hr [id number] IV 05/08/17 12:00 06/07/17 11:59 05/09/17 02:21 75 MLS/HR Polyethylene Glycol/ Electrolytes (Golytely Soln) 16 dose UD PO 05/08/17 15:00 05/08/17 22:00 DC 05/08/17 19:27 16 DOSE Pantoprazole Sodium (Protonix Tab) 40 mg QAM PO 05/09/17 09:00 05/12/17 08:59 05/09/17 07:59 40 MG Diphenhydramine HCl (Benadryl Cap) 25 mg ONE STAT PO 05/08/17 23:48 05/08/17 23:49 DC 05/09/17 00:15 25 MG Vancomycin HCl (Vancomycin Oral Soln) 125 mg QID PO 05/09/17 03:00 05/23/17 02:59 05/09/17 12:37 125 MG Raspberry (Raspberry Syrup 5ml Cup) 5 ml QID PO 05/09/17 03:00 05/23/17 02:59 05/09/17 12:37 5 ML Aztreonam 2000 mg/ Dextrose 110 ml @ 110 mls/hr Q12@0400,1600 IV 05/09/17 16:00 05/16/17 15:59 05/09/17 15:44 110 MLS/HR Subjective Mr. Guajardo had diarrhea overnight, due to his colonoscopy prep, which did at times contain black elements. He denies any bright red blood, however. He also denies any cough or hemoptysis. Review of Systems: Constitutional: + weakness, + fatigue ENT: No unusual epistaxis Respiratory: No cough, No hemoptysis Cardiovascular: No chest pain Abdomen: + diarrhea, + GI bleeding, No pain, No nausea Heme: No abnormal bleeding/bruising, No swollen lymph nodes Vital Signs Vital Signs Past 12 Hours Date Time Temp Pulse Resp B/P (MAP) Pulse Ox O2 Delivery O2 Flow Rate FiO2 05/09/17 16:18 83/67 (72) 05/09/17 15:44 36.5 63 18 113/66 (82) 99 Room Air 05/09/17 15:19 70 18 104/68 (80) 96 Room Air 05/09/17 15:04 80 18 97/58 (71) 97 Room Air 05/09/17 14:54 91/61 (71) 05/09/17 14:49 74 16 87/60 (69) 95 Nasal Cannula 3 05/09/17 14:02 36.8 76 18 103/75 (84) 99 Room Air 05/09/17 12:45 36.8 81 16 93/57 (69) 94 Room Air 05/09/17 12:00 Room Air 05/09/17 08:23 36.7 79 18 99/58 (72) 95 Room Air 05/09/17 08:00 Room Air Physical Exam Constitutional: General Apperance: cachectic Level of Distress: NAD, chronically ill Psychiatric: Mental Status: active & alert Orientation: oriented except where noted Lungs: Auscuitation: breath sounds normal Cardiovascular: Heart Auscultation: RRR Abdomen: Inspection & Palpation: soft, no tenderness, guarding & rebound Extremities: no edema Laboratory Last 24 Hours Test 05/08/17 23:15 05/09/17 01:33 05/09/17 05:49 Vancomycin Level Trough 13.3 mcg/ml White Blood Count 2.85 K/uL Red Blood Count 2.73 M/uL Hemoglobin 7.8 g/dL Hematocrit 24.0 % Mean Corpuscular Volume 87.9 fL Mean Corpuscular Hemoglobin 28.6 pg Mean Corpuscular Hemoglobin Concent 32.5 g/dl RDW Standard Deviation 54.7 fL RDW Coefficient of Variation 17.1 % Platelet Count 147 K/uL Mean Platelet Volume 12.7 fL Sodium Level 134 mmol/L Potassium Level 3.5 mmol/L Chloride Level 103 mmol/L Carbon Dioxide Level 26 mmol/L Anion Gap 5.0 mmol/L Blood Urea Nitrogen 6 mg/dl Creatinine 0.51 mg/dl Est Creatinine Clear Calc Drug Dose 94.4 ml/min Estimated GFR () 132.6 Estimated GFR (Non- 114.4 BUN/Creatinine Ratio 12.2 Random Glucose 90 mg/dl Calcium Level 7.8 mg/dl Prealbumin 6.4 mg/dl Assessment & Plan Mr. Guajardo's primary issue at this point is his recurrent upper GI bleed. He has experienced two life-threatening UGI bleeds this month (both times bleeding to a hemoglobin <5). His EGD and colonoscopy were unrevealing, suggesting a likely small bowel source. He is ordered for an MR enterography, which may shed some light on this. If that is unrevealing, we may need to consider transfer to a tertiary care center for invasive enteroscopy, as I worry that discharging him for outpatient follow up may lead to another severe GI bleed. His sputum is still positive for pseudomonas, further muddying the nicholson of the diagnosis of his RUL lesion. It certainly has mass-like qualities and the pseudomonas may be a super-infection on top of the tumor. Regardless, further tissue diagnosis will need to wait pending resolution of his GI bleed.
[2017-05-09] MEDS ORDERED: GADAVIST IV PRN (19:15)
--- NOTE | 2017-05-09 19:32 | DIAGNOSTIC IMAGING REPORT ---
MR ENTEROGRAPHY OF THE ABDOMEN AND PELVIS WITHOUT A WITH GADOLINIUM CLINICAL HISTORY: Gastrointestinal bleeding. Severe anemia. 30 pound weight loss. COMPARISON STUDY: CT scan dated 05/07/2017 FINDINGS: Imaging was performed before and after the administration of 4.5 cc of intravenous Gadavist. Additionally patient was administered 1 mg of IM glucagon. No hepatic masses are visualized. No splenic masses are visualized. Masses are visualized. No adrenal masses are visualized. No gallbladder abnormalities are visualized. There are T2 bright renal lesions likely representing cysts The marrow is a diffusely decreased T2 signal, finding suggesting a hypercellular marrow. There are no transition zones indicate bowel obstruction. There is low volume ascites. There is mild cecal wall thickening. There is mild thickening and hyperenhancement of the terminal ileum. There are moderately extensive atheromatous changes present. IMPRESSION: 1. Mild thickening and hyperenhancement of the cecum and terminal ileum. This likely is secondary to an infectious or inflammatory process. Close follow-up is advocated as a neoplastic etiology cannot be excluded with certainty. 2. Low volume ascites 3. Diffusely decreased T2 marrow signal, finding suggestive of a hypercellular marrow Electronically signed by: Jermain Hammond M.D. 05/09/2017 7:31 PM Dictated Date/Time: 05/09/2017 7:21 PM
[2017-05-10] VITALS (7 sets, daily range): BP systolic 93–127; BP diastolic 60–76; PULSE 78–112; TEMP 36.5–37; O2SAT 94–99
[2017-05-10] MEDS: D5NSS + 20MEQ KCL 1,000 ML IV SCH (04:16)
[2017-05-10] MEDS: AZTREONAM 2000 MG in DEXTROSE 5% 100 ML IV SCH ×2 (04:16→16:21)
[2017-05-10 06:20] LABS: HEMATOCRIT 26.7 % (42-52); HEMOGLOBIN 8.6 g/dL (14.0-18.0); MEAN CELL VOLUME 89.9 fL (80-100); MEAN CORPUSCULAR HGB CONC 32.2 g/dl (32-36); MEAN PLATELET VOLUME 12.9 fL (7.4-10.4); NUCLEATED RED BLOOD CELL ABS 0.02 K/uL (0-0); PLATELET COUNT 157 K/uL (130-400); RED CELL DISTRIBUTION WIDTH CV 16.9 % (11.5-14.5); RED CELL DISTRIBUTION WIDTH SD 55.4 fL (36.4-46.3); WHITE BLOOD COUNT 2.56 K/uL (4.8-10.8)
[2017-05-10 06:51] LABS: CALCIUM 7.6 mg/dl (8.5-10.1); CREATININE 0.5 mg/dl (0.60-1.40); POTASSIUM 3.6 mmol/L (3.5-5.1)
[2017-05-10] MEDS: SACCHAROMYCES BOUL (FLORASTOR) 250 MG CAP PO SCH (08:07)
[2017-05-10] MEDS: VANCOMYCIN HCL 125 MG/2.5ML SOLN PO SCH ×4 (08:07→20:52)
[2017-05-10] MEDS: PANTOprazole SOD 40 MG TAB PO SCH (08:07)
[2017-05-10] MEDS: RASPBERRY SYRUP 5 ML UDP PO SCH ×4 (08:07→20:52)
[2017-05-10] MEDS: ACETAMINOPHEN 325 MG TAB PO PRN ×3 (08:11→22:17)
--- NOTE | 2017-05-10 10:38 | SURGERY PROGRESS NOTE ---
DATE: 05/10/2017 SUBJECTIVE: Mr. Guajardo was seen today on 05/10/2017. His colonoscopy really was unrevealing. His hemoglobin is 8.6. He has received a total of 4 units of blood. His GI source for his blood loss is still unclear. The upper endoscopy nor colonoscopy really revealed an area of bleeding. It is possible there is something in the small bowel. Gastroenterology input is greatly appreciated on this. At this point, I would continue his antibiotics as he is still growing pseudomonas. My feeling is we are probably dealing with a malignancy; however, this could simply be an infection. At this point, I think determining the origin of his blood loss is most important in that there have been 2 life-threatening presentations in the Emergency Room with dangerously low hemoglobins. I suppose if we are in a holding pattern with him, I could offer him a electromagnetic navigational bronchoscopy as a diagnosis would be helpful in determining how to proceed. SARANYA
--- NOTE | 2017-05-10 11:19 | GASTROENTEROLOGY PROGRESS NOTE ---
DATE: 05/10/2017 SUBJECTIVE: The patient is doing well overnight, and no reports of bloody stools, diarrhea, and the patient has not had any melenic or bloody stools reported. The patient is positive for C. diff and is on the following medications including vancomycin orally 4 times daily, Zofran, potassium chloride, senna, pantoprazole, Azactam as well as Florastor capsules, Saccharomyces. The patient's laboratory studies today, hemoglobin is 8.6 and has been essentially stable since his transfusions. He received a total of 4 units of packed red blood cells since admission. Sputum also demonstrated Pseudomonas aeruginosa. The patient underwent colonoscopy yesterday afternoon, which was an unsatisfactory prep, although the colon was evaluated without any gross lesions as was the terminal ileum. The MR enterography however did reveal some features in the distal terminal ileum or perhaps in the cecal region of uncertain etiology, although this could reflect either infection or inflammatory causes. These were not evident for colonoscopy. REVIEW OF SYSTEMS: Otherwise noncontributory. He has had no hemoptysis. He has no fever or shaking chills reported and has no abdominal pain, overall feels well. The patient did not wish to undergo repeat endoscopic studies at this time with a better bowel prep. Serum chemistry, BUN and creatinine are 7 and 0.5. Sodium 135. OBJECTIVE: VITAL SIGNS: He is afebrile 37.0, blood pressure 110/71, heart rate 83, respirations 16, 95% on room air. GENERAL: The patient is awake, alert and oriented x3. HEENT: Sclerae are anicteric. Conjunctivae moist. Oral mucosa moist. HEART: Normal S1 and S2. LUNGS: Overall clear to auscultation, although diminished. ABDOMEN: Soft, without rebound or guarding. There are positive bowel sounds. EXTREMITIES: Without edema. RECTAL: Deferred. IMPRESSION AND PLAN: We would follow hemoglobin serially daily and monitor for any change in stools that would suggest ongoing gastrointestinal bleeding. If these occur, then we would next obtain a tagged red blood cell scan that may hopefully locate a region of the GI tract that is a source. If there is no ongoing bleeding, then I believe the next test that can be performed as an outpatient would be a video capsule small-bowel endoscopy and this can be arranged through our office. Ideally, the patient may be going to [facility]. If melena or bright red blood occurs and particularly, if the tagged cell scan shows a source, then upper and/or lower endoscopy may be needed. All questions answered.
[2017-05-10] MEDS ORDERED: NICOTINE 21 MG/24 HR TDSY TD ONE (11:39)
--- NOTE | 2017-05-10 19:25 | Hospitalist Progress Note ---
Hospitalist Progress Note Date of Service May 10, 2017. Subjective Pt evaluation today including: conversation w/ patient, conversation w/ application security consultant (gastroenterology) Patient is feeling well today. He had 1 small bowel movement that was brown. His hemoglobin actually went up today from yesterday. No abdominal pain, no hemoptysis, no cough or shortness of breath. No chest pain. All Other Systems: Reviewed and Negative Objective Vital Signs Date Time Temp Pulse Resp B/P (MAP) Pulse Ox O2 Delivery O2 Flow Rate FiO2 05/10/17 16:00 Room Air 05/10/17 15:54 36.5 81 18 127/71 (89) 96 Room Air 05/10/17 12:05 Room Air 05/10/17 11:52 36.7 78 20 127/76 (93) 96 Room Air 05/10/17 08:20 Room Air 05/10/17 07:48 37.0 83 16 110/71 (84) 95 Room Air 05/10/17 04:00 99 Room Air 05/10/17 03:29 36.8 105 22 93/60 (71) 94 Room Air 05/10/17 00:19 36.8 112 20 102/61 (75) 95 Room Air 05/09/17 23:59 99 Room Air 05/09/17 20:32 36.7 82 18 95/60 (72) 97 05/09/17 20:00 99 Room Air Physical Exam General Appearance: no apparent distress, + cachetic Eyes: normal inspection, sclerae normal ENT: hearing grossly normal Neck: trachea midline Respiratory/Chest: no respiratory distress, no accessory muscle use, + decreased breath sounds (throughout) Cardiovascular: regular rate, rhythm, no edema, no murmur Abdomen: normal bowel sounds, non tender, soft Extremities: non-tender, normal inspection, no pedal edema, no calf tenderness Neurologic/Psychiatric: alert, normal mood/affect Skin: normal color, warm/dry, no rash Laboratory Results Last 24 Hours Test 05/10/17 06:00 White Blood Count 2.56 K/uL Red Blood Count 2.97 M/uL Hemoglobin 8.6 g/dL Hematocrit 26.7 % Mean Corpuscular Volume 89.9 fL Mean Corpuscular Hemoglobin 29.0 pg Mean Corpuscular Hemoglobin Concent 32.2 g/dl RDW Standard Deviation 55.4 fL RDW Coefficient of Variation 16.9 % Platelet Count 157 K/uL Mean Platelet Volume 12.9 fL Nucleated RBC Absolute Count (auto) 0.02 K/uL Nucleated Red Blood Cells % 0.7 % Sodium Level 135 mmol/L Potassium Level 3.6 mmol/L Chloride Level 104 mmol/L Carbon Dioxide Level 24 mmol/L Anion Gap 6.0 mmol/L Blood Urea Nitrogen 7 mg/dl Creatinine 0.50 mg/dl Est Creatinine Clear Calc Drug Dose 109.3 ml/min Estimated GFR () 133.7 Estimated GFR (Non- 115.3 BUN/Creatinine Ratio 13.8 Random Glucose 115 mg/dl Calcium Level 7.6 mg/dl Assessment and Plan Patient is a 62-year-old male with a history of recent admission for large cavitary necrotizing pneumonia versus malignancy in the right upper and middle lobes with hemoptysis and severe anemia, latent TB, PAD, [id number] smoking history and likely COPD, recent weight loss and cachexia, who presents to the ER after he had outpatient labs showing a hemoglobin of 5.4. He does admit to having crampy abdominal pain with diarrhea and black tarry stools the last 2 days prior to admission. He denies heartburn or upper abdominal pain. He denies chest pain or shortness of breath, he is not hypoxic, and he has not had any hemoptysis recently. Hemoglobin upon discharge 9 days [employer] was 8.7. His hemoglobin in the ER was 4.9, he was mildly tachycardic, and he did have a fever to a max of 38.3. He had Hemoccult positive stool the last admission he was here, however it was thought that he was swallowing his hemoptysis at that time, and no urgent scope was indicated. Severe anemia,Melena, Abd pain/C. 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 Colonoscopy with fair prep and melanosis in the cecum, no definite source of bleeding identified, but poor visibility. MR enterography with terminal ileum and cecum lighting up with possible infection versus inflammation versus neoplasm. Hgb up to 8.6 today. Was 4.9 on admission. Transfused 4 units PRBCs on admission, blood pressures have improved. C. diff stool ag positive 05/08 -continue to follow CBC daily, no need for transfusion today -dc'd PPI gtt after EGD ok, converted to Protonix 40mg po daily for Brown's -Will need periodic EGD surveillance of Brown's esophagus -Plan for discharge to [facility] possibly tomorrow if hemoglobin remains stable-Dr. Sanchez will arrange for an outpatient video capsule study next week -f/u H. pylori stool ag -Appreciate GI consultation -continue po Vanco 125mg qid x 10 days and perhaps longer if on prolonged abx course for his Pseudomonas pneumonia Large cavitary necrotizing Pseudomonas pneumonia vs Malignancy in the RUL with hemoptysis/h/o latent TB/Fever-bronchoscopy completed last admission and all studies neg for malignancy thus far except there were some atypical appearing cells on BAL that may indicate adenocarcinoma. He previously had +Pseudomonas and Madhuri albicans in sputum and BAL-treated with 2 weeks Cefepime. No leukocytosis. AFB smears neg x 3 last admission. Now with +Pseudomonas aeruginosa again (pansensitive) in sputum. Probable postobstructive pneumonia versus colonization Has lost 37 lbs in last 2 months. Still suspect malignancy vs residual infection. Repeat Chest CT here shows no change in large cavitary lung mass and enlarged mediastinal LN -continue antibiotic therapy-was on Zosyn, now narrowed to aztreonam. Could convert to by mouth fluoroquinolone upon discharge to finish out another 2 week course -follow Blood cultures-no growth to date -Appreciate Pulm consult -consult Oncology for further recommendations on if needs any further Oncologic workup given previous suspicions of MALT lymphoma despite negative FISH studies- --> appreciate recommendations for more tissue sampling needed once stabilized from GI bleeding-follow up with oncology after tissue sampling completed Cachexia, Severe protein calorie malnutrition-as above for etiology -consult Dietary PAD, [id number] smoking history/Current smoker/Suspected COPD- Severe PAD seen on CT abd/pel, asymptomatic at this time, not walking much due to weakness , weight loss, illness -no antiplatelets for now due to bleeding ongoing -would start high intensity statin when can tolerate po - smoking cessation education Hyponatremia-Na+ 129 on admit, now improved to 135, likely secondary to dehydration-resolved Prophylaxis-SCDs only given ongoing bleeding, Protonix Disposition-will need rehab which is recommended by PT-plan for possible discharge to [facility] on Friday if remains stable DO NOT RESUSCITATE/DO NOT INTUBATE
[2017-05-11] VITALS (8 sets, daily range): BP systolic 103–111; BP diastolic 62–72; PULSE 74–88; TEMP 36.6–36.7; O2SAT 94–97
[2017-05-11] MEDS: AZTREONAM 2000 MG in DEXTROSE 5% 100 ML IV SCH ×2 (04:27→15:40)
[2017-05-11 06:32] LABS: CALCIUM 8.1 mg/dl (8.5-10.1); CREATININE 0.4 mg/dl (0.60-1.40); POTASSIUM 3.9 mmol/L (3.5-5.1)
[2017-05-11 06:39] LABS: MEAN CORPUSCULAR HGB CONC 31.7 g/dl (32-36); MEAN PLATELET VOLUME 11.8 fL (7.4-10.4); PLATELET COUNT 164 K/uL (130-400)
[2017-05-11 07:22] LABS: HEMATOCRIT 27.1 % (42-52); HEMOGLOBIN 8.6 g/dL (14.0-18.0); MEAN CELL VOLUME 91.6 fL (80-100); MEAN CORPUSCULAR HEMOGLOBIN 29.1 pg (25-34); RED CELL DISTRIBUTION WIDTH CV 16.7 % (11.5-14.5); WHITE BLOOD COUNT 2.44 K/uL (4.8-10.8)
[2017-05-11] MEDS: VANCOMYCIN HCL 125 MG/2.5ML SOLN PO SCH ×4 (07:43→21:28)
[2017-05-11] MEDS: RASPBERRY SYRUP 5 ML UDP PO SCH ×4 (07:43→21:21)
[2017-05-11] MEDS: NICOTINE 21 MG/24 HR TDSY TD SCH (07:44)
[2017-05-11] MEDS: PANTOprazole SOD 40 MG TAB PO SCH (07:44)
[2017-05-11] MEDS: SACCHAROMYCES BOUL (FLORASTOR) 250 MG CAP PO SCH (07:44)
--- NOTE | 2017-05-11 09:43 | Gastroenterology Progress Note ---
Progress Note Date of Service: May 11, 2017 Subjective Pt evaluation today including: conversation w/ patient, conversation w/ family (Monica (daughter) on phone) CC f/u Gi bleeding HPI Pt states no stools overnight or this am. Denies abd pain. Review of Systems Respiratory: + shortness of breath (stable) Cardiac: No chest pain Medications Current Inpatient Medications Medications (Trade) Dose Ordered Sig/Breanne Route Start Time Stop Time Status Last Admin Dose Admin Ioversol (Optiray 320) 100 ml UD PRN IV 05/07/17 13:45 05/11/17 13:44 Acetaminophen (Tylenol Tab) 650 mg Q4H PRN PO 05/07/17 14:15 06/06/17 14:14 05/10/17 22:17 650 MG Ondansetron HCl (Zofran Inj) 4 mg Q6H PRN IV 05/07/17 14:15 06/06/17 14:14 Albuterol/ Ipratropium (Duoneb) 3 ml Q4R PRN INH 05/07/17 14:15 06/06/17 14:14 Senna (Senokot Tab) 8.6 mg DAILY PRN PO 05/07/17 22:00 06/06/17 21:59 05/07/17 22:49 8.6 MG Ioversol (Optiray 320) 125 ml UD PRN IV 05/08/17 10:15 05/12/17 10:14 Pantoprazole Sodium (Protonix Tab) 40 mg QAM PO 05/09/17 09:00 05/12/17 08:59 05/11/17 07:44 40 MG Vancomycin HCl (Vancomycin Oral Soln) 125 mg QID PO 05/09/17 03:00 05/23/17 02:59 05/11/17 07:43 125 MG Raspberry (Raspberry Syrup 5ml Cup) 5 ml QID PO 05/09/17 03:00 05/23/17 02:59 05/11/17 07:43 5 ML Saccharomyces Boulardii (Florastor Cap) 250 mg DAILY PO 05/10/17 09:00 06/09/17 08:59 05/11/17 07:44 250 MG Aztreonam 2000 mg/ Dextrose 110 ml @ 110 mls/hr Q12@0400,1600 IV 05/09/17 16:00 05/16/17 15:59 05/11/17 04:27 110 MLS/HR Gadobutrol (Gadavist) 4.5 mmol UD PRN IV 05/09/17 19:15 05/13/17 19:14 Nicotine (Nicoderm Cq 21MG Patch) 1 patch QAM TD 05/11/17 09:00 06/10/17 08:59 05/11/17 07:44 1 PATCH Miscellaneous (Remove Nicoderm Patch) 1 ea HS N/A 05/10/17 21:00 06/09/17 20:59 05/10/17 20:52 1 EA Diphenhydramine HCl (Benadryl Cap) 25 mg HS PO 05/10/17 21:30 06/09/17 21:29 05/10/17 22:12 25 MG Objective Vital Signs Date Time Temp Pulse Resp B/P (MAP) Pulse Ox O2 Delivery O2 Flow Rate FiO2 05/11/17 08:00 Room Air 05/11/17 07:55 36.6 88 23 104/72 (83) 97 Room Air 05/11/17 04:22 36.7 74 16 111/69 (83) 96 05/11/17 04:00 Room Air 05/11/17 00:18 36.7 79 18 110/62 (78) 94 05/10/17 23:59 Room Air 05/10/17 20:05 36.6 84 20 109/65 (80) 95 Room Air 05/10/17 20:00 Room Air 05/10/17 16:00 Room Air 05/10/17 15:54 36.5 81 18 127/71 (89) 96 Room Air 05/10/17 12:05 Room Air 05/10/17 11:52 36.7 78 20 127/76 (93) 96 Room Air Physical Exam General Appearance: WD/WN, no apparent distress Respiratory/Chest: lungs clear, no respiratory distress Cardiovascular: regular rate, rhythm Abdomen: normal bowel sounds, non tender, soft, no organomegaly Neurologic/Psych: normal mood/affect, oriented x 3 Laboratory Results Last 24 Hours Test 05/11/17 05:50 White Blood Count 2.44 K/uL Red Blood Count 2.96 M/uL Hemoglobin 8.6 g/dL Hematocrit 27.1 % Mean Corpuscular Volume 91.6 fL Mean Corpuscular Hemoglobin 29.1 pg Mean Corpuscular Hemoglobin Concent 31.7 g/dl Platelet Count 164 K/uL Mean Platelet Volume 11.8 fL RDW Standard Deviation 55.0 fL RDW Coefficient of Variation 16.7 % Neutrophils % (Manual) 18.0 % Lymphocytes % (Manual) 32.4 % Monocytes % (Manual) 45.1 % Eosinophils % (Manual) 1.8 % Basophils % (Manual) 0.9 % Metamyelocytes % 0.9 % Myelocytes % 0.9 % Neutrophils # (Manual) 0.44 K/uL Total Absolute Neutrophils 0.44 K/uL Lymphocytes # (Manual) 0.79 K/uL Total Absolute Lymphocytes 0.79 K/uL Monocytes # (Manual) 1.10 K/uL Eosinophils # (Manual) 0.04 K/uL Basophils # (Manual) 0.02 K/uL Metamyelocytes # 0.02 K/uL Myelocytes # 0.02 K/uL Sodium Level 134 mmol/L Potassium Level 3.9 mmol/L Chloride Level 101 mmol/L Carbon Dioxide Level 30 mmol/L Anion Gap 3.0 mmol/L Blood Urea Nitrogen 6 mg/dl Creatinine 0.40 mg/dl Est Creatinine Clear Calc Drug Dose 136.6 ml/min Estimated GFR () 146.5 Estimated GFR (Non- 126.4 BUN/Creatinine Ratio 15.5 Random Glucose 85 mg/dl Calcium Level 8.1 mg/dl Assessment and Plan GI bleeding---no source noted on EGD or colonoscopy. Prep for colo limited and patient did not want to prep more for repeat exam. Hgb stable and no evidence of active bleeding at present. MRI enterography ? inflamation TI or cecum. anemia--stable. abnl MRI enterography--outpt capsule endoscopy Barretts esophagus--visually and on pathology-----outpt f/u, PPI Extended discussion on phone with daughter Monica. Pt present. Monica frustrated cannot find source of bleeding. Discussed patient did not want to prep more for repeat colonoscopy and next step is capsule endoscopy which is only an outpt test. Discussed other inpatient testing such as double balloon enteroscopy / interventional radiology test would have to be at tertiary center like [facility]. Also mentioned he is not actively bleeding at present so not sure he would be elgible for inpatient transfer. At this point he has two choices. Be discharged (presumably to rehab) or see if he is eligible for inpatient transfer. She and patient are going to speak with hospitalist. If patient is still inpatient tomorrow then Dr Sanchez resumes care at 0800 05/12/17.
--- NOTE | 2017-05-11 09:43 | Progress Note ---
Progress Note Date of Service May 11, 2017. Progress Note Mr. Guajardo seen today. No real changes. Hg stable. I still feel GI bleeding is primary problem, but am willing to offer him an ENB for diagnosis on 05-13 if he is still here. Dr Acevedo
[2017-05-11] MEDS: SENNA 8.6 MG TAB PO PRN (13:31)
--- NOTE | 2017-05-11 15:18 | Progress Note ---
Subjective Date of Service: May 11, 2017. Subjective Pt evaluation today including: conversation w/ patient Pt is feeling improved overall, but still weak. Tolerating PO without issue. Feels constipated today and would like a senna as this helped him prior. Pt is very concerned about d/c given his blood counts were stable on prior d/c but then dropped quickly. No chest pain or SOB. Pt denies fever, abd pain, n/v/d, LE pain or swelling. Problem List Medical Problems: (1) GI bleed Status: Acute (2) Neutropenic fever Status: Acute (3) Symptomatic anemia Status: Acute Review of Systems All Other Systems: Reviewed and Negative Objective Vital Signs Date Time Temp Pulse Resp B/P (MAP) Pulse Ox O2 Delivery O2 Flow Rate FiO2 05/11/17 14:00 96 Room Air 05/11/17 13:40 36.7 87 16 94 3.0 05/11/17 12:00 Room Air 05/11/17 11:51 36.7 87 16 103/64 (77) 94 Room Air 05/11/17 08:00 Room Air 05/11/17 07:55 36.6 88 23 104/72 (83) 97 Room Air 05/11/17 04:22 36.7 74 16 111/69 (83) 96 05/11/17 04:00 Room Air 05/11/17 00:18 36.7 79 18 110/62 (78) 94 05/10/17 23:59 Room Air 05/10/17 20:05 36.6 84 20 109/65 (80) 95 Room Air 05/10/17 20:00 Room Air 05/10/17 16:00 Room Air 05/10/17 15:54 36.5 81 18 127/71 (89) 96 Room Air Physical Exam General Appearance: no apparent distress, + thin Eyes: normal inspection, EOMI, sclerae normal Respiratory/Chest: normal breath sounds, no respiratory distress Cardiovascular: regular rate, rhythm, no edema Abdomen: non tender, soft Extremities: non-tender, no pedal edema Neurologic/Psychiatric: alert, oriented x 3 Skin: normal color, warm/dry Laboratory Results Last 24 Hours Test 05/11/17 05:50 05/11/17 11:34 White Blood Count 2.44 K/uL Red Blood Count 2.96 M/uL Hemoglobin 8.6 g/dL Hematocrit 27.1 % Mean Corpuscular Volume 91.6 fL Mean Corpuscular Hemoglobin 29.1 pg Mean Corpuscular Hemoglobin Concent 31.7 g/dl Platelet Count 164 K/uL Mean Platelet Volume 11.8 fL RDW Standard Deviation 55.0 fL RDW Coefficient of Variation 16.7 % Neutrophils % (Manual) 18.0 % Lymphocytes % (Manual) 32.4 % Monocytes % (Manual) 45.1 % Eosinophils % (Manual) 1.8 % Basophils % (Manual) 0.9 % Metamyelocytes % 0.9 % Myelocytes % 0.9 % Neutrophils # (Manual) 0.44 K/uL Total Absolute Neutrophils 0.44 K/uL Lymphocytes # (Manual) 0.79 K/uL Total Absolute Lymphocytes 0.79 K/uL Monocytes # (Manual) 1.10 K/uL Eosinophils # (Manual) 0.04 K/uL Basophils # (Manual) 0.02 K/uL Metamyelocytes # 0.02 K/uL Myelocytes # 0.02 K/uL Sodium Level 134 mmol/L Potassium Level 3.9 mmol/L Chloride Level 101 mmol/L Carbon Dioxide Level 30 mmol/L Anion Gap 3.0 mmol/L Blood Urea Nitrogen 6 mg/dl Creatinine 0.40 mg/dl Est Creatinine Clear Calc Drug Dose 136.6 ml/min Estimated GFR () 146.5 Estimated GFR (Non- 126.4 BUN/Creatinine Ratio 15.5 Random Glucose 85 mg/dl Calcium Level 8.1 mg/dl Bedside Glucose 146 mg/dl Assessment and Plan Patient is a 62-year-old male with a history of recent admission for large cavitary necrotizing pneumonia versus malignancy in the right upper and middle lobes with hemoptysis and severe anemia, latent TB, PAD, [id number] smoking history and likely COPD, recent weight loss and cachexia, who presents to the ER after he had outpatient labs showing a hemoglobin of 5.4. He does admit to having crampy abdominal pain with diarrhea and black tarry stools the last 2 days prior to admission. He denies heartburn or upper abdominal pain. He denies chest pain or shortness of breath, he is not hypoxic, and he has not had any hemoptysis recently. Hemoglobin upon discharge 9 days [employer] was 8.7. His hemoglobin in the ER was 4.9, he was mildly tachycardic, and he did have a fever to a max of 38.3. He had Hemoccult positive stool the last admission he was here, however it was thought that he was swallowing his hemoptysis at that time, and no urgent scope was indicated. Severe anemia,Melena, Abd pain/C. 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 Colonoscopy with fair prep and melanosis in the cecum, no definite source of bleeding identified, but poor visibility. MR enterography with terminal ileum and cecum lighting up with possible infection versus inflammation versus neoplasm. Hgb up to 8.6 yesterday and remains the same today. Was 4.9 on admission. Transfused 4 units PRBCs on admission, blood pressures have improved. C. diff positive 05/08 -continue to follow CBC daily -dc'd PPI gtt after EGD ok, converted to Protonix 40mg po daily for Brown's -Will need periodic EGD surveillance of Bronw's esophagus -Plan for discharge to [facility] possibly tomorrow if hemoglobin remains stable-Dr. Sanchez will arrange for an outpatient video capsule study next week -f/u H. pylori stool ag -Appreciate GI consultation -continue po Vanco 125mg qid x 10 days and perhaps longer if on prolonged abx course for his Pseudomonas pneumonia Large cavitary necrotizing Pseudomonas pneumonia vs Malignancy in the RUL with hemoptysis/h/o latent TB/Fever-bronchoscopy completed last admission and all studies neg for malignancy thus far except there were some atypical appearing cells on BAL that may indicate adenocarcinoma. He previously had +Pseudomonas and Madhuri albicans in sputum and BAL-treated with 2 weeks Cefepime. No leukocytosis. AFB smears neg x 3 last admission. Now with +Pseudomonas aeruginosa again (pansensitive) in sputum. Probable postobstructive pneumonia versus colonization Has lost 37 lbs in last 2 months. Still suspect malignancy vs residual infection. Repeat Chest CT here shows no change in large cavitary lung mass and enlarged mediastinal LN -continue antibiotic therapy-was on Zosyn, now narrowed to aztreonam. Could convert to by mouth fluoroquinolone upon discharge to finish out another 2 week course -follow Blood cultures-no growth to date -Appreciate Pulm consult -consult Oncology for further recommendations on if needs any further Oncologic workup given previous suspicions of MALT lymphoma despite negative FISH studies- --> appreciate recommendations for more tissue sampling needed once stabilized from GI bleeding-follow up with oncology after tissue sampling completed CT surg feels source is GI but will pursue bronch on 05/13 if no further bleeding noted Cachexia, Severe protein calorie malnutrition-as above for etiology -consult Dietary PAD, [id number] smoking history/Current smoker/Suspected COPD- Severe PAD seen on CT abd/pel, asymptomatic at this time, not walking much due to weakness , weight loss, illness -no antiplatelets for now due to bleeding ongoing -would start high intensity statin when can tolerate po - smoking cessation education Hyponatremia-Na+ 129 on admit, now improved to 135, likely secondary to dehydration-resolved Prophylaxis-SCDs only given ongoing bleeding, Protonix Disposition-will need rehab which is recommended by PT-accepted to [facility] when able DO NOT RESUSCITATE/DO NOT INTUBATE
[2017-05-11] MEDS: ACETAMINOPHEN 325 MG TAB PO PRN (21:29)
[2017-05-12 00:50] VITALS: BP 100/67; PULSE 85; TEMP 36.5; O2SAT 97
[2017-05-12] MEDS: AZTREONAM 2000 MG in DEXTROSE 5% 100 ML IV SCH ×2 (04:48→15:41)
[2017-05-12 06:03] LABS: HEMATOCRIT 28.1 % (42-52); HEMOGLOBIN 9.1 g/dL (14.0-18.0); MEAN CELL VOLUME 91.2 fL (80-100); MEAN CORPUSCULAR HEMOGLOBIN 29.5 pg (25-34); MEAN CORPUSCULAR HGB CONC 32.4 g/dl (32-36); NUCLEATED RED BLOOD CELL ABS 0.02 K/uL (0-0); PLATELET COUNT 200 K/uL (130-400); RED CELL DISTRIBUTION WIDTH CV 16.8 % (11.5-14.5); RED CELL DISTRIBUTION WIDTH SD 54.7 fL (36.4-46.3); WHITE BLOOD COUNT 2.64 K/uL (4.8-10.8)
[2017-05-12 07:23] VITALS: BP 102/71; PULSE 81; TEMP 36.6; O2SAT 97
[2017-05-12] MEDS: SACCHAROMYCES BOUL (FLORASTOR) 250 MG CAP PO SCH (09:43)
--- NOTE | 2017-05-12 10:12 | SURGERY PROGRESS NOTE ---
DATE: 05/12/2017 SUBJECTIVE: Mr. Guajardo was seen today on 05/12/2017. We are dealing with multiple issues with this patient. One issue we are dealing with is the fact that he has a GI bleed. Hemoglobin has been stable, in fact, it is 9.1 today. He feels better, although he feels a bit constipated. He is markedly malnourished. There is a mass in his right upper lobe, growing out pseudomonas. It is unclear to us whether we were dealing with a malignancy or an inflammatory process. I believe it is malignancy. There has been a question about nonsmall cell lung CA versus perhaps lymphoma. I am going to go ahead and offer him an endobronchial ultrasound and a navigational bronchoscopy tomorrow, and we will proceed with trying to obtain a tissue diagnosis, which will help in the management. He is agreeable.
--- NOTE | 2017-05-12 10:13 | Progress Note ---
Subjective Date of Service: May 12, 2017. Subjective Pt evaluation today including: conversation w/ patient Pt had an issue with IV infiltration and has soreness long R forearm related to this. Tolerated PO without issue this AM. No abd pain. No chest pain or SOB. Pt has been having difficulty sleeping due to anxiety regarding current medical status. He has been given benadryl for this but does not feel it is helping. Pt denies fever, n/v/c/d, LE pain or swelling. Problem List Medical Problems: (1) GI bleed Status: Acute (2) Neutropenic fever Status: Acute (3) Symptomatic anemia Status: Acute Review of Systems All Other Systems: Reviewed and Negative Objective Vital Signs Date Time Temp Pulse Resp B/P (MAP) Pulse Ox O2 Delivery O2 Flow Rate FiO2 05/12/17 07:23 36.6 81 18 102/71 (81) 97 Room Air 05/12/17 00:50 36.5 85 18 100/67 (78) 97 Room Air 05/12/17 00:00 Room Air 05/11/17 20:00 Room Air 05/11/17 16:13 36.6 81 18 111/72 (85) 97 Room Air 05/11/17 16:00 96 Room Air 05/11/17 14:00 96 Room Air 05/11/17 13:40 36.7 87 16 94 3.0 05/11/17 12:00 Room Air 05/11/17 11:51 36.7 87 16 103/64 (77) 94 Room Air Physical Exam Comments: General Appearance: no apparent distress, + thin Eyes: normal inspection, EOMI, sclerae normal Respiratory/Chest: normal breath sounds, no respiratory distress Cardiovascular: regular rate, rhythm, no edema Abdomen: non tender, soft Extremities: R forearm with area of TTP at site of prior IV, no bruising noted , no pedal edema Neurologic/Psychiatric: alert, oriented x 3 Skin: normal color, warm/dry Laboratory Results Last 24 Hours Test 05/11/17 11:34 05/12/17 05:46 Bedside Glucose 146 mg/dl White Blood Count 2.64 K/uL Red Blood Count 3.08 M/uL Hemoglobin 9.1 g/dL Hematocrit 28.1 % Mean Corpuscular Volume 91.2 fL Mean Corpuscular Hemoglobin 29.5 pg Mean Corpuscular Hemoglobin Concent 32.4 g/dl RDW Standard Deviation 54.7 fL RDW Coefficient of Variation 16.8 % Platelet Count 200 K/uL Mean Platelet Volume 13.0 fL Nucleated RBC Absolute Count (auto) 0.02 K/uL Nucleated Red Blood Cells % 0.6 % Assessment and Plan Patient is a 62-year-old male with a history of recent admission for large cavitary necrotizing pneumonia versus malignancy in the right upper and middle lobes with hemoptysis and severe anemia, latent TB, PAD, [id number] smoking history and likely COPD, recent weight loss and cachexia, who presents to the ER after he had outpatient labs showing a hemoglobin of 5.4. He does admit to having crampy abdominal pain with diarrhea and black tarry stools the last 2 days prior to admission. He denies heartburn or upper abdominal pain. He denies chest pain or shortness of breath, he is not hypoxic, and he has not had any hemoptysis recently. Hemoglobin upon discharge 9 days [employer] was 8.7. His hemoglobin in the ER was 4.9, he was mildly tachycardic, and he did have a fever to a max of 38.3. He had Hemoccult positive stool the last admission he was here, however it was thought that he was swallowing his hemoptysis at that time, and no urgent scope was indicated. Severe anemia,Melena, Abd pain/C. 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 Colonoscopy with fair prep and melanosis in the cecum, no definite source of bleeding identified, but poor visibility. MR enterography with terminal ileum and cecum lighting up with possible infection versus inflammation versus neoplasm. Hgb up to 8.6 yesterday and remains the same today. Was 4.9 on admission. Transfused 4 units PRBCs on admission, blood pressures have improved. C. diff positive 05/08 -continue to follow CBC daily, improved to 9.1 on 05/12 -dc'd PPI gtt after EGD ok, converted to Protonix 40mg po daily for Brown's -Will need periodic EGD surveillance of Brown's esophagus -Plan for discharge to [facility] possibly tomorrow if hemoglobin remains stable-Dr. Sanchez will arrange for an outpatient video capsule study next week -f/u H. pylori stool ag -Appreciate GI consultation -continue po Vanco 125mg qid x 10 days and perhaps longer if on prolonged abx course for his Pseudomonas pneumonia Large cavitary necrotizing Pseudomonas pneumonia vs Malignancy in the RUL with hemoptysis/h/o latent TB/Fever-bronchoscopy completed last admission and all studies neg for malignancy thus far except there were some atypical appearing cells on BAL that may indicate adenocarcinoma. He previously had +Pseudomonas and Madhuri albicans in sputum and BAL-treated with 2 weeks Cefepime. No leukocytosis. AFB smears neg x 3 last admission. Now with +Pseudomonas aeruginosa again (pansensitive) in sputum. Probable postobstructive pneumonia versus colonization Has lost 37 lbs in last 2 months. Still suspect malignancy vs residual infection. Repeat Chest CT here shows no change in large cavitary lung mass and enlarged mediastinal LN -continue antibiotic therapy-was on Zosyn, now narrowed to aztreonam. Could convert to by mouth fluoroquinolone upon discharge to finish out another 2 week course -follow Blood cultures-no growth to date -Appreciate Pulm consult -consult Oncology for further recommendations on if needs any further Oncologic workup given previous suspicions of MALT lymphoma despite negative FISH studies- --> appreciate recommendations for more tissue sampling needed once stabilized from GI bleeding-follow up with oncology after tissue sampling completed CT surg feels source is GI but will pursue bronch on 05/13 if no further bleeding noted Cachexia, Severe protein calorie malnutrition-as above for etiology -consult Dietary PAD, [id number] smoking history/Current smoker/Suspected COPD- Severe PAD seen on CT abd/pel, asymptomatic at this time, not walking much due to weakness , weight loss, illness -no antiplatelets for now due to bleeding ongoing -would start high intensity statin when can tolerate po - smoking cessation education Hyponatremia-Na+ 129 on admit, now improved to 135, likely secondary to dehydration-resolved Prophylaxis-SCDs only given ongoing bleeding, Protonix Disposition-will need rehab which is recommended by PT-accepted to [facility] when able DO NOT RESUSCITATE/DO NOT INTUBATE Add low dose ambian for sleep 05/12
[2017-05-12] MEDS ORDERED: ZOLPIDEM TARTRATE 5 MG TAB PO PRN (10:15)
[2017-05-12] MEDS: PANTOprazole SOD 40 MG TAB PO SCH (10:21)
[2017-05-12] MEDS: SENNA 8.6 MG TAB PO PRN (10:22)
[2017-05-12] MEDS: RASPBERRY SYRUP 5 ML UDP PO SCH ×4 (10:22→20:05)
[2017-05-12] MEDS: VANCOMYCIN HCL 125 MG/2.5ML SOLN PO SCH ×4 (10:23→20:05)
[2017-05-12] MEDS: NICOTINE 21 MG/24 HR TDSY TD SCH (10:25)
[2017-05-12 10:44] VITALS: O2SAT 97
--- NOTE | 2017-05-12 14:47 | GASTROENTEROLOGY PROGRESS NOTE ---
DATE: 05/12/2017 GASTROENTEROLOGY INPATIENT PROGRESS NOTE\ phone disconnected. re-dictated. see note of same date jd MTDD
[2017-05-12 16:00] VITALS: BP 110/70; PULSE 94; TEMP 37.4; O2SAT 94
[2017-05-12] MEDS: ACETAMINOPHEN 325 MG TAB PO PRN (21:42)
[2017-05-12] MEDS ORDERED: NURSING VERBAL MED ORDER ONE (22:45)
[2017-05-12] MEDS ORDERED: POLYETHYLENE (MIRALAX) 17 GM PACK PO STA (23:02)
[2017-05-12] MEDS ORDERED: POLYETHYLENE (MIRALAX) 17 GM PACK PO PRN (23:15)
[2017-05-12 23:53] VITALS: BP 109/67; PULSE 89; TEMP 36.5; O2SAT 96
[2017-05-13] MEDS: AZTREONAM 2000 MG in DEXTROSE 5% 100 ML IV SCH (04:41)
[2017-05-13 06:07] LABS: MEAN CELL VOLUME 91.8 fL (80-100); MEAN CORPUSCULAR HEMOGLOBIN 28.5 pg (25-34); MEAN PLATELET VOLUME 12.5 fL (7.4-10.4); PLATELET COUNT 173 K/uL (130-400); RED CELL DISTRIBUTION WIDTH CV 16.9 % (11.5-14.5); RED CELL DISTRIBUTION WIDTH SD 55.4 fL (36.4-46.3); WHITE BLOOD COUNT 2.37 K/uL (4.8-10.8)
[2017-05-13 07:24] VITALS: BP 110/68; PULSE 82; TEMP 36.6; O2SAT 97
[2017-05-13 07:28] VITALS: BP 98/57; PULSE 84; TEMP 36.6; O2SAT 99
[2017-05-13 07:37] VITALS: BP 96/71; PULSE 87; TEMP 36.5; O2SAT 94
[2017-05-13] MEDS ORDERED: ATROPINE SULFATE 0.1 MG/ML 5ML SYR IV PRN (07:45)
[2017-05-13] MEDS ORDERED: FENTANYL CITRATE INJ 50 MCG/1 ML 2 ML VIAL IV PRN (07:45)
[2017-05-13] MEDS ORDERED: EpHEDrine SULFATE INJ 50 MG/ML AMP IV PRN (07:45)
[2017-05-13] MEDS ORDERED: ONDANSETRON INJ 2 MG/ML 2 ML VIAL IV PRN (07:45)
[2017-05-13] MEDS ORDERED: CLINDAMYCIN 600 MG/54 ML D5W IV ONE (07:52)
[2017-05-13] MEDS: NICOTINE 21 MG/24 HR TDSY TD SCH (08:00)
[2017-05-13] MEDS: RASPBERRY SYRUP 5 ML UDP PO SCH (08:00)
[2017-05-13] MEDS: VANCOMYCIN HCL 125 MG/2.5ML SOLN PO SCH (08:00)
[2017-05-13] MEDS: SACCHAROMYCES BOUL (FLORASTOR) 250 MG CAP PO SCH (08:00)
[2017-05-13] MEDS ORDERED: NOREPINEPHRINE BIT INJ 8 MG in DEXTROSE 5% 500ML 500 ML IV PRN (10:43)
[2017-05-13] MEDS ORDERED: ICU PROTOCOL FOR HYPERGLYCEMIA PRN (11:15)
--- NOTE | 2017-05-13 11:25 | OPERATIVE REPORT ---
DATE OF OPERATION: 05/13/2017 PREOPERATIVE DIAGNOSES: 1. Right upper and right middle lobe mass. 2. Anemia. 3. History of cigarette smoking. POSTOPERATIVE DIAGNOSES: 1. Endobronchial hemorrhage. 2. Same. PROCEDURE: 1. Endobronchial ultrasound with biopsy of level 7 lymph node. 2. Rigid bronchoscopy with attempt to control bleeding. SURGEON: Dr. Acevedo. JET HANDLER: Rich Good, respiratory therapy. ANESTHESIA: General anesthesia with endotracheal intubation. PROCEDURE AND FINDINGS ILLNESS: Mr. 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 A few weeks ago, his hemoglobin was 3.7, he was transfused up. It appeared that he may well have metastatic disease as he had had hemoptysis for many months. He underwent a diagnostic bronchoscopy by Dr. Rosemary Boudreaux and pseudomonas was grown out. He has been treated for this for several weeks. The patient's hemoptysis stopped, and he was transferred to a rehab facility, but came back as his hemoglobin had dropped again and he underwent an endoscopy as he had melanotic stools. He had a Brown esophagus, but no evidence of acute bleeding. He also underwent a colonoscopy. I have spoken to him since this admission on a daily basis and really we did not have an etiology. As we had elected to proceed with watching him here, I went ahead and scheduled him for an endobronchial ultrasound with a navigational bronchoscopy. I brought the patient down and upon placing the endotracheal tube, I placed the endobronchial ultrasound scope down without difficulty. I came down and noted a level 7 node and started off on the left side. I did 2 biopsies to this and we did get a lymphoid tissue; however, he started bleeding from this. I switched the scope over to a fiberoptic bronchoscope and suctioned and I was surprised to see that it was difficult for me to localize the bleeding. I assumed it was from my biopsy site; however, it appeared he may have bleeding from the right upper lobe also. I really had difficulty evacuating the blood from the endobronchial tree and I switched him over to a rigid scope. This was placed without difficulty and I suctioned this out and still was difficult for me to say. After suctioning out his right side clearly, it filled with blood again and it appeared to me that he may be bleeding from the right upper lobe bronchus. I could not find any specific bleeding area. I specifically looked at the left carinal area several times and did not see a bleeding source. He bled quite a bit and finally after suctioning him out multiple times, we put an endotracheal tube in and he seemed to settle down from this; however, his saturations were very well for a long period of time. He never really lost his blood pressure. He was transported back to in critical condition to the intensive care unit. He only weighs about 90 pounds and is quite cachectic. DESCRIPTION OF THE PROCEDURE: The patient brought to the operating and laid in supine position. General anesthesia induced and endotracheal intubation was performed with a single lumen 8.5 endotracheal tube. Upon placing the endobronchial ultrasound scope down, I closely inspected all airways and I do really not see any bleeding, although he had evidence of some old blood, which I suctioned out of the right mainstem bronchus. Otherwise, I irrigated this clear and there was really no evidence of any pus or bleeding. Using the endobronchial ultrasound, I started off on the left side and I really did not see much in the level 4, level 10 or level 11 area on the left; however, there was a fairly sizable level 7 node which probably measured close to 2 cm. Using an ultrasound for guidance, I biopsied this with a needle. He really had very little in the way of bleeding back from this. The rapid onsite evaluation showed that we did get lymphatic material. I then repeated this and upon removing this, I prepared to do my third biopsy and I noted bleeding. I had difficulty telling with endobronchial ultrasound scope where this bleeding was coming from. I looked at the gladys on the left and right side and I really did not see evidence of bleeding. It seemed that it may have been coming from higher up. I then switched over to a fiberoptic bronchoscope as this allowed better visualization and I suctioned out everything and the bleeding appeared to be coming from higher up. There was some oozing on the left side of dark blood, but I also noticed that we had some blood coming from the right upper lobe bronchus. The bleeding was quite heavy and it was difficult for me to say to ascertain 100% where this bleeding was coming from. This was important because as far as ventilating him, we felt that we could put a single lumen tube into his right mainstem bronchus, if he should develop problems with massive hemoptysis. I switched him over to a Storz 8.5 rigid bronchoscopy scope. We used a GlideScope to help to put this in. Upon suctioning it out, I really could not tell where this bleeding was coming from and was welling up. He bled quite a bit and we really could not get control of this. We used the jet ventilator as well as the bronchoscope to ventilate him and he had so much bleeding that we had trouble ventilating him. I attempted to put a tube into the right mainstem bronchus, so we could just ventilate the right side but this did not work well as we had continued bleeding from this tube. His saturations dropped dangerously low despite the fact that his heart rate never went up and his blood pressure was adequate until he desaturated. I felt he was going to arrest in the OR, we switched him over to a single lumen tube and he seemed to stop bleeding. There really was very little bleeding coming from the scope, but he dropped his saturations quite a bit. He was transferred over to the intensive care unit intubated and in critical condition. It should be noted that I used iced saline for a long period of time as well as epinephrine. I could not really see an area of bleeding to put a balloon on or cauterized anything with the rigid scope. With simply welling up I could not localize it. At this point, he is critically ill, but was quite ill when he came in. I will discuss this with his daughter, and I have called Sho Edwards, multiple times (telephone [phone]) as of yet, I have not contacted her. I attest to the content of the Intraoperative Record and any orders documented therein. Any exceptions are noted below. SARANYA
--- NOTE | 2017-05-13 11:30 | SURGERY PROGRESS NOTE ---
DATE: 05/13/2017 SUBJECTIVE: Mr. Guajardo was taken to the operating room for an endobronchial ultrasound today and started bleeding profusely. We did multiple procedures including a rigid bronchoscopy and jet ventilation and used epinephrine and saline. We never really could pinpoint the area of bleeding. He arrested in the OR, but we were able to stabilize him after we put a regular endotracheal tube and got him back to the ICU; however, it was difficult to ventilate him. He arrived in the intensive care unit at 10:36. At 11:16, he became asystolic. He had been a do not resuscitate designation level 5 status, preoperatively. I wrote an order to continue that after 30 minutes here in the ICU. I discussed with his son, Edwin Wang, who is on his way in. It should be noted that the patient was a DNR preoperatively. SARANYA
--- NOTE | 2017-05-13 11:46 | Anesthesiology Progress Note ---
Anesthesia Post Op Note Date & Time May 13, 2017 at 11:13 Vital Signs Pain Intensity: 0.0 Vital Signs Past 12 Hours Date Time Temp Pulse Resp B/P (MAP) Pulse Ox O2 Delivery O2 Flow Rate FiO2 05/13/17 08:00 Room Air 05/13/17 07:37 36.5 87 16 96/71 (79) 94 Room Air 05/13/17 07:28 36.6 84 18 98/57 (71) 99 Room Air 05/13/17 07:24 36.6 82 16 110/68 (82) 97 Room Air 05/13/17 00:00 Room Air 05/12/17 23:53 36.5 89 16 109/67 (81) 96 Room Air Notes Mental Status: see Notes Nausea / Vomiting: see Notes Pain: see Notes Airway Patency, RR, SpO2: see Notes BP & HR: see Notes Hydration State: see Notes Anesthetic Complications: The anesthetic was complicated from profuse bleeding as a result of the biopsies. As soon as it became apparent that the bleeding could not be controlled, Dr. Acevedo switched to a rigid bronchoscope to give him a better chance at evacuating the clots. We set up a jet ventilation system and despite very high airway pressures, we were able to provide enough ventilation to maintain his 02 sats at or around 100 for most of the case, but the bleeding continued and and large clots were forming and eventually ventilation became very difficult and the [address] Small came into the operating room to help and under her direction defibrillator pads were placed on the patient and an 18 gauge IV was started. when his sats were around 20 and his pulse was essentially lost, we started CPR and did about four two minute cycles giving epinephrine and vasopressin in accordance with ACLS guidelines. Please see the nursing notes for drug dosages and times given. He was re- intubated down the right mainstem bronchus because that was the side that was most clear. His sats started climbing into the 90s, he had return of spontaneous circulation and a blood pressure of around 130/80. The ICU personnel were there and I started a right radial arterial line.The patient was transported to the ICU in unstable condition, being oxygenated by bag/mask through the ET tube. Shortly after arriving, a blood transfusion was started.The patient coded again and was resuscitated again. Dr Acevedo had attempted to contact the family unsuccessfully during this time, but his son called back and after talking to Dr. Acevedo I spoke to him and explained what had happened including the cardiac arrests. I suggested that he come as soon as possible and he said they were on their way. Because the patient was a DNR before the case, it was decided that there would be no more attempts at CPR in the ICU if the patient coded again.
--- NOTE | 2017-05-13 12:04 | Death Pronouncement Note ---
Pronouncement Note Date & Time of May 13, 2017. 11:16a Pronouncement At time of pronouncement the patients pupils were fixed and dilated, there was no spontaneous respiratory effort, no palpable pulse, no audible heart tones, and no response to pain or voice. Pronouncing physician was Dr. Francesco Acevedo. See his note for details. I did complete the certificate shortly after pronouncement. Family arrived approximately 1 hour s/p pronouncement and I did discuss cause of with them as best able. They did wish to speak with Dr. Acevedo who was contacted and planning to return to speak with family.
--- NOTE | 2017-05-13 12:05 | Death Summary ---
Summary of Admission Date May 07, 2017 at 14:13 Date & Time of May 13, 2017. 11:16a Cause of Acute blood loss related to bronchoscopy Secondary Diagnoses Lung mass Cavitary lesion Possible GIB Tobacco abuse Hospital Course 62-year-old male with a history of recent admission for large cavitary necrotizing pneumonia versus malignancy in the right upper and middle lobes with hemoptysis and severe anemia, latent TB, PAD, [id number] smoking history and likely COPD, recent weight loss and cachexia, who presented to the ER after he had outpatient labs showing a hemoglobin of 5.4. He does admit to having crampy abdominal pain with diarrhea and black tarry stools the last 2 days prior to admission. He denies heartburn or upper abdominal pain. He denies chest pain or shortness of breath, he is not hypoxic, and he has not had any hemoptysis recently. Hemoglobin upon discharge 9 days [employer] was 8.7. His hemoglobin in the ER was 4.9, he was mildly tachycardic, and he did have a fever to a max of 38.3. He had Hemoccult positive stool the last admission he was here, however it was thought that he was swallowing his hemoptysis at that time, and no urgent scope was indicated. Severe anemia,Melena, Abd pain/C. 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 Colonoscopy with fair prep and melanosis in the cecum, no definite source of bleeding identified, but poor visibility. MR enterography with terminal ileum and cecum lighting up with possible infection versus inflammation versus neoplasm. Hgb was 4.9 on admission. Pt was transfused 4 units PRBCs and continued to improve during course of admission with stable BP and Hb at 9.0 It was decided that pt would have an outpatient video capsule study next week to continue this evaluation -C. diff positive 05/08, was treated with po Vanco 125mg qid Large cavitary necrotizing Pseudomonas pneumonia vs Malignancy in the RUL with hemoptysis/h/o latent TB/Fever-bronchoscopy completed last admission and all studies neg for malignancy thus far except there were some atypical appearing cells on BAL that may indicate adenocarcinoma. He previously had +Pseudomonas and Madhuri albicans in sputum and BAL-treated with 2 weeks Cefepime. No leukocytosis. AFB smears neg x 3 last admission. Pt was found to have +Pseudomonas aeruginosa again (pansensitive) in sputum. Probable postobstructive pneumonia versus colonization Pt had lost 37 lbs in last 2 months and there was still suspicion for malignancy vs residual infection. Repeat Chest CT showed no change in large cavitary lung mass and enlarged mediastinal LN Pt was maintained on abx during admission -Blood cultures-neg Oncology had concerns for possible MALT lymphoma despite negative FISH studies and were awaiting tissue sampling once stabilized from GIB Pt was also noted to have cachexia with severe protein calorie malnutrition PAD, [id number] smoking history with suspected COPD- Severe PAD seen on CT abd /pelvis although pt was asymptomatic with this. He was not walking much due to weakness, weight loss, illness and possible would have had more sx if able to be more active Pt was not started on antiplatelets due to bleeding concerns as listed above Pt was noted to be hyponatremic-Na+ 129 on admit which improved and was likely secondary to dehydration and poor PO intake CT surgery planned for bronch today if no further bleeding noted and Hb and VS were stable. Pt had been in agreement with this plan since it was initiated on Friday. Unfortunately during his bronch procedure today, pt started to have uncontrollable bleeding. Per CT surgery, a source could not be identified. It is felt that it was not the biopsy site. Bleeding could not be controlled and resuscitation interventions were started as per pt's wishes, which were limited in his request to be DNR/DNI. Pt was transferred to the ICU for closer monitoring, but ultimately . Family was notified by Dr. Acevedo. I did speak with them at bedside as well. I was contacted later in the day by Reza Mccall, patrol deputy sheriff and discussed the pt's case with him as an autopsy has been requested. Copy To Randal Messer D.O.
--- NOTE | 2017-05-13 12:20 | Anesthesiology Progress Note ---
Anesthesia Progress Note Date of Service May 13, 2017. Progress Notes Notes to clarify anesthetic record (not enough room to write on paper record): 0830: Induction uneventful, LETTY x 1 attempt via DL with Grade II View uneventful. Keeping BP within 20% of baseline with Neosynephrine. Patient tolerating procedure well. 0840: Dr. Acevedo said "patient is really bleeding." s/p biopsy. Dr. Cutler in room. Now unable to ventilate through ETT. ETT is in correct place but with clot below cords and ETT per Kristina using his scope. He promptly removed ETT and began rigid bronchoscopy to evacuate clots/ blood. Jet ventilator set up and used through rigid bronch. VSS stable and spo2 maintained. Low dose proprofol started for patient comfort. Albumin started. 0900: Dr. Hanson in room to assist. Dr. Cutler in room and remains in room. 30: IStat done. See computer for results. 45: Dr. Acevedo continues to evacuate blood and clots via rigid bronchoscopy. 2nd PIV 18g RH placed by Tim Weldon for blood products. New T&C sent and 2 units to be coming from blood bank. Multiple attempts made at purposefully intubating in right mainstem bronchi made due to this being the clearer lung per Dr. Acevedo. ETT successfully placed however spo2 began dropping and still unable to ventilate with continued bleeding in the lungs. Multiple suctioning via ETT by anesthesia when ETT was in otherwise Dr. Acevedo continues to do rigid bronch for blood/ clot evacuation with us doing jet ventilator at 100%. Suggestions made to attempt mask ventilation, not to do per Kristina. Spo2 now beginning to drop but BP and HR still stable. Dr. Small now in room and applied defibrillator pads and inserted 20g LH as well as parvez a fibrinogen level. 1000: Dr. Acevedo decided to stop procedure, went to talk to family. 8.5 ETT placed purposefully in right mainstem bronchus via glidescope x 1 attempt due to this being the clearer lung per Kristina. ETT suctioned for clots and copious amounts of blood. Placement confirmed by direct visualization and via b/ l lung sound present but distant/ decreased. 1005: Patient's spo2 continued to drop down to 20% despite attempts at ventilation via ETT and suctioning. Patient went into PEA and Resuscitation started according to ACLS. See Code sheet for details/ medications. 1014: ROSC. Ventilating better through ETT with Vt 300s, ETCO2 present. VSS. ICU MD, Dr. Small, Dr. Acevedo and Dr. Cutler at bedside. PRBC on the way from blood bank. To transfer patient to ICU on monitor and ventilation via AMBU at 100%. 1025:Arterial line also placed by Dr. Cutler x 1 attempt with a good waveform. 1030:Continuing to suction out ETT and manually ventilate while prepping patient to transfer to ICU. VSS. 1035: Transporting to ICU on monitor with ICU MD, He, Tim Weldon and myself. 1044:patient hooked onto ICU monitor and spo2 now dropping into 80s with difficulty ventilating through ETT. Multiple attempts at suctioning made. BP dropped and patient went into PEA. See code sheet for details/ drugs. 1055: patient ROSC (see code sheet for exact time). spo2 up, SBP 180s via arterial line. NSR. 18g placed in right arm by Tim Weldon and PRBC infusing. RN preparing to start Norepinephrine drip. Report given to Hermilo RN who had no questions when finished and he assumed care of patient. Dr. Cutler went to talk to family and update. RT at bedside managing airway and suctioning. Dr. Acevedo in room again after talking to family. EBL 1000ml per Dr. Acevedo.
--- NOTE | 2017-05-13 12:42 | Anesthesiology Progress Note ---
Anesthesia Progress Note Date of Service May 13, 2017. Progress Notes I was informed by nursing that help was needed in OR2 with a patient that was bleeding. I arrived in OR 2 to provide assistance to Dr. Cutler who was the attending of record. I assisted in resuscitative efforts by placing defibrillator pads, starting a PIV, drawing labs, and answering questions about DNR OR policies.
--- NOTE | 2017-05-13 13:46 | Medical Consult ---
Consultation Note Date of Service May 13, 2017. Consultation Note Stacker Attendant: Dr. Sharp Received a call from the intensive care nurses station asking us to respond to OR room #2 with unknown problem. Arrived within 2-3 minutes and found patient in cardiac arrest with ongoing chest compressions. Patient was already intubated and kimberly bloody secretions were being suctioned by anesthesia. Patient was given epinephrine boluses as well as one amp of bicarbonate and had spontaneous return of circulation with palpable pulse. An arterial line was then placed by Dr. Cutler with a good rhythm on the monitor. Patient continued to have periods of desaturation and required additional suctioning of kimberly blood from the endotracheal tube. Patient was urgently transferred to the intensive care unit bed #105. He then experienced additional episodes of PDA requiring further cardiac compression with return of pulse. Two units of packed red blood cells and one unit of FFP were ordered urgently from the blood bank and delivered within a few minutes. Patient received both units of packed red blood cells and had a short period of spontaneous circulation before blood pressure began to drop again. Patient required continuous suction from the endotracheal tube with significant bleeding into the HFA filter. Levo fed was started as a continuous drip. Discussion was had with family by phone with Dr. Acevedo. During the period that the patient was in the intensive care from 10: 36 AM until 11:07 AM patient continued be resuscitated. At that point Dr. Acevedo change the patient's code status from a perioperative status of level I to a preoperative status of level V DNR/DNI. Patient continue to have drop in blood pressure and we are unable to continue to maintain the airway due to kimberly hemoptysis. Patient from apparent exsanguination. He was pronounced by Dr. Acevedo at 11:[address] Sharp was present the entire time from arrival in the OR until for the full resuscitative effort.
[2017-05-13] MEDS ORDERED: ROCURONIUM BROMIDE 10 MG/ML 5 ML VIAL IV ONE (14:20)
[2017-05-13] MEDS ORDERED: VASOPRESSIN 20 UNIT/ML VIAL IV ONE (14:20)
[2017-05-13] MEDS ORDERED: LARYING-O-JET KIT (LTA) EXT ONE (14:20)
[2017-05-13] MEDS ORDERED: SODIUM BICARB 8.4% INJ 50 MEQ/50 ML SYR IV ONE ×2 (14:20)
[2017-05-13] MEDS ORDERED: DEXAMETHASONE SOD INJ 4 MG/ML VIAL IV ONE (14:20)
[2017-05-13] MEDS ORDERED: MIDAZOLAM HCL 1 MG/ML 2ML VIAL IV ONE (14:20)
[2017-05-13] MEDS ORDERED: CALCIUM CHLORIDE 10% 10 ML SYR IV ONE (14:20)
[2017-05-13] MEDS ORDERED: PHENYLEPHRINE HCL INJ 10 MG/ML VIAL IV ONE (14:20)
[2017-05-13] MEDS ORDERED: PROPOFOL IV EMULSION 10 MG/ML 20 ML VIAL IV ONE (14:20)
[2017-05-13] MEDS ORDERED: ONDANSETRON INJ 2 MG/ML 2 ML VIAL IV ONE (14:20)
[2017-05-13] MEDS ORDERED: NOREPINEPHRINE BITARTRATE 1 MG/ML 4 ML VIAL IV ONE (14:20)
[2017-05-13] MEDS ORDERED: LIDOCAINE HCL 2% 2 ML VIAL (20MG/ML) INFIL ONE (14:20)
[2017-05-13] MEDS ORDERED: FENTANYL CITRATE INJ 50 MCG/1 ML 2 ML VIAL IV ONE (14:20)
--- NOTE | 2017-05-13 16:28 | SURGERY PROGRESS NOTE ---
DATE: 05/13/2017 SUBJECTIVE: Mr. Guajardo underwent an endobronchial ultrasound was biopsied twice and began bleeding. It is unclear whether he has bleeding from the upper lobe mass or from the area of biopsy, as we could not localize it. He ended up arresting and was pronounced at 11:16 p.m. Approximately 1:00, I met with the patient's son, Edwin Wang and his as well as the patient's daughter Mean Edwards. We had a very long discussion about what led out to this. They readily admitted the patient had been a DNR and they knew how sick he was. I explained that it was not clear to me where the bleeding was from. I assumed it was from our biopsy site; however, I visualized the gladys several times, I did not see it. At any rate, I had a long discussion and told them I thought it was very important that we do an autopsy for their benefit and their children's benefit as we still do not have a diagnosis. It should be noted on the rapid onsite evaluation in the OR we did get was lymphatic tissue. We saw no evidence of malignancy. I gave the patient's son and daughter my cell phone number and told me if they had not heard from me in a couple of weeks, to call back and we would assess the progress of the autopsy. I answered all their questions and we spent a great deal of time talking about our reasons for going into the operating room for performing this bronchoscopy. The patient's son and the patient's daughter and I all agreed that he was eager to have this done as he "needed to know." I feel all questions were answered to their satisfaction and extended my condolences. SARANYA
--- NOTE | 2017-05-28 11:32 | GASTROENTEROLOGY PROGRESS NOTE ---
DICTATED BY: Portillo Sanchez M.D. DATE: 05/12/2017 GASTROENTEROLOGY INPATIENT PROGRESS NOTE Chart reviewed, patient examined. The patient reports feeling well without abdominal pain, nausea, vomiting, tolerating p.o. well, although he has not had many bowel movements over the last day or so. There are no reports of melena or bright red blood per rectum, hematemesis or coffee ground emesis. LABORATORY DATA: His laboratory study today shows a hemoglobin that is up to 9.1 from 8.6 over the past 2 days. He received 4 units of packed blood cells, 3 on May 07 and one on May 08 with no additional blood products. REVIEW OF SYSTEMS: Otherwise noncontributory, based on 13-point exam. There tentative plans for bronchoscopy tomorrow. MEDICATIONS: Reviewed. He is on vancomycin p.o. for acute C. diff infection as well as Azactam for the pseudomonas sputum culture. He is also on senna for his constipation as well as nicotine and Ambien and Nicoderm patch. PHYSICAL EXAMINATION: VITAL SIGNS: Today vital signs are stable. Blood pressure 102/71, respirations 18, heart rate 81, temperature 36.6, 97% on room air. GENERAL: The patient is awake, alert and oriented x3, resting comfortably in bed. HEENT: Sclerae anicteric, conjunctivae moist. Oral mucosa moist. LUNGS: Decreased breath sounds bilaterally. ABDOMEN: Soft, nondistended, nontender, without rebound or guarding. There are no masses or bruits. There are positive bowel sounds. EXTREMITIES: Without edema. RECTAL: Deferred. IMPRESSION AND PLAN: I spoke with the patient today regarding the recommended gastrointestinal workup. Dr. Michaels also spoke with the patient's daughter yesterday about the workup to date, in light of the upper endoscopy performed last week as well as a limited prepped a colonoscopy and the findings on MR enterography. The patient has not had any additional melenic stools since admission, although it is suspected that gastrointestinal bleeding disorders may be the culprit of his recurrent anemia. At this time, he has not reported or demonstrated any hemostasis. I do believe that at some point he will need additional testing that would include small bowel video capsule to complete the luminal GI workup and may require a repeat EGD with push enteroscopy and colonoscopy with a 2-day bowel preparation. The patient is still reluctant to undergo these, but will do so if it is recommended. I believe we can readdress this after his bronchoscopy tomorrow. If, however, in the interim, there is any evidence of active bleeding that a tagged red cell scan is recommended acutely to see if a region can be identified. The changes identified on the MR enterography are unclear and may be nonspecific, but need a followup evaluation. All questions answered to their satisfaction.
== END 2017-05-13 14:21 | disposition expired | DRG 163 ==
LOC: C.EDB 10:47 → C.2E 14:13 → EDBEDREQ 14:24 → ENRESERV 14:35 → EDBEDREQ 05-11 13:24 → ENRESERV 05-11 13:28 → C.4E 05-11 14:10 → C.MSICU 05-13 10:49
PROVIDERS: ADMIT Family Medicine; ATTEND Family Medicine
PROC: 0DB98ZX Excision of Duodenum, Via Natural or Artificial Opening Endoscopic, Diagnostic (ICD-10-PCS; 2017-05-08)
PROC: 0DB38ZX Excision of Lower Esophagus, Via Natural or Artificial Opening Endoscopic, Diagnostic (ICD-10-PCS; 2017-05-08)
PROC: 0DJD8ZZ Inspection of Lower Intestinal Tract, Via Natural or Artificial Opening Endoscopic (ICD-10-PCS; 2017-05-09)
PROC: 07B74ZX Excision of Thorax Lymphatic, Percutaneous Endoscopic Approach, Diagnostic (ICD-10-PCS; principal; 2017-05-13 08:00)
PROC: 5A12012 Performance of Cardiac Output, Single, Manual (ICD-10-PCS; principal; 2017-05-13 08:00)
PROC: 0B948ZZ Drainage of Right Upper Lobe Bronchus, Via Natural or Artificial Opening Endoscopic (ICD-10-PCS; principal; 2017-05-13 08:00)
DX: J15.1 Pneumonia due to Pseudomonas (principal); E43 Unspecified severe protein-calorie malnutrition; C34.11 Malignant neoplasm of upper lobe, right bronchus or lung; C34.2 Malignant neoplasm of middle lobe, bronchus or lung; J95.61 Intraoperative hemorrhage and hematoma of a respiratory system organ or structure complicating a respiratory system procedure; I97.711 Intraoperative cardiac arrest during other surgery; K92.2 Gastrointestinal hemorrhage, unspecified; K92.1 Melena; A04.7 Enterocolitis due to Clostridium difficile; E87.1 Hypo-osmolality and hyponatremia; R64 Cachexia; Z68.1 Body mass index [BMI] 19.9 or less, adult; D50.0 Iron deficiency anemia secondary to blood loss (chronic); K22.70 Barrett's esophagus without dysplasia; K57.30 Diverticulosis of large intestine without perforation or abscess without bleeding; K63.89 Other specified diseases of intestine; R93.3 Abnormal findings on diagnostic imaging of other parts of digestive tract; J44.9 Chronic obstructive pulmonary disease, unspecified; F17.210 Nicotine dependence, cigarettes, uncomplicated; I73.9 Peripheral vascular disease, unspecified; Z66 Do not resuscitate; Z86.11 Personal history of tuberculosis; Z87.01 Personal history of pneumonia (recurrent); Z82.5 Family history of asthma and other chronic lower respiratory diseases